=== PATIENT | male | born 1950 | race Caucasian/White ===

== ENCOUNTER → 2017-07-28 | Outpatient (CLI) | payer OTHER ==
[2017-07-28 12:18] LABS: HEMATOCRIT 37.2 % (42-52); HEMOGLOBIN 12.6 g/dL (14.0-18.0); MEAN CELL VOLUME 94.4 fL (80-100); MEAN CORPUSCULAR HGB CONC 33.9 g/dl (32-36); MEAN PLATELET VOLUME 10.1 fL (7.4-10.4); PLATELET COUNT 130 K/uL (130-400); RED CELL DISTRIBUTION WIDTH CV 12.1 % (11.5-14.5); RED CELL DISTRIBUTION WIDTH SD 41.2 fL (36.4-46.3); WHITE BLOOD COUNT 4.34 K/uL (4.8-10.8)
[2017-07-28 12:59] LABS: HEMOGLOBIN A1C 5.1 % (4.5-5.6)
[2017-07-28 13:55] LABS: ALBUMIN 3.7 gm/dl (3.4-5.0); ALKALINE PHOSPHATASE 92 U/L (45-117); ALT/SGPT 21 U/L (12-78); AST/SGOT 21 U/L (15-37); BLOOD UREA NITROGEN 22 mg/dl (7-18); CALCIUM 9.2 mg/dl (8.5-10.1); CARBON DIOXIDE 30 mmol/L (21-32); CREATININE 1.58 mg/dl (0.60-1.40); GLUCOSE 84 mg/dl (70-99); POTASSIUM 4.3 mmol/L (3.5-5.1); SODIUM 140 mmol/L (136-145); TOTAL PROTEIN 7.4 gm/dl (6.4-8.2)
== END | disposition home or self-care (01) ==
LOC: C.LABPVFM 09:45
PROVIDERS: ATTEND Family Medicine
DX: Z00.00 Encounter for general adult medical examination without abnormal findings (principal)

== ENCOUNTER → 2017-08-24 | Outpatient (CLI) | payer OTHER ==
--- NOTE | 2017-08-24 09:57 | DIAGNOSTIC IMAGING REPORT ---
TWO VIEW CHEST CLINICAL HISTORY: Pneumonia. FINDINGS: PA and lateral chest radiographs are obtained. No prior studies are available for comparison at the time of dictation. The heart is enlarged and there is atherosclerotic calcification of the thoracic aorta. The pulmonary vasculature is noncongested. Emphysematous change is suspected and there is nonspecific interstitial thickening. No airspace consolidation or pleural effusion is identified. Atelectasis versus scarring is seen at the left lung base. There is no pneumothorax. The skeletal structures are osteopenic. Degenerative change and mild hyperkyphosis are noted in the thoracic spine. IMPRESSION: 1. Cardiomegaly and suspect emphysema. 2. No airspace consolidation or pleural effusion is identified. Electronically signed by: Rey Cancino M.D. 08/24/2017 9:56 AM Dictated Date/Time: 08/24/2017 9:54 AM
== END | disposition home or self-care (01) ==
LOC: C.RAD1850 09:38
PROVIDERS: ATTEND Physician Assistant
DX: J18.9 Pneumonia, unspecified organism (principal)

== ENCOUNTER → 2017-09-29 | Outpatient (CLI) | payer OTHER ==
--- NOTE | 2017-09-29 12:54 | DIAGNOSTIC IMAGING REPORT ---
ADDENDUM CAD FINDINGS: Overall Lung RADS Category: 1 Lung RADS Management Recommendation: Continue annual lung cancer screening. Lung RADS Follow Up Date: September, Electronically signed by: Ted eLnz M.D. 10/01/2017 9:08 AM Dictated Date/Time: 10/01/2017 9:03 AM ORIGINAL REPORT LUNG SCREENING, LOW DOSE CLINICAL HISTORY: AGRESSIVE FORMER SMOKER COMPARISON STUDY: No previous studies for comparison. CT DOSE: 97.72 mGy.cm TECHNIQUE: Low-dose helical CT was acquired without intravenous contrast from lung apices to bases and reconstructed at 2.5 mm every 2 mm. CAD was utilized for this study. A dose lowering technique was utilized adhering to the principles of ALARA. FINDINGS: Lungs are considered clear. Mild emphysematous change. No focal nodular pathology. Minimal dependent basilar atelectasis. No significant mediastinal or hilar adenopathy. IMPRESSION: 1. The lungs are clear with no significant nodular pathology. 2. Mild emphysematous change. 3. Minimal scattered bibasilar atelectasis. CAD FINDINGS: Overall Lung RADS Category: Lung RADS Management Recommendation: Continue annual lung cancer screening. Lung RADS Follow Up Date: Lung RADS Nodule ID: The above report was generated using voice recognition software. It may contain grammatical, syntax or spelling errors. Electronically signed by: Ted Lenz M.D. 09/29/2017 12:53 PM Dictated Date/Time: 09/29/2017 12:50 PM
== END | disposition home or self-care (01) ==
LOC: C.CTS 12:16
PROVIDERS: ATTEND Physician Assistant
DX: Z87.891 Personal history of nicotine dependence (principal)

== ENCOUNTER 2018-01-12 12:15 | Emergency (ER) | payer OTHER ==
[~2018-01-12] VITALS: Ht 177.8 cm; Wt 114.0 kg
[2018-01-12 12:16] VITALS: TEMP 36.3; Ht 177.8 cm; Wt 114.0 kg
[2018-01-12] MEDS ORDERED: ALBINS/ INH (12:58)
[2018-01-12] MEDS ORDERED: TYLOTC500 PO (12:58)
[2018-01-12] MEDS ORDERED: CLR10 PO (12:58)
[2018-01-12] MEDS ORDERED: SPRIN/30 INH (12:58)
[2018-01-12] MEDS ORDERED: B-COTAB18 PO (12:58)
[2018-01-12] MEDS ORDERED: PRED-301 PO (12:58)
[2018-01-12] MEDS ORDERED: ASCO250T5 PO (12:58)
[2018-01-12] MEDS ORDERED: SYMIN160 INH (12:58)
[2018-01-12] MEDS ORDERED: ATRINS NEB (12:58)
[2018-01-12] MEDS ORDERED: TERA5CAP PO (12:58)
[2018-01-12] MEDS ORDERED: AZIT250T PO (12:58)
[2018-01-12] MEDS ORDERED: VNTHFA/IN INH (12:58)
[2018-01-12 13:12] LABS: BASO % 0.5 %; BASO ABS # 0.02 K/uL (0-0.2); EOS % 1.7 %; EOS ABS # 0.07 K/uL (0-0.5); HEMOGLOBIN 13.2 g/dL (14.0-18.0); IG# 0.01 K/uL (0.00-0.02); LYMPH % 20.9 %; LYMPH ABS # 0.88 K/uL (1.2-3.4); MEAN CORPUSCULAR HGB CONC 34.7 g/dl (32-36); MEAN PLATELET VOLUME 9.6 fL (7.4-10.4); MONO % 3.3 %; MONO ABS # 0.14 K/uL (0.11-0.59); NEUT % 73.4 %; PLATELET COUNT 120 K/uL (130-400); RED CELL DISTRIBUTION WIDTH CV 12.6 % (11.5-14.5); RED CELL DISTRIBUTION WIDTH SD 43.4 fL (36.4-46.3); WHITE BLOOD COUNT 4.22 K/uL (4.8-10.8)
[2018-01-12] MEDS ORDERED: OPTIRAY 320 IV PRN (13:30)
[2018-01-12 13:31] LABS: ALBUMIN 3.9 gm/dl (3.4-5.0); CALCIUM 8.9 mg/dl (8.5-10.1); CREATININE 1.51 mg/dl (0.60-1.40); POTASSIUM 4.5 mmol/L (3.5-5.1); TOTAL PROTEIN 7.5 gm/dl (6.4-8.2)
[2018-01-12 14:35] VITALS: BP 160/86; PULSE 68; O2SAT 99
--- NOTE | 2018-01-12 14:49 | DIAGNOSTIC IMAGING REPORT ---
ABDOMEN AND PELVIS CT WITH IV CONTRAST CT DOSE: 995.18 mGycm HISTORY: Lower abdominal pain. TECHNIQUE: Multiaxial CT images of the abdomen and pelvis were performed following the use of intravenous contrast. A dose lowering technique was utilized adhering to the principles of ALARA. COMPARISON STUDY: None. FINDINGS: Emphysema and a few linear scarlike densities within the lung bases. No pneumoperitoneum. No pneumatosis. No suspicious lytic or blastic osseous lesions. Small fat-containing umbilical hernia. The liver, gallbladder, spleen, pancreas, and adrenal glands are unremarkable. Bilateral cortical renal lobulation/scarring. No hydronephrosis. The kidneys enhance normally. No retroperitoneal lymphadenopathy. Mild bladder wall thickening. Extensive colonic diverticulosis. No evidence for diverticulitis. No bowel wall thickening or obstruction. Normal appendix. IMPRESSION: 1. No bowel wall thickening or obstruction. 2. Colonic diverticulosis. 3. Normal appendix. 4. Mild bladder wall thickening. This could be chronic or due to a cystitis. Recommend correlation with urinalysis. 5. Small fat-containing umbilical hernia. Electronically signed by: Jesse Collins M.D. 01/12/2018 2:47 PM Dictated Date/Time: 01/12/2018 2:35 PM
--- NOTE | 2018-01-12 17:09 | EMERGENCY ROOM VISIT NOTE ---
History Report prepared by Bhavesh: Sharmin Waterman Under the Supervision of: Dr. Dallas Flaherty D.O. 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 He describes his pain as "just pain" and notes that movement worsens his pain. Pain is located in his lower abdomen throughout both sides. No other exacerbating or remitting factors. He has never had anything like this before. Pain does not radiate anywhere. Pt denies headache, fevers, chest pain, shortness of breath, nausea, vomiting, diarrhea, pain with urination, and melena. He does note that he has an enlarged prostate and believes this may be the cause of his pain. 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 A total of 10 systems reviewed and were otherwise negative. Past Medical & Surgical Medical Problems: (1) Enlarged prostate Family History Omitted secondary to age Social History Smoking Status: Never Smoker Marital Status: Housing Status: lives with significant other Occupation Status: retired Current/Historical Medications Scheduled Ascorbic Acid (Ascorbic Acid), 1 DOSE PO DAILY Azithromycin (Zithromax), 250 MG PO DAILY B-Complex Vitamins (Vitamin B Complex), 1 TAB PO DAILY Budesonide/Formoterol Fumarate (Symbicort 160/4.5 Inhaler ), 2 PUFFS INH BID Ipratropium [place] (Ipratropium [place]), 1 VIAL NEB Q4H Prednisone (Prednisone), 5 MG PO UD Terazosin (Hytrin), 5 MG PO HS Tiotropium [place] (Spiriva Handihaler), 1 CAP INH DAILY Scheduled PRN Acetaminophen (Tylenol), 1,000 MG PO BID PRN for Pain Albuterol Hfa (Ventolin Hfa), 2 PUFFS INH Q4H PRN for SOB/Wheezing Albuterol Sulf (Proventil 0.083% 2.5MG/3ML), 2.5 MG INH BID PRN for SOB/Wheezing Azithromycin (Zithromax), 500 MG PO DAILY PRN for COPD EMERGENCIES Loratadine (Claritin), 10 MG PO DAILY PRN for Seasonal Allergies Allergies Coded Allergies: No Known Allergies (Unverified , 01/12/18) Physical Exam Vital Signs Date Time Temp Pulse Resp B/P (MAP) Pulse Ox O2 Delivery O2 Flow Rate FiO2 01/12/18 14:35 68 18 160/86 99 Room Air 01/12/18 12:16 36.3 82 20 126/68 97 Room Air Physical Exam GENERAL: Sitting up in bed, alert, well appearing, well nourished, no distress, non-toxic EYE EXAM: normal conjunctiva. PERRL and EOM's grossly intact. OROPHARYNX: no exudate, no erythema, lips, buccal mucosa, and tongue normal and mucous membranes are moist NECK: supple, no nuchal rigidity, no adenopathy, non-tender LUNGS: Clear to auscultation. Normal chest wall mechanics HEART: no murmurs, S1 normal and S2 normal ABDOMEN: abdomen soft, minimal tenderness throughout the lower abdomen, normo- active bowel sounds, no masses, no rebound or guarding. BACK: Back is symmetrical on inspection and there is no deformity, no midline tenderness, no CVA tenderness. SKIN: no rashes and no bruising UPPER EXTREMITIES: upper extremities are grossly normal. LOWER EXTREMITIES: No pitting edema. NEURO EXAM: Normal sensorium, cranial nerves II-XII intact, normal speech, no gross weakness of arms, no gross weakness of legs. Medical Decision & Procedures ER Provider Diagnostic Interpretation: Radiology results as stated below per my review and the radiologist's interpretation: ABDOMEN AND PELVIS CT WITH IV CONTRAST CT DOSE: 995.18 mGycm HISTORY: Lower abdominal pain. TECHNIQUE: Multiaxial CT images of the abdomen and pelvis were performed following the use of intravenous contrast. A dose lowering technique was utilized adhering to the principles of ALARA. COMPARISON STUDY: None. FINDINGS: Emphysema and a few linear scarlike densities within the lung bases. No pneumoperitoneum. No pneumatosis. No suspicious lytic or blastic osseous lesions. Small fat-containing umbilical hernia. The liver, gallbladder, spleen, pancreas, and adrenal glands are unremarkable. Bilateral cortical renal lobulation/scarring. No hydronephrosis. The kidneys enhance normally. No retroperitoneal lymphadenopathy. Mild bladder wall thickening. Extensive colonic diverticulosis. No evidence for diverticulitis. No bowel wall thickening or obstruction. Normal appendix. IMPRESSION: 1. No bowel wall thickening or obstruction. 2. Colonic diverticulosis. 3. Normal appendix. 4. Mild bladder wall thickening. This could be chronic or due to a cystitis. Recommend correlation with urinalysis. 5. Small fat-containing umbilical hernia. Electronically signed by: Jesse Collins M.D. 01/12/2018 2:47 PM Laboratory Results 01/12/18 12:52 Red Blood Count 4.00, Mean Corpuscular Volume 95.0, Mean Corpuscular Hemoglobin 33.0, Mean Corpuscular Hemoglobin Concent 34.7, Mean Platelet Volume 9.6, Neutrophils (%) (Auto) 73.4, Lymphocytes (%) (Auto) 20.9, Monocytes (%) (Auto) 3.3, Eosinophils (%) (Auto) 1.7, Basophils (%) (Auto) 0.5, Neutrophils # (Auto) 3.10, Lymphocytes # (Auto) 0.88, Monocytes # (Auto) 0.14, Eosinophils # (Auto) 0.07, Basophils # (Auto) 0.02 01/12/18 12:52 Test 01/12/18 12:41 01/12/18 12:52 Urine Color DK YELLOW Urine Appearance CLEAR (CLEAR) Urine pH 5.0 (4.5-7.5) Urine Specific [place] 1.013 (1.000-1.030) Urine Protein NEG (NEG) Urine Glucose (UA) NEG (NEG) Urine Ketones NEG (NEG) Urine Occult Blood 1+ (NEG) Urine Nitrite NEG (NEG) Urine Bilirubin NEG (NEG) Urine Urobilinogen NEG (NEG) Urine Leukocyte Esterase NEG (NEG) Urine WBC (Auto) 1-5 /hpf (0-5) Urine RBC (Auto) 5-10 /hpf (0-4) Urine Hyaline Casts (Auto) 1-5 /lpf (0-5) Urine Epithelial Cells (Auto) 5-10 /lpf (0-5) Urine Bacteria (Auto) NEG (NEG) White Blood Count 4.22 K/uL (4.8-10.8) Red Blood Count 4.00 M/uL (4.7-6.1) Hemoglobin 13.2 g/dL (14.0-18.0) Hematocrit 38.0 % (42-52) Mean Corpuscular Volume 95.0 fL (80-100) Mean Corpuscular Hemoglobin 33.0 pg (25-34) Mean Corpuscular Hemoglobin Concent 34.7 g/dl (32-36) Platelet Count 120 K/uL (130-400) Mean Platelet Volume 9.6 fL (7.4-10.4) Neutrophils (%) (Auto) 73.4 % Lymphocytes (%) (Auto) 20.9 % Monocytes (%) (Auto) 3.3 % Eosinophils (%) (Auto) 1.7 % Basophils (%) (Auto) 0.5 % Neutrophils # (Auto) 3.10 K/uL (1.4-6.5) Lymphocytes # (Auto) 0.88 K/uL (1.2-3.4) Monocytes # (Auto) 0.14 K/uL (0.11-0.59) Eosinophils # (Auto) 0.07 K/uL (0-0.5) Basophils # (Auto) 0.02 K/uL (0-0.2) RDW Standard Deviation 43.4 fL (36.4-46.3) RDW Coefficient of Variation 12.6 % (11.5-14.5) Immature Granulocyte % (Auto) 0.2 % Immature Granulocyte # (Auto) 0.01 K/uL (0.00-0.02) Anion Gap 8.0 mmol/L (3-11) Est Creatinine Clear Calc Drug Dose 60.0 ml/min Estimated GFR () 54.6 Estimated GFR (Non- 47.1 BUN/Creatinine Ratio 14.9 (10-20) Calcium Level 8.9 mg/dl (8.5-10.1) Total Bilirubin 0.5 mg/dl (0.2-1) Direct Bilirubin 0.2 mg/dl (0-0.2) Aspartate Amino Transf (AST/SGOT) 18 U/L (15-37) Alanine Aminotransferase (ALT/SGPT) 20 U/L (12-78) Alkaline Phosphatase 91 U/L (45-117) Total Protein 7.5 gm/dl (6.4-8.2) Albumin 3.9 gm/dl (3.4-5.0) Lipase 123 U/L (73-393) Laboratory results per my review. ED Course ED COURSE: Vital signs were reviewed and showed normotensive The patients medical record was reviewed The above diagnostic studies were performed and reviewed. ED treatments and interventions as stated above. 1230: The patient was evaluated in room B3. A complete history and physical examination was performed. 1510: Upon reevaluation, the patient is feeling better. I discussed my findings with the patient and he understands and agrees with the treatment plan. Based on the patients age, coexisting illnesses, exam and lab findings the decision to treat as an outpatient was made. The patient remained stable while under my care. The patient appeared well at the time of discharge. Medical Decision Differential diagnoses includes but is not limited to gastritis, peptic ulcer disease, GERD, gallbladder disease, pancreatitis, small bowel obstruction, acute coronary syndrome, pericarditis, ischemic bowel, irritable bowel disease, irritable bowel syndrome, appendicitis, diverticulitis, malignancy, hernia, urinary tract infection, torsion, [/ectopic (if female)], perforation, trauma, infectious. Patient is a [age]-year-old male who presents the ER for abdominal pain which is been present for the past 4-5 days and has not really changed. It is located in his lower abdomen. He does have a history of urinary retention but notes he has not had any issues since his prostate resection. On exam no signs of peritonitis. Vitals are stable. CBC along with BMP, LFTs, and UA are unremarkable. Bladder scan postvoid was negative. CT abdomen pelvis was unremarkable. Patient was updated at bedside. Vitals are stable. No signs of peritonitis. Discharge follow-up PCP as an outpatient. Discussed with Pt concerning signs and symptoms to watch out for. Pt was instructed to follow up with their PCP and discussed with the patient their option to return to the ED at anytime for persistent or worsening symptoms. The appropriate anticipatory guidance and out-patient management, including indications for return to the emergency department, were explained at length to the patient and understood. Medication Reconcilliation Current Medication List: was personally reviewed by me Blood Pressure Screening Patient's blood pressure: Normal blood pressure Blood pressure disposition: Did not require urgent referral Impression Primary Impression: Abdominal pain Scribe Attestation The scribe's documentation has been prepared under my direction and personally reviewed by me in its entirety. I confirm that the note above accurately reflects all work, treatment, procedures, and medical decision making performed by me. Departure Information Dispostion Home / Self-Care Referrals Tracy Gomez M.D. (PCP) Forms Call Back Authorization, HOME CARE DOCUMENTATION FORM, IMPORTANT VISIT INFORMATION Patient Instructions [facility] Additional Instructions Please follow up with your primary care doctor with in the next 24 hours. Any worsening of your symptoms, please return to the ED immediately. This includes any fevers greater than 100.4, worsening pain, chest pain, shortness breath, persistent nausea, vomiting, unable to eat or drink, or any other concerning signs or symptoms from your standpoint. Please take Tylenol or Motrin as needed for pain. Problem Qualifiers Primary Impression: Abdominal pain Abdominal location: unspecified location Qualified Codes: R10.9 - Unspecified abdominal pain
== END 2018-01-12 15:15 | disposition home or self-care (01) ==
LOC: C.EDB 12:16
DX: R10.30 Lower abdominal pain, unspecified (principal); N40.0 Benign prostatic hyperplasia without lower urinary tract symptoms; Z87.448 Personal history of other diseases of urinary system; Z98.890 Other specified postprocedural states

== ENCOUNTER 2021-03-28 04:23 | Observation (INO) ==
[2021-03-28] MEDS ORDERED: ALBUT/IPRATROP 3MG/0.5MG NEB 3 ML VIAL NEB STA (04:31)
--- NOTE | 2021-03-28 04:34 | Emergency Department Note ---
Impression & Plan COPD (chronic obstructive pulmonary disease), Pulmonary embolism ADMIT ED Provider Note HPI: The patient is a 70-year-old gentleman with history of COPD, on 2 L nasal can nula oxygen at night only, presents the emergency department with a chief complaint of increased work of breathing/shortness of breath that has been worsening over the past 24 to 36 hours. Patient states he is also had some mild chest discomfort that radiates to his back. States that it seems to worsen with deep breathing. Patient states that he wears 2 L of nasal cannula oxygen at night, states that he has been wearing it during the day since yesterday as well because of shortness of breath. On arrival to the ED the patient has borderline oxygen saturations at 91% on 2 L nasal cannula oxygen with some tachypnea and increased work of breathing. ROS: -Pulmonary: Shortness of breath -Cardio: Chest discomfort *10 point review systems was conducted and is otherwise negative unless stated above *Outpatient medications and allergy history reviewed PE: General: Alert HEENT: Normocephalic, atraumatic, trachea midline Eyes: Extraocular eye movement is intact, no scleral erythema Pulmonary: Diminished bilateral breath sounds with mild expiratory wheezing Cardio: Regular rate and rhythm GI: Abdomen is soft, nontender : No suprapubic tenderness MSK: No evidence of trauma or malformation of the extremities, no edema Skin: No evidence of rash Neuro: Alert, no focal deficits 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 On arrival here to the ED he is displaying some mild increased work of breathing, his oxygen saturations are borderline on 2 L nasal cannula, he is tachypneic. States he has mild chest discomfort. Troponin is negative x1, EKG does not show any evidence of ST elevation, given the patient's work of breathing I did obtain CT angiography of the chest that does not show any evidence of aortic dissection or pulmonary embolism per initial STAT RAD read. I was however informed later during the patient stay that on reevaluation by our in-house radiologist there is evidence of subsegmental pulmonary embolism with possible groundglass opacity versus infarct. In addition, CT scan of the abdomen pelvis was performed that shows no evidence of any acute surgical pathology. Patient's lab work shows baseline renal function, no leukocytosis. Venous blood gas shows no evidence of hypercarbia. Patient was given IV Solu-Medrol prior to arrival via EMS, he was given a DuoNeb breathing treatment as well, he was given an additional breathing treatment after my assessment and on my reassessment his work of breathing is greatly improved. He is stable on 2 L nasal cannula. He was given IV morphine for his chest pain and states he still does have some mild discomfort. Given this in addition to his comorbidities I did discuss with the patient that admission would be the best course of action to trend his enzymes and make sure that his work of breathing remains improved. In addition, given that he does have a finding of pulmonary embolism on CT angiography, will require anticoagulation. Patient expressed agreement understanding. He was admitted in stable condition to the hospitalist service following my discussion with Dr. August. We will hold off on anticoagulation at this time and defer to the hospitalist per their request. Critical care time: 46 minutes: -Management of acute pulmonary embolism with increased oxygen requirement and associated pulmonary infarct, interpretation of diagnostic studies, time spent at the bedside, discussion with other physicians * Diagnosis: Acute pulmonary embolism with possible associated infarct, COPD exacerbation with increased oxygen requirement * Disposition: Admission Ted Johnson DO Emergency Medicine Past Med/Surg History Medical History Benign prostatic hyperplasia with urinary obstruction and other lower urinary tract symptoms Chronic obstructive pulmonary disease Colon polyp COPD (chronic obstructive pulmonary disease) Diastolic dysfunction History of colon polyps History of elevated glucose History of smoking at least 1 pack per day for at least 30 years Obesity (BMI 30-39.9) Osteoarthritis Polymyalgia rheumatica Renal disease Severe aortic valve stenosis Surgical History H/O rectal polypectomy History of bilateral cataract extraction History of colonoscopy History of cystoscopy History of elbow surgery History of hernia repair History of surgical removal of terminal ileum History of wisdom tooth extraction Family History Brother Family history of diabetes mellitus Family hx colonic polyps Prostate cancer Myocardial infarction H/O heart bypass surgery Mother Colorectal cancer Other No family history of adverse response to anesthesia Denies family history of Ovarian cancer Breast cancer Lung cancer Social History (Updated 03/19/21 @ 14:32 by Armida Bales LPN) Smoking Status: Unknown if ever smoked Tobacco Type: Cigarettes Second Hand Exposure: No (CHILDHOOD); Hx Alcohol Use: Yes Alcohol Intake Frequency: Monthly or Less Hx Substance Use: No Preferred Language: Arabic Communication Ability: Effective Visual Impairment: Limited Triple Valve Mechanic Required: No Beliefs That Will Affect Care: None marital status: Current Living Situation: Spouse current occupational status: retired How many Children do You have: 1 Feels Safe at Home: Yes Childhood Exposure to Second-Hand Smoke: Yes caffeine: Yes (coffee, soda) Dental Care, Regularly: Yes Physical Activity Frequency: Does not Exercise Seatbelt Use: never Sunscreen Use: No Assistive Devices: Glasses, Oxygen - Continuous and Walker Allergies Allergies Allergy/AdvReac Type Severity Reaction Status Date / Time grass pollen Allergy Mild Verified 03/28/21 07:46 Sulfa (Sulfonamide AdvReac Unknown Unknown Unverified 03/28/21 07:46 Antibiotics) Home Meds Home Medications Medication Instructions Recorded Confirmed budesonide-formoterol HFA 160 2 puff INHALATION BID 06/24/18 03/28/21 mcg-4.5 mcg/actuation aerosol inhaler (Symbicort) loratadine 10 mg tablet (Claritin) 10 mg PO QAM 06/24/18 03/28/21 tiotropium bromide 18 mcg capsule 1 cap INHALATION HS 06/24/18 03/28/21 with inhalation device (Spiriva with HandiHaler) acetaminophen 500 mg tablet 1,000 mg PO Q6H PRN 12/21/19 03/28/21 (Tylenol Extra Strength) sennosides 8.6 mg tablet (Senokot) 8.6 mg PO HS 12/21/19 03/28/21 allopurinol 300 mg tablet 300 mg PO DAILY 03/19/21 03/28/21 famotidine 20 mg tablet 20 mg PO QDD 03/28/21 03/28/21 furosemide 20 mg tablet 40 mg PO QAM 03/28/21 03/28/21 omeprazole 40 mg capsule,delayed 40 mg PO QAM 03/28/21 03/28/21 release Previous Rx's Medication Instructions Recorded albuterol sulfate 90 mcg/actuation 2 puffs INH Q6H PRN #1 ea 05/12/19 breath activated powder inhaler,sensor finasteride 5 mg tablet 5 mg PO QAM #30 tab 07/25/20 ipratropium 0.5 mg-albuterol 3 mg 3 ml INHALATION TID #270 vial 08/15/20 (2.5 mg base)/3 mL nebulization soln terazosin 5 mg capsule 5 mg PO QPM #90 cap 12/06/20 Results & Data (ED) Vital Signs Vital Signs - 24 hr 03/28/21 04:33 03/28/21 04:36 03/28/21 04:37 Temperature 36.9 C Temperature Source Oral Pulse Rate 97 H Pulse Rate [Finger] 95 H Respiratory Effort / Characteristics Respiratory Depth Blood Pressure Blood Pressure [Left Arm] 116/60 Blood Pressure Mean Blood Pressure Mean [Left Arm] 78 Pulse Oximetry 98 95 96 Oxygen Delivery Method Nasal Cannula Nasal Cannula Room Air Oxygen Flow Rate 2 2 Sepsis Recent Fever Within 48 Hours Sepsis New/Unexplained Change in Mental Status Sepsis Action Taken by Nursing 03/28/21 04:39 03/28/21 06:37 Temperature 36.9 C Temperature Source Oral Pulse Rate 93 H Pulse Rate [Finger] 81 Respiratory Effort / Characteristics Labored Respiratory Depth Deep Blood Pressure 116/60 Blood Pressure [Left Arm] 96/56 L Blood Pressure Mean 78 Blood Pressure Mean [Left Arm] 69 Pulse Oximetry 97 91 Oxygen Delivery Method Nasal Cannula Nasal Cannula Oxygen Flow Rate 2 2 Sepsis Recent Fever Within 48 Hours No Sepsis New/Unexplained Change in Mental Status N/A Sepsis Action Taken by Nursing No Action Required Laboratory Data Result diagrams: 03/28/21 03:48 03/28/21 03:48 Lab Results 03/28/21 03/28/21 03/28/21 Range/Units 03:48 03:48 03:48 WBC 6.53 (4.8-10.8) K/uL RBC 3.89 L (4.7-6.1) M/uL Hgb 12.4 L (14.0-18.0) g/dL Hct 36.5 L (42-52) % MCV 93.8 (80-100) fL MCH 31.9 (25-34) pg MCHC 34.0 (32-36) g/dL RDW Std Deviation 46.9 H (36.4-46.3) fL RDW Coeff of Nimesh 13.9 (11.5-14.5) % Plt Count 127 L (130-400) K/uL MPV 10.1 (7.4-10.4) fL Immature Gran % (Auto) 0.2 % Neut % (Auto) 83.3 % Lymph % (Auto) 8.7 % [place] % (Auto) 6.4 % Eos % (Auto) 1.2 % Baso % (Auto) 0.2 % Neut # (Auto) 5.44 (1.4-6.5) K/uL Lymph # (Auto) 0.57 L (1.2-3.4) K/uL [place] # (Auto) 0.42 (0.11-0.59) K/uL Eos # (Auto) 0.08 (0-0.5) K/uL Baso # (Auto) 0.01 (0-0.2) K/uL Immature Gran # (Auto) 0.01 (0.00-0.02) K/uL PT 10.9 (9.0-12.0) Seconds INR 1.1 (0.9-1.1) APTT 31.7 H (21.0-31.0) Seconds PTT Ratio 1.2 VBG pH (7.36-7.41) VBG pCO2 (38-50) mmHg VBG pO2 mmHg VBG HCO3 mmol/L VBG O2 Saturation % VBG Base Excess mEq/L Barometric Pressure mm/Hg Sodium 136 (136-145) mmol/L Potassium 4.2 (3.5-5.1) mmol/L Chloride 100 (98-107) mmol/L Carbon Dioxide 31 (21-32) mmol/L Anion Gap 5.0 (3-11) BUN 23 H (7-18) mg/dl Creatinine 1.54 H (0.6-1.4) mg/dl Est Cr Clr Drug Dosing 56.8 ml/min Est GFR ( Amer) 52.2 ml/min Est GFR (Non-Af Amer) 45.0 ml/min BUN/Creatinine Ratio 15.2 (10-20) Glucose 107 H (70-99) mg/dl Calcium 9.3 (8.5-10.1) mg/dl Total Bilirubin 1.7 H (0.2-1) mg/dl AST 17 (15-37) U/L ALT 29 (12-78) U/L Alkaline Phosphatase 86 (45-117) U/L Troponin I < 0.015 (0-0.045) ng/ml Total Protein 7.1 (6.4-8.2) gm/dl Albumin 3.4 (3.4-5.0) gm/dl Globulin 3.7 (2.5-4.0) gm/dl Albumin/Globulin Ratio 0.9 (0.9-2) Lipase 89 (73-393) U/L COVID-19 Eval Order SARS-CoV-2 (PCR) (Negative) 03/28/21 03/28/21 03/28/21 Range/Units 05:07 05:07 05:18 WBC (4.8-10.8) K/uL RBC (4.7-6.1) M/uL Hgb (14.0-18.0) g/dL Hct (42-52) % MCV (80-100) fL MCH (25-34) pg MCHC (32-36) g/dL RDW Std Deviation (36.4-46.3) fL RDW Coeff of Nimesh (11.5-14.5) % Plt Count (130-400) K/uL MPV (7.4-10.4) fL Immature Gran % (Auto) % Neut % (Auto) % Lymph % (Auto) % [place] % (Auto) % Eos % (Auto) % Baso % (Auto) % Neut # (Auto) (1.4-6.5) K/uL Lymph # (Auto) (1.2-3.4) K/uL [place] # (Auto) (0.11-0.59) K/uL Eos # (Auto) (0-0.5) K/uL Baso # (Auto) (0-0.2) K/uL Immature Gran # (Auto) (0.00-0.02) K/uL PT (9.0-12.0) Seconds INR (0.9-1.1) APTT (21.0-31.0) Seconds PTT Ratio VBG pH 7.40 (7.36-7.41) VBG pCO2 48 (38-50) mmHg VBG pO2 26 mmHg VBG HCO3 29 mmol/L VBG O2 Saturation < 60.0 % VBG Base Excess 3.4 mEq/L Barometric Pressure 726.0 mm/Hg Sodium (136-145) mmol/L Potassium (3.5-5.1) mmol/L Chloride (98-107) mmol/L Carbon Dioxide (21-32) mmol/L Anion Gap (3-11) BUN (7-18) mg/dl Creatinine (0.6-1.4) mg/dl Est Cr Clr Drug Dosing ml/min Est GFR ( Amer) ml/min Est GFR (Non-Af Amer) ml/min BUN/Creatinine Ratio (10-20) Glucose (70-99) mg/dl Calcium (8.5-10.1) mg/dl Total Bilirubin (0.2-1) mg/dl AST (15-37) U/L ALT (12-78) U/L Alkaline Phosphatase (45-117) U/L Troponin I (0-0.045) ng/ml Total Protein (6.4-8.2) gm/dl Albumin (3.4-5.0) gm/dl Globulin (2.5-4.0) gm/dl Albumin/Globulin Ratio (0.9-2) Lipase (73-393) U/L COVID-19 Eval Order Covid19 at [facility] SARS-CoV-2 (PCR) NEGATIVE (Negative) Administered Medications Discontinued Medications Albuterol (Albut/Ipratrop 3mg/0.5mg Neb 3 Ml Vial) 3 ml NEB NOW STA Stop: 03/28/21 04:32 Last Admin: 03/28/21 06:20 Dose: 3 ml Documented by: [id number] Aspirin (Aspirin Chew 324 Mg) 324 mg PO NOW STA Stop: 03/28/21 07:49 Last Admin: 03/28/21 08:00 Dose: 324 mg Documented by: [id number] Ioversol (Optiray 320 125ml) 125 ml IV ONCE ONE Stop: 03/28/21 05:42 Last Admin: 03/28/21 05:42 Dose: 119 ml Documented by: [id number] Morphine Sulfate (Morphine Sulfate 4 Mg/Ml 1 Ml Carp\Vial) 4 mg IV NOW STA Stop: 03/28/21 05:54 Last Admin: 03/28/21 06:21 Dose: 4 mg Documented by: [id number] Imaging Data Radiologist's Impression: Chest CTA 03/28/21 04:31 CHEST CTA for PULMONARY ARTERIES CT DOSE: HISTORY: Atypical chest pain. Shortness of breath. TECHNIQUE: Multiaxial CT images of the chest were performed following the intravenous administration of contrast to evaluate the pulmonary arteries. Maximal intensity projection images were also obtained. A dose lowering technique was utilized adhering to the principles of ALARA. COMPARISON STUDY: CT lung screening 07/30/2020. FINDINGS: The visualized liver and spleen are unremarkable. The ascending tho racic aorta measures up to 4.5 cm in diameter at the level the main pulmonary artery. This is similar to the prior study. Nondiagnostic evaluation of the right lower lobe segmental and bilateral lower lobe subsegmental and right middle lobe subsegmental pulmonary arteries due to the motion artifact. Small filling defect seen within the subsegmental branches of the right upper lobe on image 239 and subsegmental branch of the right middle lobe on 160 consistent with pulmonary emboli. The left pulmonary arteries appear patent. No evidence for right-sided heart strain. The heart is top normal in size. Trace pericardial fluid/thickening remains unchanged. There is a trace right pleural effusion. No mediastinal or hilar lymphadenopathy. Normal caliber esophagus. No suspicious lytic or blastic osseous lesions. No pneumothorax. The central airways are patent. Bibasilar linear densities favor subsegmental atelectasis. Small focal peripheral groundglass density within the right middle lobe laterally is noted. Moderate emphysema. A 3 mm nodule within the lingula on image 143. IMPRESSION: 1. There are 2 subsegmental pulmonary emboli within the right lung as described above. No central pulmonary emboli identified. 2. Small focal groundglass airspace opacity within the periphery the right middle lobe. This could represent mild inflammatory/infectious change or a developing pulmonary infarct. 3. Moderate emphysema. 4. Trace right pleural effusion. 5. Stable mild aneurysmal dilatation of the ascending thoracic aorta measuring up to 4.5 cm in diameter. 6. These findings were called/faxed to the emergency department following dictation. ACT 112: Negative or not required by law. Electronically signed by: Jesse Collins M.D. 03/28/2021 8:21 AM Discharge Plan Visit Data Chief Complaint: Shortness of Breath/Dyspnea Stated Complaint: SOB ED Provider: Ted Johnson Discharge Problem: COPD (chronic obstructive pulmonary disease), Pulmonary embolism Forms Stand Alone Forms: [facility] Prescriptions Prescriptions: No Action albuterol sulfate 90 mcg/actuation aero powdr breath act w/sensor 2 puffs INH Q6H PRN (Reason: shortness of breath or wheezing) Qty: 1 RF: 3 finasteride 5 mg tablet 5 mg PO QAM Qty: 30 RF: 11 terazosin 5 mg capsule 5 mg PO QPM Qty: 90 RF: 1 allopurinol 300 mg tablet 300 mg PO DAILY RF: 0 ipratropium-albuterol 0.5 mg-3 mg(2.5 mg base)/3 mL solution for nebulization 3 ml INHALATION TID Qty: 270 RF: 3 sennosides [Senokot] 8.6 mg Tablet 8.6 mg PO HS RF: 0 acetaminophen [Tylenol Extra Strength] 500 mg Tablet 1,000 mg PO Q6H PRN (Reason: Pain) RF: 0 loratadine [Claritin] 10 mg Tablet 10 mg PO QAM RF: 0 Spiriva with HandiHaler 18 mcg Capsule, W/Inhalation Device 1 cap INHALATION HS RF: 0 budesonide-formoterol [Symbicort] 160-4.5 mcg/actuation Hfa Aerosol Inhaler 2 puff INHALATION BID RF: 0 omeprazole 40 mg capsule,delayed release(DR/EC) 40 mg PO QAM RF: 0 furosemide 20 mg tablet 40 mg PO QAM RF: 0 famotidine 20 mg Tablet 20 mg PO QDD RF: 0 Referrals Referrals: Tracy Gomez MD [Primary Care Provider] - Discharge Problem: COPD (chronic obstructive pulmonary disease) Qualifiers: COPD type: COPD with acute exacerbation Qualified Code(s): J44.1 - Chronic obst ructive pulmonary disease with (acute) exacerbation Pulmonary embolism Qualifiers: Pulmonary embolism type: unspecified Chronicity: unspecified Acute cor pulmonale presence: unspecified Qualified Code(s): I26.99 - Other pulmonary embolism without acute cor pulmonale
[2021-03-28 04:41] LABS: Basophils # (auto) 0.01 K/uL (0-0.2); Basophils % (auto) 0.2 %; Eosinophils # (auto) 0.08 K/uL (0-0.5); Eosinophils % (auto) 1.2 %; Hematocrit (blood only) 36.5 % (42-52); Hemoglobin 12.4 g/dL (14.0-18.0); Immature Granulocytes # (auto) 0.01 K/uL (0.00-0.02); Immature Granulocytes % (auto) 0.2 %; Lymphocytes # (auto) 0.57 K/uL (1.2-3.4); Lymphocytes % (auto) 8.7 %; Mean Corpuscular Hemoglobin 31.9 pg (25-34); Mean Corpuscular Volume 93.8 fL (80-100); Mean Platelet Volume 10.1 fL (7.4-10.4); Monocytes # (auto) 0.42 K/uL (0.11-0.59); Monocytes % (auto) 6.4 %; Neutrophils # (auto) 5.44 K/uL (1.4-6.5); Neutrophils % (auto) 83.3 %; Platelet Count 127 K/uL (130-400); RDW Coefficient of Variation 13.9 % (11.5-14.5); RDW Standard Deviation 46.9 fL (36.4-46.3); Red Blood Count 3.89 M/uL (4.7-6.1); White Blood Count 6.53 K/uL (4.8-10.8)
[2021-03-28 04:52] LABS: INR 1.1 (0.9-1.1); Partial Thromboplastin Ratio 1.2; Partial Thromboplastin Time 31.7 Seconds (21.0-31.0); Prothrombin Time 10.9 Seconds (9.0-12.0)
[2021-03-28 05:05] LABS: Alanine Aminotransferase 29 U/L (12-78); Albumin Level 3.4 gm/dl (3.4-5.0); Aspartate Aminotransferase 17 U/L (15-37); BUN Creatinine Ratio 15.2 (10-20); Blood Urea Nitrogen 23 mg/dl (7-18); Calcium 9.3 mg/dl (8.5-10.1); Carbon Dioxide 31 mmol/L (21-32); Chloride 100 mmol/L (98-107); Creatinine Clr Calc Pharmacy 56.8 ml/min; Est GFR (African American) 52.2 ml/min; Glucose 107 mg/dl (70-99); Lipase 89 U/L (73-393); Potassium 4.2 mmol/L (3.5-5.1); Sodium 136 mmol/L (136-145)
[2021-03-28 05:10] LABS: Albumin Globulin Ratio 0.9 (0.9-2); Alkaline Phosphatase 86 U/L (45-117); Bilirubin,Total 1.7 mg/dl (0.2-1); Globulin 3.7 gm/dl (2.5-4.0); Total Protein 7.1 gm/dl (6.4-8.2); Troponin I < 0.015 ng/ml (0-0.045)
[2021-03-28 05:37] LABS: Base Excess VBG 3.4 mEq/L; HCO3 VBG 29 mmol/L; PCO2 VBG 48 mmHg (38-50); PO2 VBG 26 mmHg
[2021-03-28] MEDS ORDERED: OPTIRAY 320 125ml IV ONE (05:41)
[2021-03-28 05:47] LABS: Oxygen Saturation VBG < 60.0 %
[2021-03-28] MEDS ORDERED: MoRPHine SULFATE 4 MG/ML 1 ML CARP\\VIAL IV STA (05:53)
[2021-03-28] MEDS ORDERED: ASPIRIN CHEW 324 MG PO STA (07:48)
--- NOTE | 2021-03-28 08:22 | CT Scan Report ---
CHEST CTA for PULMONARY ARTERIES CT DOSE: HISTORY: Atypical chest pain. Shortness of breath. TECHNIQUE: Multiaxial CT images of the chest were performed following the intravenous administration of contrast to evaluate the pulmonary arteries. Maximal intensity projection images were also obtaine d. A dose lowering technique was utilized adhering to the principles of ALARA. COMPARISON STUDY: CT lung screening 07/30/2020. FINDINGS: The visualized liver and spleen are unremarkable. The ascending thoracic aorta measures up to 4.5 cm in diameter at the level the main pulmonary artery. This is similar to the prior study. Non diagnostic evaluation of the right lower lobe segmental and bilateral lower lobe subsegmental and rig ht middle lobe subsegmental pulmonary arteries due to the motion artifact. Small filling defect seen within the subsegmental branches of the right upper lobe on image 239 and subsegmental branch of the right middle lobe on 160 consistent with pulmonary emboli. The left pulmonary arteries appear patent. No evidence for right-sided heart strain. The heart is top normal in size. Trace pericardial fluid/t hickening remains unchanged. There is a trace right pleural effusion. No mediastinal or hilar lymphad enopathy. Normal caliber esophagus. No suspicious lytic or blastic osseous lesions. No pneumothorax. The central airways are patent. Bibasilar linear densities favor subsegmental atelectasis. Small foca l peripheral groundglass density within the right middle lobe laterally is noted. Moderate emphysema. A 3 mm nodule within the lingula on image 143. IMPRESSION: 1. There are 2 subsegmental pulmonary emboli within the right lung as described above. No central pul monary emboli identified. 2. Small focal groundglass airspace opacity within the periphery the right middle lobe. This could re present mild inflammatory/infectious change or a developing pulmonary infarct. 3. Moderate emphysema. 4. Trace right pleural effusion. 5. Stable mild aneurysmal dilatation of the ascending thoracic aorta measuring up to 4.5 cm in diamet er. 6. These findings were called/faxed to the emergency department following dictation. ACT 112: Negative or not required by law. Electronically signed by: Jesse Collins M.D. 03/28/2021 8:21 AM
--- NOTE | 2021-03-28 09:06 | CT Scan Report ---
ABDOMEN AND PELVIS CT WITH IV CONTRAST CT DOSE: 2308.79 mGy.cm HISTORY: Nausea, shortness of breath., epigastric discomfort TECHNIQUE: Multiaxial CT images of the abdomen and pelvis were performed following the use of intrave nous contrast. A dose lowering technique was utilized adhering to the principles of ALARA. COMPARISON STUDY: Abdomen and pelvis CT 02/12/2020. FINDINGS: Please refer to same day chest CTA for further evaluation of the lung bases. No pneumoperit oneum. No pneumatosis. No suspicious lytic or blastic osseous lesions. Cholelithiasis. No gallbladder wall thickening. There is motion artifact resulting in suboptimal evaluation of the abdomen or pelvi s. The liver, adrenal glands, pancreas, and kidneys are within normal limits. No hydronephrosis. No r etroperitoneal lymphadenopathy. The appendix is surgically absent. Small fat-containing umbilical and ventral hernias are again noted. Normal bladder. Colonic diverticulosis. No evidence for acute diver ticulitis. The spleen remains mildly enlarged. IMPRESSION: 1. No bowel wall thickening or obstruction. 2. Cholelithiasis. No gallbladder wall thickening. 3. Colonic diverticulosis. No evidence for acute diverticulitis. 4. Stable mild splenomegaly. ACT 112: Negative or not required by law. Electronically signed by: Jesse Collins M.D. 03/28/2021 9:04 AM
--- NOTE | 2021-03-28 09:43 | Electrocardiogram Report ---
Test Reason : Blood Pressure : / mmHG Vent. Rate : 093 BPM Atrial Rate : 093 BPM P-R Int : 150 ms QRS Dur : 092 ms QT Int : 338 ms P-R-T Axes : 047 034 041 degrees QTc Int : 420 ms Sinus rhythm with Premature atrial complexes Nonspecific ST abnormality Abnormal ECG When compared with ECG of 23-FEB-1998 13:54, Premature atrial complexes are now Present Incomplete right bundle branch block is no longer Present Confirmed by Shankar Baez ([id number]) on 03/28/2021 9:43:11 AM Referred By: REFERRED SELF Confirmed By:Armando Baez
[2021-03-28] MEDS: PANTOprazole 40 MG TAB PO SCH (09:55)
[2021-03-28] MEDS ORDERED: SIMETHICONE 80 MG CHEW PO PRN (11:13)
[2021-03-28] MEDS ORDERED: ONDANSETRON INJ 2 MG/ML 2 ML VIAL IV PRN (11:13)
[2021-03-28] MEDS ORDERED: ALUMINUM/MAGNESIUM SUSP 30 ML UDC PO PRN (11:13)
[2021-03-28] MEDS ORDERED: FUROSEMIDE 40 MG TAB PO SCH (11:13)
[2021-03-28] MEDS ORDERED: ACETAMINOPHEN 500 MG TAB PO PRN (11:22)
[2021-03-28] MEDS ORDERED: ALBUTEROL HFA 8 GM INHALER INH PRN (11:24)
[2021-03-28] MEDS ORDERED: APIXABAN 5 MG TABLET PO ONE (11:30)
[2021-03-28] MEDS: ALBUT/IPRATROP 3MG/0.5MG NEB 3 ML VIAL INH SCH ×2 (11:35→19:16)
--- NOTE | 2021-03-28 12:30 | Ultrasound Report ---
BILATERAL LOWER EXTREMITY VENOUS DOPPLER HISTORY: Screening study for DVT patient with pulmonary emboli PE; look for source COMPARISON STUDY: Doppler study 11/05/2020 FINDINGS: There is normal compressibility, flow, and augmentation within the bilateral lower extremit y deep venous systems. IMPRESSION: No DVT within the right or left lower extremity. ACT 112: Negative or not required by law. Electronically signed by: Silas Velez M.D. 03/28/2021 12:28 PM
[2021-03-28] MEDS: allopurinoL 300 MG TAB PO SCH (12:55)
[2021-03-28] MEDS: FINASTERIDE 5 MG TAB PO SCH (12:55)
[2021-03-28] MEDS: LORATADINE 10 MG TAB PO SCH (12:55)
[2021-03-28] MEDS: FLUTICASONE/VILANTEROL 100/25MCG 14 PUFFS/INHALER INH SCH (12:57)
--- NOTE | 2021-03-28 14:37 | History & Physical Report ---
Date of Service March 28, 2021 Assessment & Plan (1) Pulmonary embolism: Plan: CTA chest on 03/28 showed "2 subsegmental pulmonary emboli within the right lung" with possible pulmonary infarct in the RML. - New guidelines would indicate that treatment is not clear-cut with subsegmental PEs; however, given his pleuritic chest pain and possible pulmonary infarct on CT chest, I am electing to treat. Risks:benefits of anticoagulation were discussed with patient and his . - B/l Dopplers on 03/28 were negative for DVT. - Begin apixaban with VTE dosing (2) Burping: Plan: Per patient on my interview, this was the main reason for presentation. - Continue home PPI & H2 mikael - Added simethicone PRN (3) COPD (chronic obstructive pulmonary disease): Plan: Admitted by ER provider as COPD exacerbation; however, for me, he denies all GOLD criteria symptoms of exacerbation. - Continue home maintenance inhaler, DuoNebs, and rescue inhalers - Monitor respiratory status (4) CHF (congestive heart failure): Plan: Chronic diastolic heart failure. Per patient, presently has no swelling. - Appears euvolemic on exam. - Continue home furosemide. (5) CKD (chronic kidney disease) stage 2, GFR 60-89 ml/min: Plan: Baseline Cr ~1.5. Presently at baseline. - Monitor Cr (6) Polymyalgia rheumatica: Plan: Reports some continued neck pain. - Symptomatic treatment (7) Severe aortic valve stenosis: Plan: Follows with Dr. Centeno. Last seen on 01/20/2021. felt to be asympomatic. - O/p follow-up (8) GERD with esophagitis: Plan: As above for "burping" (9) Gout: Plan: No acute flare. - Continue home allopurinol Admission and Anticipated Discharge Date Admission Date: March 28, 2021 History of Present Illness Primary Care Provider: Tracy Gomez MD 70 yo M w/ hx of COPD, CHF who presents with small segmental PE. The patient reports that since yesterday at 4:30am, he has been burping/belching, and this is what brought him into the ER. This is in estrada contrast to the report given to me by the ER physician and per report what EMS was told. For those providers, I was told he reported that he was short of breath and was having trouble breathing. He was given DuoNebs and steroids in the ambulance and again in the ER. He also reported chest pain to them which to me he reports only when he is taking deep breaths. For me, he denies any worsening shortness of breath. He has known COPD and sees a [facility] field organizer and has been attending pulmonary rehab. He reports his shortness of breath is stable at baseline. He reports occasional sputum production (especially after a DuoNeb treatment or inhaler), but unequivocally denies increased sputum production or change in sputum purulence compared to his baseline. He denies fevers or chills. Re: his burping, he reports that this happened in the summer as well and it was related to dietary intake. He reports that his PCP put him on a PPI which improved it. This time, he relates that he ate a few different chocolate food items, and he feels this might have worsened it. He denies any nausea or vomiting with the burping. Allergies Allergy/AdvReac Type Severity Reaction Status Date / Time grass pollen Allergy Mild Verified 03/28/21 07:46 Sulfa (Sulfonamide AdvReac Unknown Unknown Unverified 03/28/21 07:46 Antibiotics) Home Medications Medication Instructions Recorded Confirmed Type budesonide-formoterol HFA 160 2 puff INHALATION BID 06/24/18 03/28/21 History mcg-4.5 mcg/actuation aerosol inhaler (Symbicort) loratadine 10 mg tablet (Claritin) 10 mg PO QAM 06/24/18 03/28/21 History tiotropium bromide 18 mcg capsule 1 cap INHALATION HS 06/24/18 03/28/21 History with inhalation device (Spiriva with HandiHaler) albuterol sulfate 90 mcg/actuation 2 puffs INH Q6H PRN #1 ea 05/12/19 03/28/21 Rx breath activated powder inhaler,sensor acetaminophen 500 mg tablet 1,000 mg PO Q6H PRN 12/21/19 03/28/21 History (Tylenol Extra Strength) sennosides 8.6 mg tablet (Senokot) 8.6 mg PO HS 12/21/19 03/28/21 History finasteride 5 mg tablet 5 mg PO QAM #30 tab 07/25/20 03/28/21 Rx ipratropium 0.5 mg-albuterol 3 mg 3 ml INHALATION TID #270 vial 08/15/20 03/28/21 Rx (2.5 mg base)/3 mL nebulization soln terazosin 5 mg capsule 5 mg PO QPM #90 cap 12/06/20 03/28/21 Rx allopurinol 300 mg tablet 300 mg PO DAILY 03/19/21 03/28/21 History famotidine 20 mg tablet 20 mg PO QDD 03/28/21 03/28/21 History furosemide 20 mg tablet 40 mg PO QAM 03/28/21 03/28/21 History omeprazole 40 mg capsule,delayed 40 mg PO QAM 03/28/21 03/28/21 History release Past Med/Surg History Medical History (Updated 03/28/21 @ 14:36 by Manan August MD) Benign prostatic hyperplasia with urinary obstruction and other lower urinary tract symptoms Chronic obstructive pulmonary disease SEVERE per pulm 08/09. Uses inhalers daily and prn CKD (chronic kidney disease) stage 2, GFR 60-89 ml/min Colon polyp COPD (chronic obstructive pulmonary disease) Diastolic dysfunction History of colon polyps History of elevated glucose History of smoking at least 1 pack per day for at least 30 years Obesity (BMI 30-39.9) Osteoarthritis Polymyalgia rheumatica Renal disease Severe aortic valve stenosis Per Dr. Centeno 07/15, "do not feel that he has demonstrated surgical symptoms. Feel that his exertional dyspnea is likely related to his severe COPD. No indication for aortic valve replacement surgery at this time." Surgical History H/O rectal polypectomy History of bilateral cataract extraction History of colonoscopy History of cystoscopy History of elbow surgery left ulnar nerve History of hernia repair Laparoscopic History of surgical removal of terminal ileum History of wisdom tooth extraction Family History Brother Family history of diabetes mellitus Family hx colonic polyps Prostate cancer Myocardial infarction H/O heart bypass surgery Mother Colorectal cancer Other No family history of adverse response to anesthesia Denies family history of Ovarian cancer Breast cancer Lung cancer Social History Smoking Status: Unknown if ever smoked Tobacco Type: Cigarettes Second Hand Exposure: No (CHILDHOOD); Hx Alcohol Use: Yes Alcohol Intake Frequency: Monthly or Less Hx Substance Use: No Preferred Language: Djib[place]ian Communication Ability: Effective Visual Impairment: Limited Glue Jointer Operator Required: No Beliefs That Will Affect Care: None marital status: Current Living Situation: Spouse current occupational status: retired How many Children do You have: 1 Feels Safe at Home: Yes Childhood Exposure to Second-Hand Smoke: Yes caffeine: Yes (coffee, soda) Dental Care, Regularly: Yes Physical Activity Frequency: Does not Exercise Seatbelt Use: never Sunscreen Use: No Assistive Devices: Glasses, Oxygen - Continuous and Walker Review of Systems Review of Systems: All systems reviewed & are unremarkable except as noted in HPI & below Physical Exam Constitutional: WD/WN, vitals as above Eyes: EOM intact bilaterally; no conjunctival abnormality ENMT: external ear and nose normal, oropharynx normal Neck: trachea midline, no thyromegaly normal visual inspection Respiratory: able to speak in complete sentences and + prolonged expiratory phase; no respiratory distress and no audible wheezes Auscultation: lungs clear to auscultation bilaterally; no crackles and no wheezes Cardiovascular: RRR, no murmur, no edema Gastrointestinal (Abdomen): Inspection/Auscultation: abdomen normal to inspection; abdomen not distended Musculoskeletal: no cyanosis or clubbing, extremities motor strength 5/5 Skin: no rashes, warm and dry Neurologic: moves all extremities and awake Psychiatric: Orientation: alert, oriented to person and cooperative Results & Data Results & Data ([facility]) Vital Signs (Past 12 Hours) Vital Signs Temp Pulse Pulse Resp BP BP Pulse Ox 03/28/21 11:35 81 16 98 03/28/21 10:57 73 19 102/60 96 03/28/21 10:55 36.8 C 90 18 135/71 98 03/28/21 09:00 83 16 109/60 96 03/28/21 06:37 81 96/56 L 91 03/28/21 04:39 36.9 C 93 H 116/60 97 03/28/21 04:37 36.9 C 95 H 116/60 96 03/28/21 04:36 95 03/28/21 04:33 97 H 98 Code Status & VTE Plan VTE Prophylaxis Plan VTE Prophylaxis will be ordered: Yes PG Care Time/CCT Total # of Minutes Spent Total Time Spent with Patient: Total time spent is greater than 50% in coordination of care (as documented) at patient's floor/unit and/or counseling patient: Coding Level of Care Code INT OBSERVATION CARE 70M LVL 3 Diagnoses Pulmonary embolism I26.99 Acute cor pulmonale presence: unspecified Chronicity: unspecified Pulmonary embolism type: unspecified Burping R14.2 Polymyalgia rheumatica M35.3 Severe aortic valve stenosis I35.0 GERD with esophagitis K21.00 Gout M10.9 COPD (chronic obstructive pulmonary disease) J44.1 COPD type: COPD with acute exacerbation CHF (congestive heart failure) I50.9 CKD (chronic kidney disease) stage 2, GFR 60-89 ml/min N18.2 (1) Pulmonary embolism Acute cor pulmonale presence: unspecified Chronicity: unspecified Pulmonary embolism type: unspecified Qualified Code(s): I26.99 - Other pulmonary embolism without acute cor pulmonale (2) COPD (chronic obstructive pulmonary disease) COPD type: COPD with acute exacerbation Qualified Code(s): J44.1 - Chronic obstructive pulmonary disease with (acute) exacerbation
[2021-03-28] MEDS ORDERED: FAMOTIDINE 20 MG TAB PO SCH (16:30)
[2021-03-28] MEDS: predniSONE 2.5 MG TAB PO SCH (16:54)
[2021-03-28] MEDS: APIXABAN 5 MG TABLET PO SCH (20:11)
[2021-03-28] MEDS ORDERED: UMECLIDINIUM BROMIDE 62.5MCG/BLISTER 7 PUFFS/INHALER INH SCH (21:00)
[2021-03-28] MEDS ORDERED: SENNA 8.6 MG TAB PO SCH (21:00)
[2021-03-28] MEDS ORDERED: TERAZOSIN HCL 5 MG CAP PO SCH (21:00)
[2021-03-29] MEDS: ALBUT/IPRATROP 3MG/0.5MG NEB 3 ML VIAL INH SCH ×2 (06:02→13:50)
[2021-03-29 06:45] LABS: Hematocrit (blood only) 35.3 % (42-52); Hemoglobin 11.7 g/dL (14.0-18.0); Mean Corpuscular Hemoglobin 30.8 pg (25-34); Mean Corpuscular Hgb Conc 33.1 g/dL (32-36); Mean Corpuscular Volume 92.9 fL (80-100); Mean Platelet Volume 9.6 fL (7.4-10.4); Platelet Count 123 K/uL (130-400); RDW Coefficient of Variation 13.8 % (11.5-14.5); RDW Standard Deviation 46.3 fL (36.4-46.3); White Blood Count 6.81 K/uL (4.8-10.8)
[2021-03-29 07:12] LABS: BUN Creatinine Ratio 19.8 (10-20); Calcium 9.2 mg/dl (8.5-10.1); Creatinine Clr Calc Pharmacy 48.6 ml/min; Est GFR (African American) 43.2 ml/min; Est GFR (Non-African American) 37.3 ml/min; Magnesium 2.2 mg/dl (1.8-2.4); Potassium 4.3 mmol/L (3.5-5.1)
[2021-03-29] MEDS ORDERED: NORMOSOL-R 250 ML IV ONE (07:24)
[2021-03-29] MEDS: predniSONE 2.5 MG TAB PO SCH (08:18)
[2021-03-29] MEDS: FINASTERIDE 5 MG TAB PO SCH (08:18)
[2021-03-29] MEDS: APIXABAN 5 MG TABLET PO SCH (08:18)
[2021-03-29] MEDS: PANTOprazole 40 MG TAB PO SCH (08:18)
[2021-03-29] MEDS: allopurinoL 300 MG TAB PO SCH (08:18)
[2021-03-29] MEDS: LORATADINE 10 MG TAB PO SCH (08:18)
[2021-03-29] MEDS: FLUTICASONE/VILANTEROL 100/25MCG 14 PUFFS/INHALER INH SCH (08:19)
[2021-03-29 13:28] LABS: Calcium 9.5 mg/dl (8.5-10.1); Creatinine Clr Calc Pharmacy 41.1 ml/min; Est GFR (African American) 35.3 ml/min; Est GFR (Non-African American) 30.4 ml/min; Potassium 3.8 mmol/L (3.5-5.1)
--- NOTE | 2021-03-29 18:10 | Discharge Summary ---
Date of Service March 29, 2021 Admission HPI Per Admitting Provider 70 yo M w/ hx of COPD, CHF who presents with small segmental PE. The patient reports that since yesterday at 4:30am, he has been burping/belching, and this is what brought him into the ER. This is in estrada contrast to the report given to me by the ER physician and per report what EMS was told. For those providers, I was told he reported that he was short of breath and was having trouble breathing. He was given DuoNebs and steroids in the ambulance and again in the ER. He also reported chest pain to them which to me he reports only when he is taking deep breaths. For me, he denies any worsening shortness of breath. 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 He reports his shortness of breath is stable at baseline. He reports occasional sputum production (especially after a DuoNeb treatment or inhaler), but unequivocally denies increased sputum production or change in sputum purulence compared to his baseline. He denies fevers or chills. Re: his burping, he reports that this happened in the summer as well and it was related to dietary intake. He reports that his PCP put him on a PPI which improved it. This time, he relates that he ate a few different chocolate food items, and he feels this might have worsened it. He denies any nausea or vomiting with the burping. Principal Diagnosis Pulmonary embolism with small pulmonary infarct Acute kidney injury Discharge Exam Constitutional WD/WN, vitals as above Eyes EOM intact bilaterally; no conjunctival abnormality ENMT external ear and nose normal, oropharynx normal Neck trachea midline, no thyromegaly normal visual inspection Respiratory able to speak in complete sentences and + prolonged expiratory phase; no respiratory distress and no audible wheezes Auscultation: lungs clear to auscultation bilaterally; no crackles and no wheezes Cardiovascular RRR, no murmur, no edema Gastrointestinal (Abdomen) Inspection/Auscultation: abdomen normal to inspection; abdomen not distended Musculoskeletal no cyanosis or clubbing, extremities motor strength 5/5 Skin no rashes, warm and dry Neurologic moves all extremities and awake Psychiatric Orientation: alert, oriented to person and cooperative Discharge Data Allergies Allergy/AdvReac Type Severity Reaction Status Date / Time grass pollen Allergy Mild Verified 03/28/21 07:46 Sulfa (Sulfonamide AdvReac Unknown Unknown Unverified 03/28/21 07:46 Antibiotics) Consultations 03/28/21 08:31 ED Decision to Admit Stat Ordered Studies 03/28/21 04:31 CT angio chest PE protocol Urgent 03/28/21 04:32 CT abd pelvis IV con only Urgent 03/28/21 11:13 US venous doppler LE BI Routine Hospital Course (1) Pulmonary embolism: CTA chest on 03/28 showed "2 subsegmental pulmonary emboli within the right lung" with possible pulmonary infarct in the RML. - New guidelines would indicate that treatment is not clear-cut with subsegmental PEs; however, given his pleuritic chest pain and possible pulmonary infarct on CT chest, I elected to treat. Risks:benefits of anticoagulation were discussed with patient and his and they agreed. - B/l Dopplers on 03/28 were negative for DVT. - Began apixaban with VTE dosing -> No complications while inpatient. Pleuritic pain improved. Discharged with apixaban coupon and script for 1 month. Will follow up with PCP. Given small nature of PE and limited ongoing risk factors, likely a shorter course of anticoagulation could suffice, but defer to PCP. (2) CKD (chronic kidney disease) stage 2, GFR 60-89 ml/min: Baseline Cr ~1.5. On 03/29, developed acute kidney injury. Cr up to 2.1. I think this was because he takes his Lasix as 20 mg PO BID; NOT 40 mg daily. I believe his MAT is pre-renal from us giving him his Lasix at a higher dose. I advised him to stay in the hospital one more night to ensure his Cr was downtrending, but he declined. I did go over the risks of this, but he elected to go home. He is fully oriented and is capable of making his own medical decisions. His was present for our discussion. I asked him to hold his Lasix tomorrow and Wednesday and get a BMP which was ordered for him. - Follow up with PCP next week. (3) Burping: Per patient on my interview, this was the main reason for presentation. Due to chocolate indulgence. - Continue home PPI & H2 mikael - Added simethicone PRN (4) COPD (chronic obstructive pulmonary disease): Admitted by ER provider as COPD exacerbation; however, for me, he denies all GOLD criteria symptoms of exacerbation. - Continue home maintenance inhaler, DuoNebs, and rescue inhalers - Monitor respiratory status -> Stable and at baseline the entire admission. (5) CHF (congestive heart failure): Chronic diastolic heart failure. Per patient, presently has no swelling. - Appears euvolemic on exam. - Continued home furosemide on 03/28; held on 03/29 for MAT. (6) Polymyalgia rheumatica: Reports some continued neck pain. - Continue home prednisone 2.5 mg PO daily - Symptomatic treatment (7) Severe aortic valve stenosis: Follows with Dr. Centeno. Last seen on 01/20/2021. felt to be asympomatic. - O/p follow-up (8) GERD with esophagitis: As above for "burping" (9) Gout: No acute flare. - Continue home allopurinol Total Time Total Time Spent Total Time Spent (In Minutes): 35 Discharge Plan Discharge Items Patient Disposition: Home - Self-Care Reason For Visit: SMALL PE Discharge Diagnosis: Small blood clot in the lungs Activity: Resume your previous activity Non-emergency contact: Primary Care Provider Call non-emergency contact if: your symptoms worsen Follow-up/Referrals: Tracy Gomez MD [Primary Care Provider] - Diet: Heart Healthy Ambulatory Orders: Basic Metabolic Panel (Routine) Timeframe: 2 Days Location: Determined by Patient Ordered By: Manan Garcia Attending Provider Instructions: Mr. Robert, You were admitted to the hospital with some shortness of breath, burping, and chest pain. We found a small blood clot in your lungs that was likely causing the chest pain. With blood thinners, this improved while you were here. You will need to take the Eliquis twice a day for about 3 months. Take 2 tablets twice a day for 1 week, then reduce to 1 tablet twice per day from then on. Dr. Gomez will work with you regarding when you can stop. You also had some mild kidney upset while you were here. You take your Lasix as one tablet twice a day. Our records had you taking both at the same time, and I think this caused my dehydration for you. While we had hoped you would stay in the hospital another night to make sure it was going back to normal, you felt you needed to go home. I do respect this, but would really like to keep a close eye on your kidneys. Please get your blood drawn on Wednesday to check and make sure it is going back to normal. Do not take your Lasix on Wednesday or Wednesday until your blood is drawn and you are sure the kidney function is returning to normal. Pending Studies at Discharge: No Stand-Alone Forms: My [facility], Smoking Cessation Medications and DC Order Prescriptions: New Eliquis 5 mg Tablet See Rx Instructions .ROUTE .COMPLEX Qty: 70 RF: 0 Continued albuterol sulfate 90 mcg/actuation aero powdr breath act w/sensor 2 puffs INH Q6H PRN (Reason: shortness of breath or wheezing) Qty: 1 RF: 3 finasteride 5 mg tablet 5 mg PO QAM Qty: 30 RF: 11 terazosin 5 mg capsule 5 mg PO QPM Qty: 90 RF: 1 allopurinol 300 mg tablet 300 mg PO DAILY RF: 0 ipratropium-albuterol 0.5 mg-3 mg(2.5 mg base)/3 mL solution for nebulization 3 ml INHALATION TID Qty: 270 RF: 3 sennosides [Senokot] 8.6 mg Tablet 8.6 mg PO HS RF: 0 acetaminophen [Tylenol Extra Strength] 500 mg Tablet 1,000 mg PO Q6H PRN (Reason: Pain) RF: 0 loratadine [Claritin] 10 mg Tablet 10 mg PO QAM RF: 0 Spiriva with HandiHaler 18 mcg Capsule, W/Inhalation Device 1 cap INHALATION HS RF: 0 budesonide-formoterol [Symbicort] 160-4.5 mcg/actuation Hfa Aerosol Inhaler 2 puff INHALATION BID RF: 0 omeprazole 40 mg capsule,delayed release(DR/EC) 40 mg PO QAM RF: 0 famotidine 20 mg Tablet 20 mg PO QDD RF: 0 prednisone 5 mg tablet 2.5 mg PO DAILY RF: 0 Discontinued furosemide 20 mg tablet 40 mg PO QAM RF: 0 Discharge Orders: Discharge Order (Routine); Ordered 03/29/21 Ordered By: Manan Reece/Other Patient Handouts: Embolism Pulmonary Dc Admission Data Admit Date/Time: 03/28/21 09:04 Attending Provider: Manan August Admit Provider: Manan August Primary Care Provider: Tracy Gomez Other Providers: Manan August Other Interventions: Discharge Summary Assessment (RN) Last Done: 03/29/21 14:43 Coding Level of Care Code D/C DAY MANAGEMENT >30 MINS Diagnoses Pulmonary embolism I26.99 Acute cor pulmonale presence: unspecified Chronicity: unspecified Pulmonary embolism type: unspecified Burping R14.2 COPD (chronic obstructive pulmonary disease) J44.1 COPD type: COPD with acute exacerbation CHF (congestive heart failure) I50.9 CKD (chronic kidney disease) stage 2, GFR 60-89 ml/min N18.2 Polymyalgia rheumatica M35.3 Severe aortic valve stenosis I35.0 GERD with esophagitis K21.00 Gout M10.9
== END 2021-03-29 16:11 | disposition home or self-care (01) ==
LOC: 3E 04:23 → ED 04:23 → 3E 10:57

== ENCOUNTER 2021-04-21 10:55 | Inpatient (IN) ==
[2021-04-21] MEDS ORDERED: SODIUM CHLORIDE 0.9% 500 ML IV ONE (11:27)
[2021-04-21 11:34] LABS: Hematocrit (blood only) 34.9 % (42-52); Hemoglobin 11.2 g/dL (14.0-18.0); Immature Granulocytes # (auto) 0.02 K/uL (0.00-0.02); Immature Granulocytes % (auto) 0.3 %; Lymphocytes # (auto) 0.32 K/uL (1.2-3.4); Lymphocytes % (auto) 5.3 %; Mean Corpuscular Hemoglobin 30.8 pg (25-34); Mean Corpuscular Hgb Conc 32.1 g/dL (32-36); Mean Corpuscular Volume 95.9 fL (80-100); Monocytes # (auto) 0.19 K/uL (0.11-0.59); Monocytes % (auto) 3.2 %; Neutrophils # (auto) 5.46 K/uL (1.4-6.5); Neutrophils % (auto) 91.2 %; Platelet Count 118 K/uL (130-400); RDW Coefficient of Variation 14.3 % (11.5-14.5); RDW Standard Deviation 49.9 fL (36.4-46.3); Red Blood Count 3.64 M/uL (4.7-6.1); White Blood Count 5.99 K/uL (4.8-10.8)
--- NOTE | 2021-04-21 11:42 | Emergency Department Note ---
Impression & Plan Atrial flutter with rapid ventricular response, Pulmonary edema, Acute respiratory distress ED Provider Note NAME: ANDRES PETERSON AGE: 70 SEX: M : 1950 ARRIVES VIA: Ambulance INFORMANT: Patient, EMS ED PROVIDER(S): Israel Santo DO CHIEF COMPLAINT: Shortness of breath HPI: The patient is a 70-year-old male who is a history of recent diagnosis of pulmonary embolism who presented to the emergency department for an evaluation of difficulty breathing. The patient states he was discharged to home on blood thinners. He is been compliant with all of his outpatient medications. He is not been seen by his primary care physician yet. The patient states he felt almost back to normal for a few days but then over the course the last few days recently he started having shortness of breath with exertion. He notices a co ugh which is not productive. He denies having any fever or hemoptysis. The patient denies having any recent trauma. He called 911 today because his breathing became significantly worse. I did receive a phone call from the prehospital personnel. The patient was found to be in atrial fibrillation with RVR. The patient was very anxious. He was placed on nonrebreather mask and was given Ativan and was able to be transported. The patient self denies having any recent GI bleeding. He denies having any black or bloody bowel movements. He states his symptoms are mildly improved at this time. ROS: See above HPI for pertinent positives & negatives. A total of 10 systems reviewed and were otherwise negative. PAST MEDICAL HISTORY: See Below PAST SURGICAL HISTORY: See Below FAMILY HISTORY: See Below SOCIAL HISTORY: See Below HOME MEDICATIONS: See Below ALLERGIES: See Below VITALS: See Below PHYSICAL EXAMINATION: GENERAL: The patient is awake and alert. The patient is very anxious appearing and appears to be having significant difficulty breathing. EYES: The conjunctivae are clear. The pupils are round and reactive. EARS, NOSE, MOUTH AND THROAT: The nose is without any evidence of any deformity. NECK: The neck is nontender and supple. RESPIRATORY: Diminished breath sounds are noted throughout. There is expiratory wheezing in both upper lung ansari. Significant conversational dyspnea was appreciated. CARDIOVASCULAR: Tachycardic rate with regular rhythm was noted. There is no definite murmur. GASTROINTESTINAL: The abdomen is soft. Abdomen is nontender. No failure MUSCULOSKELETAL/EXTREMITIES: There is no evidence of gross deformity full range of motion is noted in the hips and shoulders. SKIN: Skin was warm and dry. Pedal edema was noted bilaterally. NEUROLOGIC: Patient is awake alert and oriented x3. MEDICAL DECISION MAKING: The patient is a 70-year-old male who presented to the emergency department for an evaluation of difficulty breathing. The patient was having significant anxiety as well as difficulty breathing prior to arrival. The patient was treated with Ativan and supplemental oxygen prior to arrival. The patient was not hypoxic but was placed on nonrebreather mask prior to arrival. He does have a history of COPD and had diminished breath sounds with some wheezing. Chest x- ray reveals signs of pulmonary edema. I would wonder if the patient's cause for his pulmonary edema could be his underlying dysrhythmia. He appears to be in rapid atrial flutter with diffuse ST segment abnormalities. I discussed the patient's condition with the on-call [facility] hospitalist. His blood pressure was low at times. He has a history of a recent diagnosis of pulmonary embolism. He has been consistently taking his outpatient medications as well. The patient may require further medications to slow the heart rate but I will defer this decision to the admitting team. The patient was reevaluated multiple times. I discussed the patient's laboratory and radiographic studies with him. Triage Nursing notes reviewed. Prior medical records reviewed Vital Signs: reviewed and remarkable for hypotension and tachycardia. Differential diagnosis: Reactive airway disease, pneumonia, pneumothorax, COPD, CHF, infections, cardiac ischemia, pulmonary embolism, musculoskeletal, gastrointestinal, as well as other pathologies. ER treatment provided: See below Diagnostics interpreted by me: ECG: EKG was obtained in the emergency department. My interpretation is atrial fibrillation at [address] segment depressions were noted. There were no PVCs. This was compared to a tracing from March 282020. The rhythm changes are new compared to the earlier tracing. Cardiac Monitoring: An order was placed for continuous cardiac monitoring. The monitor shows a rate of 151 bpm with atrial flutter. Laboratory studies: As stated above and show below. Imaging studies: See below Consultation(s): I discussed this case with Dr. Guerra who is on-call for the [facility]ist group. They will evaluate the patient in the emergency department. Past Med/Surg History Medical History Benign prostatic hyperplasia with urinary obstruction and other lower urinary tract symptoms Chronic obstructive pulmonary disease SEVERE per pulm 08/09. Uses inhalers daily and prn CKD (chronic kidney disease) stage 2, GFR 60-89 ml/min Colon polyp COPD (chronic obstructive pulmonary disease) Diastolic dysfunction History of colon polyps History of elevated glucose History of smoking at least 1 pack per day for at least 30 years Obesity (BMI 30-39.9) Osteoarthritis Polymyalgia rheumatica Renal disease Severe aortic valve stenosis Per Dr. Centeno 07/15, "do not feel that he has demonstrated surgical symptoms. Feel that his exertional dyspnea is likely related to his severe COPD. No indication for aortic valve replacement surgery at this time." Surgical History H/O rectal polypectomy History of bilateral cataract extraction History of colonoscopy History of cystoscopy History of elbow surgery left ulnar nerve History of hernia repair Laparoscopic History of surgical removal of terminal ileum History of wisdom tooth extraction Family History Brother Family history of diabetes mellitus Family hx colonic polyps Prostate cancer Myocardial infarction H/O heart bypass surgery Mother Colorectal cancer Other No family history of adverse response to anesthesia Denies family history of Ovarian cancer Breast cancer Lung cancer Social History Smoking Status: Former smoker Tobacco Type: Cigarettes Second Hand Exposure: No; Hx Alcohol Use: No Hx Substance Use: No Preferred Language: Albanian Communication Ability: Effective Visual Impairment: Limited 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 Beliefs That Will Affect Care: None marital status: Current Living Situation: Spouse current occupational status: retired How many Children do You have: 1 Feels Safe at Home: Yes Childhood Exposure to Second-Hand Smoke: Yes caffeine: Yes (coffee, soda) Dental Care, Regularly: Yes Physical Activity Frequency: Does not Exercise Seatbelt Use: never Sunscreen Use: No Assistive Devices: Glasses Allergies Allergies Allergy/AdvReac Type Severity Reaction Status Date / Time grass pollen Allergy Mild Verified 04/21/21 14:17 Sulfa (Sulfonamide AdvReac Unknown Unknown Unverified 04/21/21 14:17 Antibiotics) Home Meds Home Medications Medication Instructions Recorded Confirmed budesonide-formoterol HFA 160 2 puff INHALATION BID 06/24/18 04/21/21 mcg-4.5 mcg/actuation aerosol inhaler (Symbicort) loratadine 10 mg tablet (Claritin) 10 mg PO QAM 06/24/18 04/21/21 tiotropium bromide 18 mcg capsule 1 cap INHALATION HS 06/24/18 04/21/21 with inhalation device (Spiriva with HandiHaler) acetaminophen 500 mg tablet 1,000 mg PO Q6H PRN 12/21/19 04/21/21 (Tylenol Extra Strength) sennosides 8.6 mg tablet (Senokot) 8.6 mg PO BID 12/21/19 04/21/21 allopurinol 300 mg tablet 300 mg PO DAILY 03/19/21 04/21/21 famotidine 20 mg tablet 20 mg PO QDD 03/28/21 04/21/21 omeprazole 40 mg capsule,delayed 40 mg PO QAM 03/28/21 04/21/21 release prednisone 5 mg tablet 5 mg PO DAILY 03/28/21 04/21/21 apixaban 5 mg tablet (Eliquis) 5 mg PO BID 04/21/21 04/21/21 food supplemt, lactose-reduced 1 ea PO DAILY 04/21/21 04/21/21 0.04 gram-1 kcal/mL oral liquid (Boost) lactobacillus combination no.4 3 3,000 mmu cells PO DAILY 04/21/21 04/21/21 billion cell capsule (Probiotic) Previous Rx's Medication Instructions Recorded albuterol sulfate 90 mcg/actuation 2 puffs INH Q6H PRN #1 ea 05/12/19 breath activated powder inhaler,sensor finasteride 5 mg tablet 5 mg PO QAM #30 tab 07/25/20 ipratropium 0.5 mg-albuterol 3 mg 3 ml INHALATION TID #270 vial 08/15/20 (2.5 mg base)/3 mL nebulization soln terazosin 5 mg capsule 5 mg PO QPM #90 cap 12/06/20 cyclobenzaprine 10 mg tablet 10 mg PO TID PRN #30 tab 04/15/21 Results & Data (ED) Vital Signs Vital Signs - 24 hr 04/21/21 11:16 04/21/21 11:30 04/21/21 12:00 Temperature 36.7 C Temperature Source Oral Pulse Rate 152 H 150 H 150 H Pulse Rate from SpO2 Sensor 150 H 150 H Respiratory Rate 20 20 20 Respiratory Effort / Characteristics Spontaneous Labored Blood Pressure 120/87 100/82 108/82 Blood Pressure Mean 98 88 90 Pulse Oximetry 100 100 100 Oxygen Delivery Method Non-rebreather Non-rebreather Non-rebreather Oxygen Flow Rate 10 Fraction of Inspired Oxygen Sepsis Recent Fever Within 48 Hours No Sepsis New/Unexplained Change in Mental Status No Sepsis Action Taken by Nursing No Action Required 04/21/21 12:30 04/21/21 13:00 04/21/21 13:30 Temperature Temperature Source Pulse Rate 149 H Pulse Rate from SpO2 Sensor 149 H 150 H 147 H Respiratory Rate 21 21 22 Respiratory Effort / Characteristics Blood Pressure 95/75 L 105/81 116/82 Blood Pressure Mean 81 89 93 Pulse Oximetry 100 100 100 Oxygen Delivery Method Non-rebreather Oxygen Flow Rate Fraction of Inspired Oxygen Sepsis Recent Fever Within 48 Hours Sepsis New/Unexplained Change in Mental Status Sepsis Action Taken by Nursing 04/21/21 14:00 Temperature Temperature Source Pulse Rate 151 H Pulse Rate from SpO2 Sensor Respiratory Rate 20 Respiratory Effort / Characteristics Spontaneous Blood Pressure Blood Pressure Mean Pulse Oximetry 100 Oxygen Delivery Method Oxygen Flow Rate Fraction of Inspired Oxygen 50 Sepsis Recent Fever Within 48 Hours Sepsis New/Unexplained Change in Mental Status Sepsis Action Taken by Detention Medications Current Medication List: was personally reviewed by me Laboratory Data Attestation: I reviewed the patient's lab results. Result diagrams: 04/21/21 11:08 04/21/21 11:08 Lab Results 04/21/21 04/21/21 04/21/21 Range/Units 11:08 11:08 11:08 WBC 5.99 (4.8-10.8) K/uL RBC 3.64 L (4.7-6.1) M/uL Hgb 11.2 L (14.0-18.0) g/dL Hct 34.9 L (42-52) % MCV 95.9 (80-100) fL MCH 30.8 (25-34) pg MCHC 32.1 (32-36) g/dL RDW Std Deviation 49.9 H (36.4-46.3) fL RDW Coeff of Nimesh 14.3 (11.5-14.5) % Plt Count 118 L (130-400) K/uL MPV 10.0 (7.4-10.4) fL Immature Gran % (Auto) 0.3 % Neut % (Auto) 91.2 % Lymph % (Auto) 5.3 % [place] % (Auto) 3.2 % Eos % (Auto) 0.0 % Baso % (Auto) 0.0 % Neut # (Auto) 5.46 (1.4-6.5) K/uL Lymph # (Auto) 0.32 L (1.2-3.4) K/uL [place] # (Auto) 0.19 (0.11-0.59) K/uL Eos # (Auto) 0.00 (0-0.5) K/uL Baso # (Auto) 0.00 (0-0.2) K/uL Immature Gran # (Auto) 0.02 (0.00-0.02) K/uL PT 12.5 H (9.0-12.0) Seconds INR 1.3 H (0.9-1.1) APTT 35.3 H (21.0-31.0) Seconds PTT Ratio 1.3 D-Dimer Cancelled 450 ABG pH (7.35-7.45) ABG pCO2 (35-46) mmHg ABG pO2 (80-95) mmHg ABG HCO3 (19-24) mmol/L ABG O2 Saturation (90-95) % ABG Base Excess (-9-1.8) mEq/L Jacques Test (Pos) VBG pH (7.36-7.41) VBG pCO2 (38-50) mmHg VBG pO2 mmHg VBG HCO3 mmol/L VBG O2 Saturation % VBG Base Excess mEq/L Barometric Pressure mm/Hg Oxygen Given Sodium (136-145) mmol/L Potassium (3.5-5.1) mmol/L Chloride (98-107) mmol/L Carbon Dioxide (21-32) mmol/L Anion Gap (3-11) BUN (7-18) mg/dl Creatinine (0.6-1.4) mg/dl Est Cr Clr Drug Dosing Est GFR ( Amer) ml/min Est GFR (Non-Af Amer) ml/min BUN/Creatinine Ratio (10-20) Glucose (70-99) mg/dl Calcium (8.5-10.1) mg/dl Total Bilirubin (0.2-1) mg/dl AST (15-37) U/L ALT (12-78) U/L Alkaline Phosphatase (45-117) U/L Troponin I (0-0.045) ng/ml NT-Pro-B Natriuret Pep (0-900) pg/ml Total Protein (6.4-8.2) gm/dl Albumin (3.4-5.0) gm/dl Globulin (2.5-4.0) gm/dl Albumin/Globulin Ratio (0.9-2) Lipase (73-393) U/L SARS-CoV-2, RNA, NAAT (NEGATIVE) 04/21/21 04/21/21 04/21/21 Range/Units 11:08 12: 12:25 WBC (4.8-10.8) K/uL RBC (4.7-6.1) M/uL Hgb (14.0-18.0) g/dL Hct (42-52) % MCV (80-100) fL MCH (25-34) pg MCHC (32-36) g/dL RDW Std Deviation (36.4-46.3) fL RDW Coeff of Nimesh (11.5-14.5) % Plt Count (130-400) K/uL MPV (7.4-10.4) fL Immature Gran % (Auto) % Neut % (Auto) % Lymph % (Auto) % [place] % (Auto) % Eos % (Auto) % Baso % (Auto) % Neut # (Auto) (1.4-6.5) K/uL Lymph # (Auto) (1.2-3.4) K/uL [place] # (Auto) (0.11-0.59) K/uL Eos # (Auto) (0-0.5) K/uL Baso # (Auto) (0-0.2) K/uL Immature Gran # (Auto) (0.00-0.02) K/uL PT (9.0-12.0) Seconds INR (0.9-1.1) APTT (21.0-31.0) Seconds PTT Ratio D-Dimer ABG pH (7.35-7.45) ABG pCO2 (35-46) mmHg ABG pO2 (80-95) mmHg ABG HCO3 (19-24) mmol/L ABG O2 Saturation (90-95) % ABG Base Excess (-9-1.8) mEq/L Jacques Test (Pos) VBG pH 7.33 L (7.36-7.41) VBG pCO2 61 H (38-50) mmHg VBG pO2 32 mmHg VBG HCO3 32 mmol/L VBG O2 Saturation < 60.0 % VBG Base Excess 4.6 mEq/L Barometric Pressure 729.2 mm/Hg Oxygen Given Sodium 134 L (136-145) mmol/L Potassium 4.2 (3.5-5.1) mmol/L Chloride 98 (98-107) mmol/L Carbon Dioxide 27 (21-32) mmol/L Anion Gap 9.0 (3-11) BUN 25 H (7-18) mg/dl Creatinine 1.53 H (0.6-1.4) mg/dl Est Cr Clr Drug Dosing Not Reportable Est GFR ( Amer) 52.6 ml/min Est GFR (Non-Af Amer) 45.4 ml/min BUN/Creatinine Ratio 16.3 (10-20) Glucose 119 H (70-99) mg/dl Calcium 8.9 (8.5-10.1) mg/dl Total Bilirubin 0.9 (0.2-1) mg/dl AST 17 (15-37) U/L ALT 53 (12-78) U/L Alkaline Phosphatase 123 H (45-117) U/L Troponin I 0.069 H* (0-0.045) ng/ml NT-Pro-B Natriuret Pep 36836 H (0-900) pg/ml Total Protein 6.6 (6.4-8.2) gm/dl Albumin 2.9 L (3.4-5.0) gm/dl Globulin 3.7 (2.5-4.0) gm/dl Albumin/Globulin Ratio 0.8 L (0.9-2) Lipase 84 (73-393) U/L SARS-CoV-2, RNA, NAAT NEGATIVE (NEGATIVE) 04/21/21 Range/Units 14:13 WBC (4.8-10.8) K/uL RBC (4.7-6.1) M/uL Hgb (14.0-18.0) g/dL Hct (42-52) % MCV (80-100) fL MCH (25-34) pg MCHC (32-36) g/dL RDW Std Deviation (36.4-46.3) fL RDW Coeff of Nimesh (11.5-14.5) % Plt Count (130-400) K/uL MPV (7.4-10.4) fL Immature Gran % (Auto) % Neut % (Auto) % Lymph % (Auto) % [place] % (Auto) % Eos % (Auto) % Baso % (Auto) % Neut # (Auto) (1.4-6.5) K/uL Lymph # (Auto) (1.2-3.4) K/uL [place] # (Auto) (0.11-0.59) K/uL Eos # (Auto) (0-0.5) K/uL Baso # (Auto) (0-0.2) K/uL Immature Gran # (Auto) (0.00-0.02) K/uL PT (9.0-12.0) Seconds INR (0.9-1.1) APTT (21.0-31.0) Seconds PTT Ratio D-Dimer ABG pH 7.38 (7.35-7.45) ABG pCO2 47 H (35-46) mmHg ABG pO2 145 H (80-95) mmHg ABG HCO3 27 H (19-24) mmol/L ABG O2 Saturation 99.0 H (90-95) % ABG Base Excess 1.6 (-9-1.8) mEq/L Jacques Test Pos (Pos) VBG pH (7.36-7.41) VBG pCO2 (38-50) mmHg VBG pO2 mmHg VBG HCO3 mmol/L VBG O2 Saturation % VBG Base Excess mEq/L Barometric Pressure 729.5 mm/Hg Oxygen Given 40% Sodium (136-145) mmol/L Potassium (3.5-5.1) mmol/L Chloride (98-107) mmol/L Carbon Dioxide (21-32) mmol/L Anion Gap (3-11) BUN (7-18) mg/dl Creatinine (0.6-1.4) mg/dl Est Cr Clr Drug Dosing Est GFR ( Amer) ml/min Est GFR (Non-Af Amer) ml/min BUN/Creatinine Ratio (10-20) Glucose (70-99) mg/dl Calcium (8.5-10.1) mg/dl Total Bilirubin (0.2-1) mg/dl AST (15-37) U/L ALT (12-78) U/L Alkaline Phosphatase (45-117) U/L Troponin I (0-0.045) ng/ml NT-Pro-B Natriuret Pep (0-900) pg/ml Total Protein (6.4-8.2) gm/dl Albumin (3.4-5.0) gm/dl Globulin (2.5-4.0) gm/dl Albumin/Globulin Ratio (0.9-2) Lipase (73-393) U/L SARS-CoV-2, RNA, NAAT (NEGATIVE) Administered Medications Discontinued Medications Sodium Chloride (Nss) 500 mls @ 999 mls/hr IV .Q31M ONE Stop: 04/21/21 11:57 Last Infusion: 04/21/21 12:53 Dose: 0 mls/hr Documented by: [id number] Admin: 04/21/21 12:22 Dose: 999 mls/hr Documented by: [id number] Imaging Data Radiologist's Impression: Chest X-Ray 04/21/21 11:25 XR chest 1V portable CLINICAL HISTORY: Shortness of breath. Chest pain. COMPARISON STUDY: Chest CT March 28, 2021. FINDINGS: There is no pneumothorax. Small right pleural effusion is noted. Interstitial thickening reflect pulmonary edema. There are bibasilar opacities. Cardiomegaly is unchanged. IMPRESSION: 1. Interstitial thickening consistent with pulmonary edema. 2. Small right pleural effusion. Bibasilar opacities which may assessed on follow-up chest radiograph to ensure resolution. ACT 112: Negative or not required by law. Electronically signed by: Curtis Reynolds M.D. 04/21/2021 11:50 AM Discharge Plan Visit Data Chief Complaint: Shortness of Breath/Dyspnea Stated Complaint: SOB ED Provider: Israel Santo ED Midlevel Provider: Austin Jamison Discharge Problem: Atrial flutter with rapid ventricular response, Pulmonary edema, Acute respiratory distress Patient Disposition: Being Evaluated by Hospitalist Forms Stand Alone Forms: My Moya Okruga Prescriptions Prescriptions: No Action albuterol sulfate 90 mcg/actuation aero powdr breath act w/sensor 2 puffs INH Q6H PRN (Reason: shortness of breath or wheezing) Qty: 1 RF: 3 finasteride 5 mg tablet 5 mg PO QAM Qty: 30 RF: 11 terazosin 5 mg capsule 5 mg PO QPM Qty: 90 RF: 1 cyclobenzaprine 10 mg tablet 10 mg PO TID PRN (Reason: muscle spasm) Qty: 30 RF: 0 allopurinol 300 mg tablet 300 mg PO DAILY RF: 0 ipratropium-albuterol 0.5 mg-3 mg(2.5 mg base)/3 mL solution for nebulization 3 ml INHALATION TID Qty: 270 RF: 3 sennosides [Senokot] 8.6 mg Tablet 8.6 mg PO BID RF: 0 acetaminophen [Tylenol Extra Strength] 500 mg Tablet 1,000 mg PO Q6H PRN (Reason: Pain) RF: 0 loratadine [Claritin] 10 mg Tablet 10 mg PO QAM RF: 0 Spiriva with HandiHaler 18 mcg Capsule, W/Inhalation Device 1 cap INHALATION HS RF: 0 budesonide-formoterol [Symbicort] 160-4.5 mcg/actuation Hfa Aerosol Inhaler 2 puff INHALATION BID RF: 0 omeprazole 40 mg capsule,delayed release(DR/EC) 40 mg PO QAM RF: 0 famotidine 20 mg Tablet 20 mg PO QDD RF: 0 prednisone 5 mg tablet 5 mg PO DAILY RF: 0 Eliquis 5 mg tablet 5 mg PO BID RF: 0 Boost 0.04 gram- 1 kcal/mL Liquid 1 ea PO DAILY RF: 0 Probiotic 3 billion cell Capsule 3,000 mmu cells PO DAILY RF: 0 Referrals Referrals: Tracy Gomez MD [Primary Care Provider] -
[2021-04-21 11:46] LABS: Alanine Aminotransferase 53 U/L (12-78); Albumin Level 2.9 gm/dl (3.4-5.0); Aspartate Aminotransferase 17 U/L (15-37); BUN Creatinine Ratio 16.3 (10-20); Blood Urea Nitrogen 25 mg/dl (7-18); Calcium 8.9 mg/dl (8.5-10.1); Carbon Dioxide 27 mmol/L (21-32); Chloride 98 mmol/L (98-107); Est GFR (African American) 52.6 ml/min; Est GFR (Non-African American) 45.4 ml/min; Glucose 119 mg/dl (70-99); Lipase 84 U/L (73-393); Potassium 4.2 mmol/L (3.5-5.1); Sodium 134 mmol/L (136-145)
[2021-04-21 11:47] LABS: INR 1.3 (0.9-1.1); Partial Thromboplastin Ratio 1.3; Partial Thromboplastin Time 35.3 Seconds (21.0-31.0); Prothrombin Time 12.5 Seconds (9.0-12.0)
--- NOTE | 2021-04-21 11:52 | XRay Report ---
XR chest 1V portable CLINICAL HISTORY: Shortness of breath. Chest pain. COMPARISON STUDY: Chest CT March 28, 2021. FINDINGS: There is no pneumothorax. Small right pleural effusion is noted. Interstitial thickening re flect pulmonary edema. There are bibasilar opacities. Cardiomegaly is unchanged. IMPRESSION: 1. Interstitial thickening consistent with pulmonary edema. 2. Small right pleural effusion. Bibasilar opacities which may assessed on follow-up chest radiograph to ensure resolution. ACT 112: Negative or not required by law. Electronically signed by: Curtis Reynolds M.D. 04/21/2021 11:50 AM
[2021-04-21 11:58] LABS: Albumin Globulin Ratio 0.8 (0.9-2); Alkaline Phosphatase 123 U/L (45-117); Bilirubin,Total 0.9 mg/dl (0.2-1); Globulin 3.7 gm/dl (2.5-4.0); NT Pro B Type Natriuretic Pept 20253 pg/ml (0-900); Total Protein 6.6 gm/dl (6.4-8.2); Troponin I 0.069 ng/ml (0-0.045)
[2021-04-21 12:29] LABS: Base Excess VBG 4.6 mEq/L; HCO3 VBG 32 mmol/L; PCO2 VBG 61 mmHg (38-50); PO2 VBG 32 mmHg; pH VBG 7.33 (7.36-7.41)
[2021-04-21 12:30] LABS: Oxygen Saturation VBG < 60.0 %
[2021-04-21 12:31] LABS: D Dimer 450 ug/L FEU (0-500)
--- NOTE | 2021-04-21 14:16 | History & Physical Report ---
Date of Service April 21, 2021 Assessment & Plan (1) Respiratory failure: Plan: 70-year-old white male presented with mixed respiratory failure (hypoxemia and hypercapnia) Started on supplemental oxygen in route. Currently on 13 L nonrebreather VB.33/61 Clearly with acute on compensated CHF (CXR showing pulmonary edema and BNP 20,253) Initiate BiPAP therapy for hypoxemia in the setting of CHF and acute on chronic hypercapnia (14/6, 12, 40%to titrate to maintain pulse ox between 90-92%) Initiate diuresis (Lasix 40 mg IV every 12 hours) Will benefit from beta-blockade but will hold off for now in the setting of acute on compensated CHF to risk further decompensation Avoid nitrates given severe aortic stenosis Monitor daily weights and I's and O's closely Echocardiogram just done November 2020 showing EF of 50% with severe aortic stenosis and diastolic dysfunction. Will update Echo (Given A.Flutter and + troponin) Consult cardiologyappreciate recommendations Covid is negative (2) Atrial flutter with rapid ventricular response: Plan: Beta-blockade avoided upfront given acute on, CHF and risk for further decompensation Given amiodarone bolus and subsequently started on a drip Plan for likely conversion to oral beta-blockade once CHF compensated Leery on pharmacological cardioversion as patient has been on Eliquis only since the end of February. Echo ordered to update. Uncontrolled heart further contributing to his CHF Consult cardiologyappreciate recommendations (3) Elevated troponin: Plan: Trop 0.069 Patient without chest pain. Suspect troponin elevated from supply/demand ischemia from tachycardia and uncompensated CHF We will trend and cycle until it peaks Trend EKG Consult cardiologyappreciate recommendations Patient on chronic Eliquis. We will continue this Oral meds on hold for now due to BiPAP therapy Would likely benefit from addition of aspirin (4) COPD (chronic obstructive pulmonary disease): Plan: Patient with acute hypercapnia Hold off on IV steroids for now as patient with good air exchange and not bronchospastic Treating with BiPAP as outlined above (be careful not to over oxygenate given his chronic hypercapnia) Transition inhalers to Pulmicort/Perforomist every 12H with Xopenex/Atrovent 3 times daily (avoiding albuterol due to tachyarrhythmia) (5) Polymyalgia rheumatica: Plan: Continue prednisone as prior to hospitalization No need for steroid challenge at this time (6) Severe aortic valve stenosis: Plan: Chronic and poor surgical candidate per documentation Cardiology consultedappreciate recommendations Avoid preload reduction other than diuretic therapy for now (7) Pulmonary embolism: Plan: Remote history (diagnosed 02/2021) Continue Eliquis Plan: D/W Dr. Guerra. Further orders as warranted History of Present Illness Chief Complaint: progressive SOB x weeks Primary Care Provider: Tracy Gomez MD Mr. Robert is a 70 y/o WM with a PMHx of CHF- Diastolic dysfunction, Severe , CKD, COPD (uses nocturnal O2), CKD, remote h/o PE (03/20-- on Eliquis), PMR- on chronic prednisone therapy, and RA. He presented to the ED with progressive SOB ongoing x weeks. Recently hospitalized to our facility 03/28 - 03/29 with PE (2 small subsegmental within the right lung). He was started on Eliquis and discharged to home. Was feeling well for ~2 days but his SOB returned and has been ongoing since. Now with associated edema of the lower extremities, orthopnea (has been sleeping in the recliner) and PND. Using his nebulizer more often without improvement in symptoms. Denies CP/palpitations or hemoptysis/cough. Takes lasix 20mg daily and has been taking this as prescribed. Brought to the ED by EMS services. found to be tachycardic (149- sinus) and marginal hypotensive (95/75) and on 13L NRB to maintain a pulse ox of 100%. labs show Creatinine of 1.53 (baseline 1.3-1.5), BNP elevated at 20,253, troponin mildly elevated at 0.069. The rest of his labs data is unremarkable. CXR shows PVC EKG showed tachyarrhythmia (?a.flutter) He received 500cc ml in the ED Allergies Allergy/AdvReac Type Severity Reaction Status Date / Time grass pollen Allergy Mild Verified 04/21/21 14:17 Sulfa (Sulfonamide AdvReac Unknown Unknown Unverified 04/21/21 14:17 Antibiotics) Home Medications Medication Instructions Recorded Confirmed Type budesonide-formoterol HFA 160 2 puff INHALATION BID 06/24/18 04/21/21 History mcg-4.5 mcg/actuation aerosol inhaler (Symbicort) loratadine 10 mg tablet (Claritin) 10 mg PO QAM 06/24/18 04/21/21 History tiotropium bromide 18 mcg capsule 1 cap INHALATION HS 06/24/18 04/21/21 History with inhalation device (Spiriva with HandiHaler) albuterol sulfate 90 mcg/actuation 2 puffs INH Q6H PRN #1 ea 05/12/19 04/21/21 Rx breath activated powder inhaler,sensor acetaminophen 500 mg tablet 1,000 mg PO Q6H PRN 12/21/19 04/21/21 History (Tylenol Extra Strength) sennosides 8.6 mg tablet (Senokot) 8.6 mg PO BID 12/21/19 04/21/21 History finasteride 5 mg tablet 5 mg PO QAM #30 tab 07/25/20 04/21/21 Rx ipratropium 0.5 mg-albuterol 3 mg 3 ml INHALATION TID #270 vial 08/15/20 04/21/21 Rx (2.5 mg base)/3 mL nebulization soln terazosin 5 mg capsule 5 mg PO QPM #90 cap 12/06/20 04/21/21 Rx allopurinol 300 mg tablet 300 mg PO DAILY 03/19/21 04/21/21 History famotidine 20 mg tablet 20 mg PO QDD 03/28/21 04/21/21 History omeprazole 40 mg capsule,delayed 40 mg PO QAM 03/28/21 04/21/21 History release prednisone 5 mg tablet 5 mg PO DAILY 03/28/21 04/21/21 History cyclobenzaprine 10 mg tablet 10 mg PO TID PRN #30 tab 04/15/21 04/21/21 Rx apixaban 5 mg tablet (Eliquis) 5 mg PO BID 04/21/21 04/21/21 History food supplemt, lactose-reduced 1 ea PO DAILY 04/21/21 04/21/21 History 0.04 gram-1 kcal/mL oral liquid (Boost) lactobacillus combination no.4 3 3,000 mmu cells PO DAILY 04/21/21 04/21/21 History billion cell capsule (Probiotic) Past Med/Surg History Medical History Benign prostatic hyperplasia with urinary obstruction and other lower urinary tract symptoms Chronic obstructive pulmonary disease SEVERE per pulm 08/09. Uses inhalers daily and prn CKD (chronic kidney disease) stage 2, GFR 60-89 ml/min Colon polyp COPD (chronic obstructive pulmonary disease) Diastolic dysfunction History of colon polyps History of elevated glucose History of smoking at least 1 pack per day for at least 30 years Obesity (BMI 30-39.9) Osteoarthritis Polymyalgia rheumatica Renal disease Severe aortic valve stenosis Per Dr. Centeno 07/15, "do not feel that he has demonstrated surgical symptoms. Feel that his exertional dyspnea is likely related to his severe COPD. No indication for aortic valve replacement surgery at this time." Surgical History H/O rectal polypectomy History of bilateral cataract extraction History of colonoscopy History of cystoscopy History of elbow surgery left ulnar nerve History of hernia repair Laparoscopic History of surgical removal of terminal ileum History of wisdom tooth extraction Family History Brother Family history of diabetes mellitus Family hx colonic polyps Prostate cancer Myocardial infarction H/O heart bypass surgery Mother Colorectal cancer Other No family history of adverse response to anesthesia Denies family history of Ovarian cancer Breast cancer Lung cancer Social History Smoking Status: Former smoker Tobacco Type: Cigarettes Second Hand Exposure: No; Hx Alcohol Use: Yes (quit many years ago) Alcohol Intake Frequency: Monthly or Less Hx Substance Use: No Preferred Language: Persian Communication Ability: Effective Visual Impairment: Limited 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 Required: No Beliefs That Will Affect Care: None marital status: Current Living Situation: Spouse current occupational status: retired How many Children do You have: 1 Feels Safe at Home: Yes Safety Concerns: Feels Safe At This Time Childhood Exposure to Second-Hand Smoke: Yes caffeine: Yes (coffee, soda) Dental Care, Regularly: Yes Physical Activity Frequency: Does not Exercise Seatbelt Use: never Sunscreen Use: No Assistive Devices: Oxygen - Continuous Assistive Devices Comment: only wears 2L at night but has been wearing it continuously since February Review of Systems Review of Systems: All systems reviewed and are unremarkable except as noted in HPI and below Denies fevers, chills, headache, nasal congestion, sore throat, cough, chest pain, palpitations, abdominal pain, nausea, vomiting, diarrhea, constipation, dysuria, hematuria, frequency, back pain, joint pain , easy bruising or bleeding, skin lesions or rashes. Physical Exam Physical Exam: General: sitting at the bedside. Mild tachypnea noted with conversational dyspnea. Breathing mildly labored. HEENT: Head is AT/NC buccal mucosa is moist and pink Neck: Mild JVD with positive hepatojugular reflex Cardiac: Irregular rate but regular rhythm. Tachycardic with 3/6 holosystolic murmur Lungs: Conversational dyspnea mild labored breathing as outlined above with bibasilar crackles Abdomen: Mildly distended soft and nontender in all quadrants. Extremities: 3+ pitting edema tracking proximally involving the lower legs and thighs. Sacrum seems to be spared. Neuro: A&O X4 cranial nerves II through XII are grossly intact no focal neuro deficits Skin: No obvious skin lesions or rashes Psych: Appropriate affect pleasant and cooperative Results & Data Results & Data ([facility]) Vital Signs (Past 12 Hours) Vital Signs Temp Pulse Resp BP Pulse Ox 04/21/21 14:00 151 H 20 100 04/21/21 13:30 22 116/82 100 04/21/21 13:00 21 105/81 100 04/21/21 12:30 149 H 21 95/75 L 100 04/21/21 12:00 150 H 20 108/82 100 04/21/21 11:30 150 H 20 100/82 100 04/21/21 11:16 36.7 C 152 H 20 120/87 100 Laboratory Results 04/21/21 11:08 04/21/21 11:08 BNP: 20,253 troponin: 0.069 VB.33/61 TB/AST/ALT: 0.9/17/53 Diagnostic Findings CXR: PVC noted with small pleural effusions ECG Additional Comments: atrial flutter with a rate in the 150's Code Status & VTE Plan VTE Prophylaxis Plan VTE Prophylaxis will be ordered: Yes Supervising Physician Co-Signing Physician Notes I personally saw and examined the patient. I verified all chandler points and agree with Chariyt Joshua PA-C with the following exceptions and/or additions: 70 yo male with known severe aortic stenosis, recent PE and chronic diastolic valvular HF presents to the ER with progressive shortness of breath since his discharge on March 29. During that admission his Lasix was held and restarted at a lower dose due to MAT which subsequently normalized. In the ER he was noted to be in a. flutter with 2:1 blockat 150 bpm in significant respiratory distress. O/E Chest - reduced breath sounds throughout, in respiratory distress, using accessory muscles, unable to complete full sentences, HS tachycardia, regular rhythm, systolic murmur 4/6 throughout, 2+ pitting edema up to knees b/l, elevated JVD. Abdo SNT. A/P Acute hypoxic hypercapnic respiratory failure - initially requiring BiPAP but after better rate control and Lasix given in the ER. Ok to now transition to NC. A. flutter with RVR - given 3 weeks of anticoagulation risk of stroke is low from cardioversion and since severe decompensation in this rhythm elevated to start amiodarone. CCB contraindicated in current HF and given low/normal BP with COPD BB also avoided at this time. Given slow/progressive onset of symptoms I do not feel synchronized cardioversion is required at time of admission.. Continue anticoagulation with Eliquis. Consult cardiology for further management. Discussed with Dr Irwin after acute interventions given. Acute diastolic valvular CHF - Strict I&Os, daily weight, flores catheter inserted. Last 40mg IV now then BID. Noted recent history of MAT with Lasix use but clearly hypervolemic at the current time. PG Care Time/CCT Total # of Minutes Spent Total Time Spent with Patient: Total time spent is greater than 50% in coordination of care (as documented) at patient's floor/unit and/or counseling patient: Coding Level of Care Code 53199 Initial Inpt Care Lvl 3 Diagnoses Respiratory failure J96.90 Atrial flutter with rapid ventricular response I48.92 Polymyalgia rheumatica M35.3 Severe aortic valve stenosis I35.0 Pulmonary embolism I26.99 Acute cor pulmonale presence: unspecified Chronicity: unspecified Pulmonary embolism type: unspecified COPD (chronic obstructive pulmonary disease) J44.1 COPD type: COPD with acute exacerbation Elevated troponin R77.8 (1) COPD (chronic obstructive pulmonary disease) COPD type: COPD with acute exacerbation Qualified Code(s): J44.1 - Chronic obstructive pulmonary disease with (acute) exacerbation (2) Pulmonary embolism Acute cor pulmonale presence: unspecified Chronicity: unspecified Pulmonary embolism type: unspecified Qualified Code(s): I26.99 - Other pulmonary embolism without acute cor pulmonale
[2021-04-21 14:23] LABS: Base Excess ABG 1.6 mEq/L (-9-1.8); HCO3 ABG 27 mmol/L (19-24); PCO2 ABG 47 mmHg (35-46); PO2 ABG 145 mmHg (80-95); pH ABG 7.38 (7.35-7.45)
[2021-04-21 14:25] LABS: Allen Test Pos (Pos)
[2021-04-21] MEDS ORDERED: FUROSEMIDE 40 MG/4 ML VIAL IV STA (14:27)
[2021-04-21] MEDS ORDERED: AMIODARONE IV BOLUS & DRIP IV STA ×2 (14:47→15:19)
[2021-04-21] MEDS ORDERED: 0.2 MICRON FILTER SET 1 EA IV ONE ×2 (14:47→15:19)
[2021-04-21] MEDS ORDERED: STAT IV Infusion **Titration per Protocol STA ×2 (14:47→15:19)
[2021-04-21] MEDS ORDERED: AMIODARONE / D5W 150 MG/100 ML BAG IV STA ×2 (14:51→15:19)
[2021-04-21] MEDS ORDERED: AMIODARONE / D5W 360 MG/200 ML BAG IV ONE ×2 (15:00→15:45)
--- NOTE | 2021-04-21 18:20 | Cardiology Consultation ---
Date of Consultation April 21, 2021 Assessment & Plan (1) Acute heart failure with preserved ejection fraction: (2) Atrial flutter with rapid ventricular response: (3) Elevated troponin: (4) Severe aortic valve stenosis: ASSESSMENT/PLAN: 1. Acute heart failure with preserved EF: He appears hypervolemic. Appears to be diuresing well with diuretic as ordered. No changes made at this time. Discussed the importance of a low-sodium diet. Strict I&Os. Daily weights. Likely occurred due to severe aortic stenosis with atrial flutter with rapid ventricular response. 2. Atrial flutter with rapid ventricular response: He was intermittently mildly hypotensive. Amiodarone was chosen by primary hospitalist service. This seems reasonable given his severe aortic stenosis and likely intolerance to future episodes. Consider cardioversion if he does not convert on amiodarone. He has been receiving therapeutic anticoagulation therapy since last hospitalization when he was in sinus rhythm but being treated for PE. Amiodarone has helped improve the ventricular rate. 3. Elevated troponin: Likely due to demand ischemia in the setting of atrial flutter with rapid ventricular response with underlying severe aortic stenosis. He did not present with acute coronary syndrome. 4. Severe aortic stenosis: Given presentation, could consider aortic valve replacement. He can discuss this further with his primary reacher, Dr. Centeno, tomorrow 5. Disposition: Cardiology will continue to follow. Dr. Centeno, his primary reacher, will likely resume his cardiology care tomorrow. Highly complex medical issues. Thank you for allowing me to participate in the care of your patient. Please call for any other questions or concerns. History of Present Illness Reason for Consultation: Atrial flutter, CHF, elevated troponin Requesting Physician: Jacquelyn Joshua PA-C Attending Physician: Garett Guerra MD History of Present Illness Mr. Robert is a very pleasant 70-year-old gentleman with a history significant for severe aortic stenosis, hypertension, dyslipidemia, severe COPD, sleep apnea on O2 HS, and pulmonary embolism diagnosed in February of 2021. His primary reacher is Dr. Centeno. He was recently hospitalized on 03/28/2021 with pulmonary emboli described as 2 small subsegmental emboli within the right lung. Eliquis was initiated and he was discharged home. He states that since his last admission, he has been short of breath but symptoms worsened today. he was short of breath at rest, admits to orthopnea, and significant dyspnea with exertion, even walking short distances. He states that he has chronic lower extremity swelling which he believes is stable. He has been sleeping in a recliner for 3 years. Since diagnosis of pulmonary embolism, he has been using supplemental oxygen via nasal cannula at 2 l iters/minute. He denies chest pain, syncope, near-syncope, palpitations, or bleeding such as melena, hematochezia, or hematuria. He has not missed any doses of Eliquis that he can recall. In the emergency department, he was found to be in atrial flutter with rapid ventricular response, with acute respiratory failure per admitting note. He was on a non-rebreather and plan was to initiate BiPAP. Admitting hospitalist initiated amiodarone drip and gave intravenous Lasix 40 mg. He has received 2 doses at the time of this note. He was seen earlier today at approximately 5:00 p.m.. He was already feeling better but not back to baseline in regards to breathing. Review of systems: As above. Review of systems otherwise negative/unremarkable. Family history: Brother had CABG at the age of 79. Social history: He quit smoking in approximately 2010 after 1.5 packs per day for approximately 50 years. He denies alcohol or drug abuse. He is and lives at home with his . He has 1 son. No grandchildren. He was unaccompanied in the emergency department during our visit. Allergies Allergy/AdvReac Type Severity Reaction Status Date / Time grass pollen Allergy Mild Verified 04/21/21 14:17 Sulfa (Sulfonamide AdvReac Unknown Unknown Unverified 04/21/21 14:17 Antibiotics) Home Medications Medication Instructions Recorded Confirmed Type budesonide-formoterol HFA 160 2 puff INHALATION BID 06/24/18 04/21/21 History mcg-4.5 mcg/actuation aerosol inhaler (Symbicort) loratadine 10 mg tablet (Claritin) 10 mg PO QAM 06/24/18 04/21/21 History tiotropium bromide 18 mcg capsule 1 cap INHALATION HS 06/24/18 04/21/21 History with inhalation device (Spiriva with HandiHaler) albuterol sulfate 90 mcg/actuation 2 puffs INH Q6H PRN #1 ea 12/13/19 11/22/21 Rx breath activated powder inhaler,sensor acetaminophen 500 mg tablet 1,000 mg PO Q6H PRN 12/21/19 04/21/21 History (Tylenol Extra Strength) sennosides 8.6 mg tablet (Senokot) 8.6 mg PO BID 12/21/19 04/21/21 History finasteride 5 mg tablet 5 mg PO QAM #30 tab 07/25/20 04/21/21 Rx ipratropium 0.5 mg-albuterol 3 mg 3 ml INHALATION TID #270 vial 08/15/2004/01 Rx (2.5 mg base)/3 mL nebulization soln terazosin 5 mg capsule 5 mg PO QPM #90 cap 12/06/20 04/21/21 Rx allopurinol 300 mg tablet 300 mg PO DAILY 03/19/21 04/21/21 History famotidine 20 mg tablet 20 mg PO QDD 03/28/21 04/21/21 History omeprazole 40 mg capsule,delayed 40 mg PO QAM 03/28/21 04/21/21 History release prednisone 5 mg tablet 5 mg PO DAILY 03/28/21 04/21/21 History cyclobenzaprine 10 mg tablet 10 mg PO TID PRN #30 tab 04/15/21 04/21/21 Rx apixaban 5 mg tablet (Eliquis) 5 mg PO BID 04/21/21 04/21/21 History food supplemt, lactose-reduced 1 ea PO DAILY 04/21/21 04/21/21 History 0.04 gram-1 kcal/mL oral liquid (Boost) lactobacillus combination no.4 3 3,000 mmu cells PO DAILY 04/21/21 04/21/21 History billion cell capsule (Probiotic) Patient History Medical History Benign prostatic hyperplasia with urinary obstruction and other lower urinary tract symptoms Chronic obstructive pulmonary disease SEVERE per pulm 08/09. Uses inhalers daily and prn CKD (chronic kidney disease) stage 2, GFR 60-89 ml/min Colon polyp COPD (chronic obstructive pulmonary disease) Diastolic dysfunction History of colon polyps History of elevated glucose History of smoking at least 1 pack per day for at least 30 years Obesity (BMI 30-39.9) Osteoarthritis Polymyalgia rheumatica Renal disease Severe aortic valve stenosis Per Dr. Centeno 07/15, "do not feel that he has demonstrated surgical symptoms. Feel that his exertional dyspnea is likely related to his severe COPD. No indication for aortic valve replacement surgery at this time." Surgical History H/O rectal polypectomy History of bilateral cataract extraction History of colonoscopy History of cystoscopy History of elbow surgery left ulnar nerve History of hernia repair Laparoscopic History of surgical removal of terminal ileum History of wisdom tooth extraction Family History Brother Family history of diabetes mellitus Family hx colonic polyps Prostate cancer Myocardial infarction H/O heart bypass surgery Mother Colorectal cancer Other No family history of adverse response to anesthesia Denies family history of Ovarian cancer Breast cancer Lung cancer Social History Smoking Status: Former smoker Tobacco Type: Cigarettes Second Hand Exposure: No; Hx Alcohol Use: No Hx Substance Use: No Preferred Language: German Communication Ability: Effective Visual Impairment: Limited 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 Alert and oriented. HEENT: Anicteric sclera. Neck: Mildly elevated JVD. Bilateral bruits vs radiation of cardiac murmur. Normal carotid upstrokes bilaterally. Cardiac: PMI was nonpalpable. No ventricular heave. Regular and tachycardic. Normal S1-S2. 2/6 systolic ejection murmur heard best at right upper sternal border. No rubs or gallops. Pulmonary: Decreased breath sounds bilaterally with bibasilar rales. Abdomen: Soft, nontender, nondistended, with normoactive bowel sounds. No bruits noted. Extremities: 2+ radial pulses bilaterally. 2+ posterior tibialis pulses bilaterally. 2+ bilateral lower extremity edema. No cyanosis. Psychiatric: Affect appears appropriate. Results & Data ([facility]) Vital Signs (Past 12 Hours) Vital Signs Temp Pulse Pulse Resp BP BP Pulse Ox 04/21/21 18:00 109 H 16 116/94 04/21/21 17:45 121 H 17 99 04/21/21 17:30 113 H 16 129/88 99 04/21/21 17:15 110 H 18 99 04/21/21 17:00 113 H 21 121/97 100 04/21/21 16:45 109 H 16 100 04/21/21 16:30 120 H 20 104/87 99 04/21/21 16:15 113 H 16 100 04/21/21 16:00 108 H 18 110/71 100 04/21/21 15:30 149 H 16 118/95 100 04/21/21 15:00 148 H 19 100 04/21/21 14:30 19 95/72 L 100 04/21/21 14:00 150 H 17 124/106 H 100 04/21/21 13:30 22 116/82 100 04/21/21 13:00 21 105/81 100 04/21/21 12:30 149 H 21 95/75 L 100 04/21/21 12:00 150 H 20 108/82 100 04/21/21 11:30 150 H 20 100/82 100 04/21/21 11:16 36.7 C 152 H 20 120/87 100 Intake & Output 04/19/21 04/20/21 04/21/21 04/22/21 06:59 06:59 06:59 06:59 Intake Total 800 / 800 Output Total 800 / 800 Balance 0 / 0 Weight 257 lb 4.471 oz Laboratory Results Laboratory Results - last 24 hr 04/21/21 04/21/21 04/21/21 11:08 11:08 11:08 WBC 5.99 RBC 3.64 L Hgb 11.2 L Hct 34.9 L MCV 95.9 MCH 30.8 MCHC 32.1 RDW Std Deviation 49.9 H RDW Coeff of Nimesh 14.3 Plt Count 118 L MPV 10.0 Immature Gran % (Auto) 0.3 Neut % (Auto) 91.2 Lymph % (Auto) 5.3 [place] % (Auto) 3.2 Eos % (Auto) 0.0 Baso % (Auto) 0.0 Neut # (Auto) 5.46 Lymph # (Auto) 0.32 L [place] # (Auto) 0.19 Eos # (Auto) 0.00 Baso # (Auto) 0.00 Immature Gran # (Auto) 0.02 PT 12.5 H INR 1.3 H APTT 35.3 H PTT Ratio 1.3 D-Dimer Cancelled 450 ABG pH ABG pCO2 ABG pO2 ABG HCO3 ABG O2 Saturation ABG Base Excess Jacques Test VBG pH VBG pCO2 VBG pO2 VBG HCO3 VBG O2 Saturation VBG Base Excess Barometric Pressure Oxygen Given Sodium Potassium Chloride Carbon Dioxide Anion Gap BUN Creatinine Est Cr Clr Drug Dosing Est GFR ( Amer) Est GFR (Non-Af Amer) BUN/Creatinine Ratio Glucose Calcium Total Bilirubin AST ALT Alkaline Phosphatase Troponin I NT-Pro-B Natriuret Pep Total Protein Albumin Globulin Albumin/Globulin Ratio Lipase SARS-CoV-2, RNA, NAAT 04/21/21 04/21/21 04/21/21 11:08 12:21 12:25 WBC RBC Hgb Hct MCV MCH MCHC RDW Std Deviation RDW Coeff of Nimesh Plt Count MPV Immature Gran % (Auto) Neut % (Auto) Lymph % (Auto) [place] % (Auto) Eos % (Auto) Baso % (Auto) Neut # (Auto) Lymph # (Auto) [place] # (Auto) Eos # (Auto) Baso # (Auto) Immature Gran # (Auto) PT INR APTT PTT Ratio D-Dimer ABG pH ABG pCO2 ABG pO2 ABG HCO3 ABG O2 Saturation ABG Base Excess Jacques Test VBG pH 7.33 L VBG pCO2 61 H VBG pO2 32 VBG HCO3 32 VBG O2 Saturation < 60.0 VBG Base Excess 4.6 Barometric Pressure 729.2 Oxygen Given Sodium 134 L Potassium 4.2 Chloride 98 Carbon Dioxide 27 Anion Gap 9.0 BUN 25 H Creatinine 1.53 H Est Cr Clr Drug Dosing Not Reportable Est GFR ( Amer) 52.6 Est GFR (Non-Af Amer) 45.4 BUN/Creatinine Ratio 16.3 Glucose 119 H Calcium 8.9 Total Bilirubin 0.9 AST 17 ALT 53 Alkaline Phosphatase 123 H Troponin I 0.069 H* NT-Pro-B Natriuret Pep 83990 H Total Protein 6.6 Albumin 2.9 L Globulin 3.7 Albumin/Globulin Ratio 0.8 L Lipase 84 SARS-CoV-2, RNA, NAAT NEGATIVE 04/21/21 04/21/21 04/21/21 14:13 19:36 19:36 WBC RBC Hgb Hct MCV MCH MCHC RDW Std Deviation RDW Coeff of Nimesh Plt Count MPV Immature Gran % (Auto) Neut % (Auto) Lymph % (Auto) [place] % (Auto) Eos % (Auto) Baso % (Auto) Neut # (Auto) Lymph # (Auto) [place] # (Auto) Eos # (Auto) Baso # (Auto) Immature Gran # (Auto) PT INR APTT PTT Ratio D-Dimer ABG pH 7.38 7.36 ABG pCO2 47 H 50 H ABG pO2 145 H 99 H ABG HCO3 27 H 28 H ABG O2 Saturation 99.0 H 97.2 H ABG Base Excess 1.6 1.5 Jacques Test Pos Pos VBG pH VBG pCO2 VBG pO2 VBG HCO3 VBG O2 Saturation VBG Base Excess Barometric Pressure 729.5 732.3 Oxygen Given 40% 2 Sodium Potassium Chloride Carbon Dioxide Anion Gap BUN Creatinine Est Cr Clr Drug Dosing Est GFR ( Amer) Est GFR (Non-Af Amer) BUN/Creatinine Ratio Glucose Calcium Total Bilirubin AST ALT Alkaline Phosphatase Troponin I 0.205 H* NT-Pro-B Natriuret Pep Total Protein Albumin Globulin Albumin/Globulin Ratio Lipase SARS-CoV-2, RNA, NAAT Diagnostic Findings ECG personally reviewed 04/21/2021 at 11:02 a.m.: Atrial flutter [address] depression. ECG 03/28/2021 at 4:37 a.m.: Sinus rhythm with PACs [address] abnormality. Echo 12/18/2020: Normal LV size. EF 50%. No regional wall motion abnormalities. Severe (PV 5.2; MG 70; BHUMI 0.63 cm2). Chest x-ray 04/21/2021: Interstitial thickening. Small right pleural effusion. Bibasilar opacities. Medications Administered Current Inpatient Medications Apixaban (Apixaban 5 Mg Tablet) 5 mg PO BID [facility] Stop: 05/21/21 20:59 Last Admin: 04/21/21 22:02 Dose: 5 mg Documented by: Budesonide (Budesonide 0.5 Mg/2 Ml Vial (Pulmicort)) 0.5 mg NEB BIDR [facility] Stop: 05/21/21 19:07 Last Admin: 04/21/21 19:18 Dose: 0.5 mg Documented by: Formoterol Fumarate (Formoterol 20 Mcg/2 Ml Vial) 20 mcg NEB BIDR [facility] Stop: 05/21/21 19:59 Last Admin: 04/21/21 19:22 Dose: Not Given Documented by: Furosemide (Furosemide 40 Mg/4 Ml Vial) 40 mg IV Q12H [facility] Stop: 05/21/21 19:59 Last Admin: 04/21/21 22:02 Dose: 40 mg Documented by: Amiodarone HCl/Dextrose (Nexterone / D5w) 360 mg in 200 mls @ 16.667 mls/hr IV .Q12H [facility] Stop: 05/21/21 21:44 Last Admin: 04/21/21 21:48 Dose: 0.5 mg/min, 16.7 mls/hr Documented by: Famotidine 20 mg/ Syringe 5 mls @ 2.5 mls/min IV BID [facility] Stop: 05/21/21 20:59 Last Admin: 04/21/21 22:24 Dose: 2.5 mls/min Documented by: Ipratropium Rico (Ipratropium Rico Neb Soln 0.02% 2.5 Ml Vial) 0.5 mg NEB Q8R [facility] Stop: 05/21/21 19:07 Last Admin: 04/21/21 19:18 Dose: 0.5 mg Documented by: Levalbuterol HCl (Levalbuterol Hcl 0.63 Mg/3 Ml Neb) 0.63 mg NEB Q8R [facility] Stop: 05/21/21 22:59 Prednisone (Prednisone 2.5 Mg Tab) 2.5 mg PO DAILY [facility] Stop: 05/22/21 08:59 PG Care Time/CCT Total # of Minutes Spent Total Time Spent with Patient: Total time spent is greater than 50% in coordination of care (as documented) at patient's floor/unit and/or counseling patient: Coding Level of Care Code 46614 Initial Inpt Care Lvl 3 Diagnoses Atrial flutter with rapid ventricular response I48.92 Elevated troponin R77.8 Severe aortic valve stenosis I35.0 Acute heart failure with preserved ejection fraction I50.31
[2021-04-21] MEDS ORDERED: FAMOTIDINE 20 MG TAB PO SCH (19:08)
[2021-04-21] MEDS: BUDESONIDE 0.5 MG/2 ML VIAL (PULMICORT) NEB SCH (19:18)
[2021-04-21] MEDS: IPRATROPIUM BROMIDE NEB SOLN 0.02% 2.5 ML VIAL NEB SCH ×2 (19:18→23:36)
[2021-04-21] MEDS: FORMOTEROL 20 MCG/2 ML VIAL NEB SCH (19:22)
[2021-04-21 19:54] LABS: Base Excess ABG 1.5 mEq/L (-9-1.8); HCO3 ABG 28 mmol/L (19-24); Oxygen Saturation ABG 97.2 % (90-95); PCO2 ABG 50 mmHg (35-46); PO2 ABG 99 mmHg (80-95); pH ABG 7.36 (7.35-7.45)
[2021-04-21 19:55] LABS: Allen Test Pos (Pos)
[2021-04-21] MEDS ORDERED: AMIODARONE / D5W 360 MG/200 ML BAG IV SCH (21:00)
[2021-04-21] MEDS: AMIODARONE / D5W 360 MG/200 ML BAG IV SCH (21:48)
[2021-04-21] MEDS: FUROSEMIDE 40 MG/4 ML VIAL IV SCH (22:02)
[2021-04-21] MEDS: APIXABAN 5 MG TABLET PO SCH (22:02)
[2021-04-21] MEDS: FAMOTIDINE 20 MG in SYRINGE 3 ML IV SCH (22:24)
[2021-04-21] MEDS: LEVALBUTEROL HCL 0.63 MG/3 ML NEB NEB SCH (23:36)
[2021-04-22 01:46] LABS: Hematocrit (blood only) 35.7 % (42-52); Hemoglobin 11.2 g/dL (14.0-18.0); Immature Granulocytes # (auto) 0.03 K/uL (0.00-0.02); Immature Granulocytes % (auto) 0.5 %; Lymphocytes # (auto) 0.53 K/uL (1.2-3.4); Lymphocytes % (auto) 8.8 %; Mean Corpuscular Hemoglobin 30.4 pg (25-34); Mean Corpuscular Hgb Conc 31.4 g/dL (32-36); Mean Corpuscular Volume 96.7 fL (80-100); Mean Platelet Volume 10.4 fL (7.4-10.4); Monocytes # (auto) 0.28 K/uL (0.11-0.59); Monocytes % (auto) 4.7 %; Neutrophils # (auto) 5.15 K/uL (1.4-6.5); Platelet Count 131 K/uL (130-400); RDW Coefficient of Variation 14.3 % (11.5-14.5); RDW Standard Deviation 50.2 fL (36.4-46.3); Red Blood Count 3.69 M/uL (4.7-6.1); White Blood Count 5.99 K/uL (4.8-10.8)
[2021-04-22 02:04] LABS: BUN Creatinine Ratio 15.5 (10-20); Calcium 8.8 mg/dl (8.5-10.1); Creatinine Clr Calc Pharmacy 51.7 ml/min; Est GFR (African American) 46.3 ml/min; Magnesium 1.9 mg/dl (1.8-2.4); Potassium 4.6 mmol/L (3.5-5.1)
[2021-04-22 02:07] LABS: Albumin Globulin Ratio 0.8 (0.9-2); Bilirubin,Total 0.8 mg/dl (0.2-1); Globulin 3.6 gm/dl (2.5-4.0); Total Protein 6.6 gm/dl (6.4-8.2)
[2021-04-22 02:26] LABS: Troponin I 0.271 ng/ml (0-0.045)
[2021-04-22] MEDS: BUDESONIDE 0.5 MG/2 ML VIAL (PULMICORT) NEB SCH ×2 (06:27→19:17)
[2021-04-22] MEDS: IPRATROPIUM BROMIDE NEB SOLN 0.02% 2.5 ML VIAL NEB SCH ×3 (06:28→19:17)
[2021-04-22] MEDS: FORMOTEROL 20 MCG/2 ML VIAL NEB SCH ×2 (06:28→19:17)
[2021-04-22] MEDS: LEVALBUTEROL HCL 0.63 MG/3 ML NEB NEB SCH ×3 (06:28→19:17)
[2021-04-22] MEDS: FUROSEMIDE 40 MG/4 ML VIAL IV SCH ×2 (07:21→20:13)
[2021-04-22] MEDS: APIXABAN 5 MG TABLET PO SCH ×2 (08:49→20:13)
[2021-04-22] MEDS: predniSONE 2.5 MG TAB PO SCH (08:49)
[2021-04-22] MEDS: AMIODARONE / D5W 360 MG/200 ML BAG IV SCH ×2 (09:27→20:14)
[2021-04-22] MEDS: FAMOTIDINE 20 MG in SYRINGE 3 ML IV SCH (09:28)
--- NOTE | 2021-04-22 12:28 | Hospitalist Progress Note ---
Date of Service April 22, 2021 Assessment & Plan (1) Respiratory failure: Plan: 70-year-old white male presented with mixed respiratory failure (hypoxemia and hypercapnia) Started on supplemental oxygen in route. Required 13 L nonrebreather in the ED VB.33/61 upfront. converted to Bipap and acute hypercapnia resolved (7.36/50/99) Clearly with acute uncompensated CHF (CXR showing pulmonary edema and BNP 20,253) again, bipap used upfront (not only for acute hypercapnia but also hypoxemia related to decompensated CHF). Has since been transitioned to supplemental O2 (is 98% on 2L) continue IV diuresis with goal fluid balance of -1L (watching BP closely as marginally hypotensive) would benefit from beta-blockade for afterload reduction/HR control--but BP will not tolerate that now Avoid nitrates given severe aortic stenosis Monitor daily weights and I's and O's closely Echocardiogram just done November 2020 showing EF of 50% with severe aortic st enosis and diastolic dysfunction. update echo ordered-- pending (Given A.Flutter and + troponin) seen by cardiology. Appreciate recommendations. (Covid is negative) (2) Atrial flutter with rapid ventricular response: Plan: Beta-blockade avoided upfront given acute on, CHF and risk for further decompensation Given amiodarone bolus and subsequently started on a drip despite this, HR variable (107-123) which is only adding to risk of decreased cardiac output ideally would add BB for HR control for added afterload reduction but BP will not tolerate (at least at this point with IV diuresis) Case discussed with cardiology and plan is to digitalize. Will monitor dig level closely and initiate low-dose given CKD and risk for dig toxicity Leery to pharmacologically cardiovert as he has been on anticoagulation therapy for less than 6 weeks at this point; however, need to gain rate control at this time Continue Eliquis as prior to hospitalization Echocardiogram ordered and pending (3) Elevated troponin: Plan: Trop 0.069--> 0.069 --> 0.205 --> 0.271 --> 0.324 Patient without chest pain. Suspect troponin elevated from supply/demand ischemia from tachycardia and uncompensated CHF rather than from unstable plaque continue to cycle for now but if it doesn't peak, would be inclined to stop (but ideally would cycle to peak in the event that he develops CP with warrants repeat labs-- would want to know where he is in the cycle) Trend EKG cardiology consulted. Appreciate recommendations Patient on chronic Eliquis. We will continue this patient has not records of stress testing/cardiac cath. ? if would benefit from addition of ASA as well (4) MAT (acute kidney injury): Plan: Creatinine 1.53 upon admission. Baseline seems to be 1.3-1.5. Currently 1.7 with diuresis Unfortunately, a degree of renal impairment is likely necessary to get him/keep him out of CHF given his severe aortic stenosis We will watch closely and avoid other nephrotoxic agents May have a degree of renal impairment from cardiorenal syndrome just secondary to his aortic stenosis (although EF was preserved at 50% as of ). Repeat echo has been ordered but is pending (5) COPD (chronic obstructive pulmonary disease): Plan: Patient presented with acute on chronic hypercapnia as outlined above Responded well to temporary BiPAP therapy and has since been transitioned to supplemental oxygen Hold off on IV steroids for now as patient with good air exchange and not bronchospastic Utilizing Pulmicort/Perforomist every 12H with Xopenex/Atrovent QID (avoiding albuterol due to tachyarrhythmia) in place of his Spiriva, albuterol and Symbicort inhalers (6) Severe aortic valve stenosis: Plan: Chronic and poor surgical candidate per documentation Cardiology consultedappreciate recommendations Avoid preload reduction other than diuretic therapy for now Uncertain if patient would be a candidate for aortic valve replacement. Appreciate recommendations per cardiology but other pressing matters at hand (remote history of PE, acute uncompensated CHF) but ultimately the severe aortic stenosis is likely contributing greatly to his acute issues (7) Polymyalgia rheumatica: Plan: Continue prednisone as prior to hospitalization No need for steroid challenge at this time (8) Pulmonary embolism: Plan: Remote history (diagnosed 02/2021) Continue Eliquis Plan: plan of care to be D/W Dr. August Plan of care has been D/W (cardiology)-- appreciate recommendations Admission and Anticipated Discharge Date Admission Date: April 21, 2021 Subjective Patient seen on daily rounds today. Remained on Bipap for ~2 hours lastnight. His FU ABG showed normal pH and resolution of the Acute hypercanpnia. Seen early this morning as he was having increased SOB. His HR was 117 (on amiodarone gtt) and his BP was stable (107/70). Pulse ox was 98% on 2L. He had good air exchange but crackles noted bilaterally. His lasix was administered early and he had his neb treatments (which alleviated his SOB). troponin has yet to peak (but only slow rise). No chest pain. his creatinine is uptrending slightlly his fluid balance hasn't yet hit the target of -1L/24 hours. Review of Systems Review of Systems: All systems reviewed and are unremarkable except as noted in HPI and below Denies fevers, chills, headache, nasal congestion, sore throat, cough, chest pain, shortness of breath, palpitations, orthopnea, PND, abdominal pain, nausea, vomiting, diarrhea, constipation, dysuria, hematuria, frequency, back pain, joint pain or swelling, easy bruising or bleeding, skin lesions or rashes. Physical Exam Physical Exam: General: Initially was leaning forward in the tripod position but his breathing was nonlabored without accessory muscle use. Following dose of Lasix and nebulized treatment, was sitting back comfortably in the chair. HEENT: Head is AT/NC buccal mucosa is moist and pink Neck: No JVD. But still with hepatojugular reflex Cardiac: Regular rhythm but irregular rate ([id number]) with 3/6 holosystolic murmur Lungs: Breathing nonlabored with good air exchange throughout. Bibasilar crackles persistent. No wheezes or rails Abdomen: Normoactive X4. Soft and nontender in all quadrants. Extremities: 2+ pitting edema remains of the bilateral lower extremities but is not tracking above the knee Neuro: A&O X4 cranial nerves II through XII are grossly intact no focal neuro deficits Skin: No obvious skin lesions or rashes Psych: Appropriate affect pleasant and cooperative Results & Data Results & Data ([facility]) Vital Signs (Past 12 Hours) Vital Signs Temp Pulse Pulse Resp BP BP Pulse Ox 04/22/21 12:00 104 H 22 98 04/22/21 11:48 36.7 C 107 H 19 94/55 L 100 04/22/21 09:49 102 H 04/22/21 07:19 120 H 24 104/70 98 04/22/21 06:28 100 H 18 99 04/22/21 04:51 103/70 04/22/21 03:53 36.5 C 107 H 19 93/61 L 99 Laboratory Results 04/22/21 01:20 04/22/21 01:20 PG Care Time/CCT Total # of Minutes Spent Total Time Spent with Patient: Total time spent is greater than 50% in coordination of care (as documented) at patient's floor/unit and/or counseling patient: Coding Level of Care Code 71019 Subseq Hosp Care Lvl 3 Diagnoses Respiratory failure J96.90 Atrial flutter with rapid ventricular response I48.92 Elevated troponin R77.8 COPD (chronic obstructive pulmonary disease) J44.1 COPD type: COPD with acute exacerbation Polymyalgia rheumatica M35.3 Severe aortic valve stenosis I35.0 Pulmonary embolism I26.99 Acute cor pulmonale presence: unspecified Chronicity: unspecified Pulmonary embolism type: unspecified MAT (acute kidney injury) N17.9 (1) COPD (chronic obstructive pulmonary disease) COPD type: COPD with acute exacerbation Qualified Code(s): J44.1 - Chronic obstructive pulmonary disease with (acute) exacerbation (2) Pulmonary embolism Acute cor pulmonale presence: unspecified Chronicity: unspecified Pulmonary embolism type: unspecified Qualified Code(s): I26.99 - Other pulmonary embolism without acute cor pulmonale
--- NOTE | 2021-04-22 13:08 | Cardiology Progress Note ---
Date of Service April 22, 2021 Assessment & Plan (1) Acute heart failure with preserved ejection fraction: Plan: -improving on intravenous diuretics. -decompensation likely related to atrial dysrhythmia with a rapid ventricular response. (2) Atrial flutter with rapid ventricular response: Plan: -continues on intravenous amiodarone. -could add low-dose beta blockade if blood pressure allows. -could consider digoxin if blood pressure limiting. -hopefully he will convert within the next 24 hours. (3) Elevated troponin: Plan: -likely a supply/demand mismatch realizing his rapid atrial dysrhythmia, aortic stenosis, and LVH. -no evidence of an acute coronary syndrome. (4) Severe aortic valve stenosis: Plan: -BHUMI calculated at 0.9 cm2 in November 2020. Admission and Anticipated Discharge Date Admission Date: April 21, 2021 Subjective The patient is resting comfortably in bedside chair without complaints of chest pain, dyspnea, or palpitations. Physical Exam Physical Exam: In general this is a well-developed well-nourished white male seated in a chair without complaints. HEENT exam is negative. Neck is supple with delayed and prolonged carotid upstrokes. Transmitted murmurs noted bilaterally. No JVD. There is no thyromegaly. Cardiovascular exam reveals an irregular rhythm with a 3/6 crescendo decrescendo systolic murmur heard loudest at the base. Heart tones are distant. Difficult to auscultate S2 at the apex. Lungs are clear without rales, rhonchi or wheezes. Abdomen is obese without bruits. Extremities reveal intact radial pulses bilaterally. Trace to 1+ pretibial edema is noted. Results & Data ([facility]) Vital Signs (Past 12 Hours) Vital Signs Temp Pulse Pulse Resp BP BP Pulse Ox 04/22/21 12:00 104 H 22 98 04/22/21 11:48 36.7 C 107 H 19 94/55 L 100 04/22/21 09:49 102 H 04/22/21 07:19 120 H 24 104/70 98 04/22/21 06:28 100 H 18 99 04/22/21 04:51 103/70 04/22/21 03:53 36.5 C 107 H 19 93/61 L 99 Diagnostic Findings threat monitoring analyst notes atrial flutter with a ventricular response of approximately 101 100 beats per minute. PG Care Time/CCT Total # of Minutes Spent Total Time Spent with Patient: Total time spent is greater than 50% in coordination of care (as documented) at patient's floor/unit and/or counseling patient: Coding Level of Care Code 96039 Subseq Hosp Care Lvl 3 Diagnoses Acute heart failure with preserved ejection fraction I50.31 Atrial flutter with rapid ventricular response I48.92 Elevated troponin R77.8 Severe aortic valve stenosis I35.0
[2021-04-22] MEDS: DIGOXIN 125 MCG in SYRINGE 9.5 ML IV SCH ×2 (13:55→20:10)
--- NOTE | 2021-04-22 18:31 | XCELERA ---
[id number]
[2021-04-22] MEDS ORDERED: METOPROLOL TARTRATE 25 MG TAB PO SCH (21:00)
[2021-04-22] MEDS: FAMOTIDINE 20 MG TAB PO SCH (21:04)
[2021-04-23] MEDS: IPRATROPIUM BROMIDE NEB SOLN 0.02% 2.5 ML VIAL NEB SCH ×4 (00:27→19:33)
[2021-04-23] MEDS: LEVALBUTEROL HCL 0.63 MG/3 ML NEB NEB SCH ×4 (00:27→19:33)
--- NOTE | 2021-04-23 06:26 | Electrocardiogram Report ---
Test Reason : Blood Pressure : / mmHG Vent. Rate : 151 BPM Atrial Rate : 302 BPM P-R Int : 000 ms QRS Dur : 082 ms QT Int : 230 ms P-R-T Axes : -83 029 260 degrees QTc Int : 364 ms Poor data quality, interpretation may be adversely affected Atrial flutter with 2:1 A-V conduction Marked ST abnormality, possible inferolateral subendocardial injury Abnormal ECG When compared with ECG of 28-Mar-2021 04:37, Atrial flutter has replaced Sinus rhythm HR has increased by 58 bpm Confirmed by Rodolfo Irwin ([id number]) on 04/23/2021 6:25:53 AM Referred By: Tracy Gomez Confirmed By:Rodolfo Irwin
--- NOTE | 2021-04-23 07:03 | Electrocardiogram Report ---
Test Reason : Blood Pressure : / mmHG Vent. Rate : 111 BPM Atrial Rate : 286 BPM P-R Int : 000 ms QRS Dur : 112 ms QT Int : 370 ms P-R-T Axes : 000 025 -72 degrees QTc Int : 503 ms Atrial flutter with variable A-V block Nonspecific ST and T wave abnormality Abnormal ECG When compared with ECG of 21-APR-2021 11:02, ST less depressed in Anterolateral leads Confirmed by Rodolfo Irwin ([id number]) on 04/23/2021 7:03:30 AM Referred By: Tracy Gomez Confirmed By:Rodolfo Irwin
[2021-04-23 07:46] LABS: Hematocrit (blood only) 34.5 % (42-52); Hemoglobin 11.1 g/dL (14.0-18.0); Mean Corpuscular Hemoglobin 30.4 pg (25-34); Mean Corpuscular Hgb Conc 32.2 g/dL (32-36); Mean Corpuscular Volume 94.5 fL (80-100); Mean Platelet Volume 9.8 fL (7.4-10.4); Platelet Count 134 K/uL (130-400); RDW Coefficient of Variation 14.3 % (11.5-14.5); Red Blood Count 3.65 M/uL (4.7-6.1)
[2021-04-23] MEDS: BUDESONIDE 0.5 MG/2 ML VIAL (PULMICORT) NEB SCH ×2 (07:49→19:33)
[2021-04-23 08:19] LABS: Calcium 8.8 mg/dl (8.5-10.1); Creatinine Clr Calc Pharmacy 49.4 ml/min; Est GFR (African American) 44.4 ml/min; Est GFR (Non-African American) 38.3 ml/min; Magnesium 1.9 mg/dl (1.8-2.4); Potassium 3.9 mmol/L (3.5-5.1)
[2021-04-23] MEDS ORDERED: DIGOXIN 0.125 MG/2.5 ML UDP PO SCH (09:00)
[2021-04-23] MEDS: FUROSEMIDE 40 MG/4 ML VIAL IV SCH (09:10)
--- NOTE | 2021-04-23 09:54 | XRay Report ---
XR chest 1V portable CLINICAL HISTORY: post diuresis. Shortness of breath COMPARISON STUDY: No previous studies for comparison. TECHNIQUE: 1 view of the chest FINDINGS: Single frontal view of the chest demonstrates the cardiomediastinal silhouette to be within normal li mits. There has been interval resolution of mild central vascular congestion. However, persistent hilton eolar opacity is present at the right lung base characteristic of atelectasis versus infiltrate. Ther e is again evidence for small right pleural effusion. Minimal left basilar atelectasis also present. There is no evidence for vascular congestion. There is no acute osseous pathology. IMPRESSION: Interval resolution of central vascular congestion with persistent alveolar opacity right lung base characteristic of atelectasis versus early infiltrate. Small right pleural effusion is als o seen. There is also minimal left basilar atelectasis. ACT 112: Negative or not required by law. Electronically signed by: Franklin Garcia M.D. 04/23/2021 9:53 AM
[2021-04-23] MEDS ORDERED: 0.2 MICRON FILTER SET 1 EA IV ONE (09:57)
[2021-04-23] MEDS: predniSONE 2.5 MG TAB PO SCH (09:59)
[2021-04-23] MEDS: FAMOTIDINE 20 MG TAB PO SCH ×2 (09:59→20:59)
[2021-04-23] MEDS: APIXABAN 5 MG TABLET PO SCH ×2 (09:59→20:59)
[2021-04-23] MEDS ORDERED: AMIODARONE / D5W 360 MG/200 ML BAG IV ONE (10:00)
[2021-04-23] MEDS ORDERED: DIGOXIN 250 MCG in SYRINGE 9 ML IV STA (10:05)
--- NOTE | 2021-04-23 10:10 | Cardiology Progress Note ---
Date of Service April 23, 2021 Assessment & Plan (1) Acute heart failure with preserved ejection fraction: Plan: -resolved on intravenous diuretics. -decompensation likely related to atrial dysrhythmia with a rapid ventricular response. (2) Atrial flutter with rapid ventricular response: Plan: -would restart intravenous amiodarone. -patient is concerned that he will not be able to lie supine for an electrical cardioversion. -hopefully, he will convert on intravenous amiodarone. -digoxin appears to be helping with heart rate response. (3) Left ventricular dysfunction: Plan: -LVEF now reduced at 35-40%. -suspect this is secondary to the rapid ventricular response to his atrial flutter. (4) Elevated troponin: Plan: -likely a supply/demand mismatch realizing his rapid atrial flutter, aortic stenosis, and LVH. -no evidence of an acute coronary syndrome. (5) Severe aortic valve stenosis: Plan: -severe stenosis noted on current echocardiogram. Admission and Anticipated Discharge Date Admission Date: April 21, 2021 Subjective Patient is resting comfortably in bedside chair without complaints of chest pain, dyspnea, or palpitations. We have discussed a possible cardioversion, however, patient is quite hesitant as he is unable to lie flat due to his COPD. This has been the case for over 3 years. Physical Exam Physical Exam: In general this is a well-developed well-nourished white male seated in a chair without complaints. HEENT exam is negative. Neck is supple with delayed and prolonged carotid upstrokes. Transmitted murmurs noted bilaterally. No JVD. There is no thyromegaly. Cardiovascular exam reveals an irregular rhythm with a 3/6 crescendo decrescendo systolic murmur heard loudest at the base. Heart tones are distant. Difficult to auscultate S2 at the apex. Lungs are clear without rales, rhonchi or wheezes. Abdomen is obese without bruits. Extremities reveal intact radial pulses bilaterally. Trace to 1+ pretibial edema is noted. Results & Data ([facility]) Vital Signs (Past 12 Hours) Vital Signs Temp Pulse Pulse Resp BP BP Pulse Ox 04/23/21 08:00 36.6 C 104 H 20 96/65 L 99 04/23/21 07:52 77 19 99 04/23/21 04:07 36.6 C 107 H 18 90/59 L 100 04/23/21 01:07 96/61 L 04/23/21 00:27 108 H 20 99 04/22/21 22:34 37.0 C 105 H 19 93/61 L 99 04/22/21 22:19 102 H Diagnostic Findings quality assurance monitor body notes atrial fibrillation with a variable ventricular response. Heart rate approximately 90-100 bpm. PG Care Time/CCT Total # of Minutes Spent Total Time Spent with Patient: Total time spent is greater than 50% in coordination of care (as documented) at patient's floor/unit and/or counseling patient: Coding Level of Care Code 63438 Subseq Hosp Care Lvl 3 Diagnoses Acute heart failure with preserved ejection fraction I50.31 Atrial flutter with rapid ventricular response I48.92 Elevated troponin R77.8 Severe aortic valve stenosis I35.0 Left ventricular dysfunction I51.9
--- NOTE | 2021-04-23 12:46 | Hospitalist Progress Note ---
Date of Service April 23, 2021 Assessment & Plan (1) Respiratory failure: Plan: 70-year-old white male presented with mixed respiratory failure (hypoxemia and hypercapnia) Started on supplemental oxygen in route. Required 13 L nonrebreather in the ED VB.33/61 upfront. converted to Bipap and acute hypercapnia resolved (7.36/50/99) Clearly with acute uncompensated CHF (CXR showing pulmonary edema and BNP 20,253) again, bipap utilized upfront (not only for acute hypercapnia but also hypoxemia related to decompensated CHF). Has since been transitioned to supplemental O2 (is 98% on 2L) Encourage staff to down titrate supplemental oxygen to keep his pulse ox between 90-92% given his underlying history of COPD and chronic hypercapnia. Lengthy discussion with patient that too much oxygen can actually be toxic for him. Responding favorably. Fluid balance over the past 24 hours is -1.2 L and he is down 5.3 pounds continue IV diuresis with goal fluid balance of -1L (watching BP closely as marginally hypotensive). Slowly approaching euvolemic state. Want to avoid too rapid diuresis and significant preload reduction given his severe (need volum e behind the valve so need to avoid OVERdiuresis) would benefit from beta-blockade for afterload reduction/HR control--but BP will not tolerate that Avoid nitrates given severe aortic stenosis Monitor daily weights and I's and O's closely Echocardiogram just done November 2020 showing EF of 50% with severe aortic stenosis and diastolic dysfunction. Repeat echo done: (Given A.Flutter and + troponin) EF 35-45% with Severe seen by cardiology. Appreciate recommendations. (Covid is negative) (2) Atrial flutter with rapid ventricular response: Plan: Beta-blockade avoided upfront given acute on Chronic CHF and risk for further decompensation (unable to use at this point given marginal hypotension) Given amiodarone bolus and subsequently started on a drip (remained in A.Flutter with variable response in the 120's) uncontrolled rate in the setting of Severe likely contributing to his CHF digitalized with IV dig (50% reduced dose given CKD) on 04/22 and started on oral. Later that night, 24 hours of amiodarone gtt completed Case discussed with cardiology and plan is to digitalize. Will monitor dig level closely and initiate low-dose given CKD and risk for dig toxicity remains in a.flutter with variable response (90-107 at rest. Up to 117 with ambulation) Patient has been on anticoagulation therapy at this point X25 days Case discussed with cardiology who felt that cardioversion would be beneficial; however, patient very reluctant due to his inability to lay flat Will increase dose of digoxin and reinstitute amiodarone drip for an additional 24 hours Patient to be seen by EP tomorrow (appreciate recommendations) (3) Elevated troponin: Plan: Trop 0.069--> 0.069 --> 0.205 --> 0.271 --> 0.324 --> 0.227 Patient without chest pain. Suspect troponin elevated from supply/demand ischemia from tachycardia and uncompensated CHF rather than from unstable plaque cardiology consulted. Appreciate recommendations Patient on chronic Eliquis. Will continue this patient has no records of stress testing/cardiac cath. ? if would benefit from addition of ASA as well--> would recommend cardiology recommendations regarding this but would be including to institute this (4) MAT (acute kidney injury): Plan: Creatinine 1.53 upon admission. Baseline seems to be 1.3-1.5. Currently 1.7 with diuresis Unfortunately, a degree of renal impairment is likely necessary to get him/keep him out of CHF but again, need to avoid too much pre-load reduction with diuresis as this can worsen his renal function Will watch closely and avoid other nephrotoxic agents Despite abnormal creatinine, his creatinine clearance is not far from normal (at 49) (5) COPD (chronic obstructive pulmonary disease): Plan: Patient presented with acute on chronic hypercapnia as outlined above Responded well to temporary BiPAP therapy and has since been transitioned to supplemental oxygen Hold off on IV steroids for now as patient with good air exchange and not bronchospastic Utilizing Pulmicort/Perforomist every 12H with Xopenex/Atrovent QID (avoiding albuterol due to tachyarrhythmia) in place of his Spiriva, albuterol and Symbicort inhalers Lengthy discussion/education with patient regarding over utilizing supplemental oxygen. Pulse ox should be kept at 90 to 92% and not much higher given his COPD and risk for CO2 retention. Patient voices understanding (6) Severe aortic valve stenosis: Plan: Chronic and poor surgical candidate per documentation Cardiology consultedappreciate recommendations Avoid preload reduction other than diuretic therapy for now (and avoid OVER diuresis!) Uncertain if patient would be a candidate for aortic valve replacement. Appreciate recommendations per cardiology but other pressing matters at hand (remote history of PE, acute uncompensated CHF) but ultimately the severe aortic stenosis is likely contributing greatly to his acute issues (the a.flutter and CHF) (7) Polymyalgia rheumatica: Plan: Continue prednisone as prior to hospitalization No need for steroid challenge at this time (8) Pulmonary embolism: Plan: Remote history (diagnosed 02/2021) Continue Eliquis Plan: plan of care to be D/W Dr. August Plan of care has been D/W (cardiology)-- appreciate recommendations Admission and Anticipated Discharge Date Admission Date: April 21, 2021 Subjective Patient seen on daily rounds today. Vocalizes no significant complaints or concerns. Although his pulse ox is 100% on 2 L of supplemental oxygen, he is convinced that he needs to remain on oxygen to "help with his breathing". He is not feeling significantly short of breath and overall feels much better compared to initial presentation but is worried about not having the oxygen. He denies chest pain. Was given IV digoxin X2 doses yesterday (given reduced loading dose given his underlying renal impairment). Heart rate has remained variable (90s to 117). Remains in atrial flutter. Amiodarone drip completed (24 hours) last evening. Still sleeping in the recliner although not due to breathing. Reports he has been sleeping upright/in a reclincer for approximately 3 years. Denies PND. Review of Systems Review of Systems: All systems reviewed and are unremarkable except as noted in HPI and below Denies fevers, chills, headache, nasal congestion, sore throat, cough, chest pain, shortness of breath, palpitations, orthopnea, PND, abdominal pain, nausea, vomiting, diarrhea, constipation, dysuria, hematuria, frequency, back pain, joint pain or swelling, easy bruising or bleeding, skin lesions or rashes. Physical Exam Physical Exam: General: Resting comfortably in his bedside chair. NAD. HEENT: Head is AT/NC buccal mucosa is moist and pink Neck: No significant JVD but still with + hepatojugular reflex Cardiac: Regular rhythm. Currently at 107 bpm with 3/6 LUZ MARINA (holosystolic) Lungs: Breathing comfortably on supplemental oxygen. No accessory muscle use or labored breathing. Improved air exchange throughout without wheezes, rales or rhonchi today Abdomen: Normoactive X4. Soft and nontender in all quadrants. Extremities: Still with pitting edema but overall improved. Plus one of the lower extremities but does not track proximally above the mid tibial region (was tracking into the thigh upon presentation). Neuro: A&O X4 cranial nerves II through XII are grossly intact no focal neuro deficits Skin: Vascular changes noted to the bilateral lower extremities Psych: Appropriate affect pleasant and cooperative Results & Data Results & Data ([place]) Vital Signs (Past 12 Hours) Vital Signs Temp Pulse Pulse Resp BP BP Pulse Ox 04/23/21 11:52 36.8 C 108 H 18 96/60 L 97 04/23/21 11:11 103 H 04/23/21 08:00 36.6 C 104 H 20 96/65 L 99 04/23/21 07:52 77 19 99 04/23/21 04:07 36.6 C 107 H 18 90/59 L 100 04/23/21 01:07 96/61 L Laboratory Results 04/23/21 07:03 04/23/21 07:03 04/22/21 04/22/21 04/22/21 06:47 13:47 19:00 Troponin I 0.324 H* 0.264 H* 0.305 H* 04/23/21 01:15 Troponin I 0.227 H* Diagnostic Findings patient monitor: Atrial flutter with variable rate (90-117) PG Care Time/CCT Total # of Minutes Spent Total Time Spent with Patient: Total time spent is greater than 50% in coordination of care (as documented) at patient's floor/unit and/or counseling patient: Coding Level of Care Code 98383 Subseq Hosp Care Lvl 3 Diagnoses Respiratory failure J96.90 Atrial flutter with rapid ventricular response I48.92 Elevated troponin R77.8 MAT (acute kidney injury) N17.9 COPD (chronic obstructive pulmonary disease) J44.1 COPD type: COPD with acute exacerbation Severe aortic valve stenosis I35.0 Polymyalgia rheumatica M35.3 Pulmonary embolism I26.99 Acute cor pulmonale presence: unspecified Chronicity: unspecified Pulmonary embolism type: unspecified (1) COPD (chronic obstructive pulmonary disease) COPD type: COPD with acute exacerbation Qualified Code(s): J44.1 - Chronic obstructive pulmonary disease with (acute) exacerbation (2) Pulmonary embolism Acute cor pulmonale presence: unspecified Chronicity: unspecified Pulmonary embolism type: unspecified Qualified Code(s): I26.99 - Other pulmonary embolism without acute cor pulmonale
[2021-04-23] MEDS: FORMOTEROL 20 MCG/2 ML VIAL NEB SCH ×2 (14:37→19:33)
[2021-04-23] MEDS ORDERED: MICONAZOLE NITRATE POWDER 43 GM EXT PRN (18:08)
[2021-04-23] MEDS: AMIODARONE / D5W 360 MG/200 ML BAG IV SCH (18:16)
[2021-04-23] MEDS: MICONAZOLE NITRATE POWDER 43 GM EXT SCH (20:59)
[2021-04-24] MEDS: LEVALBUTEROL HCL 0.63 MG/3 ML NEB NEB SCH ×4 (00:57→19:25)
[2021-04-24] MEDS: IPRATROPIUM BROMIDE NEB SOLN 0.02% 2.5 ML VIAL NEB SCH ×4 (00:57→19:25)
[2021-04-24] MEDS: AMIODARONE / D5W 360 MG/200 ML BAG IV SCH (06:25)
--- NOTE | 2021-04-24 06:34 | Electrocardiogram Report ---
Test Reason : Blood Pressure : / mmHG Vent. Rate : 107 BPM Atrial Rate : 293 BPM P-R Int : 000 ms QRS Dur : 116 ms QT Int : 370 ms P-R-T Axes : -67 009 -86 degrees QTc Int : 493 ms Atrial flutter with variable A-V block Nonspecific ST and T wave abnormality Abnormal ECG When compared with ECG of 22-APR-2021 04:47, No significant change was found Confirmed by Rodolfo Irwin ([id number]) on 04/24/2021 6:33:42 AM Referred By: Tracy Gomez Confirmed By:Rodolfo Irwin
[2021-04-24 07:22] LABS: Hematocrit (blood only) 36.1 % (42-52); Hemoglobin 11.8 g/dL (14.0-18.0); Mean Corpuscular Hemoglobin 30.6 pg (25-34); Mean Corpuscular Hgb Conc 32.7 g/dL (32-36); Mean Corpuscular Volume 93.5 fL (80-100); Mean Platelet Volume 10.3 fL (7.4-10.4); Platelet Count 145 K/uL (130-400); RDW Coefficient of Variation 14.3 % (11.5-14.5); RDW Standard Deviation 48.8 fL (36.4-46.3); Red Blood Count 3.86 M/uL (4.7-6.1); White Blood Count 5.24 K/uL (4.8-10.8)
[2021-04-24] MEDS: BUDESONIDE 0.5 MG/2 ML VIAL (PULMICORT) NEB SCH ×2 (07:27→19:26)
[2021-04-24] MEDS: FORMOTEROL 20 MCG/2 ML VIAL NEB SCH ×2 (07:27→19:25)
[2021-04-24] MEDS: APIXABAN 5 MG TABLET PO SCH ×2 (07:42→20:37)
[2021-04-24 07:43] LABS: BUN Creatinine Ratio 16.5 (10-20); Calcium 8.9 mg/dl (8.5-10.1); Creatinine Clr Calc Pharmacy 47.2 ml/min; Est GFR (African American) 42.1 ml/min; Est GFR (Non-African American) 36.3 ml/min; Potassium 4.1 mmol/L (3.5-5.1)
[2021-04-24] MEDS: FAMOTIDINE 20 MG TAB PO SCH ×2 (07:43→20:37)
[2021-04-24] MEDS: MICONAZOLE NITRATE POWDER 43 GM EXT SCH ×2 (07:43→20:37)
[2021-04-24] MEDS: predniSONE 2.5 MG TAB PO SCH (07:43)
[2021-04-24] MEDS: DIGOXIN 0.25 MG TAB PO SCH (07:43)
[2021-04-24 07:46] LABS: Albumin Globulin Ratio 0.8 (0.9-2); Bilirubin,Total 1.1 mg/dl (0.2-1); Globulin 3.6 gm/dl (2.5-4.0); Total Protein 6.6 gm/dl (6.4-8.2)
[2021-04-24] MEDS ORDERED: FUROSEMIDE 40 MG TAB PO SCH (09:00)
--- NOTE | 2021-04-24 11:58 | Cardiology Progress Note ---
Date of Service April 24, 2021 Assessment & Plan (1) Acute heart failure with preserved ejection fraction: Plan: He appears to have hypovolemia. However, lower extremity edema has been described throughout his record and may represent more venous insufficiency and right heart failure rather than left ventricular decompensation. He appears to have a reasonable net fluid loss daily on his current regimen of oral diuretic. I will continue Lasix daily and monitor his renal function and output. I think we need to maintain a negative fluid balance. (2) Atrial flutter with rapid ventricular response: Plan: Restarted on intravenous amiodarone. He is not likely to convert to sinus at this point. However, I think we can change him to oral therapy with amiodarone and digoxin. Hopefully we can provide an element of rate control which would allow him to be followed on an outpatient basis. I would suggest he ambulate around the [place] some today so that we can get some understanding of his rate control. I think he is high risk for complication from cardioversion given his severe aortic stenosis with transaortic velocities greater than 5 m/sec and reduced LV systolic function. His lung disease would also make his procedure more concerning. I think we will reserve electrical cardioversion for any severe decompensation. (3) Left ventricular dysfunction: Plan: Unclear etiology. Not currently on medical therapy due to relative hypotension. Continue diuresis as noted above. (4) Elevated troponin: Plan: Trending downward (5) Severe aortic valve stenosis: Plan: -severe stenosis noted on current echocardiogram. Transvalvular velocity greater than 5 m/sec. He was not felt to be a surgical candidate based on his degree of COPD, but may be a candidate for percutaneous intervention. Admission and Anticipated Discharge Date Admission Date: April 21, 2021 Subjective This morning patient states that his breathing is about normal. He has done little ambulation other than around his room. He is not reporting chest pain or symptoms of palpitations. He did not report dizziness or lightheadedness. He states that his lower extremity edema has worsened over the past 24 hours. Review of Systems Review of Systems: Per HPI Physical Exam Physical Exam: The patient is alert and oriented. Mood and affect appeared normal. He answered all questions appropriately. Using supplemental oxygen HEENT: Pupils are equal and reactive to light and accommodation. Extraocular movements are intact. The sclerae are anicteric. Neuro: Cranial nerves intact Lungs: Distant breath sounds bilaterally. Crackles to the mid lung bilaterally. No expiratory wheezing. Normal respiratory effort. Cardiac: Heart demonstrates an irregular rate and rhythm. Normal S1 and S2. High-pitched crescendo systolic murmur. Pulses: The patient has palpable radial pulses bilaterally that are equal in intensity Extremities: There was no evidence of hypoperfusion. There is no cyanosis or clubbing. Moderate bilateral lower extremity edema Skin: I did not appreciate any rashes on examination today. Results & Data ([facility]) Vital Signs (Past 12 Hours) Vital Signs Temp Pulse Resp BP Pulse Ox 04/24/21 07:29 93 H 18 97 04/24/21 07:10 36.3 C L 95 H 19 107/72 95 04/24/21 03:34 36.8 C 93 H 18 103/70 99 04/24/21 00:57 101 H 22 95 Laboratory Results Abnormal Lab Results 04/24/21 04/24/21 06:46 06:46 WBC 5.24 RBC 3.86 L Hgb 11.8 L Hct 36.1 L MCV 93.5 MCH 30.6 MCHC 32.7 RDW Std Deviation 48.8 H RDW Coeff of Nimesh 14.3 Plt Count 145 MPV 10.3 Sodium 134 L Potassium 4.1 Chloride 96 L Carbon Dioxide 26 Anion Gap 12.0 H BUN 30 H Creatinine 1.84 H Est Cr Clr Drug Dosing 47.2 Est GFR ( Amer) 42.1 Est GFR (Non-Af Amer) 36.3 BUN/Creatinine Ratio 16.5 Glucose 102 H Calcium 8.9 Magnesium 2.0 Total Bilirubin 1.1 H AST 21 ALT 54 Alkaline Phosphatase 113 Total Protein 6.6 Albumin 3.0 L Globulin 3.6 Albumin/Globulin Ratio 0.8 L Diagnostic Findings Performed 04/22/2021: Ejection fraction 35-40%. Mild left atrial dilation. Severe aortic stenosis. Moderate aortic regurgitation. Mild mitral regurgitation. PG Care Time/CCT Total # of Minutes Spent Total Time Spent with Patient: Total time spent is greater than 50% in coordination of care (as documented) at patient's floor/unit and/or counseling patient: Coding Level of Care Code 73470 Subseq Hosp Care Lvl 3 Diagnoses Acute heart failure with preserved ejection fraction I50.31 Atrial flutter with rapid ventricular response I48.92 Left ventricular dysfunction I51.9 Elevated troponin R77.8 Severe aortic valve stenosis I35.0
--- NOTE | 2021-04-24 13:13 | Hospitalist Progress Note ---
Date of Service April 24, 2021 Assessment & Plan (1) Respiratory failure: Plan: 70-year-old white male presented with mixed respiratory failure (hypoxemia and hypercapnia) Started on supplemental oxygen in route. Required 13 L nonrebreather in the ED VB.33/61 upfront. converted to Bipap and acute hypercapnia resolved (7.36/50/99) Clearly main presenting issues was acute uncompensated CHF (CXR showing pulmonary edema and BNP 20,253) again, bipap utilized upfront (not only for acute hypercapnia but also hypoxemia related to decompensated CHF). Has since been transitioned to supplemental O2 (is 98% on 2L) Encourage staff to down titrate supplemental oxygen to keep his pulse ox between 90-92% given his underlying history of COPD and chronic hypercapnia. Lengthy discussion with patient that too much oxygen can actually be toxic for him. Responding favorably. Fluid balance over the past 24 hours is -2.1 L and he is down 5.3 pounds (seems to be at dry weight with review of old weights) at this point, clinical compensated-- NEED TO AVOID overdiuresis and significant preload reduction given his severe (need volume behind the valve) would benefit from beta-blockade for afterload reduction/HR control--but BP will not tolerate that Avoid nitrates given severe aortic stenosis Monitor daily weights and I's and O's closely Echocardiogram just done November 2020 showing EF of 50% with severe aortic stenosis and diastolic dysfunction. Repeat echo done: (Given A.Flutter and + troponin) EF 35-45% with Severe Cardiology is following (Covid is negative) (2) Atrial flutter with rapid ventricular response: Plan: Beta-blockade avoided upfront given acute on Chronic CHF and risk for further decompensation (unable to use at this point given marginal hypotension) Given amiodarone bolus and subsequently started on a drip (remained in A.Flutter with variable response in the 120's) uncontrolled rate in the setting of Severe likely contributing to his CHF digitalized with IV dig (50% reduced dose given CKD) and started on oral dig (which has since been uptitrated) on 04/22 and amiodarone continued remains in a.flutter with variable response (90-107 at rest. Up to 117 with ambulation) Patient has been on anticoagulation therapy at this point X25 days Case discussed with cardiology who felt that cardioversion would be beneficial; however, patient very reluctant due to his inability to lay flat seen by EP today who reports patient HIGH risk for procedure (even cardioversion) and recommendations transition IV to oral amiodarone Continue Eliquis (3) Elevated troponin: Plan: Trop 0.069--> 0.069 --> 0.205 --> 0.271 --> 0.324 --> 0.227 Patient without chest pain. Suspect troponin elevated from supply/demand ischemia from tachycardia and uncompensated CHF rather than from unstable plaque cardiology consulted. Appreciate recommendations Patient on chronic Eliquis. Will continue this patient has no records of stress testing/cardiac cath. ? if would benefit from addition of ASA as well--> would recommend cardiology recommendations regarding this but would be including to institute this (4) MAT (acute kidney injury): Plan: Creatinine 1.53 upon admission. Baseline seems to be 1.3-1.5. Currently 1.7 with diuresis Unfortunately, a degree of renal impairment is likely necessary to get him/keep him out of CHF but again, need to avoid too much pre-load reduction with diuresis as this can worsen his renal function Will watch closely and avoid other nephrotoxic agents Despite abnormal creatinine, his creatinine clearance is not far from normal (at 49) (5) COPD (chronic obstructive pulmonary disease): Plan: Patient presented with acute on chronic hypercapnia as outlined above Responded well to temporary BiPAP therapy and has since been transitioned to supplemental oxygen Hold off on IV steroids for now as patient with good air exchange and not bronchospastic Utilizing Pulmicort/Perforomist every 12H with Xopenex/Atrovent QID (avoiding albuterol due to tachyarrhythmia) in place of his Spiriva, albuterol and Symbicort inhalers Lengthy discussion/education with patient regarding over utilizing supplemental oxygen. Pulse ox should be kept at 90 to 92% and not much higher given his COPD and risk for CO2 retention. Patient voices understanding (6) Severe aortic valve stenosis: Plan: Chronic and poor surgical candidate per documentation. ? if patient candidate for TAVR Cardiology consultedappreciate recommendations Avoid preload reduction other than diuretic therapy for now (and avoid OVER diuresis!) Uncertain if patient would be a candidate for aortic valve replacement. Appreciate recommendations per cardiology but other pressing matters at hand (remote history of PE, acute uncompensated CHF) but ultimately the severe aortic stenosis is likely contributing greatly to his acute issues (the a.flutter and CHF) (7) Polymyalgia rheumatica: Plan: Continue prednisone as prior to hospitalization No need for steroid challenge at this time (8) Pulmonary embolism: Plan: Remote history (diagnosed 02/2021) Continue Eliquis Plan: plan of care to be D/W Dr. August Plan of care has been D/W (cardiology)-- appreciate recommendations called and updated Todays changes: D/C Douglas Catheter today increase activity to see what HR does DOWNTITRATE supplemental O2 Admission and Anticipated Discharge Date Admission Date: April 21, 2021 Subjective Patient seen on daily rounds today. Overall feeling better compared to initial presentation but "not great". Remains in atrial flutter with variable response. Heart rate 90-117 despite being on digoxin and an amiodarone drip Cardiology following and there was thought for possible cardioversion today but did speak directly to EP who reports patient high risk even for cardioversion given his COPD, heart disease/LV dysfunction/aortic stenosis and CKD. Review of Systems Review of Systems: All systems reviewed and are unremarkable except as noted in HPI and below Denies fevers, chills, headache, nasal congestion, sore throat, cough, chest pain, shortness of breath, palpitations, orthopnea, PND, abdominal pain, nausea, vomiting, diarrhea, constipation, dysuria, hematuria, frequency, back pain, joint pain or swelling, easy bruising or bleeding, skin lesions or rashes. Physical Exam Physical Exam: General: Resting comfortably in his bedside chair. NAD. HEENT: Head is AT/NC buccal mucosa is moist and pink Neck: No significant JVD but still with + hepatojugular reflex Cardiac: Regular rhythm. Currently at 107 bpm with 3/6 LUZ MARINA (holosystolic) Lungs: Breathing comfortably on supplemental oxygen. No accessory muscle use or labored breathing. Improved air exchange throughout without wheezes, rales or rhonchi today Abdomen: Normoactive X4. Soft and nontender in all quadrants. Extremities: Still with pitting edema but overall improved. Plus one of the lower extremities but does not track proximally above the mid tibial region (was tracking into the thigh upon presentation). Neuro: A&O X4 cranial nerves II through XII are grossly intact no focal neuro deficits Skin: Vascular changes noted to the bilateral lower extremities Psych: Appropriate affect pleasant and cooperative Results & Data Results & Data ([facility]) Vital Signs (Past 12 Hours) Vital Signs Temp Pulse Resp BP Pulse Ox 04/24/21 12:03 96 H 18 98 04/24/21 07:29 93 H 18 97 04/24/21 07:10 36.3 C L 95 H 19 107/72 95 04/24/21 03:34 36.8 C 93 H 18 103/70 99 Laboratory Results 04/24/21 06:46 04/24/21 06:46 PG Care Time/CCT Total # of Minutes Spent Total Time Spent with Patient: Total time spent is greater than 50% in coordination of care (as documented) at patient's floor/unit and/or counseling patient: Coding Level of Care Code 23706 Subseq Hosp Care Lvl 2 Diagnoses Respiratory failure J96.90 Atrial flutter with rapid ventricular response I48.92 Elevated troponin R77.8 MAT (acute kidney injury) N17.9 COPD (chronic obstructive pulmonary disease) J44.1 COPD type: COPD with acute exacerbation Severe aortic valve stenosis I35.0 Polymyalgia rheumatica M35.3 Pulmonary embolism I26.99 Acute cor pulmonale presence: unspecified Chronicity: unspecified Pulmonary embolism type: unspecified (1) COPD (chronic obstructive pulmonary disease) COPD type: COPD with acute exacerbation Qualified Code(s): J44.1 - Chronic obstructive pulmonary disease with (acute) exacerbation (2) Pulmonary embolism Acute cor pulmonale presence: unspecified Chronicity: unspecified Pulmonary embolism type: unspecified Qualified Code(s): I26.99 - Other pulmonary embolism without acute cor pulmonale
[2021-04-24] MEDS: AMIODARONE 200 MG TAB PO SCH (16:40)
[2021-04-24] MEDS ORDERED: ALBUT/IPRATROP 3MG/0.5MG NEB 3 ML VIAL NEB STA (23:29)
[2021-04-25] MEDS: LEVALBUTEROL HCL 0.63 MG/3 ML NEB NEB SCH ×4 (00:24→19:54)
[2021-04-25] MEDS: IPRATROPIUM BROMIDE NEB SOLN 0.02% 2.5 ML VIAL NEB SCH ×4 (00:24→19:54)
[2021-04-25 06:06] LABS: Hematocrit (blood only) 33.2 % (42-52); Hemoglobin 10.9 g/dL (14.0-18.0); Mean Corpuscular Hemoglobin 30.7 pg (25-34); Mean Corpuscular Hgb Conc 32.8 g/dL (32-36); Mean Corpuscular Volume 93.5 fL (80-100); Mean Platelet Volume 10.2 fL (7.4-10.4); Platelet Count 117 K/uL (130-400); RDW Coefficient of Variation 14.2 % (11.5-14.5); RDW Standard Deviation 48.8 fL (36.4-46.3); Red Blood Count 3.55 M/uL (4.7-6.1); White Blood Count 4.96 K/uL (4.8-10.8)
[2021-04-25 06:46] LABS: Calcium 8.7 mg/dl (8.5-10.1); Creatinine Clr Calc Pharmacy 45.3 ml/min; Est GFR (Non-African American) 34.5 ml/min; Potassium 3.7 mmol/L (3.5-5.1)
[2021-04-25] MEDS: FAMOTIDINE 20 MG TAB PO SCH ×2 (07:58→20:51)
[2021-04-25] MEDS: predniSONE 2.5 MG TAB PO SCH (07:59)
[2021-04-25] MEDS: DIGOXIN 0.25 MG TAB PO SCH (07:59)
[2021-04-25] MEDS: FUROSEMIDE 40 MG TAB PO SCH ×2 (07:59→10:02)
[2021-04-25] MEDS: AMIODARONE 200 MG TAB PO SCH ×2 (07:59→17:12)
[2021-04-25] MEDS: APIXABAN 5 MG TABLET PO SCH ×2 (07:59→20:51)
[2021-04-25] MEDS: BUDESONIDE 0.5 MG/2 ML VIAL (PULMICORT) NEB SCH ×2 (08:04→19:12)
[2021-04-25] MEDS: FORMOTEROL 20 MCG/2 ML VIAL NEB SCH ×2 (08:05→19:12)
[2021-04-25] MEDS ORDERED: SODIUM CHLORIDE 0.9% 1000ML 250 ML IV ONE (10:03)
[2021-04-25] MEDS: MICONAZOLE NITRATE POWDER 43 GM EXT SCH ×2 (10:50→20:52)
[2021-04-25 15:01] LABS: BUN Creatinine Ratio 14.7 (10-20); Calcium 8.7 mg/dl (8.5-10.1); Creatinine Clr Calc Pharmacy 45.3 ml/min; Est GFR (Non-African American) 34.5 ml/min; Potassium 3.9 mmol/L (3.5-5.1)
[2021-04-25] MEDS ORDERED: SODIUM CHLORIDE 0.9% 500 ML IV SCH (15:45)
--- NOTE | 2021-04-25 16:14 | Hospitalist Progress Note ---
Date of Service April 25, 2021 Assessment & Plan (1) Respiratory failure: Plan: 70-year-old white male presented with mixed respiratory failure (hypoxemia and hypercapnia) Started on supplemental oxygen in route. Required 13 L nonrebreather in the ED VB.33/61 upfront. converted to Bipap and acute hypercapnia resolved (7.50/99) Clearly main presenting issues was acute uncompensated CHF (CXR showing pulmonary edema and BNP 20,253) again, bipap utilized upfront (not only for acute hypercapnia but also hypoxemia related to decompensated CHF). Has since been transitioned to supplemental O2 (is 98% on 2L) Encouraged staff to down titrate supplemental oxygen to keep his pulse ox between 90-92% given his underlying history of COPD and chronic hypercapnia. Lengthy discussion with patient that too much oxygen can actually be toxic for him. DOES REQUIRE NOCTURNAL O2 CHRONICALLY Responding favorably. Fluid balance over the past 24 hours is -2.1 L and he is down 5.3 pounds (seems to be at dry weight with review of old weights) at this point, clinical compensated-- NEED TO AVOID overdiuresis and significant preload reduction given his severe (need volume behind the valve)-- which today (04/25) seems slightly overdiuresed (BP 90/60 and his Na++ 129) would benefit from beta-blockade for afterload reduction/HR control--but BP will not tolerate that Avoid nitrates given severe aortic stenosis Monitor daily weights and I's and O's closely Echocardiogram just done November 2020 showing EF of 50% with severe aortic stenosis and diastolic dysfunction. Repeat echo done: (Given A.Flutter and + troponin) EF 35-45% with Severe Cardiology is following-- appreciate recommendations (Covid is negative) (2) CHF (congestive heart failure): Plan: Both systolic and diastolic in nature Patient with severe A flutter with RVR likely contributing See above as outlined Patient was getting Lasix 20 mg daily prior to this hospitalization. Diuresed with IV Lasix and subsequently transitioned back to p.o. on 04/24 but transitioned to 40 mg daily as opposed to his prior 20 mg. When seen on 04/25, seems to be slightly over diuresed (marginal hypotension and hyponatremia) Lasix held today Small fluid bolus given When Lasix resumed (likely tomorrow or the following day), will place back on 20 mg. Initially was going to increase to 40 mg but now that his heart rate is controlled, I believe 40 mg may be too much. (3) Atrial flutter with rapid ventricular response: Plan: Beta-blockade avoided upfront given acute on Chronic CHF and risk for further decompensation (unable to use at this point given marginal hypotension) Given amiodarone bolus and subsequently started on a drip and subsequently transitioned to oral amiodarone remained in A.Flutter with uncontrolled rate: digitalized with IV dig (50% r educed dose given CKD) and started on oral dig (which has since been uptitrated) on 04/22 uncontrolled rate in the setting of Severe likely contributing to his CHF remains in a.flutter with variable response (90's at rest). NEED TO SEE WHAT PATIENT DOES WITH AMBULATION Patient has been on anticoagulation therapy at this point X26 days Case discussed with cardiology who has been reluctant to proceed with cardioversion as they did not feel that he was a good candidate even for conscious sedation given his COPD seen by EP today who recommends continue amiodarone/digoxin and see what his heart rate does with ambulation. If controlled, proceed with discharge to home Continue Eliquis (4) Elevated troponin: Plan: Trop 0.069--> 0.069 --> 0.205 --> 0.271 --> 0.324 --> 0.227 Patient without chest pain. Suspect troponin elevated from supply/demand ischemia from tachycardia and uncompensated CHF rather than from unstable plaque cardiology consulted. Appreciate recommendations Patient on chronic Eliquis patient has no records of stress testing/cardiac cath. ? if would benefit from addition of ASA as well--> would recommend cardiology recommendations regarding this but would be including to institute this (hold off for now as plan is for referral for potential TAVR as OP) (5) MAT (acute kidney injury): Plan: Creatinine 1.53 upon admission. Baseline seems to be 1.3-1.5. Currently 1.9 with diuresis (seems slightly over-diuresed today) Unfortunately, a degree of renal impairment is likely necessary to get him/keep him out of CHF but also, need to avoid too much pre-load reduction with diuresis as this can worsen his renal function Small Fluid bolus today and monitor closlely Will watch closely and avoid other nephrotoxic agents Despite abnormal creatinine, his creatinine clearance is not far from normal (at 49) (6) COPD (chronic obstructive pulmonary disease): Plan: Patient presented with acute on chronic hypercapnia as outlined above Responded well to temporary BiPAP therapy and has since been transitioned to supplemental oxygen Hold off on IV steroids for now as patient with good air exchange and not bronchospastic Utilizing Pulmicort/Perforomist every 12H with Xopenex/Atrovent QID (avoiding albuterol due to tachyarrhythmia) in place of his Spiriva, albuterol and Symbicort inhalers Lengthy discussion/education with patient regarding over utilizing supplemental oxygen. Pulse ox should be kept at 90 to 92% and not much higher given his COPD and risk for CO2 retention. Patient voices understanding (7) Severe aortic valve stenosis: Plan: Chronic and poor surgical candidate per documentation. ? if patient candidate for TAVR (spoke with cardiology and plan is for referral as an outpatient to discuss potential for TAVR) Cardiology consultedappreciate recommendations Avoid preload reduction other than diuretic therapy for now (and avoid OVER diuresis!) (8) Hyponatremia: Plan: 04/25 patient's sodium 129. Has been in the 130s up until this point Again I believe he is slightly over diuresed Give small fluid bolus and trend labs (9) Polymyalgia rheumatica: Plan: Continue prednisone as prior to hospitalization No need for steroid challenge at this time (10) Pulmonary embolism: Plan: Remote history (diagnosed 02/2021) Continue Eliquis Plan: plan of care to be D/W Dr. August Plan of care has been D/W (cardiology)-- appreciate recommendations Admission and Anticipated Discharge Date Admission Date: April 21, 2021 Subjective Patient seen on daily rounds today. No significant change in symptomatology. Denies palpitations/cardiac awareness or chest pain. Breathing seems to be overall improved compared to initial presentation but "not great". Does have COPD. Remains in atrial flutter with variable response. At rest heart rate mostly in the 90s. Has not been up and ambulatory much to know what his heart rate does with any exertion. Denies fevers, chills, chest pain, shortness of breath, abdominal pain, nausea or vomiting. Nursing voices no significant complaints or concerns. Review of Systems Review of Systems: All systems reviewed and are unremarkable except as noted in HPI and below Denies fevers, chills, headache, nasal congestion, sore throat, cough, chest pain, shortness of breath, palpitations, orthopnea, PND, abdominal pain, nausea, vomiting, diarrhea, constipation, dysuria, hematuria, frequency, back pain, joint pain or swelling, easy bruising or bleeding, skin lesions or rashes. Physical Exam Physical Exam: General: Resting comfortably in his bedside chair. NAD. HEENT: Head is AT/NC buccal mucosa is moist and pink Neck: No JVD. Negative hepatojugular reflex Cardiac: Regular with 3/6 LUZ MARINA Lungs: Speaking full sentences on supplemental oxygen. No accessory muscle use or labored breathing. Good air exchange throughout W/R/R] Abdomen: Normoactive X4. Soft and nontender in all quadrants. Extremities: Trace pitting edema of the bilateral lower extremities (which may b e more related to vascular insufficiency) Neuro: A&O X4 cranial nerves II through XII are grossly intact no focal neuro deficits Skin: No obvious skin lesions or rashes Psych: Appropriate affect pleasant and cooperative Results & Data Results & Data ([facility]) Vital Signs (Past 12 Hours) Vital Signs Temp Pulse Pulse Resp BP Pulse Ox 04/25/21 13:31 94 H 18 98 04/25/21 12:12 36.5 C 92 H 18 95/61 L 92 04/25/21 08:06 36.7 C 96 H 19 107/68 99 04/25/21 08:05 96 H 18 98 04/25/21 08:00 95 H 04/25/21 07:59 95 H 04/25/21 04:16 36.4 C L 95 H 20 98/60 L 96 Laboratory Results 04/25/21 05:44 04/25/21 14:09 PG Care Time/CCT Total # of Minutes Spent Total Time Spent with Patient: Total time spent is greater than 50% in coordination of care (as documented) at patient's floor/unit and/or counseling patient: Coding Level of Care Code 82851 Subseq Hosp Care Lvl 2 Diagnoses Respiratory failure J96.90 Atrial flutter with rapid ventricular response I48.92 Elevated troponin R77.8 MAT (acute kidney injury) N17.9 COPD (chronic obstructive pulmonary disease) J44.1 COPD type: COPD with acute exacerbation Severe aortic valve stenosis I35.0 Polymyalgia rheumatica M35.3 Pulmonary embolism I26.99 Acute cor pulmonale presence: unspecified Chronicity: unspecified Pulmonary embolism type: unspecified Hyponatremia E87.1 CHF (congestive heart failure) I50.9 (1) COPD (chronic obstructive pulmonary disease) COPD type: COPD with acute exacerbation Qualified Code(s): J44.1 - Chronic obstructive pulmonary disease with (acute) exacerbation (2) Pulmonary embolism Acute cor pulmonale presence: unspecified Chronicity: unspecified Pulmonary embolism type: unspecified Qualified Code(s): I26.99 - Other pulmonary embolism without acute cor pulmonale
--- NOTE | 2021-04-25 17:12 | Cardiology Progress Note ---
Date of Service April 25, 2021 Assessment & Plan (1) Acute heart failure with preserved ejection fraction: Plan: He has had aggressive diuresis. Switch to oral diuretics. Oral diuretics reduced again in order to prevent hypovolemia. Persistent lower extremity edema likely related to venous insufficiency. (2) Atrial flutter with rapid ventricular response: Plan: Restarted on intravenous amiodarone. Hopefully with extended administration of amiodarone we could see resolution of his atrial flutter. In any event, rate control is adequate at rest. We do not have a good understand ing what his rate control be light with activity. Hopefully we can liberalize his activity today and get a better understanding of whether more aggressive treatment is warranted. On apixaban 5 mg twice daily. (3) Left ventricular dysfunction: Plan: Unclear etiology. As his condition stabilizes we can consider addition of beta-blockade. (4) Elevated troponin: Plan: Trending downward (5) Severe aortic valve stenosis: Plan: -severe stenosis noted on current echocardiogram. Transvalvular velocity greater than 5 m/sec. He was not felt to be a surgical candidate based on his degree of COPD, but may be a candidate for percutaneous intervention. Admission and Anticipated Discharge Date Admission Date: April 21, 2021 Subjective This afternoon the patient claimed he feeling well. He has been up in a chair for some time. He has not done much in the way of ambulation. He denied any significant breathing trouble while at rest. No sense of palpitation. Review of Systems Review of Systems: Per HPI Physical Exam Physical Exam: The patient is alert and oriented. Mood and affect appeared normal. He answered all questions appropriately. Using supplemental oxygen HEENT: Pupils are equal and reactive to light and accommodation. Extraocular movements are intact. The sclerae are anicteric. Neuro: Cranial nerves intact Lungs: Distant breath sounds bilaterally. Crackles to the mid lung bilaterally. No expiratory wheezing. Normal respiratory effort. Cardiac: Heart demonstrates an irregular rate and rhythm. Normal S1 and S2. High-pitched crescendo systolic murmur. Pulses: The patient has palpable radial pulses bilaterally that are equal in intensity Extremities: There was no evidence of hypoperfusion. There is no cyanosis or clubbing. Moderate bilateral lower extremity edema Skin: I did not appreciate any rashes on examination today. Results & Data ([facility]) Vital Signs (Past 12 Hours) Vital Signs Temp Pulse Pulse Resp BP Pulse Ox 04/25/21 16:00 93 H 04/25/21 15:58 36.5 C 93 H 22 108/70 91 04/25/21 13:31 94 H 18 98 04/25/21 12:12 36.5 C 92 H 18 95/61 L 92 04/25/21 08:06 36.7 C 96 H 19 107/68 99 04/25/21 08:05 96 H 18 98 04/25/21 08:00 95 H 04/25/21 07:59 95 H Laboratory Results Abnormal Lab Results 04/25/21 04/25/21 04/25/21 05:44 05:44 14:09 WBC 4.96 RBC 3.55 L Hgb 10.9 L Hct 33.2 L MCV 93.5 MCH 30.7 MCHC 32.8 RDW Std Deviation 48.8 H RDW Coeff of Nimesh 14.2 Plt Count 117 L MPV 10.2 Sodium 129 L 130 L Potassium 3.7 3.9 Chloride 94 L 94 L Carbon Dioxide 29 31 Anion Gap 6.0 5.0 BUN 29 H 28 H Creatinine 1.92 H 1.92 H Est Cr Clr Drug Dosing 45.3 45.3 Est GFR ( Amer) 40.0 40.0 Est GFR (Non-Af Amer) 34.5 34.5 BUN/Creatinine Ratio 15.0 14.7 Glucose 96 94 Calcium 8.7 8.7 Magnesium 2.0 Specimen Hemolysis PG Care Time/CCT Total # of Minutes Spent Total Time Spent with Patient: Total time spent is greater than 50% in coordination of care (as documented) at patient's floor/unit and/or counseling patient: Coding Level of Care Code 34336 Subseq Hosp Care Lvl 2 Diagnoses Acute heart failure with preserved ejection fraction I50.31 Atrial flutter with rapid ventricular response I48.92 Left ventricular dysfunction I51.9 Elevated troponin R77.8 Severe aortic valve stenosis I35.0
[2021-04-25] MEDS ORDERED: TERAZOSIN HCL 5 MG CAP PO SCH (21:00)
[2021-04-25] MEDS ORDERED: TERAZOSIN HCL 5 MG CAP PO STA (21:12)
[2021-04-26] MEDS: LEVALBUTEROL HCL 0.63 MG/3 ML NEB NEB SCH ×3 (00:39→12:58)
[2021-04-26] MEDS: IPRATROPIUM BROMIDE NEB SOLN 0.02% 2.5 ML VIAL NEB SCH ×3 (00:39→12:58)
[2021-04-26 06:15] LABS: Eosinophils # (auto) 0.01 K/uL (0-0.5); Eosinophils % (auto) 0.2 %; Hematocrit (blood only) 34.2 % (42-52); Hemoglobin 11.1 g/dL (14.0-18.0); Immature Granulocytes # (auto) 0.02 K/uL (0.00-0.02); Immature Granulocytes % (auto) 0.5 %; Lymphocytes # (auto) 0.51 K/uL (1.2-3.4); Mean Corpuscular Hemoglobin 30.4 pg (25-34); Mean Corpuscular Hgb Conc 32.5 g/dL (32-36); Mean Corpuscular Volume 93.7 fL (80-100); Monocytes # (auto) 0.22 K/uL (0.11-0.59); Monocytes % (auto) 5.2 %; Neutrophils % (auto) 82.1 %; Platelet Count 109 K/uL (130-400); RDW Coefficient of Variation 14.3 % (11.5-14.5); RDW Standard Deviation 48.6 fL (36.4-46.3); Red Blood Count 3.65 M/uL (4.7-6.1); White Blood Count 4.26 K/uL (4.8-10.8)
[2021-04-26 06:52] LABS: BUN Creatinine Ratio 13.6 (10-20); Calcium 8.6 mg/dl (8.5-10.1); Creatinine Clr Calc Pharmacy 45.3 ml/min; Est GFR (Non-African American) 34.5 ml/min; Potassium 3.6 mmol/L (3.5-5.1)
[2021-04-26] MEDS: FORMOTEROL 20 MCG/2 ML VIAL NEB SCH (07:39)
[2021-04-26] MEDS: BUDESONIDE 0.5 MG/2 ML VIAL (PULMICORT) NEB SCH (07:40)
[2021-04-26 08:11] VITALS: TEMP 98.2
[2021-04-26] MEDS: predniSONE 2.5 MG TAB PO SCH (08:40)
[2021-04-26] MEDS: DIGOXIN 0.25 MG TAB PO SCH (08:40)
[2021-04-26] MEDS: AMIODARONE 200 MG TAB PO SCH (08:40)
[2021-04-26] MEDS: FAMOTIDINE 20 MG TAB PO SCH (08:40)
[2021-04-26] MEDS: APIXABAN 5 MG TABLET PO SCH (08:40)
[2021-04-26] MEDS: MICONAZOLE NITRATE POWDER 43 GM EXT SCH (08:42)
[2021-04-26] MEDS ORDERED: FINASTERIDE 5 MG TAB PO SCH (09:00)
[2021-04-26 13:02] VITALS: PULSE 80; O2SAT 98
[2021-04-26 14:15] VITALS: BP 89/70
--- NOTE | 2021-04-26 14:48 | Discharge Summary ---
Date of Service April 26, 2021 Admission HPI Per Admitting Provider Mr. Robert is a 70 y/o WM with a PMHx of CHF- Diastolic dysfunction, Severe , CKD, COPD (uses nocturnal O2), CKD, remote h/o PE (03/20-- on Eliquis), PMR- on chronic prednisone therapy, and RA. He presented to the ED with progressive SOB ongoing x weeks. Recently hospitalized to our facility 03/28 - 03/29 with PE (2 small subsegmental within the right lung). He was started on Eliquis and discharged to home. Was feeling well for ~2 days but his SOB returned and has been ongoing since. Now with associated edema of the lower extremities, orthopnea (has been sleeping in the recliner) and PND. Using his nebulizer more often without improvement in symptoms. Denies CP/palpitations or hemoptysis/cough. Takes lasix 20mg daily and has been taking this as prescribed. Brought to the ED by EMS services. found to be tachycardic (149- sinus) and marginal hypotensive (95/75) and on 13L NRB to maintain a pulse ox of 100%. labs show Creatinine of 1.53 (baseline 1.3-1.5), BNP elevated at 20,253, troponin mildly elevated at 0.069. The rest of his labs data is unremarkable. CXR shows PVC EKG showed tachyarrhythmia (?a.flutter) He received 500cc ml in the ED Principal Diagnosis 1. Mixed respiratory failure (hypoxemia and hypercapnia) 2. Uncompensated CHF 3. A.Flutter with RVR 4. A/CKD- needed to keep CHF compensated 5. Severe Aortic Stenosis 6. Hyponatremia- resolved (seems hypovolemic in nature-- from overdiuresis) Discharge Exam General: Resting comfortably in his bedside chair. NAD. HEENT: Head is AT/NC buccal mucosa is moist and pink Neck: No JVD. Negative hepatojugular reflex Cardiac: Regular with 3/6 LUZ MARINA Lungs: Speaking full sentences on supplemental oxygen. No accessory muscle use or labored breathing. Good air exchange throughout W/R/R] Abdomen: Normoactive X4. Soft and nontender in all quadrants. Extremities: Trace pitting edema of the bilateral lower extremities (which may be more related to vascular insufficiency) Neuro: A&O X4 cranial nerves II through XII are grossly intact no focal neuro deficits Skin: No obvious skin lesions or rashes Psych: Appropriate affect pleasant and cooperative Discharge Data Allergies Allergy/AdvReac Type Severity Reaction Status Date / Time grass pollen Allergy Mild Verified 04/21/21 14:17 Sulfa (Sulfonamide AdvReac Unknown Unknown Unverified 04/21/21 14:17 Antibiotics) Consultations 04/21/21 13:17 ED Decision to Admit Stat 04/21/21 14:55 Consult Cardiology cardiology followed while in house Hospital Course (1) Respiratory failure: 70-year-old white male presented with mixed respiratory failure (hypoxemia and hypercapnia) Started on supplemental oxygen in route. Required 13 L nonrebreather in the ED VB. upfront. converted to Bipap and acute hypercapnia resolved (./) Clearly main presenting issues was acute uncompensated CHF (CXR showing pulmonary edema and BNP 20,253) again, bipap utilized upfront (not only for acute hypercapnia but also hypoxemia related to decompensated CHF). Has since been transitioned to supplemental O2 (is 98% on 2L) Encouraged staff to down titrate supplemental oxygen to keep his pulse ox between 90-92% given his underlying history of COPD and chronic hypercapnia. Lengthy discussion with patient that too much oxygen can actually be toxic for him. DOES REQUIRE NOCTURNAL O2 CHRONICALLY Responding favorably. Fluid balance over the past 24 hours is -2.1 L and he is down 5.3 pounds (seems to be at dry weight with review of old weights) at this point, clinical compensated-- NEED TO AVOID overdiuresis and significant preload reduction given his severe (need volume behind the valve)-- which (on 04/25) seemsed slightly overdiuresed (BP 90/60 and his Na++ 129). Given 500cc NSS total and BP improved/Na++ normalized would benefit from beta-blockade for afterload reduction/HR control--but BP intolerant up until this point. May consider trial of this as an OP Avoid nitrates given severe aortic stenosis Echocardiogram just done November 2020 showing EF of 50% with severe aortic stenosis and diastolic dysfunction. Repeat echo done: (Given A.Flutter and + troponin) EF 35-45% with Severe Cardiology followed while in house-- appreciate recommendations (Covid is negative) (2) CHF (congestive heart failure): Both systolic and diastolic in nature Patient with severe A flutter with RVR likely contributing See above as outlined Patient was getting Lasix 20 mg daily prior to this hospitalization. Diuresed with IV Lasix and subsequently transitioned back to p.o. on 04/24 but transitioned to 40 mg daily as opposed to his prior 20 mg. When seen on 04/25, seemed to be slightly over diuresed (marginal hypotension and hyponatremia) Lasix held and Small fluid bolus given Follow-up BP improved greatly and sodium level resolved (now 134) would resume lasix but back to 20mg daily (as was over diuresed with 40mg) I suspect that the reason the 20 mg of Lasix prior to this hospitalization was not adequate is likely in part from his uncontrolled heart rate. If added diaphoresis needed, could consider alternating 20 with 40 mg (3) Atrial flutter with rapid ventricular response: Beta-blockade avoided upfront given acute on Chronic CHF and risk for further decompensation (unable to use at this point given marginal hypotension) Given amiodarone bolus and subsequently started on a drip and subsequently transitioned to oral amiodarone remained in A.Flutter with uncontrolled rate: digitalized with IV dig (50% reduced dose given CKD) and started on oral dig (which has since been uptitrated) on 04/22 uncontrolled rate in the setting of Severe likely contributing to his CHF remains in a.flutter with a rate at 80-90 at rest. up to 107 with ambulation Case discussed with cardiology who has been reluctant to proceed with cardioversion as they did not feel that he was a good candidate even for cons cious sedation given his COPD seen by EP today who recommends continue amiodarone/digoxin (amiodarone 400mg daily for 1 week then 200mg daily-- this can be further titrated as an OP) If necessary and BP improved, may consider addition of beta-blockade Continue Eliquis (4) Elevated troponin: Trop 0.069--> 0.069 --> 0.205 --> 0.271 --> 0.324 --> 0.227 Patient without chest pain. Suspect troponin elevated from supply/demand ischemia from tachycardia and uncompensated CHF rather than from unstable plaque cardiology consulted. Appreciate recommendations Patient on chronic Eliquis patient has no records of stress testing/cardiac cath. ? if would benefit from addition of ASA as well--> would recommend cardiology recommendations regarding this but would be including to institute this (hold off for now as plan is for referral for potential TAVR as OP) (5) MAT (acute kidney injury): Creatinine 1.53 upon admission. Baseline seems to be 1.3-1.5. Currently 1.9 with diuresis Unfortunately, a degree of renal impairment is likely necessary to get him/keep him out of CHF but also, need to avoid too much pre-load reduction with diuresis as this can worsen his renal function May also be in part from overdiuresis Would advise follow-up metabolic panel in 1 week to trend (6) COPD (chronic obstructive pulmonary disease): Patient presented with acute on chronic hypercapnia as outlined above Responded well to temporary BiPAP therapy and has since been transitioned to supplemental oxygen Held off on IV steroids for now as patient with good air exchange and not bronchospastic Utilized Pulmicort/Perforomist every 12H with Xopenex/Atrovent QID (avoiding albuterol due to tachyarrhythmia) in place of his Spiriva, albuterol and Symbicort inhalers Lengthy discussion/education with patient regarding over utilizing supplemental oxygen. Pulse ox should be kept at 90 to 92% and not much higher given his COPD and risk for CO2 retention. Patient voices understanding (7) Severe aortic valve stenosis: Chronic and poor surgical candidate per documentation. ? if patient candidate for TAVR (spoke with cardiology and plan is for referral as an outpatient to discuss potential for TAVR) Cardiology consultedappreciate recommendations Avoid significant preload reduction (is on lasix but not on nitrates or ACEI) (8) Hyponatremia: 04/25 patient's sodium 129. Has been in the 130s up until this point Again I believe was secondary to slight over diuresed Give small fluid bolus and FU Na++ 134 (9) Polymyalgia rheumatica: Continue prednisone as prior to hospitalization No need for steroid challenge at this time (10) Pulmonary embolism: Remote history (diagnosed 02/2021) Continue Demarco plan of care to be D/W Dr. August Plan of care has been D/W (cardiology)-- appreciate recommendations (Polly) also updated Home Health Attestation I certify that this patient is under my care and that I, or a physicians press assistant working with me, had a face to-face encounter that meets the home health [id number] encounter requirements with this patient. The encounter with the patient was in whole, or in part, for the following medical condition, which is the primary reason for home health care (list medical condition): Respiratory Failure I certify that, based on my findings, the following services are medically necessary home health services: My clinical findings support the need for the above services because: PT Assessment for Endurance / Balance / Strength PT Eval for Safety and Mobility PT Eval for Safety, Gait Training, Assistive Devices PT Gait and Balance Training, Strengthening and Safety Skilled Nsg Assessment S/S to Report to Provider Further, I certify that my clinical findings support that this patient is homebound (i.e. absences from home require considerable and taxing effort and are for medical reasons or latter-day services or infrequently or of short duration when for other reasons) because: Poor Endurance; SOB Minimal Exertion Certification for Home Health Services: Based on the above findings, I certify that this patient is confined to the home and needs intermittent chcf care, physical therapy and/or speech therapy or continues to need occupational therapy. The patient is under my care, and I have initiated the establishment of the plan of care. This patient will be followed by a physician who will periodically review the plan of care. Total Time Total Time Spent Total Time Spent (In Minutes): 60 Discharge Plan Discharge Items Patient Disposition: Home - Home Health Services Reason For Visit: MIXED RESPIRATORY FAILURE Discharge Diagnosis: 1. Acute Respiratory failure (mixed-- hypoxemia "low oxygen" and hypercapnia "high carbon dioxide) 2. Congestive Heart Failure 3. Atrial Flutter with Rapid Response (the heart rate issue) 4. Severe Aortic Stenosis (bad heart valve) 5. Acute on chronic Renal insufficiency (needed to keep you out of heart failure) 6. Hyponatremia (low sodium) - resolved Activity: Resume your previous activity Non-emergency contact: Primary Care Provider and Motor Assembler Call non-emergency contact if: you have any medication questions and your symptoms worsen Follow-up/Referrals: Tracy Gomez MD [Primary Care Provider] - Diet: Low Sodium (2gm) Addtl Attending Provider Instructions: - you were hospitalized with mixed respiratory failure (your oxygen levels were low and your carbon dioxide levels were high) - This was because of heart failure (the low oxygen level) but also because of your COPD (which is why your CO2 level was high) - you were treated with that Bipap machine and IV lasix (diuretics) - I suspect that the heart failure was not only because of the bad aortic valve and your history of heart failure, but because your were in atrial flutter with a rapid response (the heart was racing too face and not apply to pump the blood OUT of the heart as discussed) - We had difficulty getting your heart rate under control (which again, I think the bad heart valve is contributing along your underlying hypertension) - you have been started on Digoxin and amiodarone to help with your heart rate (amiodarone-- take 200mg twice a day x1 week then change to once a day) - follow up with Cardiology to discuss referral for potential aortic valve replacement - continue taking your lasix as prior to hospitalization - would recommend follow up labs in 1 week (at discretion of PCP/cardiology) --please note that I did change your albuterol to xopenex (your COPD medication (as albuterol can potentially increase your heart rate and xopenex is less likely to do so) Pending Studies at Discharge: No Stand-Alone Forms: My [facility] Medications and DC Order Prescriptions: New amiodarone 200 mg tablet 200 mg PO DIRECTED Qty: 40 RF: 0 levalbuterol HCl 0.63 mg/3 mL Solution For Nebulization 0.63 mg NEB Q6R PRN (Reason: shortness of breath or wheezing) Qty: 90 RF: 0 digoxin 250 mcg (0.25 mg) Tablet 250 mcg PO DAILY Qty: 30 RF: 0 Continued finasteride 5 mg tablet 5 mg PO QAM Qty: 30 RF: 11 terazosin 5 mg capsule 5 mg PO QPM Qty: 90 RF: 1 cyclobenzaprine 10 mg tablet 10 mg PO TID PRN (Reason: muscle spasm) Qty: 30 RF: 0 allopurinol 300 mg tablet 300 mg PO DAILY RF: 0 sennosides [Senokot] 8.6 mg Tablet 8.6 mg PO BID RF: 0 acetaminophen [Tylenol Extra Strength] 500 mg Tablet 1,000 mg PO Q6H PRN (Reason: Pain) RF: 0 loratadine [Claritin] 10 mg Tablet 10 mg PO QAM RF: 0 Spiriva with HandiHaler 18 mcg Capsule, W/Inhalation Device 1 cap INHALATION HS RF: 0 budesonide-formoterol [Symbicort] 160-4.5 mcg/actuation Hfa Aerosol Inhaler 2 puff INHALATION BID RF: 0 omeprazole 40 mg capsule,delayed release(DR/EC) 40 mg PO QAM RF: 0 famotidine 20 mg Tablet 20 mg PO QDD RF: 0 prednisone 5 mg tablet 5 mg PO DAILY RF: 0 Eliquis 5 mg tablet 5 mg PO BID RF: 0 Boost 0.04 gram- 1 kcal/mL Liquid 1 ea PO DAILY RF: 0 Probiotic 3 billion cell Capsule 3,000 mmu cells PO DAILY RF: 0 Discontinued albuterol sulfate 90 mcg/actuation aero powdr breath act w/sensor 2 puffs INH Q6H PRN (Reason: shortness of breath or wheezing) Qty: 1 RF: 3 ipratropium-albuterol 0.5 mg-3 mg(2.5 mg base)/3 mL solution for nebulization 3 ml INHALATION TID Qty: 270 RF: 3 Discharge Orders: Discharge Order (Routine); Ordered 04/26/21 Ordered By: Jacquelyn Joshua Admission Data Admit Date/Time: 04/21/21 14:05 Attending Provider: Manan August Admit Provider: Garett Guerra Primary Care Provider: Tracy Gomez Other Providers: Rodolfo Irwin ; Manan August ; [facility] Other Interventions: Discharge Summary Assessment (RN) Last Done: 04/26/21 13:30 Supervising Physician Co-Signing Physician Notes I supervised Jacquelyn Joshua PA-C on the care of this patient. I interviewed and examined the patient independently of her. The plan is as written in her note except for any following changes/exceptions: None Doing well today. Looks mildly hypervolemic, but comfortable. Plan to leave him slightly that way until aortic valve issues are sorted out. HR under control with digoxin and amiodarone. Ready for discharge with close cardiology followup. Coding Level of Care Code D/C DAY MANAGEMENT >30 MINS Diagnoses Respiratory failure J96.90 CHF (congestive heart failure) I50.9 Atrial flutter with rapid ventricular response I48.92 Elevated troponin R77.8 MAT (acute kidney injury) N17.9 COPD (chronic obstructive pulmonary disease) J44.1 COPD type: COPD with acute exacerbation Severe aortic valve stenosis I35.0 Hyponatremia E87.1 Polymyalgia rheumatica M35.3 Pulmonary embolism I26.99 Acute cor pulmonale presence: unspecified Chronicity: unspecified Pulmonary embolism type: unspecified
[2021-04-26] MEDS ORDERED: TERAZOSIN HCL 5 MG CAP PO SCH (21:00)
== END 2021-04-26 14:05 | disposition home health service (06) | DRG 291 ==
LOC: ED 10:55 → SUATTDRO 14:05 → EDINP 14:05 → 2S 20:17

== ENCOUNTER 2021-05-10 15:39 | Inpatient (IN) ==
[2021-05-10] MEDS ORDERED: ALBUT/IPRATROP 3MG/0.5MG NEB 3 ML VIAL INH STA (15:53)
--- NOTE | 2021-05-10 16:00 | Emergency Department Note ---
History of Present Illness General Chief complaint: Shortness of Breath/Dyspnea Stated complaint: SOB Time Seen by Provider: 05/10/21 15:46 Source: patient History of Present Illness Provider complaint: Short of breath Onset (ago): month(s) Location: chest Pain Consistency: + intermittent Quality: + other (Short of breath) Relieved By: + other (Oxygen) Associated symptoms: + shortness of breath; no chest pain, no cough, no fever/ chills, no headaches, no nausea/vomiting or no syncope This is a 70-year-old male with a history of COPD on chronic oxygen as well as CHF presenting with shortness of breath for a month. He states that shortness of breath got worse today. He denies any associated chest pain. He is on 1-1/2 L of oxygen and feels better on more oxygen. He has had no fever or cough or Covid- like symptoms. He denies any abdominal pain, vomiting, diarrhea, urinary symptoms or black or bloody stools. He states he has not been gaining weight and does not notice more swelling to his legs. He does state that he has not been eating very much recently. He did have a nosebleed today from the right nostril which was stopped with putting a tissue in it. He denies feeling in the back of his throat. He states he gets occasional nosebleeds due to being on Eliquis. He did take his Eliquis this morning. Home Medications Medication Instructions Recorded Confirmed Type budesonide-formoterol HFA 160 2 puff INHALATION BID 06/24/18 05/10/21 History mcg-4.5 mcg/actuation aerosol inhaler (Symbicort) loratadine 10 mg tablet (Claritin) 10 mg PO QAM 06/24/18 05/10/21 History tiotropium bromide 18 mcg capsule 1 cap INHALATION HS 06/24/18 05/10/21 History with inhalation device (Spiriva with HandiHaler) acetaminophen 500 mg tablet 1,000 mg PO Q6H PRN 12/21/19 05/10/21 History (Tylenol Extra Strength) sennosides 8.6 mg tablet (Senokot) 8.6 mg PO BID 12/21/19 05/10/21 History finasteride 5 mg tablet 5 mg PO QAM #30 tab 07/25/20 05/10/21 Rx terazosin 5 mg capsule 5 mg PO QPM #90 cap 12/06/20 05/10/21 Rx allopurinol 300 mg tablet 300 mg PO DAILY 03/19/21 05/10/21 History famotidine 20 mg tablet 20 mg PO QDD 03/28/21 05/10/21 History omeprazole 40 mg capsule,delayed 40 mg PO QAM 03/28/21 05/10/21 History release prednisone 5 mg tablet 5 mg PO DAILY 03/28/21 05/10/21 History cyclobenzaprine 10 mg tablet 10 mg PO TID PRN #30 tab 04/15/21 05/10/21 Rx food supplemt, lactose-reduced 1 ea PO DAILY 04/21/21 05/10/21 History 0.04 gram-1 kcal/mL oral liquid (Boost) lactobacillus combination no.4 3 3,000 mmu cells PO DAILY 04/21/21 05/10/21 History billion cell capsule (Probiotic) amiodarone 200 mg tablet 200 mg PO DAILY #90 tab 04/30/21 05/10/21 Rx apixaban 5 mg tablet (Eliquis) 5 mg PO BID #90 tab 04/30/21 05/10/21 Rx digoxin 250 mcg (0.25 mg) tablet 250 mcg PO DAILY #90 tab 04/30/21 05/10/21 Rx levalbuterol HCl 0.63 mg/3 mL 0.63 mg NEB Q6R PRN #90 ml 05/06/21 05/10/21 Rx solution for nebulization tramadol 50 mg tablet 50 - 100 mg PO Q6H PRN 05/10/21 05/10/21 History Allergies Allergy/AdvReac Type Severity Reaction Status Date / Time grass pollen Allergy Mild Verified 05/10/21 17:24 Sulfa (Sulfonamide AdvReac Unknown Unknown Unverified 05/10/21 17:24 Antibiotics) Past Med/Surg History Medical History Benign prostatic hyperplasia with urinary obstruction and other lower urinary tract symptoms Chronic obstructive pulmonary disease SEVERE per pulm 08/09. Uses inhalers daily and prn CKD (chronic kidney disease) stage 2, GFR 60-89 ml/min Colon polyp COPD (chronic obstructive pulmonary disease) Diastolic dysfunction History of colon polyps History of elevated glucose History of smoking at least 1 pack per day for at least 30 years Obesity (BMI 30-39.9) Osteoarthritis Polymyalgia rheumatica Renal disease Severe aortic valve stenosis Per Dr. Centeno 07/15, "do not feel that he has demonstrated surgical symptoms. Feel that his exertional dyspnea is likely related to his severe COPD. No indication for aortic valve replacement surgery at this time." Surgical History H/O rectal polypectomy History of bilateral cataract extraction History of colonoscopy History of cystoscopy History of elbow surgery left ulnar nerve History of hernia repair Laparoscopic History of surgical removal of terminal ileum History of wisdom tooth extraction Family History Brother Family history of diabetes mellitus Family hx colonic polyps Prostate cancer Myocardial infarction H/O heart bypass surgery Mother Colorectal cancer Other No family history of adverse response to anesthesia Denies family history of Ovarian cancer Breast cancer Lung cancer Social History Smoking Status: Former smoker Tobacco Type: Cigarettes Second Hand Exposure: No; Hx Alcohol Use: Yes (quit many years ago) Alcohol Intake Frequency: Monthly or Less Hx Substance Use: No Preferred Language: Mohawk Communication Ability: Effective Visual Impairment: Limited Executive Sales Manager Required: No Beliefs That Will Affect Care: None marital status: Current Living Situation: Spouse current occupational status: retired How many Children do You have: 1 Feels Safe at Home: Yes Childhood Exposure to Second-Hand Smoke: Yes caffeine: Yes (coffee, soda) Dental Care, Regularly: Yes Physical Activity Frequency: Does not Exercise Seatbelt Use: never Sunscreen Use: No Assistive Devices: Oxygen - Continuous Review of Systems See HPI for pertinent positives & negatives. and A total of 10 systems reviewed and were otherwise negative Physical Exam Vital Signs Vital Signs - 24 hr 05/10/21 16:21 05/10/21 16:30 05/10/21 18:30 Temperature 36.4 C L Temperature Source Oral Pulse Rate 86 63 Pulse Rhythm Irregular Pulse Strength Normal Respiratory Rate 22 18 Respiratory Effort / Characteristics Non-Labored Spontaneous Respiratory Depth Normal Normal Respiratory Pattern Regular Tachypnea Blood Pressure 100/63 Blood Pressure Mean 75 Blood Pressure Position Sitting Pulse Oximetry 96 99 Oxygen Delivery Method Nasal Cannula Nasal Cannula Nasal Cannula Oxygen Flow Rate 3 3 3 Sepsis Recent Fever Within 48 Hours No Sepsis New/Unexplained Change in Mental Status No Sepsis Action Taken by Nursing No Action Required Constitutional: Vital signs reviewed. Blood on the right side of his T-shirt. Eyes: Pupils are equal round reactive to light. Conjunctiva are noninjected. ENT: Pharynx is clear without erythema or exudate. Mucous membranes are moist. No active bleeding noted to the posterior oropharynx. He has a tissue jammed into his right nostril under his oxygen mask. Neck supple without meningeal signs. Respiratory: Bibasilar rales and scattered wheezing.. Breath sounds are equal bilaterally. Cardiovascular: Regular rate and rhythm. No rubs or gallops. GI: Soft, nondistended and nontender. Bowel sounds are present. Musculoskeletal: Significant pitting edema to the lower extremities. No lower extremity tenderness. Integumentary: No cyanosis. or jaundice. Neurological: The patient is awake and alert. No focal deficits. Psychiatric: Normal affect. Not anxious appearing. Procedures Epistaxis Control Time Out Performed: No Nostril: right Clots Removed by: blowing nose Cautery Used: none Device Inserted: hemostatic balloon Device Size: 45 Patient Tolerated Procedure: well and no complications Course Administered Medications Discontinued Medications Albuterol (Albut/Ipratrop 3mg/0.5mg Neb 3 Ml Vial) 3 ml INH NOW STA Stop: 05/10/21 15:54 Last Admin: 05/10/21 18:18 Dose: 3 ml Documented by: [id number] Albuterol (Albut/Ipratrop 3mg/0.5mg Neb 3 Ml Vial) Confirm Administered Dose 3 m l .ROUTE .STK-MED ONE Stop: 05/10/21 18:19 Last Admin: 05/10/21 18:25 Dose: Not Given Documented by: [id number] Furosemide (Furosemide Inj 20 Mg/2 Ml Vial) 20 mg IV ONE ONE Stop: 05/10/21 19:49 Last Admin: 05/10/21 20:21 Dose: 20 mg Documented by: [id number] Piperacillin Sod/Tazobactam Sod (Zosyn) 4.5 gm in 120 mls @ 240 mls/hr IV NOW ONE Stop: 05/10/21 16:46 Last Infusion: 05/10/21 17:21 Dose: 0 mls/hr Documented by: [id number] Admin: 05/10/21 16:51 Dose: 240 mls/hr Documented by: [id number] Medical Decision Making Differential Diagnosis COPD exacerbation, pulmonary edema, CHF exacerbation, pneumonia, anemia, GI bleed Medical Records Attestation: I reviewed the patient's medical records. I did perform a limited focused review of portions of the patient's old chart on the electronic medical record. The patient was discharged 2 weeks ago from the hospital for CHF exacerbation, COPD, elevated troponin and hypercapnic and hypoxic acute on chronic respiratory failure. Home Medications Current Medication List: was personally reviewed by me Laboratory Data Attestation: I reviewed the patient's lab results. Result diagrams: 05/10/21 15:52 05/10/21 15:52 Lab Results 05/10/21 05/10/21 05/10/21 Range/Units 15:52 15:52 15:52 WBC 5.66 (4.8-10.8) K/uL RBC 3.34 L (4.7-6.1) M/uL Hgb 10.4 L (14.0-18.0) g/dL POC Hgb (14.0-18.0) g/dl Hct 31.5 L (42-52) % POC Hct (42-52) % MCV 94.3 (80-100) fL MCH 31.1 (25-34) pg MCHC 33.0 (32-36) g/dL RDW Std Deviation 49.7 H (36.4-46.3) fL RDW Coeff of Nimesh 14.7 H (11.5-14.5) % Plt Count 136 (130-400) K/uL MPV 10.4 (7.4-10.4) fL Immature Gran % (Auto) 0.5 % Neut % (Auto) 91.0 % Lymph % (Auto) 2.8 % [place] % (Auto) 5.5 % Eos % (Auto) 0.0 % Baso % (Auto) 0.2 % Neut # (Auto) 5.15 (1.4-6.5) K/uL Lymph # (Auto) 0.16 L (1.2-3.4) K/uL [place] # (Auto) 0.31 (0.11-0.59) K/uL Eos # (Auto) 0.00 (0-0.5) K/uL Baso # (Auto) 0.01 (0-0.2) K/uL Immature Gran # (Auto) 0.03 H (0.00-0.02) K/uL PT 13.0 H (9.0-12.0) Seconds INR 1.3 H (0.9-1.1) APTT 41.8 H (21.0-31.0) Seconds PTT Ratio 1.6 VBG pH (7.36-7.41) VBG pCO2 (38-50) mmHg VBG pO2 mmHg VBG HCO3 mmol/L VBG O2 Saturation % VBG Base Excess mEq/L Barometric Pressure mm/Hg POC Sodium (135-144) mmol/L Sodium 127 L (136-145) mmol/L POC Potassium (3.3-5.0) mmol/L Potassium 4.7 (3.5-5.1) mmol/L POC Chloride (101-112) mmol/L Chloride 88 L (98-107) mmol/L Carbon Dioxide 31 (21-32) mmol/L POC Total CO2 (24-31) mmol/L Anion Gap 8.0 (3-11) POC Anion Gap (16-25) mmol/L POC BUN (7-18) mg/dl BUN 45 H (7-18) mg/dl Creatinine 2.33 H (0.6-1.4) mg/dl POC Creatinine (0.6-1.3) mg/dl Est Cr Clr Drug Dosing 37.2 ml/min Est GFR ( Amer) 31.6 ml/min Est GFR (Non-Af Amer) 27.3 ml/min BUN/Creatinine Ratio 19.2 (10-20) Glucose 120 H (70-99) mg/dl POC Glucose (other) (70-99) mg/dl Calcium 9.3 (8.5-10.1) mg/dl POC Ioniz Calcium Sara (1.12-1.32) mmol/l Total Bilirubin 1.7 H (0.2-1) mg/dl AST 22 (15-37) U/L ALT 43 (12-78) Alkaline Phosphatase 89 (45-117) U/L Troponin I 0.058 H* (0-0.045) ng/ml NT-Pro-B Natriuret Pep 66862 H (0-900) pg/ml Total Protein 6.7 (6.4-8.2) gm/dl Albumin 3.3 L (3.4-5.0) gm/dl Globulin 3.4 (2.5-4.0) gm/dl Albumin/Globulin Ratio 1.0 (0.9-2) Procalcitonin (0-0.5) ng/ml SARS-CoV-2 (PCR) (Negative) Influenza Type A (PCR) (Neg) Influenza Type B (PCR) (Neg) RSV (RT-PCR) (Neg) Blood Type Antibody Screen 05/10/21 05/10/21 05/10/21 Range/Units 15:52 15:59 16:01 WBC (4.8-10.8) K/uL RBC (4.7-6.1) M/uL Hgb (14.0-18.0) g/dL POC Hgb (14.0-18.0) g/dl Hct (42-52) % POC Hct (42-52) % MCV (80-100) fL MCH (25-34) pg MCHC (32-36) g/dL RDW Std Deviation (36.4-46.3) fL RDW Coeff of Nimesh (11.5-14.5) % Plt Count (130-400) K/uL MPV (7.4-10.4) fL Immature Gran % (Auto) % Neut % (Auto) % Lymph % (Auto) % [place] % (Auto) % Eos % (Auto) % Baso % (Auto) % Neut # (Auto) (1.4-6.5) K/uL Lymph # (Auto) (1.2-3.4) K/uL [place] # (Auto) (0.11-0.59) K/uL Eos # (Auto) (0-0.5) K/uL Baso # (Auto) (0-0.2) K/uL Immature Gran # (Auto) (0.00-0.02) K/uL PT (9.0-12.0) Seconds INR (0.9-1.1) APTT (21.0-31.0) Seconds PTT Ratio VBG pH 7.41 (7.36-7.41) VBG pCO2 53 H (38-50) mmHg VBG pO2 32 mmHg VBG HCO3 33 mmol/L VBG O2 Saturation < 60.0 % VBG Base Excess 6.9 mEq/L Barometric Pressure 719.0 mm/Hg POC Sodium (135-144) mmol/L Sodium (136-145) mmol/L POC Potassium (3.3-5.0) mmol/L Potassium (3.5-5.1) mmol/L POC Chloride (101-112) mmol/L Chloride (98-107) mmol/L Carbon Dioxide (21-32) mmol/L POC Total CO2 (24-31) mmol/L Anion Gap (3-11) POC Anion Gap (16-25) mmol/L POC BUN (7-18) mg/dl BUN (7-18) mg/dl Creatinine (0.6-1.4) mg/dl POC Creatinine (0.6-1.3) mg/dl Est Cr Clr Drug Dosing ml/min Est GFR ( Amer) ml/min Est GFR (Non-Af Amer) ml/min BUN/Creatinine Ratio (10-20) Glucose (70-99) mg/dl POC Glucose (other) (70-99) mg/dl Calcium (8.5-10.1) mg/dl POC Ioniz Calcium Sara (1.12-1.32) mmol/l Total Bilirubin (0.2-1) mg/dl AST (15-37) U/L ALT (12-78) Alkaline Phosphatase (45-117) U/L Troponin I (0-0.045) ng/ml NT-Pro-B Natriuret Pep (0-900) pg/ml Total Protein (6.4-8.2) gm/dl Albumin (3.4-5.0) gm/dl Globulin (2.5-4.0) gm/dl Albumin/Globulin Ratio (0.9-2) Procalcitonin 0.32 (0-0.5) ng/ml SARS-CoV-2 (PCR) (Negative) Influenza Type A (PCR) (Neg) Influenza Type B (PCR) (Neg) RSV (RT-PCR) (Neg) Blood Type O Positive Antibody Screen NEGATIVE 05/10/21 05/10/21 Range/Units 16:10 18:02 WBC (4.8-10.8) K/uL RBC (4.7-6.1) M/uL Hgb (14.0-18.0) g/dL POC Hgb 10.5 L (14.0-18.0) g/dl Hct (42-52) % POC Hct 31 L (42-52) % MCV (80-100) fL MCH (25-34) pg MCHC (32-36) g/dL RDW Std Deviation (36.4-46.3) fL RDW Coeff of Nimesh (11.5-14.5) % Plt Count (130-400) K/uL MPV (7.4-10.4) fL Immature Gran % (Auto) % Neut % (Auto) % Lymph % (Auto) % [place] % (Auto) % Eos % (Auto) % Baso % (Auto) % Neut # (Auto) (1.4-6.5) K/uL Lymph # (Auto) (1.2-3.4) K/uL [place] # (Auto) (0.11-0.59) K/uL Eos # (Auto) (0-0.5) K/uL Baso # (Auto) (0-0.2) K/uL Immature Gran # (Auto) (0.00-0.02) K/uL PT (9.0-12.0) Seconds INR (0.9-1.1) APTT (21.0-31.0) Seconds PTT Ratio VBG pH (7.36-7.41) VBG pCO2 (38-50) mmHg VBG pO2 mmHg VBG HCO3 mmol/L VBG O2 Saturation % VBG Base Excess mEq/L Barometric Pressure mm/Hg POC Sodium 124 L (135-144) mmol/L Sodium (136-145) mmol/L POC Potassium 4.8 (3.3-5.0) mmol/L Potassium (3.5-5.1) mmol/L POC Chloride 85 L (101-112) mmol/L Chloride (98-107) mmol/L Carbon Dioxide (21-32) mmol/L POC Total CO2 31 (24-31) mmol/L Anion Gap (3-11) POC Anion Gap 15.0 L (16-25) mmol/L POC BUN 43 H (7-18) mg/dl BUN (7-18) mg/dl Creatinine (0.6-1.4) mg/dl POC Creatinine 2.3 H (0.6-1.3) mg/dl Est Cr Clr Drug Dosing ml/min Est GFR ( Amer) ml/min Est GFR (Non-Af Amer) ml/min BUN/Creatinine Ratio (10-20) Glucose (70-99) mg/dl POC Glucose (other) 121 H (70-99) mg/dl Calcium (8.5-10.1) mg/dl POC Ioniz Calcium Sara 1.16 (1.12-1.32) mmol/l Total Bilirubin (0.2-1) mg/dl AST (15-37) U/L ALT (12-78) Alkaline Phosphatase (45-117) U/L Troponin I (0-0.045) ng/ml NT-Pro-B Natriuret Pep (0-900) pg/ml Total Protein (6.4-8.2) gm/dl Albumin (3.4-5.0) gm/dl Globulin (2.5-4.0) gm/dl Albumin/Globulin Ratio (0.9-2) Procalcitonin (0-0.5) ng/ml SARS-CoV-2 (PCR) NEGATIVE (Negative) Influenza Type A (PCR) Negative (Neg) Influenza Type B (PCR) Negative (Neg) RSV (RT-PCR) Negative (Neg) Blood Type Antibody Screen Imaging Data Radiologist's Impression: Chest X-Ray 05/10/21 15:53 XR chest 1V portable CLINICAL HISTORY: Dyspnea. Follow-up right basilar atelectasis versus infiltrate COMPARISON STUDY: 04/23/2021 TECHNIQUE: 1 view of the chest FINDINGS: Single frontal view of the chest demonstrates the cardiomediastinal silhouette to be within normal limits. Compared to previous examination, there is increased opacity seen at the right lung base most characteristic of pneumonia. There is also a small right pleural effusion. Left hemithorax is clear. There is no evidence for left pleural effusion. There is no evidence for vascular congestion. There is no acute osseous pathology. IMPRESSION: Interval increased right lower lobe alveolar opacity characteristic of pneumonia. There is also small right pleural effusion. ACT 112: Negative or not required by law. Electronically signed by: Franklin Garcia M.D. 05/10/2021 4:12 PM ECG Data Attestation: I personally reviewed and interpreted this ECG as follows: Indication: + SOB/dyspnea Rate (beats per minute): 79 Rhythm: + atrial fibrillation ECG [place]: + Normal ECG ST segments: + ST depression ECG Findings: no PVCs Comparison ECG Date: from (April 23, 2021) Change: the following changes noted (ST depressions in leads V5 and V6 seem more prominent today.) Additional Comments: Repeat twelve-lead EKG performed at 1703 per my interpretation shows atrial fibrillation with a rate of 76 bpm. Normal axis. Persistent ST depressions in V5 and V6 which do not appear significantly changed from prior. MDM Narrative I did evaluate the patient as noted above. The patient has a history of COPD and CHF. He is oxygen dependent. He has been short of breath for over a month but got worse today. He denies any cough or cold symptoms. I did treat him wi karri elsi AlejandroSusanne. He is slightly hypertensive here but I did not give him a bolus of fluids due to his history of CHF. His blood pressure did spontaneously rise to 100/63. I did order a type and screen as he states that he has been having nosebleeds and is hypotensive and nasal clamp was placed on his nose. He was given oxygen via nasal cannula in his mouth. I did wish to maintain his O2 saturations at 90-92 as he has a prior history of hypercapnia. IV access was established. I did place an order for continuous cardiac monitoring. The monitor showed atrial fibrillation at a rate of 78 bpm. I did order and personally review the patient's 12-lead EKG as described above. He has atrial fibrillation and ST depressions in the precordial leads but they seem more pronounced today in V5 and V6 than on his previous EKG from April 23. did order and personally reviewed the images of the patient's chest x-ray as described above. He does have a right lower lobe infiltrate. I did treat him with Zosyn IV after obtaining blood cultures. I did order a urine analysis. I did order and review the patient's blood work as noted in the electronic medical record. CBC demonstrates a white count of 5.6. Hemoglobin is 10.4. Platelet count is 136. VBG shows a pH of 7.4 with a PCO2 of 53 and a PO2 of 32. Electrolytes demonstrate a sodium of 127, chloride of 88 with a normal potassium. Creatinine is elevated above baseline at 2.33 with a BUN of 45. BNP is elevated over 34,000. I did not wish to give him Lasix at this time as he is slightly hypotensive. Troponin is 0.058. This is down from 0.2 on April 23. Given his abnormal EKG from earlier I did repeat a twelve-lead EKG. per my in terpretation there does not appear to be any significant change in his ST depressions from his previous EKG. He denies having any chest discomfort. He will require repeat cardiac biomarkers during his hospitalization. I did discuss case with the hospitalist and case investigator. On reassessment he is still short of breath but his wheezing is decreased. The patient's nasal clamp was removed but he still had bleeding from the right nostril. He did consent to insertion of a rapid Rhino. I did perform the procedure as noted above. He tolerated it well. Hemostasis was achieved. I did reassess him later. He had some slight oozing from the naris on the right side but no blood dripping backwards into his throat. I did inflate the balloon with half a cc of air and this resolve the issue. Impression & Plan Right lower lobe pneumonia, Acute hyponatremia, Acute kidney injury superimposed on chronic kidney disease, Hypercapnia, COPD exacerbation, CHF exacerbation, Epistaxis, Anticoagulated Discharge Plan Visit Data Chief Complaint: Shortness of Breath/Dyspnea Stated Complaint: SOB ED Provider: Jj Tipton Discharge Problem: Right lower lobe pneumonia, Acute hyponatremia, Acute kidney injury superimposed on chronic kidney disease, Hypercapnia, COPD exacerbation, CHF exacerbation, Epistaxis, Anticoagulated Patient Disposition: Being Evaluated by Hospitalist Discharge Instructions Interventions: ED Discharge Assessment Last Done: 05/10/21 20:23 Discharge Problem: Right lower lobe pneumonia Qualifiers: Pneumonia type: due to unspecified organism Qualified Code(s): J18.9 - Pneumonia, unspecified organism CHF exacerbation Qualifiers: Heart failure type: unspecified Qualified Code(s): I50.9 - Heart failure, unspecified
[2021-05-10 16:13] LABS: Basophils # (auto) 0.01 K/uL (0-0.2); Basophils % (auto) 0.2 %; Hematocrit (blood only) 31.5 % (42-52); Hemoglobin 10.4 g/dL (14.0-18.0); Immature Granulocytes # (auto) 0.03 K/uL (0.00-0.02); Immature Granulocytes % (auto) 0.5 %; Lymphocytes # (auto) 0.16 K/uL (1.2-3.4); Lymphocytes % (auto) 2.8 %; Mean Corpuscular Hemoglobin 31.1 pg (25-34); Mean Corpuscular Volume 94.3 fL (80-100); Mean Platelet Volume 10.4 fL (7.4-10.4); Monocytes # (auto) 0.31 K/uL (0.11-0.59); Monocytes % (auto) 5.5 %; Neutrophils # (auto) 5.15 K/uL (1.4-6.5); Platelet Count 136 K/uL (130-400); RDW Coefficient of Variation 14.7 % (11.5-14.5); RDW Standard Deviation 49.7 fL (36.4-46.3); Red Blood Count 3.34 M/uL (4.7-6.1); White Blood Count 5.66 K/uL (4.8-10.8)
--- NOTE | 2021-05-10 16:13 | XRay Report ---
XR chest 1V portable CLINICAL HISTORY: Dyspnea. Follow-up right basilar atelectasis versus infiltrate COMPARISON STUDY: 04/23/2021 TECHNIQUE: 1 view of the chest FINDINGS: Single frontal view of the chest demonstrates the cardiomediastinal silhouette to be within normal li mits. Compared to previous examination, there is increased opacity seen at the right lung base most c haracteristic of pneumonia. There is also a small right pleural effusion. Left hemithorax is clear. T here is no evidence for left pleural effusion. There is no evidence for vascular congestion. There is no acute osseous pathology. IMPRESSION: Interval increased right lower lobe alveolar opacity characteristic of pneumonia. There i s also small right pleural effusion. ACT 112: Negative or not required by law. Electronically signed by: Franklin Garcia M.D. 05/10/2021 4:12 PM
[2021-05-10] MEDS ORDERED: PIPERACILL/TAZOBAC CONSULT ACTIVE PRN (16:17)
[2021-05-10] MEDS ORDERED: PIPERACILLIN/TAZOBACTAM 4.5 GM/120 ML BAG IV ONE (16:17)
[2021-05-10 16:19] LABS: Base Excess VBG 6.9 mEq/L; HCO3 VBG 33 mmol/L; PCO2 VBG 53 mmHg (38-50); PO2 VBG 32 mmHg; pH VBG 7.41 (7.36-7.41)
[2021-05-10 16:20] LABS: Oxygen Saturation VBG < 60.0 %
[2021-05-10 16:22] LABS: iSTAT Creatinine 2.3 mg/dl (0.6-1.3); iSTAT Hemoglobin 10.5 g/dl (14.0-18.0); iSTAT Ionized Calcium 1.16 mmol/l (1.12-1.32); iSTAT Potassium 4.8 mmol/L (3.3-5.0)
[2021-05-10 16:27] LABS: INR 1.3 (0.9-1.1); Partial Thromboplastin Ratio 1.6; Partial Thromboplastin Time 41.8 Seconds (21.0-31.0)
[2021-05-10 16:32] LABS: Albumin Level 3.3 gm/dl (3.4-5.0); BUN Creatinine Ratio 19.2 (10-20); Calcium 9.3 mg/dl (8.5-10.1); Creatinine Clr Calc Pharmacy 37.2 ml/min; Est GFR (African American) 31.6 ml/min; Est GFR (Non-African American) 27.3 ml/min; Potassium 4.7 mmol/L (3.5-5.1)
[2021-05-10 16:40] LABS: Bilirubin,Total 1.7 mg/dl (0.2-1); Globulin 3.4 gm/dl (2.5-4.0); Total Protein 6.7 gm/dl (6.4-8.2); Troponin I 0.058 ng/ml (0-0.045)
--- NOTE | 2021-05-10 18:15 | History & Physical Report ---
Date of Service May 10, 2021 Assessment & Plan (1) Right lower lobe pneumonia: Plan: 70-year-old white male presented with worsening SOB. -Likely multifactorial. Patient on 3L NC. Patient has history of recent acute CHF and severe aortic stenosis. XCurrently has possible Right lower lobe pneumonia. Will continue zosyn which was started in ED. Will consider restarting diuretics in AM, will hold as BP is soft and do not want patient to decompensate overnight due to less staffing overnight and patient currently is stable. will consult cardio (2) Acute heart failure with preserved ejection fraction: Plan: Concerned that this may be contributing to his problem. Will likely benefit from diuretics. However, patient also has severe aortic stenosis, which will need close monitoring. Due to low BP will hold diuretics for now. will consult cardio (3) Epistaxis: Plan: appears to have resolved in ED. Will continue anticoagulation. (4) Acute hyponatremia: Plan: Likely from fluid overload. will recheck in AM. (5) Acute kidney injury superimposed on chronic kidney disease: Plan: From problem 2 will recheck levels in AM. (6) Severe aortic valve stenosis: Plan: may benefit from replacement. will defer to Cardio (7) Essential hypertension: Plan: resume home meds. will closely monitor. (8) Atrial flutter with rapid ventricular response: Plan: hisotry from previous hospital stay (9) Pulmonary embolism: Plan: remote history (diagnosed 02/2021) Continue Eliquis History of Present Illness Chief Complaint: SOB Primary Care Provider: Tracy Gomez MD 70 yo maleMrWhit Robert is a 70 y/o WM with a PMHx of CHF- Diastolic dysfunction, Severe , CKD, COPD (uses nocturnal O2), CKD, remote h/o PE (03/20-- on Eliquis), PMR- on chronic prednisone therapy, and RA. He presented to the ED with progressive SOB ongoing. even before his most recent admission in March. Family at bedside report that he has not improved since discharge and has not truly returned to baseline. Patient as remained SOB. Patient has orthopnea and requires to sleep upright in a recliner. Patient also has noticed worseneing of his lower extremity edema. Using his nebulizer more often without improvement in symptoms. Denies CP/palpitations or hemoptysis/cough. During time in the ER, patient had a brief episode of epistaxis which improved with pressure. Allergies Allergy/AdvReac Type Severity Reaction Status Date / Time grass pollen Allergy Mild Verified 05/10/21 17:24 Sulfa (Sulfonamide AdvReac Unknown Unknown Unverified 05/10/21 17:24 Antibiotics) Home Medications Medication Instructions Recorded Confirmed Type budesonide-formoterol HFA 160 2 puff INHALATION BID 06/24/18 05/10/21 History mcg-4.5 mcg/actuation aerosol inhaler (Symbicort) loratadine 10 mg tablet (Claritin) 10 mg PO QAM 06/24/18 05/10/21 History tiotropium bromide 18 mcg capsule 1 cap INHALATION HS 06/24/18 05/10/21 History with inhalation device (Spiriva with HandiHaler) acetaminophen 500 mg tablet 1,000 mg PO Q6H PRN 12/21/19 05/10/21 History (Tylenol Extra Strength) sennosides 8.6 mg tablet (Senokot) 8.6 mg PO BID 12/21/19 05/10/21 History finasteride 5 mg tablet 5 mg PO QAM #30 tab 07/25/20 05/10/21 Rx terazosin 5 mg capsule 5 mg PO QPM #90 cap 12/06/20 05/10/21 Rx allopurinol 300 mg tablet 300 mg PO DAILY 03/19/21 05/10/21 History famotidine 20 mg tablet 20 mg PO QDD 03/28/21 05/10/21 History omeprazole 40 mg capsule,delayed 40 mg PO QAM 03/28/21 05/10/21 History release prednisone 5 mg tablet 5 mg PO DAILY 03/28/21 05/10/21 History cyclobenzaprine 10 mg tablet 10 mg PO TID PRN #30 tab 04/15/21 05/10/21 Rx food supplemt, lactose-reduced 1 ea PO DAILY 04/21/21 05/10/21 History 0.04 gram-1 kcal/mL oral liquid (Boost) lactobacillus combination no.4 3 3,000 mmu cells PO DAILY 04/21/21 05/10/21 History billion cell capsule (Probiotic) amiodarone 200 mg tablet 200 mg PO DAILY #90 tab 04/30/21 05/10/21 Rx apixaban 5 mg tablet (Eliquis) 5 mg PO BID #90 tab 04/30/21 05/10/21 Rx digoxin 250 mcg (0.25 mg) tablet 250 mcg PO DAILY #90 tab 04/30/21 05/10/21 Rx levalbuterol HCl 0.63 mg/3 mL 0.63 mg NEB Q6R PRN #90 ml 05/06/21 05/10/21 Rx solution for nebulization tramadol 50 mg tablet 50 - 100 mg PO Q6H PRN 05/10/21 05/10/21 History Past Med/Surg History Medical History Benign prostatic hyperplasia with urinary obstruction and other lower urinary tract symptoms Chronic obstructive pulmonary disease SEVERE per pulm 08/09. Uses inhalers daily and prn CKD (chronic kidney disease) stage 2, GFR 60-89 ml/min Colon polyp COPD (chronic obstructive pulmonary disease) Diastolic dysfunction History of colon polyps History of elevated glucose History of smoking at least 1 pack per day for at least 30 years Obesity (BMI 30-39.9) Osteoarthritis Polymyalgia rheumatica Renal disease Severe aortic valve stenosis Per Dr. Centeno 07/15, "do not feel that he has demonstrated surgical symptoms. Feel that his exertional dyspnea is likely related to his severe COPD. No indication for aortic valve replacement surgery at this time." Surgical History H/O rectal polypectomy History of bilateral cataract extraction History of colonoscopy History of cystoscopy History of elbow surgery left ulnar nerve History of hernia repair Laparoscopic History of surgical removal of terminal ileum History of wisdom tooth extraction Family History Brother Family history of diabetes mellitus Family hx colonic polyps Prostate cancer Myocardial infarction H/O heart bypass surgery Mother Colorectal cancer Other No family history of adverse response to anesthesia Denies family history of Ovarian cancer Breast cancer Lung cancer Social History Smoking Status: Former smoker Tobacco Type: Cigarettes Smoking End Date: 5 years or more; Second Hand Exposure: No; Hx Alcohol Use: No Hx Substance Use: No Preferred Language: Swiss Communication Ability: Effective Visual Impairment: Limited 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 Required: No Beliefs That Will Affect Care: None marital status: Current Living Situation: Spouse current occupational status: retired How many Children do You have: 1 Feels Safe at Home: Yes Safety Concerns: Feels Safe At This Time Childhood Exposure to Second-Hand Smoke: Yes caffeine: Yes (coffee, soda) Dental Care, Regularly: Yes Physical Activity Frequency: Does not Exercise Seatbelt Use: never Sunscreen Use: No Assistive Devices: Cane, Oxygen - Continuous and Walker Review of Systems Constitutional: no fever and no sweats Eyes: no blind spots and no diplopia Ear, Nose, Mouth, Throat: no ear pain and no tinnitus Respiratory: + cough and + dyspnea Cardiovascular: no chest pain Gastrointestinal: no abdominal pain, no early satiety and no vomiting Genitourinary: no dysuria or no urinary frequency Musculoskeletal: no back pain and no radicular pain Integumentary: no acne and no rash Neurologic: no gait abnormality and no falls Psychiatric: no behavioral changes and no hopelessness Endocrine: + fatigue Hematologic / Lymphatic: no easy bleeding and no coagulopathy Allergy / Immunological: no GI upset with certain foods and no lip swelling Physical Exam Physical Exam: General: sitting at the bedside. Breathing appears to be labored. HEENT: Head is AT/NC Neck: unable to appreciate JVD. Cardiac: Irregular rate but regular rate and rhythm with 3/6 holosystolic murmur Lungs: bibasilar crackles Abdomen: Mildly distended soft and nontender in all quadrants. Extremities: 3+ pitting edema tracking proximally involving the lower legs and thighs. Neuro: A&O X4 cranial nerves II through XII are grossly intact no focal neuro deficits Skin: No obvious skin lesions or rashes Psych: Appropriate affect pleasant and cooperative Results & Data Results & Data ([facility]) Vital Signs (Past 12 Hours) Vital Signs Temp Pulse Resp BP Pulse Ox 05/10/21 16:21 36.4 C L 86 22 100/63 96 PG Care Time/CCT Total # of Minutes Spent Total Time Spent with Patient: Total time spent is greater than 50% in coordination of care (as documented) at patient's floor/unit and/or counseling patient: Coding Level of Care Code 03098 Initial Inpt Care Lvl 3 Diagnoses Right lower lobe pneumonia J18.9 Pneumonia type: due to unspecified organism Epistaxis R04.0 Acute heart failure with preserved ejection fraction I50.31 Acute hyponatremia E87.1 Acute kidney injury superimposed on chronic kidney disease N17.9; N18.9 Severe aortic valve stenosis I35.0 Essential hypertension I10 Atrial flutter with rapid ventricular response I48.92 Pulmonary embolism I26.99 Acute cor pulmonale presence: unspecified Chronicity: unspecified Pulmonary embolism type: unspecified (1) Pulmonary embolism Acute cor pulmonale presence: unspecified Chronicity: unspecified Pulmonary embolism type: unspecified Qualified Code(s): I26.99 - Other pulmonary embolism without acute cor pulmonale (2) Right lower lobe pneumonia Pneumonia type: due to unspecified organism Qualified Code(s): J18.9 - Pneumonia, unspecified organism
[2021-05-10] MEDS ORDERED: ALBUT/IPRATROP 3MG/0.5MG NEB 3 ML VIAL ONE (18:18)
[2021-05-10] MEDS ORDERED: ACETAMINOPHEN 325 MG TAB PO PRN (18:38)
[2021-05-10] MEDS ORDERED: LEVALBUTEROL HCL 0.63 MG/3 ML NEB NEB PRN (18:46)
[2021-05-10] MEDS ORDERED: CYCLOBENZAPRINE HCL 10 MG TAB PO PRN (18:46)
[2021-05-10] MEDS ORDERED: ACETAMINOPHEN HOME PACK 500 MG TABLET PO PRN (18:46)
[2021-05-10] MEDS ORDERED: traMADol HCL 50 MG TABLET PO PRN (18:46)
[2021-05-10 18:47] LABS: Influenza A virus by PCR Negative (Neg); Influenza B virus by PCR Negative (Neg); RSV by PCR Negative (Neg); SARS CoV2 RNA(COVID-19) InHosp NEGATIVE (Negative)
[2021-05-10] MEDS ORDERED: FUROSEMIDE INJ 20 MG/2 ML VIAL IV ONE (19:48)
[2021-05-10] MEDS ORDERED: FUROSEMIDE 40 MG/4 ML VIAL IV ONE (20:19)
[2021-05-10] MEDS: SENNA 8.6 MG TAB PO SCH (21:47)
[2021-05-10] MEDS: APIXABAN 5 MG TABLET PO SCH (21:47)
[2021-05-10] MEDS: TERAZOSIN HCL 5 MG CAP PO SCH (21:47)
[2021-05-10] MEDS: UMECLIDINIUM BROMIDE 62.5MCG/BLISTER 7 PUFFS/INHALER INH SCH (22:45)
[2021-05-11] MEDS: PIPERACILLIN/TAZOBACTAM 4.5 GM in DEXTROSE 5% 100 ML IV SCH ×3 (02:36→17:49)
[2021-05-11 07:42] LABS: Hematocrit (blood only) 29.6 % (42-52); Hemoglobin 9.8 g/dL (14.0-18.0); Mean Corpuscular Hemoglobin 30.7 pg (25-34); Mean Corpuscular Hgb Conc 33.1 g/dL (32-36); Mean Corpuscular Volume 92.8 fL (80-100); Mean Platelet Volume 9.6 fL (7.4-10.4); Platelet Count 131 K/uL (130-400); RDW Coefficient of Variation 14.8 % (11.5-14.5); RDW Standard Deviation 49.2 fL (36.4-46.3); Red Blood Count 3.19 M/uL (4.7-6.1); White Blood Count 5.68 K/uL (4.8-10.8)
[2021-05-11 08:49] LABS: BUN Creatinine Ratio 19.1 (10-20); Blood Urea Nitrogen 43 mg/dl (7-18); Calcium 9.2 mg/dl (8.5-10.1); Carbon Dioxide 31 mmol/L (21-32); Chloride 89 mmol/L (98-107); Creatinine Clr Calc Pharmacy 38.9 ml/min; Est GFR (African American) 33.6 ml/min; Est GFR (Non-African American) 28.9 ml/min; Glucose 104 mg/dl (70-99); Potassium 4.3 mmol/L (3.5-5.1); Sodium 128 mmol/L (136-145)
[2021-05-11 08:53] LABS: NT Pro B Type Natriuretic Pept > 35000 pg/ml (0-900)
[2021-05-11] MEDS ORDERED: NON-FORMULARY MEDICATION (Food Supplemt, Lactose-Reduced [Boost] 0.04 gram- 1 kcal/mL Liqu PO SCH (09:00)
[2021-05-11] MEDS: PANTOprazole 40 MG TAB PO SCH (09:43)
[2021-05-11] MEDS: ADVANCED PROBIOTIC 1250 MG CAPSULE PO SCH (09:43)
[2021-05-11] MEDS: APIXABAN 5 MG TABLET PO SCH ×2 (09:43→21:15)
[2021-05-11] MEDS: LORATADINE 10 MG TAB PO SCH (09:44)
[2021-05-11] MEDS: SENNA 8.6 MG TAB PO SCH ×2 (09:44→21:15)
[2021-05-11] MEDS: allopurinoL 300 MG TAB PO SCH (09:44)
[2021-05-11] MEDS: FINASTERIDE 5 MG TAB PO SCH (09:44)
[2021-05-11] MEDS: AMIODARONE 200 MG TAB PO SCH (09:45)
[2021-05-11] MEDS: FLUTICASONE/VILANTEROL 100/25MCG 14 PUFFS/INHALER INH SCH (09:45)
--- NOTE | 2021-05-11 10:48 | Cardiology Consultation ---
Date of Consultation May 11, 2021 Assessment & Plan (1) Chronic systolic heart failure: (2) Atrial flutter: (3) Severe aortic valve stenosis: (4) Right lower lobe pneumonia: (5) Acute kidney injury superimposed on chronic kidney disease: (6) Acute hyponatremia: ASSESSMENT/PLAN: 1. Chronic systolic CHF (HFrEF): He presented with shortness of breath but also has significant COPD and right lower lobe pneumonia. Intravascularly, he does not appear to be hypervolemic and chest x-ray is more concerning for pneumonia. He has been losing weight at home and is on a higher dose of Lasix than he had previously, and now presented with mild hypotension and hyponatremia. Hospital weight is also lower than last hospital presentation by 9 lb. Would hold off on diuretic therapy today. Monitor renal function closely. Low-sodium diet. Strict I&Os. Daily weights. 2. Severe aortic stenosis: When recovered from this acute presentation, would consider evaluation for TAVR. He brought this up and states that he is under the understanding that he is being referred to [facility]. 3. Atrial flutter: Heart rate well controlled. Digoxin was started last hospitalization and with worsening renal function, would hold digoxin for now and check digoxin level. On anticoagulation therapy for stroke risk reduction. Continue amiodarone for now. 4. Right lower lobe pneumonia: As per primary service. 5. Acute on chronic renal insufficiency: BUN and creatinine suggest azotemia. This was reportedly noted during last hospitalization as well after intravenous diuretics and improved with rehydration. Although he does have significant lower extremity edema (in the setting of keeping his legs down throughout the day while sitting in a chair 24 hours a day), concerned that intravascularly, he may be hypovolemic. Would hold off on aggressive diuresis at this time and re- evaluate tomorrow. 6. Hyponatremia: Could be due to volume status but also perhaps SIADH from pneumonia. Defer to hospitalist service. 7. Disposition: Dr. Centeno, his primary heel padder, will resume his care tomorrow. Please call with any other questions or concerns. Thank you for allowing me to participate in the care of your patient. Please call for any other questions or concerns. Sincerely, Kris Irwin M.D. History of Present Illness Reason for Consultation: CHF Requesting Physician: Dr. Wetzel Attending Physician: Eliu Yang MD History of Present Illness Mr. Robert is a very pleasant 70-year-old gentleman with a history significant for severe aortic stenosis, hypertension, dyslipidemia, severe COPD, sleep apnea on O2 HS, and pulmonary embolism diagnosed in February of 2021. His primary heel padder is Dr. Centeno. He was hospitalized on 03/28/2021 with pulmonary emboli described as 2 small subsegmental emboli within the right lung. Eliquis was initiated and he was discharged home. He was later hospitalized on 04/21/21 with atrial flutter with RVR, mixed respiratory failure and CHF. He was discharged on 04/26/2021. During that hospitalization, he was felt to have been a bit over diuresed, becoming hypotensive and hyponatremic, which reportedly improved with some degree of rehydration. Since being home, he reports taking Lasix 20 mg twice daily. He has not been eating or drinking much due to poor appetite. He continues to have edema however sits with his feet down all day. He does not sleep in the bed, which is a chronic habit. He weighs himself daily and reports that he has lost weight since his discharge. Despite that, his breathing has progressively worsened. He maintains a low-sodium diet, especially with recent poor appetite and overall reduced oral intake. He coughs occasionally but denies fevers. He has been having issues with intermittent epistaxis and had such occurrence in the emergency department. He denies syncope, near-syncope, chest discomfort, melena, hematochezia, or hematuria. He has occasional palpitations when he becomes more short of breath. He has been using supplemental oxygen at home, 2 L via nasal cannula but has been receiving 6 L here. While here, he has been mildly hypotensive and was noted to be more hyponatremic while BUN and creatinine are elevated compared to his baseline. In the emergency department, he received Lasix 20 mg IV x1. He was admitted on 05/10/2021 for concern of pneumonia based on chest x-ray imaging. Review of systems: As above. Review of systems otherwise negative/unremarkable. Family history: Brother had CABG at the age of 79. Social history:He quit smoking in approximately 2010 after 1.5 packs per day for approximately 50 years. He denies alcohol or drug abuse. He is and lives at home with his . He has 1 son. No grandchildren. He was unaccompanied in his hospital room. Allergies Allergy/AdvReac Type Severity Reaction Status Date / Time grass pollen Allergy Mild Verified 05/10/21 17:24 Sulfa (Sulfonamide AdvReac Unknown Unknown Unverified 05/10/21 17:24 Antibiotics) Home Medications Medication Instructions Recorded Confirmed Type budesonide-formoterol HFA 160 2 puff INHALATION BID 06/24/18 05/10/21 History mcg-4.5 mcg/actuation aerosol inhaler (Symbicort) loratadine 10 mg tablet (Claritin) 10 mg PO QAM 06/24/18 05/10/21 History tiotropium bromide 18 mcg capsule 1 cap INHALATION HS 06/24/18 05/10/21 History with inhalation device (Spiriva with HandiHaler) acetaminophen 500 mg tablet 1,000 mg PO Q6H PRN 12/21/19 05/10/21 History (Tylenol Extra Strength) sennosides 8.6 mg tablet (Senokot) 8.6 mg PO BID 12/21/19 05/10/21 History finasteride 5 mg tablet 5 mg PO QAM #30 tab 07/25/20 05/10/21 Rx terazosin 5 mg capsule 5 mg PO QPM #90 cap 12/06/20 05/10/21 Rx allopurinol 300 mg tablet 300 mg PO DAILY 03/19/21 05/10/21 History famotidine 20 mg tablet 20 mg PO QDD 03/28/21 05/10/21 History omeprazole 40 mg capsule,delayed 40 mg PO QAM 03/28/21 05/10/21 History release prednisone 5 mg tablet 5 mg PO DAILY 03/28/21 05/10/21 History cyclobenzaprine 10 mg tablet 10 mg PO TID PRN #30 tab 04/15/21 05/10/21 Rx food supplemt, lactose-reduced 1 ea PO DAILY 04/21/21 05/10/21 History 0.04 gram-1 kcal/mL oral liquid (Boost) lactobacillus combination no.4 3 3,000 mmu cells PO DAILY 04/21/21 05/10/21 History billion cell capsule (Probiotic) amiodarone 200 mg tablet 200 mg PO DAILY #90 tab 04/30/21 05/10/21 Rx apixaban 5 mg tablet (Eliquis) 5 mg PO BID #90 tab 04/30/21 05/10/21 Rx digoxin 250 mcg (0.25 mg) tablet 250 mcg PO DAILY #90 tab 04/30/21 05/10/21 Rx levalbuterol HCl 0.63 mg/3 mL 0.63 mg NEB Q6R PRN #90 ml 05/06/21 05/10/21 Rx solution for nebulization tramadol 50 mg tablet 50 - 100 mg PO Q6H PRN 05/10/21 05/10/21 History Patient History Medical History (Updated 05/11/21 @ 11:17 by Rodolfo Irwin MD) Atrial flutter Benign prostatic hyperplasia with urinary obstruction and other lower urinary tract symptoms Chronic heart failure with preserved ejection fraction Chronic obstructive pulmonary disease SEVERE per pulm 08/09. Uses inhalers daily and prn Chronic systolic heart failure CKD (chronic kidney disease) stage 2, GFR 60-89 ml/min Colon polyp COPD (chronic obstructive pulmonary disease) Diastolic dysfunction History of colon polyps History of elevated glucose History of smoking at least 1 pack per day for at least 30 years Obesity (BMI 30-39.9) Osteoarthritis Polymyalgia rheumatica Renal disease Severe aortic valve stenosis Surgical History H/O rectal polypectomy History of bilateral cataract extraction History of colonoscopy History of cystoscopy History of elbow surgery left ulnar nerve History of hernia repair Laparoscopic History of surgical removal of terminal ileum History of wisdom tooth extraction Family History Brother Family history of diabetes mellitus Family hx colonic polyps Prostate cancer Myocardial infarction H/O heart bypass surgery Mother Colorectal cancer Other No family history of adverse response to anesthesia Denies family history of Ovarian cancer Breast cancer Lung cancer Social History Smoking Status: Former smoker Tobacco Type: Cigarettes Smoking End Date: 5 years or more; Second Hand Exposure: No; Hx Alcohol Use: No Hx Substance Use: No Preferred Language: Greenlandic Communication Ability: Effective Visual Impairment: Limited Relationship Mgr Required: No Beliefs That Will Affect Care: None marital status: Current Living Situation: Spouse current occupational status: retired How many Children do You have: 1 Feels Safe at Home: Yes Safety Concerns: Feels Safe At This Time Childhood Exposure to Second-Hand Smoke: Yes caffeine: Yes (coffee, soda) Dental Care, Regularly: Yes Physical Activity Frequency: Does not Exercise Seatbelt Use: never Sunscreen Use: No Assistive Devices: Cane, Oxygen - Continuous and Walker Physical Exam Physical Exam: Gen.: No acute distress. Alert and oriented. HEENT: Anicteric sclera. Neck: No JVD. No hepatic jugular reflux. Bilateral bruits vs radiation of cardiac murmur. Normal carotid upstrokes bilaterally. Cardiac: PMI was nonpalpable. No ventricular heave. Irregular. Normal S1. No audible S2. 2/6 late peaking systolic ejection murmur heard best at right upper sternal border. No rubs or gallops. Pulmonary: Decreased breath sounds throughout, with more significant reduced breath sounds in the right base. Abdomen: Soft, nontender, nondistended, with normoactive bowel sounds. No bruits noted. Extremities: 2+ radial pulses bilaterally. 1+ posterior tibialis pulses bilaterally. 3+ bilateral lower extremity edema to just below the knees. No cyanosis. Psychiatric: Affect appears appropriate. Results & Data ([facility]) Vital Signs (Past 12 Hours) Vital Signs Temp Pulse Pulse Resp BP Pulse Ox 05/11/21 08:33 82 05/11/21 07:42 36.4 C L 63 16 94/61 L 100 05/11/21 05:09 62 18 98 05/11/21 02:48 69 05/11/21 01:55 75 28 H 110/66 99 Intake & Output 05/09/21 05/10/21 05/11/21 05/12/21 06:59 06:59 06:59 06:59 Intake Total 240 / 240 Balance 240 / 240 Weight 248 lb 7.375 oz Laboratory Results Laboratory Results - last 24 hr 05/10/21 05/10/21 05/10/21 15:52 15:52 15:52 WBC 5.66 RBC 3.34 L Hgb 10.4 L POC Hgb Hct 31.5 L POC Hct MCV 94.3 MCH 31.1 MCHC 33.0 RDW Std Deviation 49.7 H RDW Coeff of Nimesh 14.7 H Plt Count 136 MPV 10.4 Immature Gran % (Auto) 0.5 Neut % (Auto) 91.0 Lymph % (Auto) 2.8 [place] % (Auto) 5.5 Eos % (Auto) 0.0 Baso % (Auto) 0.2 Neut # (Auto) 5.15 Lymph # (Auto) 0.16 L [place] # (Auto) 0.31 Eos # (Auto) 0.00 Baso # (Auto) 0.01 Immature Gran # (Auto) 0.03 H PT 13.0 H INR 1.3 H APTT 41.8 H PTT Ratio 1.6 VBG pH VBG pCO2 VBG pO2 VBG HCO3 VBG O2 Saturation VBG Base Excess Barometric Pressure POC Sodium Sodium 127 L POC Potassium Potassium 4.7 POC Chloride Chloride 88 L Carbon Dioxide 31 POC Total CO2 Anion Gap 8.0 POC Anion Gap POC BUN BUN 45 H Creatinine 2.33 H POC Creatinine Est Cr Clr Drug Dosing 37.2 Est GFR ( Amer) 31.6 Est GFR (Non-Af Amer) 27.3 BUN/Creatinine Ratio 19.2 Glucose 120 H POC Glucose (other) Calcium 9.3 POC Ioniz Calcium Sara Total Bilirubin 1.7 H AST 22 ALT 43 Alkaline Phosphatase 89 Troponin I 0.058 H* NT-Pro-B Natriuret Pep 45671 H Total Protein 6.7 Albumin 3.3 L Globulin 3.4 Albumin/Globulin Ratio 1.0 Procalcitonin Digoxin SARS-CoV-2 (PCR) Influenza Type A (PCR) Influenza Type B (PCR) RSV (RT-PCR) Blood Type Antibody Screen 05/10/21 05/10/21 05/10/21 15:52 15:59 16:01 WBC RBC Hgb POC Hgb Hct POC Hct MCV MCH MCHC RDW Std Deviation RDW Coeff of Nimesh Plt Count MPV Immature Gran % (Auto) Neut % (Auto) Lymph % (Auto) [place] % (Auto) Eos % (Auto) Baso % (Auto) Neut # (Auto) Lymph # (Auto) [place] # (Auto) Eos # (Auto) Baso # (Auto) Immature Gran # (Auto) PT INR APTT PTT Ratio VBG pH 7.41 VBG pCO2 53 H VBG pO2 32 VBG HCO3 33 VBG O2 Saturation < 60.0 VBG Base Excess 6.9 Barometric Pressure 719.0 POC Sodium Sodium POC Potassium Potassium POC Chloride Chloride Carbon Dioxide POC Total CO2 Anion Gap POC Anion Gap POC BUN BUN Creatinine POC Creatinine Est Cr Clr Drug Dosing Est GFR ( Amer) Est GFR (Non-Af Amer) BUN/Creatinine Ratio Glucose POC Glucose (other) Calcium POC Ioniz Calcium Sara Total Bilirubin AST ALT Alkaline Phosphatase Troponin I NT-Pro-B Natriuret Pep Total Protein Albumin Globulin Albumin/Globulin Ratio Procalcitonin 0.32 Digoxin SARS-CoV-2 (PCR) Influenza Type A (PCR) Influenza Type B (PCR) RSV (RT-PCR) Blood Type O Positive Antibody Screen NEGATIVE 05/10/21 05/10/21 05/11/21 16:10 18:02 07:31 WBC 5.68 RBC 3.19 L Hgb 9.8 L POC Hgb 10.5 L Hct 29.6 L POC Hct 31 L MCV 92.8 MCH 30.7 MCHC 33.1 RDW Std Deviation 49.2 H RDW Coeff of Nimesh 14.8 H Plt Count 131 MPV 9.6 Immature Gran % (Auto) Neut % (Auto) Lymph % (Auto) [place] % (Auto) Eos % (Auto) Baso % (Auto) Neut # (Auto) Lymph # (Auto) [place] # (Auto) Eos # (Auto) Baso # (Auto) Immature Gran # (Auto) PT INR APTT PTT Ratio VBG pH VBG pCO2 VBG pO2 VBG HCO3 VBG O2 Saturation VBG Base Excess Barometric Pressure POC Sodium 124 L Sodium POC Potassium 4.8 Potassium POC Chloride 85 L Chloride Carbon Dioxide POC Total CO2 31 Anion Gap POC Anion Gap 15.0 L POC BUN 43 H BUN Creatinine POC Creatinine 2.3 H Est Cr Clr Drug Dosing Est GFR ( Amer) Est GFR (Non-Af Amer) BUN/Creatinine Ratio Glucose POC Glucose (other) 121 H Calcium POC Ioniz Calcium Sara 1.16 Total Bilirubin AST ALT Alkaline Phosphatase Troponin I NT-Pro-B Natriuret Pep Total Protein Albumin Globulin Albumin/Globulin Ratio Procalcitonin Digoxin SARS-CoV-2 (PCR) NEGATIVE Influenza Type A (PCR) Negative Influenza Type B (PCR) Negative RSV (RT-PCR) Negative Blood Type Antibody Screen 05/11/21 05/11/21 07:31 10:53 WBC RBC Hgb POC Hgb Hct POC Hct MCV MCH MCHC RDW Std Deviation RDW Coeff of Nimesh Plt Count MPV Immature Gran % (Auto) Neut % (Auto) Lymph % (Auto) [place] % (Auto) Eos % (Auto) Baso % (Auto) Neut # (Auto) Lymph # (Auto) [place] # (Auto) Eos # (Auto) Baso # (Auto) Immature Gran # (Auto) PT INR APTT PTT Ratio VBG pH VBG pCO2 VBG pO2 VBG HCO3 VBG O2 Saturation VBG Base Excess Barometric Pressure POC Sodium Sodium 128 L POC Potassium Potassium 4.3 POC Chloride Chloride 89 L Carbon Dioxide 31 POC Total CO2 Anion Gap 8.0 POC Anion Gap POC BUN BUN 43 H Creatinine 2.22 H POC Creatinine Est Cr Clr Drug Dosing 38.9 Est GFR ( Amer) 33.6 Est GFR (Non-Af Amer) 28.9 BUN/Creatinine Ratio 19.1 Glucose 104 H POC Glucose (other) Calcium 9.2 POC Ioniz Calcium Sara Total Bilirubin AST ALT Alkaline Phosphatase Troponin I NT-Pro-B Natriuret Pep > 19467 H Total Protein Albumin Globulin Albumin/Globulin Ratio Procalcitonin Digoxin Pending SARS-CoV-2 (PCR) Influenza Type A (PCR) Influenza Type B (PCR) RSV (RT-PCR) Blood Type Antibody Screen Diagnostic Findings Chest x-ray 05/10/2021: Interval increased right lower lobe alveolar opacity characteristic of pneumonia per Radiology. Small right pleural effusion. No evidence for vascular congestion. Image personally reviewed and noted right lower lobe opacity. Telemetry personally reviewed: Rate controlled atrial flutter. ECGs personally reviewed: ECG 05/10/2021 at 5:03 p.m.: Atrial flutter 76 beats per minute. Inferolateral ST/T-wave abnormality. ECG 05/10/2021 at 4:12 p.m.: Atrial flutter 79 beats per minute. Inferolateral ST/T-wave abnormality. Echo 04/22/2021: Grossly normal LV size. EF 35-40%. Global hypokinesis. Severe aortic stenosis with probable moderate AI. Mild MR. Poor image quality. Chart reviewed. Medications Administered Current Inpatient Medications Acetaminophen (Acetaminophen 325 Mg Tab) 650 mg PO Q4H PRN PRN Reason: Pain or Fever Stop: 06/09/21 18:37 Allopurinol (Allopurinol 300 Mg Tab) 300 mg PO DAILY [facility] Stop: 06/10/21 08:59 Last Admin: 05/11/21 09:44 Dose: 300 mg Documented by: Amiodarone HCl (Amiodarone 200 Mg Tab) 200 mg PO DAILY [facility] Stop: 06/10/21 08:59 Last Admin: 05/11/21 09:45 Dose: 200 mg Documented by: Apixaban (Apixaban 5 Mg Tablet) 5 mg PO BID [facility] Stop: 06/09/21 20:59 Last Admin: 05/11/21 09:43 Dose: 5 mg Documented by: Cyclobenzaprine HCl (Cyclobenzaprine Hcl 10 Mg Tab) 10 mg PO TID PRN PRN Reason: muscle spasm Stop: 06/09/21 18:45 Digoxin (Digoxin 0.25 Mg Tab) 0.25 mg PO DAILY@1600 [facility] Stop: 06/10/21 15:59 Famotidine (Famotidine 20 Mg Tab) 20 mg PO QDD [facility] Stop: 06/10/21 16:29 Finasteride (Finasteride 5 Mg Tab) 5 mg PO QAM [facility] Stop: 06/10/21 08:59 Last Admin: 05/11/21 09:44 Dose: 5 mg Documented by: Fluticasone/Vilanterol (Fluticasone/Vilanterol 100/25mcg 14 Puffs/Inhaler) 1 puffs INH DAILY [facility] Stop: 06/10/21 08:59 Last Admin: 05/11/21 09:45 Dose: 1 puffs Documented by: Piperacillin Sod/Tazobactam (Sod 4.5 gm/ Dextrose) 120 mls @ 30 mls/hr IV Q8H [facility]; Protocol Stop: 05/12/21 21:59 Last Admin: 05/11/21 11:03 Dose: 30 mls/hr Documented by: Lactobacillus Acidoph/Casei/Rhamnos (Advanced Probiotic 1250 Mg Capsule) 2 cap PO DAILY [facility] Stop: 06/10/21 08:59 Last Admin: 05/11/21 09:43 Dose: 2 cap Documented by: Levalbuterol HCl (Levalbuterol Hcl 0.63 Mg/3 Ml Neb) 0.63 mg NEB Q6R PRN PRN Reason: shortness of breath or wheezin Stop: 06/09/21 18:45 Last Admin: 05/11/21 05:09 Dose: 0.63 mg Documented by: Loratadine (Loratadine 10 Mg Tab) 10 mg PO QAM [facility] Stop: 06/10/21 08:59 Last Admin: 05/11/21 09:44 Dose: 10 mg Documented by: Miscellaneous Information (Piperacill/Tazobac Consult Active) 1 ea N/A UD PRN PRN Reason: Consult Stop: 06/09/21 16:16 Pantoprazole Sodium (Pantoprazole 40 Mg Tab) 40 mg PO QAM [facility] Stop: 06/10/21 08:59 Last Admin: 05/11/21 09:43 Dose: 40 mg Documented by: Sennosides (Senna 8.6 Mg Tab) 8.6 mg PO BID [facility] Stop: 06/09/21 20:59 Last Admin: 05/11/21 09:44 Dose: 8.6 mg Documented by: Terazosin HCl (Terazosin Hcl 5 Mg Cap) 5 mg PO QPM [facility] Stop: 06/09/21 20:59 Last Admin: 05/10/21 21:47 Dose: 5 mg Documented by: Tramadol HCl (Tramadol Hcl 50 Mg Tablet) 50 mg PO Q6H PRN PRN Reason: pain Stop: 06/09/21 18:45 Last Admin: 05/11/21 04:55 Dose: 50 mg Documented by: Umeclidinium [place] (Umeclidinium [place] 62.5mcg/Blister 7 Puffs/Inhaler) 1 puffs INH HS [facility] Stop: 06/09/21 20:59 Last Admin: 05/10/21 22:45 Dose: 1 puffs Documented by: PG Care Time/CCT Total # of Minutes Spent Total Time Spent with Patient: Total time spent is greater than 50% in coordination of care (as documented) at patient's floor/unit and/or counseling patient: Coding Level of Care Code 59806 Initial Inpt Care Lvl 3 Diagnoses Atrial flutter I48.92 Severe aortic valve stenosis I35.0 Right lower lobe pneumonia J18.9 Pneumonia type: due to unspecified organism Acute kidney injury superimposed on chronic kidney disease N17.9; N18.9 Acute hyponatremia E87.1 Chronic systolic heart failure I50.22 (1) Right lower lobe pneumonia Pneumonia type: due to unspecified organism Qualified Code(s): J18.9 - Pneumonia, unspecified organism
--- NOTE | 2021-05-11 14:15 | Hospitalist Progress Note ---
Date of Service May 11, 2021 Assessment & Plan (1) Right lower lobe pneumonia: Plan: Patient presents to the hospital worsening shortness of breath. Found to have evidence of lobar pneumonia on x-ray. Blood cultures already obtained. Patient currently on empiric IV Zosyn, will continue. His shortness of breath is most likely combination of pneumonia, CHF exacerbation (2) Acute heart failure with preserved ejection fraction: Plan: Heart failure with preserved ejection fraction: Patient with significant leg edema on exam. Cardiology on consult, feels patient may be intravascularly hypovolemic We will continue to hold IV Lasix per cardiology Monitor input and output, daily weight (3) Elevated digoxin level: Plan: Digoxin level noted to be elevated, 4.6 We will hold digoxin level Order Digibind per cardiology (4) Epistaxis: Plan: Now resolved (5) Acute hyponatremia: Plan: serum 128 today Although patient appears fluid overloaded on account of bilateral leg edema, he may be intravascularly depleted will hold off on diuretics for now Recheck serum sodium tomorrow morning (6) Acute kidney injury superimposed on chronic kidney disease: Plan: will recheck levels in AM. avoid nephrotoxics (7) Severe aortic valve stenosis: Plan: Patient said he is open to being evaluated for possible TAVR We will defer to cardiology for further investigation and also cardiothoracic surgery (8) Essential hypertension: Plan: Blood pressure soft this morning, 88/46 Hold antihypertensives (9) Atrial flutter with rapid ventricular response: Plan: hisotry from previous hospital stay (10) Pulmonary embolism: Plan: remote history (diagnosed 02/2021) Continue [facility] Admission and Anticipated Discharge Date Admission Date: May 10, 2021 Subjective Patient seen and examined today, sitting up in the chair, still significantly short of breath Review of Systems Review of Systems: All systems reviewed are negative, apart from the ones contained in the history. Physical Exam Physical Exam: The patient is awake, alert and oriented 3, well developed and well nourished, normocephalic and atraumatic, lying in bed and in no acute distress. HEENT--PERRL, EOMI, mucous membranes and oropharynx mildly dry Neck--supple. No JVD. No bruits. Thyroid normal, trachea midline, no adenopathy. Heart--ejection systolic murmur Lungs--reduced air entry on auscultation Abdomen--normal bowel sounds and soft. Mild epigastric and left sided abdominal pain Extremities--bilateral pitting leg edema Dermatologic--normal skin turgor, normal color, no abnormal lymph nodes, no rash. Neurologic--cranial nerves II through XII grossly intact. Rheumatologic--normal range of motion. Psychiatric--normal affect. Results & Data Results & Data ([facility]) Vital Signs (Past 12 Hours) Vital Signs Temp Pulse Pulse Resp BP Pulse Ox 05/11/21 14:00 64 88/46 L 96 05/11/21 13:40 63 90/49 L 98 05/11/21 13:10 62 90/50 L 98 05/11/21 11:13 97.5 F L 62 18 93/55 L 100 05/11/21 08:33 82 05/11/21 07:42 97.5 F L 63 16 94/61 L 100 05/11/21 05:09 62 18 98 05/11/21 02:48 69 PG Care Time/CCT Total # of Minutes Spent Total Time Spent with Patient: Total time spent is greater than 50% in coordination of care (as documented) at patient's floor/unit and/or counseling patient: Coding Level of Care Code 95817 Subseq Hosp Care Lvl 2 Diagnoses Right lower lobe pneumonia J18.9 Pneumonia type: due to unspecified organism Acute heart failure with preserved ejection fraction I50.31 Epistaxis R04.0 Acute hyponatremia E87.1 Acute kidney injury superimposed on chronic kidney disease N17.9; N18.9 Severe aortic valve stenosis I35.0 Essential hypertension I10 Atrial flutter with rapid ventricular response I48.92 Pulmonary embolism I26.99 Acute cor pulmonale presence: unspecified Chronicity: unspecified Pulmonary embolism type: unspecified Elevated digoxin level R78.89 Time Spent (min) 35 (1) Right lower lobe pneumonia Pneumonia type: due to unspecified organism Qualified Code(s): J18.9 - Pneumonia, unspecified organism (2) Pulmonary embolism Acute cor pulmonale presence: unspecified Chronicity: unspecified Pulmonary embolism type: unspecified Qualified Code(s): I26.99 - Other pulmonary embolism without acute cor pulmonale
[2021-05-11] MEDS ORDERED: 0.2 MICRON FILTER SET 1 EA IV ONE (14:30)
[2021-05-11] MEDS ORDERED: DIGOXIN IMMUNE FAB IV ONE (14:30)
[2021-05-11] MEDS ORDERED: SODIUM CHLORIDE 0.9% IV ONE (14:30)
[2021-05-11] MEDS ORDERED: DIGOXIN 0.25 MG TAB PO SCH (16:00)
[2021-05-11 16:22] LABS: Appearance Urine Clear (Clear); Bacteria Urine Automated Negative (Negative); Bilirubin Urine Negative (Negative); Blood Urine 3+ (Negative); Cast Urine Automated 0 /lpf (0-5); Color Urine Yellow; Epithelial Cell Urine Auto 20-30 /lpf (0-5); Glucose Urine UA Negative (Negative); Ketones Urine Negative (Negative); Leukocyte Esterase Urine 2+ (Negative); Nitrite Urine Negative (Negative); Protein Urine Negative (Negative); RBC Urine Automated 0-4 /hpf (0-4); Urobilinogen Urine Negative (Negative); WBC Urine Automated >30 /hpf (0-5)
[2021-05-11] MEDS: FAMOTIDINE 20 MG TAB PO SCH (16:34)
[2021-05-11] MEDS: TERAZOSIN HCL 5 MG CAP PO SCH (21:11)
--- NOTE | 2021-05-11 21:33 | Electrocardiogram Report ---
Test Reason : Blood Pressure : / mmHG Vent. Rate : 079 BPM Atrial Rate : 079 BPM P-R Int : 000 ms QRS Dur : 092 ms QT Int : 352 ms P-R-T Axes : 000 031 230 degrees QTc Int : 403 ms Poor data quality, interpretation may be adversely affected Atrial flutter / Atrial fibrillation Marked ST abnormality, possible inferolateral subendocardial injury Abnormal ECG When compared with ECG of 23-APR-2021 06:11, No significant change Confirmed by Rodolfo Irwin ([id number]) on 05/11/2021 9:32:46 PM Referred By: REFERRED SELF Confirmed By:Rodolfo Irwin
--- NOTE | 2021-05-11 21:34 | Electrocardiogram Report ---
Test Reason : Blood Pressure : / mmHG Vent. Rate : 076 BPM Atrial Rate : 241 BPM P-R Int : 000 ms QRS Dur : 112 ms QT Int : 310 ms P-R-T Axes : 000 038 194 degrees QTc Int : 348 ms Poor data quality, interpretation may be adversely affected Atrial flutter Abnormal ECG When compared with ECG of 10-MAY-2021 16:12, No significant change Confirmed by Rodolfo Irwin ([id number]) on 05/11/2021 9:34:37 PM Referred By: REFERRED SELF Confirmed By:Rodolfo Irwin
[2021-05-11] MEDS: UMECLIDINIUM BROMIDE 62.5MCG/BLISTER 7 PUFFS/INHALER INH SCH (22:21)
[2021-05-12] MEDS: PIPERACILLIN/TAZOBACTAM 4.5 GM in DEXTROSE 5% 100 ML IV SCH ×3 (01:47→17:35)
[2021-05-12 06:48] LABS: BUN Creatinine Ratio 17.4 (10-20); Creatinine Clr Calc Pharmacy 40.3 ml/min; Est GFR (African American) 35.1 ml/min; Est GFR (Non-African American) 30.3 ml/min; Potassium 4.1 mmol/L (3.5-5.1)
--- NOTE | 2021-05-12 08:08 | Hospitalist Progress Note ---
Date of Service May 12, 2021 Assessment & Plan (1) Right lower lobe pneumonia: Plan: XRAY with RLL PNA on admission as well as suspected CHF exacerbation --> repeat w/ bilateral airspace opacities, most confluent in the right lung base. This could represent pulmonary edema and/or multifocal pneumonia. Clinical correlation will be required and radiographic follow-up to resolution is recommended. Blood cultures ngtd added sputum culture if able to produce Given recent hospitalization, need to cover for gram-negative pneumonia as well as atypicals Remains on Zosyn IV (day 2), added Azithromycin for atypical coverage Continue flutter valve. Asked RN to obtain incentive spirometer and encourage use Wean O2 as tolerated --> had been 90-93% on 1.5L, currently 97% on 2L NC Continue to monitor CHF -- see below (2) Acute heart failure with preserved ejection fraction: Plan: Heart failure with preserved ejection fraction on previous echo, however recent ECHO with decrease EF 35-45% from previous value 50% in November 2020 recent decrease in EF thought 2nd to afib with RVR/aflutter. BNP >02092 during admission Cardiology on consult We will continue to hold IV Lasix per cardiology Wt actually down from admission but still with significant LE edema -- asked to prop up on stool today as well Inaccurate I&Os, unmeasured voids Continue amiodarone, eliquis for his afib. Digoxin held and patient given dose of digibind for elevated dig level -- remains on hold Patient with significant leg edema on exam. --> Cardiology on consult, feels patient may be intravascularly hypovolemic in days past, currently euvolemic and with plans for resuming outpatient diuretics in next 24-48 hours. May need consider TAVR once clinically improved (3) Elevated digoxin level: Plan: Digoxin level noted to be elevated, 4.6 Likely exacerbated by giving 250 mcg dose in the setting of renal impairment We will hold digoxin, check a level in the morning Was given Digibind per cardiology on 05/11 (4) Epistaxis: Plan: Now resolved with rhino rocket Hold off on removal of nasal balloon until after consultation with ENT as this is in the setting of anticoagulation (5) Acute hyponatremia: Plan: serum 128 today -- prior hospitalization reported chronic in nature 2nd to overdiuresis and improved with NSS Although patient appears fluid overloaded on account of bilateral leg edema, he may be intravascularly depleted given such (although hgb also decreased suggesting hypervolemic state?) will hold off on diuretics for now as above per cardiology serum sodium again 128 -- of note, also on tramadol prn which could be contributing, but will also check TSH given afib/flutter as well Continue to monitor, consider obtaining urine studies if above not revealing/patient not improving once diuretics resumed (6) Acute kidney injury superimposed on chronic kidney disease: Plan: Cr 2.33 on admission Holding diuretics as above, avoiding nephrotoxic agents Cr improved to 2.14 today and will continue to monitor on AM labs (7) Severe aortic valve stenosis: Plan: Patient said he is open to being evaluated for possible TAVR We will defer to cardiology for further investigation and also cardiothoracic surgery as outpatient (8) Essential hypertension: Plan: Blood pressures soft, slightly improved and currently 109/63 Not on anti-hypertensive agents at this time, only diuretics which have been on hold continue to monitor (9) Atrial flutter with rapid ventricular response: Plan: history from previous hospital stay and remains in aflutter/rates in 80s, rate controlled dig on hold given elevated dig level, remains on hold continued monitoring on telemetry -Continue amiodarone Continue apixaban (10) Pulmonary embolism: Plan: Recent finding(diagnosed 02/2021) Continue Eliquis BID (11) COPD (chronic obstructive pulmonary disease): Plan: continued inpatient stay diuretics to resume in next 24-48 hours per cardiology will consult PT/OT as well Admission and Anticipated Discharge Date Admission Date: May 10, 2021 Supervising Physician Co-Signing Physician Notes KARLEE Supervision Note: I did not personally see or examine the patient today, but I verified all chandler points of KARLEE Ryan's assessment and plan with the following exceptions/additions: Changes made to A/P as noted above and as below: Add urine sodium and urine osmolality to further tease out the hyponatremia although may also be related to worsening renal function and hypovolemia secondary to hypoalbuminemia Also, he has not received his home prednisone since admission-restart prednisone 5 mg daily Subjective evaluated this morning states he feels about the same, not much change coughing up brown sputum states he was actually able to get up and use the restroom today, which is a change from yesterday. Had been 100% on 6L this morning and O2 removed and patient with sats 90-91% and placed back on 2L with O2sat 93%. Still stated shortness of breath. Legs edematous 3+ up to thighs. Had been holding off diuretics yesterday but need to consider today. He notes Dr Centeno was in to see him today -- will reach out for recs. He notes he was told "trying to get better so we can fix this valve, given significant murmur and need for aortic valve replacement. Notes that since taking the tramadol for shoulder pain he has issues with being able to move his bowels Not much of an appetite as he hadn't been feeling well. Passing gas but no BM since admission -- typically takes senna at home. Per cardiology, holding off on further diuretics until kidney function improves at this time. Review of Systems Review of Systems: All systems reviewed & are unremarkable except as noted in HPI & below Physical Exam Physical Exam: The patient is awake, alert and oriented 3, well developed and well nourished, sitting up in recliner chair, no acute distress HEENT--PERRL, EOMI, mucous membranes and oropharynx mildly dry, rhino rocket to R nares, dried blood present but no active bleeding Neck--supple. No JVD. No bruits. Thyroid normal, trachea midline, no adenopathy. Heart--irregularly irregular, +systolic ejection murmur, +b/l LE edema Lungs--reduced air entry on auscultation, RML/RLL crackles although with bib asilar crackles, diminished in the bases, no wheezing, 91-93% on 1.5-2L NC Abdomen--normal bowel sounds, +distended, non-tender to palpation Extremities--bilateral pitting leg edema 3-4+ to thighs bilaterally, calves non- tender non-erythematous Dermatologic--normal skin turgor, normal color, no abnormal lymph nodes, no rash. Neurologic--cranial nerves II through XII grossly intact. Rheumatologic--normal range of motion. Psychiatric--AOx3, frustrated with being in hospital Results & Data Results & Data ([facility]) Vital Signs (Past 12 Hours) Vital Signs Temp Pulse Pulse Resp BP Pulse Ox 05/12/21 07:54 84 05/12/21 07:21 36.5 C 84 20 109/65 100 05/12/21 03:00 36.5 C 82 18 108/61 100 05/12/21 00:00 36.3 C L 84 20 115/68 100 Laboratory Results 05/12/21 05/11/21 05/11/21 Range/Units 06:08 16:08 10:53 Sodium 128 L (136-145) mmol/L Potassium 4.1 (3.5-5.1) mmol/L Chloride 88 L (98-107) mmol/L Carbon Dioxide 33 H (21-32) mmol/L Anion Gap 7.0 (3-11) BUN 37 H (7-18) mg/dl Creatinine 2.14 H (0.6-1.4) mg/dl Est Cr Clr Drug Dosing 40.3 ml/min Est GFR ( Amer) 35.1 ml/min Est GFR (Non-Af Amer) 30.3 ml/min BUN/Creatinine Ratio 17.4 (10-20) Glucose 99 (70-99) mg/dl Calcium 9.0 (8.5-10.1) mg/dl NT-Pro-B Natriuret Pep (0-900) pg/ml Urine Color Yellow Urine Appearance Clear (Clear) Urine pH 5.0 (4.5-7.5) Ur Specific [place] 1.010 (1.000-1.030) Urine Protein Negative (Negative) Urine Glucose (UA) Negative (Negative) Urine Ketones Negative (Negative) Urine Blood 3+ H (Negative) Urine Nitrite Negative (Negative) Urine Bilirubin Negative (Negative) Urine Urobilinogen Negative (Negative) Ur Leukocyte Esterase 2+ H (Negative) Urine WBC (Auto) >30 H (0-5) /hpf Urine RBC (Auto) 0-4 (0-4) /hpf U Hyaline Cast (Auto) 0 (0-5) /lpf U Epithel Cells (Auto) 20-30 H (0-5) /lpf Urine Bacteria (Auto) Negative (Negative) Digoxin 4.6 H* (0.8-2.0) ng/ml 05/11/21 Range/Units 07:31 Sodium 128 L (136-145) mmol/L Potassium 4.3 (3.5-5.1) mmol/L Chloride 89 L (98-107) mmol/L Carbon Dioxide 31 (21-32) mmol/L Anion Gap 8.0 (3-11) BUN 43 H (7-18) mg/dl Creatinine 2.22 H (0.6-1.4) mg/dl Est Cr Clr Drug Dosing 38.9 ml/min Est GFR ( Amer) 33.6 ml/min Est GFR (Non-Af Amer) 28.9 ml/min BUN/Creatinine Ratio 19.1 (10-20) Glucose 104 H (70-99) mg/dl Calcium 9.2 (8.5-10.1) mg/dl NT-Pro-B Natriuret Pep > 80212 H (0-900) pg/ml Urine Color Urine Appearance (Clear) Urine pH (4.5-7.5) Ur Specific [place] (1.000-1.030) Urine Protein (Negative) Urine Glucose (UA) (Negative) Urine Ketones (Negative) Urine Blood (Negative) Urine Nitrite (Negative) Urine Bilirubin (Negative) Urine Urobilinogen (Negative) Ur Leukocyte Esterase (Negative) Urine WBC (Auto) (0-5) /hpf Urine RBC (Auto) (0-4) /hpf U Hyaline Cast (Auto) (0-5) /lpf U Epithel Cells (Auto) (0-5) /lpf Urine Bacteria (Auto) (Negative) Digoxin (0.8-2.0) ng/ml Diagnostic Findings Chest X-Ray 05/12/21 08:09 TWO VIEW CHEST CLINICAL HISTORY: Pneumonia. FINDINGS: AP and lateral chest radiographs are compared to study dated 05/10/2021. Correlation is made with chest CT dated 03/28/2021. The heart is enlarged noting atherosclerotic calcification of the thoracic aorta. Emphysema and chronic interstitial thickening is similar to previous. There are bilateral airspace opacities, most confluent at the right lung base There are small pleu ral effusions, right larger than left. No pneumothorax is seen. The skeletal structures are osteopenic. There are healed left-sided rib fractures. Degenerative change is noted in the thoracic spine. IMPRESSION: 1. Cardiomegaly and emphysema. 2. Bilateral airspace opacities, most confluent in the right lung base. This could represent pulmonary edema and/or multifocal pneumonia. Clinical corre lation will be required and radiographic follow-up to resolution is recommended. 3. Small pleural effusions. ACT 112: Negative or not required by law. Electronically signed by: Rey Cancino M.D. 05/12/2021 10:12 AM PG Care Time/CCT Total # of Minutes Spent Total Time Spent with Patient: Total time spent is greater than 50% in coordination of care (as documented) at patient's floor/unit and/or counseling patient: Coding Level of Care Code 06335 Subseq Hosp Care Lvl 3 Diagnoses Right lower lobe pneumonia J18.9 Pneumonia type: due to unspecified organism Acute heart failure with preserved ejection fraction I50.31 Elevated digoxin level R78.89 Epistaxis R04.0 Acute hyponatremia E87.1 Acute kidney injury superimposed on chronic kidney disease N17.9; N18.9 Severe aortic valve stenosis I35.0 Essential hypertension I10 Atrial flutter with rapid ventricular response I48.92 Pulmonary embolism I26.99 Acute cor pulmonale presence: unspecified Chronicity: unspecified Pulmonary embolism type: unspecified COPD (chronic obstructive pulmonary disease) J44.1 COPD type: COPD with acute exacerbation (1) COPD (chronic obstructive pulmonary disease) COPD type: COPD with acute exacerbation Qualified Code(s): J44.1 - Chronic obstructive pulmonary disease with (acute) exacerbation (2) Pulmonary embolism Acute cor pulmonale presence: unspecified Chronicity: unspecified Pulmonary embolism type: unspecified Qualified Code(s): I26.99 - Other pulmonary embolism without acute cor pulmonale (3) Right lower lobe pneumonia Pneumonia type: due to unspecified organism Qualified Code(s): J18.9 - Pneumonia, unspecified organism
[2021-05-12 08:35] LABS: Hematocrit (blood only) 30.7 % (42-52); Hemoglobin 9.8 g/dL (14.0-18.0); Mean Corpuscular Hemoglobin 30.2 pg (25-34); Mean Corpuscular Hgb Conc 31.9 g/dL (32-36); Mean Corpuscular Volume 94.8 fL (80-100); Mean Platelet Volume 10.5 fL (7.4-10.4); Platelet Count 148 K/uL (130-400); Red Blood Count 3.24 M/uL (4.7-6.1); White Blood Count 5.93 K/uL (4.8-10.8)
[2021-05-12] MEDS: AMIODARONE 200 MG TAB PO SCH (08:39)
[2021-05-12] MEDS: allopurinoL 300 MG TAB PO SCH (08:39)
[2021-05-12] MEDS: LORATADINE 10 MG TAB PO SCH (08:39)
[2021-05-12] MEDS: FINASTERIDE 5 MG TAB PO SCH (08:39)
[2021-05-12] MEDS: APIXABAN 5 MG TABLET PO SCH ×2 (08:39→19:44)
[2021-05-12] MEDS: ADVANCED PROBIOTIC 1250 MG CAPSULE PO SCH (08:39)
[2021-05-12] MEDS: FLUTICASONE/VILANTEROL 100/25MCG 14 PUFFS/INHALER INH SCH (08:39)
[2021-05-12] MEDS: PANTOprazole 40 MG TAB PO SCH (08:39)
[2021-05-12] MEDS: SENNA 8.6 MG TAB PO SCH ×2 (08:39→19:44)
[2021-05-12 09:13] LABS: Albumin Level 2.9 gm/dl (3.4-5.0); Bilirubin Direct 0.8 mg/dl (0-0.2); Bilirubin,Total 1.9 mg/dl (0.2-1); Total Protein 6.4 gm/dl (6.4-8.2)
--- NOTE | 2021-05-12 10:14 | XRay Report ---
TWO VIEW CHEST CLINICAL HISTORY: Pneumonia. FINDINGS: AP and lateral chest radiographs are compared to study dated 05/10/2021. Correlation is mad e with chest CT dated 03/28/2021. The heart is enlarged noting atherosclerotic calcification of the t horacic aorta. Emphysema and chronic interstitial thickening is similar to previous. There are bilate ral airspace opacities, most confluent at the right lung base There are small pleural effusions, righ t larger than left. No pneumothorax is seen. The skeletal structures are osteopenic. There are healed left-sided rib fractures. Degenerative change is noted in the thoracic spine. IMPRESSION: 1. Cardiomegaly and emphysema. 2. Bilateral airspace opacities, most confluent in the right lung base. This could represent pulmonar y edema and/or multifocal pneumonia. Clinical correlation will be required and radiographic follow-up to resolution is recommended. 3. Small pleural effusions. ACT 112: Negative or not required by law. Electronically signed by: Rey Cancino M.D. 05/12/2021 10:12 AM
--- NOTE | 2021-05-12 13:03 | Cardiology Progress Note ---
Date of Service May 12, 2021 Assessment & Plan (1) Chronic systolic heart failure: Plan: -appears euvolemic today. -recent decrease in ejection fraction may be secondary to rapid atrial fibrillation/flutter -resume outpatient diuretics in 24-48 hours. (2) Atrial flutter: Plan: -rate adequately controlled on amiodarone. -digoxin on hold following a dose of Digibind. -continues on Eliquis. (3) Severe aortic valve stenosis: Plan: -may need to consider TAVR once clinically improved. (4) Right lower lobe pneumonia: Plan: -antibiotic management per primary care team. Admission and Anticipated Discharge Date Admission Date: May 10, 2021 Subjective The patient is resting comfortably in bedside chair without complaints of chest pain or dyspnea. Also denies sustained palpitations. Physical Exam Physical Exam: In general this is a well-developed well-nourished white male seated in a chair without complaints. HEENT exam is negative. Neck is supple with delayed and prolonged carotid upstrokes. Transmitted murmurs noted bilaterally. No JVD. There is no thyromegaly. Cardiovascular exam reveals an irregular rhythm with a 3/6 crescendo decrescendo systolic murmur heard loudest at the base. Heart tones are distant. Difficult to auscultate S2 at the apex. Lungs are clear without rales, rhonchi or wheezes. Abdomen is obese without bruits. Extremities reveal intact radial pulses bilaterally. 1+ pretibial edema is noted. Results & Data ([facility]) Vital Signs (Past 12 Hours) Vital Signs Temp Pulse Pulse Resp BP Pulse Ox 05/12/21 11:19 36.4 C L 84 18 99/58 L 99 05/12/21 07:54 84 05/12/21 07:21 36.5 C 84 20 109/65 100 05/12/21 03:00 36.5 C 82 18 108/61 100 Diagnostic Findings pvc monitor notes rate controlled atrial fibrillation. PG Care Time/CCT Total # of Minutes Spent Total Time Spent with Patient: Total time spent is greater than 50% in coordination of care (as documented) at patient's floor/unit and/or counseling patient: Coding Level of Care Code 03021 Subseq Hosp Care Lvl 3 Diagnoses Chronic systolic heart failure I50.22 Atrial flutter I48.92 Severe aortic valve stenosis I35.0 Right lower lobe pneumonia J18.9 Pneumonia type: due to unspecified organism (1) Right lower lobe pneumonia Pneumonia type: due to unspecified organism Qualified Code(s): J18.9 - Pneumonia, unspecified organism
[2021-05-12] MEDS: FAMOTIDINE 20 MG TAB PO SCH (16:54)
[2021-05-12] MEDS ORDERED: AZITHROMYCIN 250 MG TAB PO ONE (18:12)
[2021-05-12] MEDS: TERAZOSIN HCL 5 MG CAP PO SCH (19:44)
[2021-05-12] MEDS: UMECLIDINIUM BROMIDE 62.5MCG/BLISTER 7 PUFFS/INHALER INH SCH (19:44)
[2021-05-12] MEDS ORDERED: predniSONE 5 MG TAB PO SCH (22:30)
[2021-05-13] MEDS: PIPERACILLIN/TAZOBACTAM 4.5 GM in DEXTROSE 5% 100 ML IV SCH ×3 (02:47→17:22)
[2021-05-13 06:00] LABS: Hemoglobin 9.6 g/dL (14.0-18.0); Mean Corpuscular Hemoglobin 30.6 pg (25-34); Mean Corpuscular Hgb Conc 33.1 g/dL (32-36); Mean Corpuscular Volume 92.4 fL (80-100); Mean Platelet Volume 10.3 fL (7.4-10.4); Platelet Count 136 K/uL (130-400); RDW Coefficient of Variation 15.3 % (11.5-14.5); RDW Standard Deviation 50.1 fL (36.4-46.3); Red Blood Count 3.14 M/uL (4.7-6.1); White Blood Count 6.27 K/uL (4.8-10.8)
[2021-05-13 06:31] LABS: Calcium 9.1 mg/dl (8.5-10.1); Est GFR (African American) 33.7 ml/min; Est GFR (Non-African American) 29.1 ml/min
[2021-05-13] MEDS ORDERED: DIGOXIN IMMUNE FAB IV ONE (07:51)
[2021-05-13] MEDS ORDERED: SODIUM CHLORIDE 0.9% IV ONE (07:51)
--- NOTE | 2021-05-13 07:59 | Hospitalist Progress Note ---
Date of Service May 13, 2021 Assessment & Plan (1) Right lower lobe pneumonia: Plan: IMPROVING XRAY with RLL PNA on admission as well as suspected CHF exacerbation --> repeat w/ bilateral airspace opacities, most confluent in the right lung base. This could represent pulmonary edema and/or multifocal pneumonia. Clinical correlation will be required and radiographic follow-up to resolution is recommended. Blood cultures ngtd added sputum culture if able to produce -- light normal titus Given recent hospitalization, need to cover for gram-negative pneumonia as well as atypicals Remains on Zosyn IV (day 3), added Azithromycin (day 2) for atypical coverage given recent hospitalization Continue flutter valve, incentive spirometer Wean O2 as tolerated --> had been 90-93% on 1.5L, currently 93% on 1L NC Continue to monitor CHF -- see below (2) Acute heart failure with preserved ejection fraction: Plan: Heart failure with preserved ejection fraction on previous echo, however recent ECHO with decrease EF 35-45% from previous value 50% in November 2020 recent decrease in EF thought 2nd to afib with RVR/aflutter. BNP >40834 during admission Cardiology on consult We will continue to hold IV Lasix per cardiology and nephrology Wt actually down from admission but still with significant LE edema -- asked to prop up on stool today as well and asked RN to wrap with DANE wraps Inaccurate I&Os, unmeasured voids Continue amiodarone, eliquis for his afib. Digoxin held and patient given dose of digibind for elevated dig level -- remains on hold and repeat dig 3.6 still elevated but per cards no need for repeat dose and continue to hold digoxin at this time. After Digibind is given, the lab assay test for digoxin levels becomes an accurate as it measures total digoxin even that bound to the Nestor Patient with significant leg edema on exam. --> Cardiology on consult, feels patient may be intravascularly hypovolemic in days past, currently hypovolemic still and with plans for resuming outpatient diuretics in next 24-48 hours. Need for TAVR once clinically improved (3) Elevated digoxin level: Plan: Digoxin level noted to be elevated, 4.6 Likely exacerbated by giving 250 mcg dose in the setting of renal impairment We will hold digoxin, check a level in the morning --> repeat 3.6 but per cards no need for further digibind (given per cardiology on 05/11) as noted above continued monitoring, continue to hold dig (4) Epistaxis: Plan: Now resolved with rhino rocket Hold off on removal of nasal balloon until after consultation with ENT as this is in the setting of anticoagulation --> discussed with patient and will continued to hold and arrange for outpt f/u ENT. Messaged ENT today but no response --> will call office tomorrow Hgb 9.8 -- normocytic. Iron studies with iron 35, low TIBC/transferrin given nutritional status, but trans % sat 16 --> will give dose of venofer today cbc in am (5) Acute hyponatremia: Plan: serum Na again 128 today -- prior hospitalization reported chronic in nature 2nd to overdiuresis and improved with NSS Although patient appears fluid overloaded on account of bilateral leg edema, he may be intravascularly depleted given such (although hgb also decreased suggesting hypervolemic state?) will hold off on diuretics for now as above per cardiology -- of note, also on tramadol prn (and steroids for PMR) which could be co ntributing also checked TSH given afib/flutter as well -- WNL Urine osm higher than expected per Nephro and points to ADH activity -- agrees patient clinically volume contracted and LE swelling likely related to elevated R pressure (as well as hypoalbuminemic state) review engineer consult for assessment/supplementation (6) Acute kidney injury superimposed on chronic kidney disease: Plan: Cr 2.33 on admission Holding diuretics as above, avoiding nephrotoxic agents Cr improved to 2.14 on 07/13 but 2.21 on repeat (BUN 33 from 37) Nephrology on consult as above -- appreciate recs will also repeat vit d (previously low Mar 2020), restart supplementation if low BMP in am (7) Severe aortic valve stenosis: Plan: Patient said he is open to being evaluated for possible TAVR We will defer to cardiology for further investigation and also cardiothoracic surgery as outpatient (8) Essential hypertension: Plan: Blood pressures soft, slightly improved and currently 112/65 Not on anti-hypertensive agents at this time, only diuretics which have been on hold continue to monitor (9) Atrial flutter with rapid ventricular response: Plan: history from previous hospital stay and remains in aflutter/rates in 80s, rate controlled dig on hold given elevated dig level, remains on hold continued monitoring on telemetry -Continue amiodarone Continue apixaban (10) Pulmonary embolism: Plan: Recent finding(diagnosed 02/2021) Continue Eliquis BID (11) Polymyalgia rheumatica: Plan: prednisone restarted 5mg daily, not ordered on admission -- given dose last night and changed to QAM ?stress dosing (12) COPD (chronic obstructive pulmonary disease): Plan: continue nebs, abx, tx as above Plan: continued inpatient stay possible resumption of diuretics in next 24-48 hours per cardiology will consult PT/OT as well -- at baseline when medically stable for d/c Admission and Anticipated Discharge Date Admission Date: May 10, 2021 Supervising Physician Co-Signing Physician Notes PA Supervision Note: I did not personally see or examine the patient today, but I verified all chandler points of KARLEE Ryan's assessment and plan with the following exceptions/additions: None Subjective patient evaluated this afternoon states breathing better walked to bathroom today, had a BM "thank god" discussed continuing to hold diuretics per cardiology but may be able to resume later today vs tomorrow. improvement in appetite. still continues to bring up sputum, brownish in color no fever, chills, chest pain, abdominal pain, nausea, vomiting or dysuria at this time. Review of Systems Review of Systems: All systems reviewed & are unremarkable except as noted in HPI & below Physical Exam Physical Exam: The patient is awake, alert and oriented 3, well developed and well nourished, sitting up in recliner chair, no acute distress HEENT--PERRL, EOMI, mucous membranes and oropharynx mildly dry, rhino rocket to R nares, dried blood present but no active bleeding Neck--supple. No JVD. No bruits. Thyroid normal, trachea midline, no adenopathy. Heart--irregularly irregular, +5/6 systolic ejection murmur, S1, loud S2., 3- 4+b/l LE edema Lungs--reduced air entry on auscultation, RML/RLL crackles although with bibasilar crackles, diminished in the bases, no wheezing, 91% on 1L NC Abdomen--normal bowel sounds, +distended, non-tender to palpation Extremities--bilateral pitting leg edema 3-4+ to thighs bilaterally, calves non- tender non-erythematous Dermatologic--normal skin turgor, normal color, no abnormal lymph nodes, no rash. Neurologic--cranial nerves II through XII grossly intact. Rheumatologic--normal range of motion. Psychiatric--AOx3, frustrated with being in hospital Results & Data Results & Data ([facility]) Vital Signs (Past 12 Hours) Vital Signs Temp Pulse Pulse Resp BP BP Pulse Ox 05/13/21 07:32 36.3 C L 83 16 104/63 94 05/13/21 04:32 36.7 C 81 20 105/57 L 94 05/13/21 01:39 93 H 05/12/21 23:54 36.2 C L 82 20 100/52 L 95 Laboratory Results 05/13/21 05/13/21 05/13/21 Range/Units 05:22 05:22 05:22 WBC 6.27 (4.8-10.8) K/uL RBC 3.14 L (4.7-6.1) M/uL Hgb 9.6 L (14.0-18.0) g/dL Hct 29.0 L (42-52) % MCV 92.4 (80-100) fL MCH 30.6 (25-34) pg MCHC 33.1 (32-36) g/dL RDW Std Deviation 50.1 H (36.4-46.3) fL RDW Coeff of Nimesh 15.3 H (11.5-14.5) % Plt Count 136 (130-400) K/uL MPV 10.3 (7.4-10.4) fL Sodium 128 L (136-145) mmol/L Potassium 4.0 (3.5-5.1) mmol/L Chloride 88 L (98-107) mmol/L Carbon Dioxide 33 H (21-32) mmol/L Anion Gap 7.0 (3-11) BUN 33 H (7-18) mg/dl Creatinine 2.21 H (0.6-1.4) mg/dl Est Cr Clr Drug Dosing 39.0 ml/min Est GFR ( Amer) 33.7 ml/min Est GFR (Non-Af Amer) 29.1 ml/min BUN/Creatinine Ratio 15.0 (10-20) Glucose 102 H (70-99) mg/dl Calcium 9.1 (8.5-10.1) mg/dl Total Bilirubin (0.2-1) mg/dl Direct Bilirubin (0-0.2) mg/dl AST (15-37) U/L ALT (12-78) Alkaline Phosphatase (45-117) U/L Total Protein (6.4-8.2) gm/dl Albumin (3.4-5.0) gm/dl TSH (0.300-4.500) uIu/ml Urine Osmolality (500-800) mOsm/kg Ur Random Sodium mmol/L Digoxin 3.6 H* (0.8-2.0) ng/ml 05/13/21 05/13/21 05/12/21 Range/Units 02:40 02:40 06:08 WBC (4.8-10.8) K/uL RBC (4.7-6.1) M/uL Hgb (14.0-18.0) g/dL Hct (42-52) % MCV (80-100) fL MCH (25-34) pg MCHC (32-36) g/dL RDW Std Deviation (36.4-46.3) fL RDW Coeff of Nimesh (11.5-14.5) % Plt Count (130-400) K/uL MPV (7.4-10.4) fL Sodium (136-145) mmol/L Potassium (3.5-5.1) mmol/L Chloride (98-107) mmol/L Carbon Dioxide (21-32) mmol/L Anion Gap (3-11) BUN (7-18) mg/dl Creatinine (0.6-1.4) mg/dl Est Cr Clr Drug Dosing ml/min Est GFR ( Amer) ml/min Est GFR (Non-Af Amer) ml/min BUN/Creatinine Ratio (10-20) Glucose (70-99) mg/dl Calcium (8.5-10.1) mg/dl Total Bilirubin (0.2-1) mg/dl Direct Bilirubin (0-0.2) mg/dl AST (15-37) U/L ALT (-78) Alkaline Phosphatase (45-117) U/L Total Protein (6.4-8.2) gm/dl Albumin (3.4-5.0) gm/dl TSH 3.140 (0.300-4.500) uIu/ml Urine Osmolality 248 L (500-800) mOsm/kg Ur Random Sodium 15 mmol/L Digoxin (0.8-2.0) ng/ml 05/12/21 05/12/21 Range/Units 06:08 06:08 WBC 5.93 (4.8-10.8) K/uL RBC 3.24 L (4.7-6.1) M/uL Hgb 9.8 L (14.0-18.0) g/dL Hct 30.7 L (42-52) % MCV 94.8 (80-100) fL MCH 30.2 (25-34) pg MCHC 31.9 L (32-36) g/dL RDW Std Deviation 51.0 H (36.4-46.3) fL RDW Coeff of Nimesh 15.0 H (11.5-14.5) % Plt Count 148 (130-400) K/uL MPV 10.5 H (7.4-10.4) fL Sodium (136-145) mmol/L Potassium (3.5-5.1) mmol/L Chloride (98-107) mmol/L Carbon Dioxide (21-32) mmol/L Anion Gap (3-11) BUN (7-18) mg/dl Creatinine (0.6-1.4) mg/dl Est Cr Clr Drug Dosing ml/min Est GFR ( Amer) ml/min Est GFR (Non-Af Amer) ml/min BUN/Creatinine Ratio (10-20) Glucose (70-99) mg/dl Calcium (8.5-10.1) mg/dl Total Bilirubin 1.9 H (0.2-1) mg/dl Direct Bilirubin 0.8 H (0-0.2) mg/dl AST 20 (15-37) U/L ALT 37 (12-78) Alkaline Phosphatase 75 (45-117) U/L Total Protein 6.4 (6.4-8.2) gm/dl Albumin 2.9 L (3.4-5.0) gm/dl TSH (0.300-4.500) uIu/ml Urine Osmolality (500-800) mOsm/kg Ur Random Sodium mmol/L Digoxin (0.8-2.0) ng/ml PG Care Time/CCT Total # of Minutes Spent Total Time Spent with Patient: Total time spent is greater than 50% in coordination of care (as documented) at patient's floor/unit and/or counseling patient: Coding Level of Care Code 38306 Subseq Hosp Care Lvl 3 Diagnoses Right lower lobe pneumonia J18.9 Pneumonia type: due to unspecified organism Acute heart failure with preserved ejection fraction I50.31 Elevated digoxin level R78.89 Epistaxis R04.0 Acute hyponatremia E87.1 Acute kidney injury superimposed on chronic kidney disease N17.9; N18.9 Severe aortic valve stenosis I35.0 Essential hypertension I10 Atrial flutter with rapid ventricular response I48.92 Pulmonary embolism I26.99 Acute cor pulmonale presence: unspecified Chronicity: unspecified Pulmonary embolism type: unspecified COPD (chronic obstructive pulmonary disease) J44.1 COPD type: COPD with acute exacerbation Polymyalgia rheumatica M35.3 (1) COPD (chronic obstructive pulmonary disease) COPD type: COPD with acute exacerbation Qualified Code(s): J44.1 - Chronic obstructive pulmonary disease with (acute) exacerbation (2) Pulmonary embolism Acute cor pulmonale presence: unspecified Chronicity: unspecified Pulmonary embolism type: unspecified Qualified Code(s): I26.99 - Other pulmonary embolism without acute cor pulmonale (3) Right lower lobe pneumonia Pneumonia type: due to unspecified organism Qualified Code(s): J18.9 - Pneumonia, unspecified organism
[2021-05-13] MEDS: FLUTICASONE/VILANTEROL 100/25MCG 14 PUFFS/INHALER INH SCH (08:36)
[2021-05-13] MEDS: predniSONE 5 MG TAB PO SCH (08:37)
[2021-05-13] MEDS: FINASTERIDE 5 MG TAB PO SCH (08:38)
[2021-05-13] MEDS: AMIODARONE 200 MG TAB PO SCH (08:38)
[2021-05-13] MEDS: SENNA 8.6 MG TAB PO SCH ×2 (08:38→20:19)
[2021-05-13] MEDS: LORATADINE 10 MG TAB PO SCH (08:38)
[2021-05-13] MEDS: APIXABAN 5 MG TABLET PO SCH ×2 (08:38→20:18)
[2021-05-13] MEDS: allopurinoL 300 MG TAB PO SCH (08:39)
[2021-05-13] MEDS: PANTOprazole 40 MG TAB PO SCH (08:39)
[2021-05-13] MEDS: ADVANCED PROBIOTIC 1250 MG CAPSULE PO SCH (08:39)
[2021-05-13 08:46] LABS: Ferritin 518.9 ng/ml (8-388)
--- NOTE | 2021-05-13 10:57 | Cardiology Progress Note ---
Date of Service May 13, 2021 Assessment & Plan (1) Chronic systolic heart failure: Plan: -appears euvolemic. -recent decrease in ejection fraction may have been secondary to rapid atrial fibrillation/flutter. -resume outpatient diuretics in 24 hours. (2) Atrial flutter: Plan: -rate adequately controlled on amiodarone. -digoxin level down to 3.6 following a dose of Digibind. -continue Eliquis. (3) Severe aortic valve stenosis: Plan: -consider TAVR once clinically improved. (4) Right lower lobe pneumonia: Plan: -antibiotic management per primary care team. Admission and Anticipated Discharge Date Admission Date: May 10, 2021 Subjective The patient is sitting comfortably in a reclining chair without complaints of chest pain. Dyspnea is improving. He denies palpitations. Physical Exam Physical Exam: In general this is a well-developed well-nourished white male seated in a chair without complaints. HEENT exam is negative. Neck is supple with delayed and prolonged carotid upstrokes. Transmitted murmurs noted bilaterally. No JVD. There is no thyromegaly. Cardiovascular exam reveals a regular rhythm with a 3/6 crescendo decrescendo systolic murmur heard loudest at the base. Heart tones are distant. Difficult to auscultate S2 at the apex. Lungs are clear without rales, rhonchi or wheezes. Abdomen is obese without bruits. Extremities reveal intact radial pulses bilaterally. 1+ pretibial edema is noted. Results & Data ([facility]) Vital Signs (Past 12 Hours) Vital Signs Temp Pulse Pulse Resp BP BP Pulse Ox 05/13/21 08:02 63 05/13/21 07:32 36.3 C L 83 16 104/63 94 05/13/21 04:32 36.7 C 81 20 105/57 L 94 05/13/21 01:39 93 H 05/12/21 23:54 36.2 C L 82 20 100/52 L 95 Diagnostic Findings library monitor notes rate controlled atrial fibrillation. PG Care Time/CCT Total # of Minutes Spent Total Time Spent with Patient: Total time spent is greater than 50% in coordination of care (as documented) at patient's floor/unit and/or counseling patient: Coding Level of Care Code 85753 Subseq Hosp Care Lvl 3 Diagnoses Chronic systolic heart failure I50.22 Atrial flutter I48.92 Severe aortic valve stenosis I35.0 Right lower lobe pneumonia J18.9 Pneumonia type: due to unspecified organism (1) Right lower lobe pneumonia Pneumonia type: due to unspecified organism Qualified Code(s): J18.9 - Pneumonia, unspecified organism
[2021-05-13] MEDS: AZITHROMYCIN 250 MG TAB PO SCH (11:07)
--- NOTE | 2021-05-13 15:19 | Nephrology Consultation ---
Date of Consultation May 13, 2021 Assessment & Plan (1) Hyponatremia: * Hyponatremia likely related to both reduced renal perfusion associated w/ valvular heart disease and RLL pneumonia. Uosm is higher than expected and points to ADH activity * Patient is clinically volume contracted. His LE swelling is likely a manifestation of elevated R heart pressure. Lungs were clear to my exam today * Recommend continuing to hold diuretic * Wrap legs daily when OOB * Monitor PRP (2) MAT (acute kidney injury): * MAT/CKD due to impaired renal perfusion and intravascular volume contraction (3) Right lower lobe pneumonia: * On Azithromycin therapy (4) Severe aortic valve stenosis: * May be candidate for TAVR History of Present Illness Reason for Consultation: MAT/CKD, hyponatremia Attending Physician: Linda Barnes MD History of Present Illness Mr. Robert is a 70 year old white male who is seen at the request of Jimena Ryan PA-c for evaluation of MAT/CKD, hyponatremia. Medical records in the EMR were reviewed today and are summarized as follows: Mr. Robert has CKD w/ baseline Cr ~ 1.5. He has not undergone nephrology evaluation in the past, however urinalysis this admission is negative for blood and 03/28/[address] revealed normal kidneys without hydronephrosis. His renal impairment is likely due to microvascular disease and poor renal perfusion associated w/ v alvular heart disease. Mr. Robert's medical history is also significant for atrial flutter, severe COPD, ELIOT and obesity. He was hospitalized 03/20 with two small subsegmental PE involving the R lung and is now on anticoagulation therapy. He was rehospitalized 04/20 with CHF and hyponatremia. Echocardiogram revealed severe aortic sclerosis w/ moderate insufficiency. R side of the heart was poorly visualized. He was discharged to home on Lasix 20 mg po daily. Mr. Robert returned to [facility] 05/10/21 with progressive dyspnea, MAT/CKD and hyponatremia. CXR reveals RLL infiltrate and small bilateral pleural effusions. Admission weight was ~ 5 lbs below his last discharge weight. Cr has risen to 2.2 and serum sodium has dropped to 128 mmol/L. Uosm 248. Furosemide is currently being held. Allergies Allergy/AdvReac Type Severity Reaction Status Date / Time grass pollen Allergy Mild Verified 05/10/21 17:24 Sulfa (Sulfonamide AdvReac Unknown Unknown Unverified 05/10/21 17:24 Antibiotics) Home Medications Medication Instructions Recorded Confirmed Type budesonide-formoterol HFA 160 2 puff INHALATION BID 06/24/18 05/10/21 History mcg-4.5 mcg/actuation aerosol inhaler (Symbicort) loratadine 10 mg tablet (Claritin) 10 mg PO QAM 06/24/18 05/10/21 History tiotropium bromide 18 mcg capsule 1 cap INHALATION HS 06/24/18 05/10/21 History with inhalation device (Spiriva with HandiHaler) acetaminophen 500 mg tablet 1,000 mg PO Q6H PRN 12/21/19 05/10/21 History (Tylenol Extra Strength) sennosides 8.6 mg tablet (Senokot) 8.6 mg PO BID 12/21/19 05/10/21 History finasteride 5 mg tablet 5 mg PO QAM #30 tab 07/25/20 05/10/21 Rx terazosin 5 mg capsule 5 mg PO QPM #90 cap 12/06/20 05/10/21 Rx allopurinol 300 mg tablet 300 mg PO DAILY 03/19/21 05/10/21 History famotidine 20 mg tablet 20 mg PO QDD 03/28/21 05/10/21 History omeprazole 40 mg capsule,delayed 40 mg PO QAM 03/28/21 05/10/21 History release prednisone 5 mg tablet 5 mg PO DAILY 03/28/21 05/10/21 History cyclobenzaprine 10 mg tablet 10 mg PO TID PRN #30 tab 04/15/21 05/10/21 Rx food supplemt, lactose-reduced 1 ea PO DAILY 04/21/21 05/10/21 History 0.04 gram-1 kcal/mL oral liquid (Boost) lactobacillus combination no.4 3 3,000 mmu cells PO DAILY 04/21/21 05/10/21 History billion cell capsule (Probiotic) amiodarone 200 mg tablet 200 mg PO DAILY #90 tab 04/30/21 05/10/21 Rx apixaban 5 mg tablet (Eliquis) 5 mg PO BID #90 tab 04/30/21 05/10/21 Rx digoxin 250 mcg (0.25 mg) tablet 250 mcg PO DAILY #90 tab 04/30/21 05/10/21 Rx levalbuterol HCl 0.63 mg/3 mL 0.63 mg NEB Q6R PRN #90 ml 05/06/21 05/10/21 Rx solution for nebulization tramadol 50 mg tablet 50 - 100 mg PO Q6H PRN 05/10/21 05/10/21 History Patient History Medical History (Updated 05/11/21 @ 14:14 by Eliu Yang MD) Atrial flutter Benign prostatic hyperplasia with urinary obstruction and other lower urinary tract symptoms Chronic heart failure with preserved ejection fraction Chronic obstructive pulmonary disease SEVERE per pulm 08/09. Uses inhalers daily and prn Chronic systolic heart failure CKD (chronic kidney disease) stage 2, GFR 60-89 ml/min Colon polyp COPD (chronic obstructive pulmonary disease) Diastolic dysfunction History of colon polyps History of elevated glucose History of smoking at least 1 pack per day for at least 30 years Obesity (BMI 30-39.9) Osteoarthritis Polymyalgia rheumatica Renal disease Severe aortic valve stenosis Surgical History H/O rectal polypectomy History of bilateral cataract extraction History of colonoscopy History of cystoscopy History of elbow surgery left ulnar nerve History of hernia repair Laparoscopic History of surgical removal of terminal ileum History of wisdom tooth extraction Family History Brother Family history of diabetes mellitus Family hx colonic polyps Prostate cancer Myocardial infarction H/O heart bypass surgery Mother Colorectal cancer Other No family history of adverse response to anesthesia Denies family history of Ovarian cancer Breast cancer Lung cancer Social History Smoking Status: Former smoker Tobacco Type: Cigarettes Second Hand Exposure: No; Hx Alcohol Use: No Hx Substance Use: No Preferred Language: Stateless Communication Ability: Effective Visual Impairment: Limited Universal Worker Assisted Living Required: No Beliefs That Will Affect Care: None marital status: Current Living Situation: Spouse current occupational status: retired How many Children do You have: 1 Feels Safe at Home: Yes Childhood Exposure to Second-Hand Smoke: Yes caffeine: Yes (coffee, soda) Dental Care, Regularly: Yes Physical Activity Frequency: Does not Exercise Seatbelt Use: never Sunscreen Use: No Assistive Devices: Walker Review of Systems Constitutional: no fever Eyes: no problem reported Ear, Nose, Mouth, Throat: no problem reported Respiratory: + dyspnea Cardiovascular: + edema; no chest pain Gastrointestinal: no abdominal pain, no nausea, no vomiting and no diarrhea/loose stools Genitourinary: no dysuria, no urinary hesitancy or no hematuria Musculoskeletal: no back pain Integumentary: no rash Neurologic: + confusion Physical Exam Constitutional: not in distress (breathing comfortably on O2 at 1L/min NC) Eyes: PERRL, conjunctivae normal, anicteric sclerae ENMT: external ear and nose normal, oropharynx normal Neck: trachea midline, no thyromegaly Respiratory: normal respiratory effort, lungs clear to auscultation Cardiovascular: Rate/Rhythm: regular rate Heart Sounds: + murmur Gastrointestinal (Abdomen): normal bowel sounds, soft, nontender, no hepatosplenomegaly Skin: no rashes, warm and dry Neurologic: awake; not confused Results & Data ([facility]) Vital Signs (Past 12 Hours) Vital Signs Temp Pulse Pulse Resp BP BP Pulse Ox 05/13/21 11:19 36.4 C L 94 H 18 124/66 94 05/13/21 08:02 63 05/13/21 07:32 36.3 C L 83 16 104/63 94 05/13/21 04:32 36.7 C 81 20 105/57 L 94 Laboratory Results Laboratory Tests 05/11/21 05/13/21 05/13/21 16:08 02:40 05:22 WBC 6.27 Hgb 9.6 L Hct 29.0 L Plt Count 136 Sodium Potassium Chloride Carbon Dioxide BUN Creatinine Glucose Osmolality Calcium Urine Color Yellow Urine Appearance Clear Urine pH 5.0 Urine Protein Negative Urine Glucose (UA) Negative Urine Nitrite Negative Urine RBC (Auto) 0-4 Urine Osmolality 248 L 05/13/21 05/13/21 05:22 09:12 WBC Hgb Hct Plt Count Sodium 128 L Potassium 4.0 Chloride 88 L Carbon Dioxide 33 H BUN 33 H Creatinine 2.21 H Glucose 102 H Osmolality 276 L Calcium 9.1 Urine Color Urine Appearance Urine pH Urine Protein Urine Glucose (UA) Urine Nitrite Urine RBC (Auto) Urine Osmolality PG Care Time/CCT Total # of Minutes Spent Total Time Spent with Patient: Total time spent is greater than 50% in coordination of care (as documented) at patient's floor/unit and/or counseling patient: Coding Level of Care Code 90934 Inpt Consult Level 5 Diagnoses Hyponatremia E87.1 MAT (acute kidney injury) N17.9 Severe aortic valve stenosis I35.0 Right lower lobe pneumonia J18.9 Pneumonia type: due to unspecified organism (1) Right lower lobe pneumonia Pneumonia type: due to unspecified organism Qualified Code(s): J18.9 - Pneumonia, unspecified organism
[2021-05-13] MEDS: FAMOTIDINE 20 MG TAB PO SCH (17:22)
[2021-05-13] MEDS: TERAZOSIN HCL 5 MG CAP PO SCH (20:19)
[2021-05-13] MEDS: UMECLIDINIUM BROMIDE 62.5MCG/BLISTER 7 PUFFS/INHALER INH SCH (20:20)
[2021-05-13] MEDS ORDERED: IRON SUCROSE 300 MG in SODIUM CHLORIDE 0.9% 250 ML IV ONE (21:00)
[2021-05-14] MEDS: PIPERACILLIN/TAZOBACTAM 4.5 GM in DEXTROSE 5% 100 ML IV SCH ×2 (02:42→09:29)
[2021-05-14 07:46] LABS: Hematocrit (blood only) 27.2 % (42-52); Mean Corpuscular Hemoglobin 30.7 pg (25-34); Mean Corpuscular Hgb Conc 33.1 g/dL (32-36); Mean Corpuscular Volume 92.8 fL (80-100); Mean Platelet Volume 9.5 fL (7.4-10.4); Platelet Count 117 K/uL (130-400); RDW Coefficient of Variation 15.4 % (11.5-14.5); RDW Standard Deviation 50.8 fL (36.4-46.3); Red Blood Count 2.93 M/uL (4.7-6.1)
--- NOTE | 2021-05-14 08:03 | Hospitalist Progress Note ---
Date of Service May 14, 2021 Assessment & Plan (1) Right lower lobe pneumonia: Plan: IMPROVING XRAY with RLL PNA on admission as well as suspected CHF exacerbation. Recent PE February 2021, on Eliquis --> repeat w/ bilateral airspace opacities, most confluent in the right lung base. This could represent pulmonary edema and/or multifocal pneumonia. Clinical correlation will be required and radiographic follow-up to resolution is recommended. Blood cultures ngtd sputum culture -- light normal titus Given recent hospitalization, need to cover for gram-negative pneumonia as well as atypicals Zosyn IV (day 4), added Azithromycin (day 3) for atypical coverage given recent hospitalization --> de-escalated to Augmentin + Azithromycin to cover for urine as well (enterococcus, pansensitive) Continue flutter valve, incentive spirometer Wean O2 as tolerated (does use 2L HS, follows with [facility] --> had been up to 6L this AM due to "difficulty breathing" and had been 96- 97%. Discussed given underlying lung disease should be closer to 88-90s to prevent respiratory depression. --> Weaned to 1L this afternoon and SpO2 currently 97%. Further wean as tolerated however patient with significant anxiety when it is not on --> would perform 2 step prior to d/c to see about continued needs while up/ambulating Continue to monitor CHF -- see below (2) Acute heart failure with preserved ejection fraction: Plan: Heart failure with preserved ejection fraction on previous echo, however recent ECHO with decrease EF 35-45% from previous value 50% in November 2020 recent decrease in EF thought 2nd to afib with RVR/aflutter (STILL IN FLUTTER, "RATE CONTROLLED" BNP >99686 during admission Acute on chronic combined systolic and diastolic heart failure Cardiology on consult We will continue to hold IV Lasix per cardiology and nephrology Wt actually down from admission but still with significant LE edema -- asked to prop up on stool today as well and asked RN to wrap with DANE wraps Inaccurate I&Os, unmeasured voids Continue amiodarone, eliquis for his afib. Digoxin held and patient given dose of digibind for elevated dig level -- > per cardiology, recs to discontinued this agent moving forward (After Digibind is given, the lab assay test for digoxin levels becomes an accurate as it measures total digoxin even that bound to the Nestor) Patient with significant leg edema on exam. --> Cardiology on consult, feels patient may be intravascularly hypovolemic in days past, currently hypovolemic still NSS for 250cc provided today --> continue to monitor Given continued decline of hgb despite being volume contracted, will check LDH/haptoglobin to see if hemolyzing /worsening (also limited ECHO to look at valve/EF to see if worsened from last month) Need for TAVR once clinically improved --> BP low and will give 1 bag IV albumin 25% to help with third spacing (3) Anemia: Plan: 2nd to anemia but possible occult losses while on eliquis since diagnosis of PE in Feb 2021, also possible valvular disease/hemolytic anemia. b12/folate without deficiency normocytic Also may have lost some blood from his epistaxis iron def with low iron sat, and was given dose of venofer on 05/13, repeat hgb today 9.0 Albumin provided, repeat ECHO, check LDH/haptoglobin. Of note, Tb elevated (hx gallstones, but most recent imaging without acute jessi prior admission and denies any abd pain on exam today but had in days past when not moving his bowels) --> Of note, patient stated he moved bowels and denied any franklin blood or black/tarry appearance, however will check for occult blood, consult w/ GI if +, place on PPI/etc (4) Epistaxis: Plan: Now resolved with rhino rocket Hold off on removal of nasal balloon until after consultation with ENT as this is in the setting of anticoagulation --> discussed with patient and will continued to hold and arrange for outpt f/u ENT. Messaged ENT today but no response --> will call office tomorrow (5) Elevated digoxin level: Plan: Digoxin level noted to be elevated, 4.6 Likely exacerbated by giving 250 mcg dose in the setting of renal impairment We will hold digoxin, check a level in the morning --> repeat 3.6 (given per cardiology on 05/11) as noted above --> dig discontinued (6) Acute hyponatremia: Plan: serum Na up to 130 today -- prior hospitalization reported chronic in nature 2nd to overdiuresis and improved with NSS Although patient appears fluid overloaded on account of bilateral leg edema, he may be intravascularly depleted given such (although hgb also decreased suggesting hypervolemic state?) will hold off on diuretics for now as above per cardiology -- of note, also on tramadol prn (and steroids for PMR) which could be contrib uting TSH normal Urine osm higher than expected per Nephro and points to ADH activity -- agrees patient clinically volume contracted and LE swelling likely related to elevated R pressure (as well as hypoalbuminemic state). --> Giving dose of albumin 05/14 mainspring torque tester consult for assessment/supplementation (7) Acute kidney injury superimposed on chronic kidney disease: Plan: Cr 2.33 on admission Holding diuretics as above, avoiding nephrotoxic agents Cr improved to 2.14 on 07/13 but 2.35 on repeat (BUN 32 from 33) Nephrology on consult as above -- appreciate recs NSS for 250cc provided for continued volume contracted state Will give dose of albumin as above, 12.5gm of 25% Vit D 13 from prior 16.7 in Mar 2020, restarted supplementation Also on allopurinol for hx gout/prevention but taking 300mg daily -- changed to 50mg QOD and would decrease dose at discharge to prevent worsening kidney function BMP in AM (8) Severe aortic valve stenosis: Plan: Patient said he is open to being evaluated for possible TAVR We will defer to cardiology for further investigation and also cardiothoracic surgery as outpatient -- per Dr Centeno, not urgent at this time, however I am concerned given continued hospitalization and almost absent S2 and need for more urgent eval. --> Will repeat ECHO to see if valve worsening compared to echo last month, just repeating limited ECHO/no contrast (9) Essential hypertension: Plan: Blood pressures soft, now 80s/40-50s this evening (reportedly asymptomatic) Given extra dose of prednisone given prior 5mg dose for PMR not continued on admission Diuretics on hold Not on any anti-hypertensive agents at home except Terazosin for his prostate Albumin as above, hold terazosin for tonight Monitor (10) Atrial flutter with rapid ventricular response: Plan: history from previous hospital stay and remains in aflutter/rates in 80s, rate controlled dig on hold given elevated dig level, remains on hold and to be discontinued per cardiology continued monitoring on telemetry -Continue amiodarone Continue apixaban (11) Pulmonary embolism: Plan: Recent finding(diagnosed 02/2021) Continue Eliquis BID (12) Polymyalgia rheumatica: Plan: prednisone restarted 5mg daily, not ordered on admission extra dose 05/14 for hypotension, ?need for stress dosing (13) COPD (chronic obstructive pulmonary disease): Plan: continue nebs, abx, tx as above (14) Vitamin D deficiency: Plan: in patient with CKD, previously on supplementation. Repeat level 13 -- ordered supplementation and would continue at discharge Plan: continued inpatient stay NSS, albumin as above Nephro, cards on consult repeat ECHO to further delineate worsening valvular heart disease and need for more emergent valvular repair -- patient would be HIGH RISK but he is open to TAVR PT/OT with recs to return home but do believe patient would benefit from some nursing home at discharge. Admission and Anticipated Discharge Date Admission Date: May 10, 2021 Supervising Physician Co-Signing Physician Notes PA Supervision Note: I did not personally see or examine the patient today, but I verified all chandler points of KARLEE Ryan's assessment and plan with the following exceptions/additions: None Subjective patient evaluated this afternoon had a rough morning with reported shortness of breath but states he realized his oxygen wasn't in his nose as he "couldn't feel anything blowing". O2 was increased to 6L but titrated back down this afternoon. patient states he is feeling better. moved his bowels, no abd pain today no chest pain, but shortness of breath with ambulation but has been getting up to bathroom by himself, although does take ~15minutes to recover. he is irritated with rhinorocket still in place. discussed ENT may not be able to do inpatient but will call provider to see about recs as did not get return message yesterday. no fever, chills. no lightheadedness/dizziness with standing. does continue with cough, productive of sputum and states the incentive spirometer has been helping him to cough that "junk up". Legs wrapped in DANE and instructed to continue and change daily. questions/concerns addressed at this time. Review of Systems Review of Systems: All systems reviewed & are unremarkable except as noted in HPI & below Physical Exam Physical Exam: The patient is awake, alert and oriented 3, well developed and well nourished, sitting up in recliner chair, no acute distress HEENT--PERRL, EOMI, mucous membranes and oropharynx mildly dry, rhino rocket to R nares, dried blood present but no active bleeding Neck--supple. No JVD. No bruits. Thyroid normal, trachea midline, no adenopathy. Heart--irregularly irregular, +5/6 systolic ejection murmur, S1, loud S2., 3- 4+b/l LE edema wrapped with DANE wraps Lungs--reduced air entry on auscultation, RML/RLL crackles although with bibasilar crackles, diminished in the bases, no wheezing, 96% on 1.5L NC Abdomen--normal bowel sounds, +distended, non-tender to palpation Extremities--bilateral pitting leg edema 3-4+ to thighs bilaterally, calves non- tender non-erythematous Neurologic--cranial nerves II through XII grossly intact. Rheumatologic--normal range of motion. Psychiatric--AOx3, frustrated with being in hospital Results & Data Results & Data ([facility] [place]) Vital Signs (Past 12 Hours) Vital Signs Temp Pulse Pulse Resp BP Pulse Ox 05/14/21 04:00 35.9 C L 82 19 110/59 L 93 05/14/21 02:08 81 05/13/21 23:00 36.3 C L 78 20 115/65 90 Laboratory Results 05/14/21 05/14/21 05/14/21 Range/Units 07:25 07:25 07:25 WBC (4.8-10.8) K/uL RBC (4.7-6.1) M/uL Hgb (14.0-18.0) g/dL Hct (42-52) % MCV (80-100) fL MCH (25-34) pg MCHC (32-36) g/dL RDW Std Deviation (36.4-46.3) fL RDW Coeff of Nimesh (11.5-14.5) % Plt Count (130-400) K/uL MPV (7.4-10.4) fL Platelet Estimate (Normal) Sodium 130 L (136-145) mmol/L Potassium 3.5 (3.5-5.1) mmol/L Chloride 89 L (98-107) mmol/L Carbon Dioxide 32 (21-32) mmol/L Anion Gap 9.0 (3-11) BUN 32 H (7-18) mg/dl Creatinine 2.35 H (0.6-1.4) mg/dl Est Cr Clr Drug Dosing 36.6 ml/min Est GFR ( Amer) 31.3 ml/min Est GFR (Non-Af Amer) 27.0 ml/min BUN/Creatinine Ratio 13.5 (10-20) Glucose 103 H (70-99) mg/dl Calcium 8.9 (8.5-10.1) mg/dl Total Bilirubin 1.6 H (0.2-1) mg/dl AST 21 (15-37) U/L ALT 32 (12-78) Alkaline Phosphatase 64 (45-117) U/L Total Protein 6.0 L (6.4-8.2) gm/dl Albumin 2.8 L (3.4-5.0) gm/dl Globulin 3.2 (2.5-4.0) gm/dl Albumin/Globulin Ratio 0.9 (0.9-2) Vitamin B12 695 (193-986) pg/ml 25-OH Vitamin D Total (30-100) ng/ml Folate 15.50 (>5.38) ng/ml Cortisol AM Sample 16.12 (4.3-22.4) mcg/dl Ur Random Creatinine mg/dl 05/14/21 05/13/21 05/13/21 Range/Units 07:25 20:35 18:16 WBC 4.70 L (4.8-10.8) K/uL RBC 2.93 L (4.7-6.1) M/uL Hgb 9.0 L (14.0-18.0) g/dL Hct 27.2 L (42-52) % MCV 92.8 (80-100) fL MCH 30.7 (25-34) pg MCHC 33.1 (32-36) g/dL RDW Std Deviation 50.8 H (36.4-46.3) fL RDW Coeff of Nimesh 15.4 H (11.5-14.5) % Plt Count 117 L (130-400) K/uL MPV 9.5 (7.4-10.4) fL Platelet Estimate Decreased L (Normal) Sodium (136-145) mmol/L Potassium (3.5-5.1) mmol/L Chloride (98-107) mmol/L Carbon Dioxide (21-32) mmol/L Anion Gap (3-11) BUN (7-18) mg/dl Creatinine (0.6-1.4) mg/dl Est Cr Clr Drug Dosing ml/min Est GFR ( Amer) ml/min Est GFR (Non-Af Amer) ml/min BUN/Creatinine Ratio (10-20) Glucose (70-99) mg/dl Calcium (8.5-10.1) mg/dl Total Bilirubin (0.2-1) mg/dl AST (15-37) U/L ALT (12-78) Alkaline Phosphatase (45-117) U/L Total Protein (6.4-8.2) gm/dl Albumin (3.4-5.0) gm/dl Globulin (2.5-4.0) gm/dl Albumin/Globulin Ratio (0.9-2) Vitamin B12 (193-986) pg/ml 25-OH Vitamin D Total 13.0 L (30-100) ng/ml Folate (>5.38) ng/ml Cortisol AM Sample (4.3-22.4) mcg/dl Ur Random Creatinine 82.5 mg/dl PG Care Time/CCT Total # of Minutes Spent Total Time Spent with Patient: Total time spent is greater than 50% in coordination of care (as documented) at patient's floor/unit and/or counseling patient: Coding Level of Care Code 94122 Subseq Hosp Care Lvl 3 Diagnoses Right lower lobe pneumonia J18.9 Pneumonia type: due to unspecified organism Acute heart failure with preserved ejection fraction I50.31 Elevated digoxin level R78.89 Epistaxis R04.0 Acute hyponatremia E87.1 Acute kidney injury superimposed on chronic kidney disease N17.9; N18.9 Severe aortic valve stenosis I35.0 Essential hypertension I10 Atrial flutter with rapid ventricular response I48.92 Pulmonary embolism I26.99 Acute cor pulmonale presence: unspecified Chronicity: unspecified Pulmonary embolism type: unspecified Polymyalgia rheumatica M35.3 COPD (chronic obstructive pulmonary disease) J44.1 COPD type: COPD with acute exacerbation Vitamin D deficiency E55.9 Anemia D64.9 (1) COPD (chronic obstructive pulmonary disease) COPD type: COPD with acute exacerbation Qualified Code(s): J44.1 - Chronic obstructive pulmonary disease with (acute) exacerbation (2) Pulmonary embolism Acute cor pulmonale presence: unspecified Chronicity: unspecified Pulmonary embolism type: unspecified Qualified Code(s): I26.99 - Other pulmonary embolism without acute cor pulmonale (3) Right lower lobe pneumonia Pneumonia type: due to unspecified organism Qualified Code(s): J18.9 - Pneumonia, unspecified organism
[2021-05-14 08:13] LABS: Platelet Estimate Decreased (Normal)
[2021-05-14 08:24] LABS: Albumin Level 2.8 gm/dl (3.4-5.0); BUN Creatinine Ratio 13.5 (10-20); Calcium 8.9 mg/dl (8.5-10.1); Creatinine Clr Calc Pharmacy 36.6 ml/min; Est GFR (African American) 31.3 ml/min; Potassium 3.5 mmol/L (3.5-5.1)
[2021-05-14 08:26] LABS: Albumin Globulin Ratio 0.9 (0.9-2); Bilirubin,Total 1.6 mg/dl (0.2-1); Globulin 3.2 gm/dl (2.5-4.0)
[2021-05-14] MEDS: predniSONE 5 MG TAB PO SCH (08:48)
[2021-05-14] MEDS: FINASTERIDE 5 MG TAB PO SCH (08:48)
[2021-05-14] MEDS: allopurinoL 300 MG TAB PO SCH (08:48)
[2021-05-14] MEDS: PANTOprazole 40 MG TAB PO SCH (08:48)
[2021-05-14] MEDS: SENNA 8.6 MG TAB PO SCH ×2 (08:48→21:25)
[2021-05-14] MEDS: LORATADINE 10 MG TAB PO SCH (08:48)
[2021-05-14] MEDS: AMIODARONE 200 MG TAB PO SCH (08:49)
[2021-05-14] MEDS: AZITHROMYCIN 250 MG TAB PO SCH (08:49)
[2021-05-14] MEDS: APIXABAN 5 MG TABLET PO SCH ×2 (08:49→21:24)
[2021-05-14] MEDS: FLUTICASONE/VILANTEROL 100/25MCG 14 PUFFS/INHALER INH SCH (08:50)
[2021-05-14] MEDS: ADVANCED PROBIOTIC 1250 MG CAPSULE PO SCH (08:50)
--- NOTE | 2021-05-14 09:36 | Nephrology Progress Note ---
Date of Service May 14, 2021 Assessment & Plan (1) Hyponatremia: Plan: * Hyponatremia likely related to both reduced renal perfusion associated w/ valvular heart disease and RLL pneumonia. Uosm is higher than expected and points to ADH activity * Patient is clinically volume contracted. His LE swelling is likely a manifestation of elevated R heart pressure. Lungs were clear to my exam today * Recommend continuing to hold diuretic. Monitor I&O's * Wrap legs daily when OOB * Monitor PRP (2) MAT (acute kidney injury): Plan: * MAT/CKD due to impaired renal perfusion and intravascular volume contraction (3) Anemia: Plan: * Iron sat < 16% w/ ferritin 519 * Will schedule IV Venofer x 5 days * Monitor H&H (4) Right lower lobe pneumonia: Plan: * On Azithromycin therapy (5) Severe aortic valve stenosis: Plan: * May be candidate for TAVR Admission and Anticipated Discharge Date Admission Date: May 10, 2021 Subjective Mr. Robert was evaluated in his hospital room this morning. He denied angina and reports that his dyspnea is better. He is now allowing staff engineer to wrap his legs. Review of Systems Constitutional: no fever Eyes: no problem reported Ear, Nose, Mouth, Throat: no problem reported Respiratory: + dyspnea Cardiovascular: + edema; no chest pain Gastrointestinal: no abdominal pain, no nausea, no vomiting and no diarrhea/loose stools Genitourinary: no dysuria, no urinary hesitancy or no hematuria Musculoskeletal: no back pain Integumentary: no rash Physical Exam Constitutional: not in distress (breathing comfortably on O2 at 1L/min NC) Eyes: PERRL, conjunctivae normal, anicteric sclerae ENMT: external ear and nose normal, oropharynx normal Neck: trachea midline, no thyromegaly Respiratory: normal respiratory effort, lungs clear to auscultation Cardiovascular: RRR, no murmur, no edema Rate/Rhythm: regular rate Heart Sounds: + murmur Gastrointestinal (Abdomen): normal bowel sounds, soft, nontender, no hepatosplenomegaly Musculoskeletal: no cyanosis or clubbing, extremities motor strength 5/5 Skin: no rashes, warm and dry Neurologic: awake; not confused Results & Data ([facility]) Vital Signs (Past 12 Hours) Vital Signs Temp Pulse Pulse Pulse Resp BP Pulse Ox 05/14/21 08:12 36.4 C L 69 16 114/67 96 12/15/21 04:00 35.9 C L 82 19 110/59 L 93 05/14/21 02:08 81 05/13/21 23:00 36.3 C L 78 20 115/65 90 Laboratory Results Laboratory Tests 05/13/21 05/14/21 05/14/21 08:03 07:25 07:25 WBC 4.70 L Hgb 9.0 L Hct 27.2 L Plt Count 117 L Sodium 130 L Potassium 3.5 Chloride 89 L Carbon Dioxide 32 BUN 32 H Creatinine 2.35 H Calcium 8.9 Transferrin % Sat 16 L Ferritin 518.9 H PG Care Time/CCT Total # of Minutes Spent Total Time Spent with Patient: Total time spent is greater than 50% in coordination of care (as documented) at patient's floor/unit and/or counseling patient: Coding Level of Care Code 55332 Subseq Hosp Care Lvl 3 Diagnoses Hyponatremia E87.1 MAT (acute kidney injury) N17.9 Right lower lobe pneumonia J18.9 Pneumonia type: due to unspecified organism Severe aortic valve stenosis I35.0 Anemia D64.9 (1) Right lower lobe pneumonia Pneumonia type: due to unspecified organism Qualified Code(s): J18.9 - Pneumonia, unspecified organism
[2021-05-14] MEDS: IRON SUCROSE 200 MG in 0.9 % SODIUM CHLORIDE 100 ML IV SCH (10:41)
--- NOTE | 2021-05-14 10:54 | Cardiology Progress Note ---
Date of Service May 14, 2021 Assessment & Plan (1) Chronic systolic heart failure: Plan: -not in decompensated CHF. -chronic lower extremity edema likely dependent as he is always in a reclining chair. -recent decrease in ejection fraction may have been secondary to rapid atrial fibrillation/flutter. -resume outpatient diuretics per Nephrology. (2) Atrial flutter: Plan: -rate adequately controlled on amiodarone. -digoxin level down to 3.6 following a dose of Digibind. -continue Eliquis. (3) Severe aortic valve stenosis: Plan: -consider TAVR once clinically improved. (4) Right lower lobe pneumonia: Plan: -antibiotic management per primary care team. Admission and Anticipated Discharge Date Admission Date: May 10, 2021 Subjective The patient is resting comfortably in a reclining chair without complaints of chest pain, dyspnea, or palpitations. He is anxious for hospital discharge. Physical Exam Physical Exam: In general this is a well-developed well-nourished white male seated in a chair without complaints. HEENT exam is negative. Neck is supple with delayed and prolonged carotid upstrokes. Transmitted murmurs noted bilaterally. No JVD. There is no thyromegaly. Cardiovascular exam reveals a regular rhythm with a 3/6 crescendo decrescendo systolic murmur heard loudest at the base. Heart tones are distant. Difficult to auscultate S2 at the apex. Lungs are clear without rales, rhonchi or wheezes. Abdomen is obese without bruits. Extremities reveal intact radial pulses bilaterally. 1+ pretibial edema is noted. Results & Data ([facility]) Vital Signs (Past 12 Hours) Vital Signs Temp Pulse Pulse Pulse Resp BP Pulse Ox 05/14/21 08:12 36.4 C L 69 16 114/67 96 05/14/21 04:00 35.9 C L 82 19 110/59 L 93 05/14/21 02:08 81 05/13/21 23:00 36.3 C L 78 20 115/65 90 Laboratory Results Creatinine is up to 2.35. Diagnostic Findings bus monitor notes atrial flutter with a controlled ventricular response ranging between 60 and 80 beats per minute. PG Care Time/CCT Total # of Minutes Spent Total Time Spent with Patient: Total time spent is greater than 50% in coordination of care (as documented) at patient's floor/unit and/or counseling patient: Coding Level of Care Code 12788 Subseq Hosp Care Lvl 3 Diagnoses Chronic systolic heart failure I50.22 Atrial flutter I48.92 Severe aortic valve stenosis I35.0 Right lower lobe pneumonia J18.9 Pneumonia type: due to unspecified organism (1) Right lower lobe pneumonia Pneumonia type: due to unspecified organism Qualified Code(s): J18.9 - Pneumonia, unspecified organism
[2021-05-14 10:58] LABS: Folate (Folic Acid) 15.5 ng/ml (>5.38)
[2021-05-14] MEDS ORDERED: SODIUM CHLORIDE 0.9% 250 ML IV SCH (12:30)
[2021-05-14] MEDS ORDERED: predniSONE 20 MG TAB PO STA (13:21)
[2021-05-14] MEDS ORDERED: ERGOCALCIFEROL 50,000 UNITS 1250 MCG CAP PO SCH (16:00)
--- NOTE | 2021-05-14 16:32 | Electrocardiogram Report ---
Test Reason : Blood Pressure : / mmHG Vent. Rate : 084 BPM Atrial Rate : 252 BPM P-R Int : 000 ms QRS Dur : 114 ms QT Int : 398 ms P-R-T Axes : -82 015 228 degrees QTc Int : 470 ms Atrial flutter with 3:1 A-V conduction Abnormal ECG When compared with ECG of 10-MAY-2021 17:03, No significant change Confirmed by Josemanuel Damon ([id number]) on 05/14/2021 4:32:15 PM Referred By: REFERRED SELF Confirmed By:Josemanuel Damon
[2021-05-14] MEDS: FAMOTIDINE 20 MG TAB PO SCH (16:35)
[2021-05-14] MEDS: AMOXICILLIN/CLAVULANATE 875 MG TAB PO SCH (16:35)
[2021-05-14] MEDS ORDERED: ALBUMIN 25% 100 mL 25 GM/100 ML VIAL IV ONE (16:40)
[2021-05-14] MEDS ORDERED: ALBUMIN 25% 12.5 GM/50 ML VIAL IV ONE (16:45)
[2021-05-14 17:15] LABS: Hematocrit (blood only) 28.3 % (42-52); Hemoglobin 9.6 g/dL (14.0-18.0); Mean Corpuscular Hemoglobin 31.5 pg (25-34); Mean Corpuscular Hgb Conc 33.9 g/dL (32-36); Mean Corpuscular Volume 92.8 fL (80-100); Mean Platelet Volume 9.4 fL (7.4-10.4); Platelet Count 120 K/uL (130-400); RDW Coefficient of Variation 15.4 % (11.5-14.5); RDW Standard Deviation 50.7 fL (36.4-46.3); Red Blood Count 3.05 M/uL (4.7-6.1); White Blood Count 5.26 K/uL (4.8-10.8)
[2021-05-14 17:40] LABS: BUN Creatinine Ratio 12.8 (10-20); Calcium 8.6 mg/dl (8.5-10.1); Creatinine Clr Calc Pharmacy 33.5 ml/min; Est GFR (African American) 28.1 ml/min; Est GFR (Non-African American) 24.3 ml/min; Potassium 3.8 mmol/L (3.5-5.1)
[2021-05-14 18:25] LABS: Lyme Ab IgG w/WB Rflx Negative (Negative); Lyme Ab IgM w/WB Rflx Negative (Negative)
[2021-05-14] MEDS: UMECLIDINIUM BROMIDE 62.5MCG/BLISTER 7 PUFFS/INHALER INH SCH (21:24)
--- NOTE | 2021-05-15 07:55 | Hospitalist Progress Note ---
Date of Service May 15, 2021 Assessment & Plan (1) Right lower lobe pneumonia: Plan: IMPROVING XRAY with RLL PNA on admission as well as suspected CHF exacerbation. Recent PE February 2021, on Eliquis --> repeat w/ bilateral airspace opacities, most confluent in the right lung base. This could represent pulmonary edema and/or multifocal pneumonia. Clinical correlation will be required and radiographic follow-up to resolution is recommended. Given recent hospitalization, need to cover for gram-negative pneumonia as well as atypical Zosyn IV/Azithromycin for atypical coverage given recent hospitalization --> de- escalated to Augmentin (day /-10) + Azithromycin (day 4/) to cover for urine as well (enterococcus, pansensitive) Continue flutter valve, incentive spirometer Blood cultures ngtd sputum culture -- light normal titus Wean O2 as tolerated (does use 2L HS, follows with [facility] --> 1.5L for O2 sat 96%--> INSTRUCTED TO PLEASE TAKE OFF/WEAN OFF PATIENT WITH SIGNIFICANT UNDERLYING LUNG DISEASE to maintain 88-90s to prevent resp depression continue 2L HS CHF -- see below (2) Positive fecal occult blood test: Plan: +fecal occult but no franklin bleeding prior abnormal cologuard and c-scope with Dr bryant in 2018, unable to biopsy one area and referral to surgery --> 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 Mother with hx colon ca Prior CTAP last admission without obvious mass noted Likely given recent eliquis initiation ocobter for his PE. No upper abd pain. GI consulted --> protonix 40mg BID. No plans for inpatient scope, high risk. rec for at tertiary care where he would also have consideration for his TAVR Venofer x 5 days per Nephrology (ok to give in addition to dose already given prior to them starting) Monitor CBC (3) Anemia: Plan: 2nd to anemia but possible occult losses while on eliquis since diagnosis of PE in Feb 2021, also possible valvular disease/hemolytic anemia. b12/folate without deficiency normocytic Also may have lost some blood from his epistaxis, but suspected not that much iron def with low iron sat, and was given dose of venofer on 05/13, then scheduled x 5 days Albumin provided, repeat ECHO (improvement in EF reported, mod MR) LDH wnl suggesting against hemolysis Haptoglobin pending + fecal occult as above --> GI consult --> PPI BID --> outpatient endoscopy at tertiary center --> repeat hgb today 9.3. monitor in AM (4) Acute kidney injury superimposed on chronic kidney disease: Plan: Cr 2.33 on admission Nephro on consult Holding diuretics as above, avoiding nephrotoxic agents --> per nephro would utilize weight based diuretics for wt >114kg Given albumin 05/14, NSS 250cc, Vit D replacement Venofer x 5 doses (in addition to 1 provided prior) Cr 2.52 -- could be also worsening from hypotension --> holding terazosin since 05/14 HS. 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) BMP in AM (5) Acute heart failure with preserved ejection fraction: Plan: Heart failure with preserved ejection fraction on previous echo, however recent ECHO with decrease EF 35-45% from previous value 50% in November 2020 recent decrease in EF thought 2nd to afib with RVR/aflutter (STILL IN FLUTTER, "RATE CONTROLLED" BNP >28299 during admission Acute on chronic combined systolic and diastolic heart failure Cardiology on consult -- hypovolemic intravascularly Continue to hold Lasix per cardiology and nephrology * Wt actually down from admission but still with significant LE edema --> improving some with DANE wraps --> continued, daily changes * Inaccurate I&Os, unmeasured voids * Wt 112kg (was 114kg at d/c 04/26) Given albumin for low BP Continue amiodarone, Eliquis for his afib Digoxin held and patient given dose of Digibind for elevated dig level -- > per cardiology, recs to discontinued this agent moving forward (After Digibind is given, the lab assay test for digoxin levels becomes an accurate as it measures total digoxin even that bound to the Nestor) LDH not elevated to suggest hemolysis -- see above regarding anemia Need for TAVR once clinically improved (6) Elevated digoxin level: Plan: Digoxin level noted to be elevated, 4.6 Likely exacerbated by giving 250 mcg dose in the setting of renal impairment We will hold digoxin, check a level in the morning --> repeat 3.6 (given per cardiology on 05/11) as noted above --> dig discontinued (7) Epistaxis: Plan: Now resolved with rhino rocket Hold off on removal of nasal balloon until after consultation with ENT as this is in the setting of anticoagulation --> discussed with patient and will continued to hold and arrange for outpt f/u ENT. Messaged ENT today but no response --> will call office tomorrow (8) Acute hyponatremia: Plan: serum Na up to 130 today -- prior hospitalization reported chronic in nature 2nd to overdiuresis and improved with NSS Although patient appears fluid overloaded on account of bilateral leg edema, he may be intravascularly depleted given such will hold off on diuretics for now as above per cardiology of note, also on tramadol prn (and steroids for PMR) which could be contributing TSH normal Urine osm higher than expected per Nephro and points to ADH activity -- agrees patient clinically volume contracted and LE swelling likely related to elevated R pressure (as well as hypoalbuminemic state). --> Giving dose of albumin 05/14 and again 05/15 food service counter clerk consult for assessment/supplementation -- boost with dinner. continues to follow/adjust (9) Severe aortic valve stenosis: Plan: Patient said he is open to being evaluated for possible TAVR We will defer to cardiology for further investigation and also cardiothoracic surgery as outpatient -- per Dr Centeno, not urgent at this time, however I am concerned given continued hospitalization and almost absent S2 and need for more urgent eval. echo with EF 40-45%, Lmild AR, MODERATE MITRAL REGURGITATION, IVC severely dilated -- compared to prior, overall LV systolic function appears slightly better (10) Essential hypertension: Plan: Blood pressures soft, 87/41 -- asymptomatic. Continue to hold terazosin (for prostate), no diuretics, albumin given on 05/14 Venofer as above ?another dose of albumin vs trial midodrine? --> WILL REPEAT ALBUMIN X 1 THIS AFTERNOON 05/15 CONTINUE TO MONITOR (11) Atrial flutter with rapid ventricular response: Plan: history from previous hospital stay and remains in aflutter/rates in 80s, rate controlled dig on hold given elevated dig level, given digibind as above --> digoxin discontinued Continue amiodarone Continue apixaban continued monitoring on telemetry (12) Pulmonary embolism: Plan: Recent finding(diagnosed 02/2021) Continue Eliquis BID (13) Polymyalgia rheumatica: Plan: prednisone restarted 5mg daily, not ordered on admission extra dose 05/14 for hypotension, ?need for stress dosing --> WOULD AVOID given + fecal occult as above (14) COPD (chronic obstructive pulmonary disease): Plan: continue nebs, abx, tx as above WEAN OXYGEN TO MAINTAIN SAT 88 OR GREATER! (15) Vitamin D deficiency: Plan: in patient with CKD, previously on supplementation. Repeat level 13 -- ordered supplementation and would continue at discharge Plan: continued inpatient stay + fecal occult blood, GI consulted --> no inpatient scope, placed on Protonix BID Monitor labs in AM Will need outpatient f/u for TAVR/repeat endoscopy as above PT/OT with recs for return home. [facility] to do home visit to do assessment. Admission and Anticipated Discharge Date Admission Date: May 10, 2021 Supervising Physician Co-Signing Physician Notes KARLEE Supervision Note: I did not personally see or examine the patient today, but I verified all chandler points of KARLEE Ryan's assessment and plan with the following exceptions/additions: None Subjective Patient evaluated this morning doing well breathing stable -- notes pulm stated he was not to be this high. discussed had been attempting to wea but reported increased sob but he would be better maintained closer to 88-90%. asked RN to wean O2 discussed + fecal occult. He states most recent c-scope 2-3 yrs ago and had part of colon removed. To have repeat c-scope this year but hadn't been able to get in. Mom hx colon ca age 83-84, surgery and did well. No abd pain or blood in stool reported with BM this morning. Discussed likely from his eliquis for recent PE. GI consulted and rec c-scope at tertiary facility, PPI BID, which has been ordered. Discussed continued inpatient stay/iron. Will have RN change out DANE wraps, monitor blood counts/kidney function. ENT to f/u outpatient and have rhino rocket remain in to prevent pulling out/disrupting scab and cause any further rebleeding. Review of Systems Review of Systems: All systems reviewed & are unremarkable except as noted in HPI & below Physical Exam Physical Exam: The patient is awake, alert and oriented 3, well developed and well nourished, sitting up in recliner chair, no acute distress HEENT--PERRL, EOMI, mucous membranes and oropharynx mildly dry, rhino rocket to R nares (balloon deflated), dried blood present but no active bleeding Neck--supple. No JVD. No bruits. Thyroid normal, trachea midline, no maria teresa opathy. Heart--irregularly irregular, +5/6 systolic murmur, S1, loud S2., 3-4+b/l LE edema wrapped with DANE wraps Lungs--reduced air entry on auscultation, RML/RLL crackles although with bibasilar crackles, diminished in the bases, no wheezing, 96% on 1.5L NC (asked RN to wean) Abdomen--normal bowel sounds, +distended, umbilical hernia, surgical scar anneliese- umbilical from prior ileocecectomy, non-tender to palpation Extremities--bilateral pitting leg edema 3+ to b/l LE, calves non-tender non- erythematous Neurologic--cranial nerves II through XII grossly intact. Rheumatologic--normal range of motion. Psychiatric--AOx3, euthymic, pleasant Results & Data Results & Data ([facility]) Vital Signs (Past 12 Hours) Vital Signs Temp Pulse Pulse Resp BP BP Pulse Ox 05/15/21 07:36 36.4 C L 63 16 84/46 L 99 05/15/21 04:00 36.4 C L 62 18 94/47 L 92/48 L 98 05/15/21 00:44 63 05/14/21 23:00 36.4 C L 62 18 106/53 L 98 Laboratory Results 05/15/21 05/15/21 05/15/21 Range/Units 08:30 07:21 07:21 WBC 5.11 (4.8-10.8) K/uL RBC 2.99 L (4.7-6.1) M/uL Hgb 9.3 L (14.0-18.0) g/dL Hct 28.0 L (42-52) % MCV 93.6 (80-100) fL MCH 31.1 (25-34) pg MCHC 33.2 (32-36) g/dL RDW Std Deviation 51.9 H (36.4-46.3) fL RDW Coeff of Nimesh 15.5 H (11.5-14.5) % Plt Count 124 L (130-400) K/uL MPV 10.4 (7.4-10.4) fL Haptoglobin Sodium 131 L (136-145) mmol/L Potassium 4.0 (3.5-5.1) mmol/L Chloride 91 L (98-107) mmol/L Carbon Dioxide 31 (21-32) mmol/L Anion Gap 9.0 (3-11) BUN 36 H (7-18) mg/dl Creatinine 2.52 H (0.6-1.4) mg/dl Est Cr Clr Drug Dosing 34.2 ml/min Est GFR ( Amer) 28.8 ml/min Est GFR (Non-Af Amer) 24.8 ml/min BUN/Creatinine Ratio 14.2 (10-20) Glucose 106 H (70-99) mg/dl Calcium 8.8 (8.5-10.1) mg/dl Total Bilirubin 1.2 H (0.2-1) mg/dl Direct Bilirubin 0.4 H (0-0.2) mg/dl AST 18 (15-37) U/L ALT 35 (12-78) Alkaline Phosphatase 64 (45-117) U/L Lactate Dehydrogenase (87-241) U/L Total Protein 6.3 L (6.4-8.2) gm/dl Albumin 2.9 L (3.4-5.0) gm/dl Stool Occult Bld Scrn Positive A (Negative) Anaplasma Smear Lyme Disease IgG Ab (Negative) Lyme Disease IgM Ab (Negative) 05/14/21 05/14/21 05/14/21 Range/Units 16:54 16:54 16:54 WBC (4.8-10.8) K/uL RBC (4.7-6.1) M/uL Hgb (14.0-18.0) g/dL Hct (42-52) % MCV (80-100) fL MCH (25-34) pg MCHC (32-36) g/dL RDW Std Deviation (36.4-46.3) fL RDW Coeff of Nimesh (11.5-14.5) % Plt Count (130-400) K/uL MPV (7.4-10.4) fL Haptoglobin Sodium 130 L (136-145) mmol/L Potassium 3.8 (3.5-5.1) mmol/L Chloride 90 L (98-107) mmol/L Carbon Dioxide 33 H (21-32) mmol/L Anion Gap 7.0 (3-11) BUN 33 H (7-18) mg/dl Creatinine 2.57 H (0.6-1.4) mg/dl Est Cr Clr Drug Dosing 33.5 ml/min Est GFR ( Amer) 28.1 ml/min Est GFR (Non-Af Amer) 24.3 ml/min BUN/Creatinine Ratio 12.8 (10-20) Glucose 139 H (70-99) mg/dl Calcium 8.6 (8.5-10.1) mg/dl Total Bilirubin (0.2-1) mg/dl Direct Bilirubin (0-0.2) mg/dl AST (15-37) U/L ALT (12-78) Alkaline Phosphatase (45-117) U/L Lactate Dehydrogenase 228 (87-241) U/L Total Protein (6.4-8.2) gm/dl Albumin (3.4-5.0) gm/dl Stool Occult Bld Scrn (Negative) Anaplasma Smear See Comment Lyme Disease IgG Ab (Negative) Lyme Disease IgM Ab (Negative) 05/14/21 05/14/21 05/14/21 Range/Units 16:54 07:25 07:25 WBC 5.26 (4.8-10.8) K/uL RBC 3.05 L (4.7-6.1) M/uL Hgb 9.6 L (14.0-18.0) g/dL Hct 28.3 L (42-52) % MCV 92.8 (80-100) fL MCH 31.5 (25-34) pg MCHC 33.9 (32-36) g/dL RDW Std Deviation 50.7 H (36.4-46.3) fL RDW Coeff of Nimesh 15.4 H (11.5-14.5) % Plt Count 120 L (130-400) K/uL MPV 9.4 (7.4-10.4) fL Haptoglobin Pending Sodium (136-145) mmol/L Potassium (3.5-5.1) mmol/L Chloride (98-107) mmol/L Carbon Dioxide (21-32) mmol/L Anion Gap (3-11) BUN (7-18) mg/dl Creatinine (0.6-1.4) mg/dl Est Cr Clr Drug Dosing ml/min Est GFR ( Amer) ml/min Est GFR (Non-Af Amer) ml/min BUN/Creatinine Ratio (10-20) Glucose (70-99) mg/dl Calcium (8.5-10.1) mg/dl Total Bilirubin (0.2-1) mg/dl Direct Bilirubin (0-0.2) mg/dl AST (15-37) U/L ALT (12-78) Alkaline Phosphatase (45-117) U/L Lactate Dehydrogenase (87-241) U/L Total Protein (6.4-8.2) gm/dl Albumin (3.4-5.0) gm/dl Stool Occult Bld Scrn (Negative) Anaplasma Smear Lyme Disease IgG Ab Negative (Negative) Lyme Disease IgM Ab Negative (Negative) PG Care Time/CCT Total # of Minutes Spent Total Time Spent with Patient: Total time spent is greater than 50% in coordination of care (as documented) at patient's floor/unit and/or counseling patient: Coding Level of Care Code 24190 Subseq Hosp Care Lvl 3 Diagnoses Right lower lobe pneumonia J18.9 Pneumonia type: due to unspecified organism Acute heart failure with preserved ejection fraction I50.31 Anemia D64.9 Epistaxis R04.0 Elevated digoxin level R78.89 Acute hyponatremia E87.1 Acute kidney injury superimposed on chronic kidney disease N17.9; N18.9 Severe aortic valve stenosis I35.0 Essential hypertension I10 Atrial flutter with rapid ventricular response I48.92 Pulmonary embolism I26.99 Acute cor pulmonale presence: unspecified Chronicity: unspecified Pulmonary embolism type: unspecified Polymyalgia rheumatica M35.3 COPD (chronic obstructive pulmonary disease) J44.1 COPD type: COPD with acute exacerbation Vitamin D deficiency E55.9 Positive fecal occult blood test R19.5 (1) COPD (chronic obstructive pulmonary disease) COPD type: COPD with acute exacerbation Qualified Code(s): J44.1 - Chronic obstructive pulmonary disease with (acute) exacerbation (2) Pulmonary embolism Acute cor pulmonale presence: unspecified Chronicity: unspecified Pulmonary embolism type: unspecified Qualified Code(s): I26.99 - Other pulmonary embolism without acute cor pulmonale (3) Right lower lobe pneumonia Pneumonia type: due to unspecified organism Qualified Code(s): J18.9 - Pneumonia, unspecified organism
[2021-05-15 08:20] LABS: Hemoglobin 9.3 g/dL (14.0-18.0); Mean Corpuscular Hemoglobin 31.1 pg (25-34); Mean Corpuscular Hgb Conc 33.2 g/dL (32-36); Mean Corpuscular Volume 93.6 fL (80-100); Mean Platelet Volume 10.4 fL (7.4-10.4); Platelet Count 124 K/uL (130-400); RDW Coefficient of Variation 15.5 % (11.5-14.5); RDW Standard Deviation 51.9 fL (36.4-46.3); Red Blood Count 2.99 M/uL (4.7-6.1); White Blood Count 5.11 K/uL (4.8-10.8)
[2021-05-15 08:48] LABS: Albumin Level 2.9 gm/dl (3.4-5.0); BUN Creatinine Ratio 14.2 (10-20); Bilirubin Direct 0.4 mg/dl (0-0.2); Calcium 8.8 mg/dl (8.5-10.1); Creatinine Clr Calc Pharmacy 34.2 ml/min; Est GFR (African American) 28.8 ml/min; Est GFR (Non-African American) 24.8 ml/min
[2021-05-15] MEDS: AZITHROMYCIN 250 MG TAB PO SCH (08:51)
[2021-05-15] MEDS: FINASTERIDE 5 MG TAB PO SCH (08:51)
[2021-05-15] MEDS: AMOXICILLIN/CLAVULANATE 875 MG TAB PO SCH ×2 (08:51→16:58)
[2021-05-15] MEDS: FLUTICASONE/VILANTEROL 100/25MCG 14 PUFFS/INHALER INH SCH (08:51)
[2021-05-15] MEDS: AMIODARONE 200 MG TAB PO SCH (08:51)
[2021-05-15] MEDS: APIXABAN 5 MG TABLET PO SCH ×2 (08:51→20:53)
[2021-05-15 08:52] LABS: Bilirubin,Total 1.2 mg/dl (0.2-1); Total Protein 6.3 gm/dl (6.4-8.2)
[2021-05-15] MEDS: PANTOprazole 40 MG TAB PO SCH ×2 (08:52→20:54)
[2021-05-15] MEDS: predniSONE 5 MG TAB PO SCH (08:52)
[2021-05-15] MEDS: LORATADINE 10 MG TAB PO SCH (08:52)
[2021-05-15] MEDS: SENNA 8.6 MG TAB PO SCH ×2 (08:52→20:54)
[2021-05-15] MEDS: ADVANCED PROBIOTIC 1250 MG CAPSULE PO SCH (08:52)
[2021-05-15] MEDS: IRON SUCROSE 200 MG in 0.9 % SODIUM CHLORIDE 100 ML IV SCH (09:28)
--- NOTE | 2021-05-15 09:35 | Nephrology Progress Note ---
Date of Service May 15, 2021 Assessment & Plan (1) Hyponatremia: Plan: * Hyponatremia likely related to both reduced renal perfusion associated w/ valvular heart disease and RLL pneumonia. Uosm is higher than expected and points to ADH activity * Patient is clinically volume contracted. His LE swelling is likely a manifestation of elevated R heart pressure. Lungs were clear to my exam today * Recommend weight based diuretic dosing (ie., EDW 112 kg, Furosemide 20 mg po daily PRN weight >114 kg or progressive dyspnea) * Wrap legs daily when OOB * Monitor PRP * No further Nephrology recommendations at this time. Will sign off. Please call if further assistance is needed (2) MAT (acute kidney injury): Plan: * MAT/CKD due to impaired renal perfusion and intravascular volume contraction (3) Anemia: Plan: * Iron sat < 16% w/ ferritin 519 * Day #2 of 5 IV Venofer * Monitor H&H (4) Right lower lobe pneumonia: Plan: * On Azithromycin therapy (5) Severe aortic valve stenosis: Plan: * May be candidate for TAVR Admission and Anticipated Discharge Date Admission Date: May 10, 2021 Subjective Mr. Robert was evaluated in his hospital room this morning. He denied angina and reports that he is breathing comfortably on O2 at 1L/min NC. His legs are wrapped and he is trying to keep them elevated. Review of Systems Constitutional: no fever Eyes: no problem reported Ear, Nose, Mouth, Throat: no problem reported Respiratory: no dyspnea Cardiovascular: + edema; no chest pain Gastrointestinal: no abdominal pain, no nausea, no vomiting and no diarrhea/loose stools Genitourinary: no dysuria, no urinary hesitancy or no hematuria Musculoskeletal: no back pain Integumentary: no rash Neurologic: no confusion Physical Exam Constitutional: not in distress (breathing comfortably on O2 at 1L/min NC) Eyes: PERRL, conjunctivae normal, anicteric sclerae ENMT: external ear and nose normal, oropharynx normal Neck: trachea midline, no thyromegaly Respiratory: normal respiratory effort, lungs clear to auscultation Cardiovascular: RRR, no murmur, no edema Rate/Rhythm: regular rate Heart Sounds: + murmur Gastrointestinal (Abdomen): normal bowel sounds, soft, nontender, no hepatosplenomegaly Neurologic: awake; not confused Results & Data ([facility]) Vital Signs (Past 12 Hours) Vital Signs Temp Pulse Pulse Resp BP BP Pulse Ox 05/15/21 07:36 36.4 C L 63 16 84/46 L 99 05/15/21 04:00 36.4 C L 62 18 94/47 L 92/48 L 98 05/15/21 00:44 63 05/14/21 23:00 36.4 C L 62 18 106/53 L 98 Laboratory Results Laboratory Tests 05/15/21 05/15/21 07:21 07:21 WBC 5.11 Hgb 9.3 L Hct 28.0 L Plt Count 124 L Sodium 131 L Potassium 4.0 Chloride 91 L Carbon Dioxide 31 BUN 36 H Creatinine 2.52 H PG Care Time/CCT Total # of Minutes Spent Total Time Spent with Patient: Total time spent is greater than 50% in coordination of care (as documented) at patient's floor/unit and/or counseling patient: Coding Level of Care Code 69838 Subseq Hosp Care Lvl 3 Diagnoses Hyponatremia E87.1 MAT (acute kidney injury) N17.9 Anemia D64.9 Right lower lobe pneumonia J18.9 Pneumonia type: due to unspecified organism Severe aortic valve stenosis I35.0 (1) Right lower lobe pneumonia Pneumonia type: due to unspecified organism Qualified Code(s): J18.9 - Pneumonia, unspecified organism
--- NOTE | 2021-05-15 10:04 | XCELERA ---
[id number]
--- NOTE | 2021-05-15 10:30 | Gastrointestinal Consultation ---
Date of Consultation May 15, 2021 Assessment & Plan (1) Positive fecal occult blood test: Given lack of overt GI bleeding, colonoscopy in 2019 for the same issue, hemodynamic stability, and acute RLL pneumonia, would recommend monitoring conservatively and adding Protonix 40 mg BID. When pneumonia resolved, could consider endoscopic eval as outpatient, however would advise doing this at a tertiary center given his severe aortic stenosis. Ideally should occur wherever he plans to have a TAVR. Continue to monitor H/H. Supportive care per primary team. Supervising Physician Co-Signing Physician Notes Agree with BARBARA Magana as above Abd: Soft, NT, ND, +BS Continue current therapy and supportive care No plans for invasive workup at this time until acute pulmonary and cardiac issues are evaluated and treated, including TAVR History of Present Illness Reason for Consultation: Positive FOBT Attending Physician: Linda Barnes MD History of Present Illness Patient is a 70 yo male who is currently hospitalized with hyponatremia, severe aortic stenosis, & right lower lobe pneumonia. At the time of my visit, the patient is currently at 6L O2. He has a recent history of PE and is Eliquis therapy. GI has been consulted for positive FOBT. Patient had an evaluation in 2019 for positive FOBT and positive cologard. Colonoscopy indicated internal hemorrhoids, diverticulosis, and 5 polyps, one of which was large at 2.5 cm which was not able to be endoscopically removed. He was sent for surgical resection. Currently he is not experiencing gross GI bleeding. H/H 9.3/28.0. Patient is being considered for outpatient TAVR when recovered. Echocardiogram indicates an EF of 40-45%. No current symptoms of abdominal pain, rectal bleeding, melena, or change in bowel habits. Patient had an abdominal CT in February 2021 that excluded any significant GI issues. Allergies Allergy/AdvReac Type Severity Reaction Status Date / Time grass pollen Allergy Mild Verified 05/10/21 17:24 Sulfa (Sulfonamide AdvReac Unknown Unknown Unverified 05/10/21 17:24 Antibiotics) Home Medications Medication Instructions Recorded Confirmed Type budesonide-formoterol HFA 160 2 puff INHALATION BID 06/24/18 05/10/21 History mcg-4.5 mcg/actuation aerosol inhaler (Symbicort) loratadine 10 mg tablet (Claritin) 10 mg PO QAM 06/24/18 05/10/21 History tiotropium bromide 18 mcg capsule 1 cap INHALATION HS 06/24/18 05/10/21 History with inhalation device (Spiriva with HandiHaler) acetaminophen 500 mg tablet 1,000 mg PO Q6H PRN 12/21/19 05/10/21 History (Tylenol Extra Strength) sennosides 8.6 mg tablet (Senokot) 8.6 mg PO BID 12/21/19 05/10/21 History finasteride 5 mg tablet 5 mg PO QAM #30 tab 07/25/20 05/10/21 Rx terazosin 5 mg capsule 5 mg PO QPM #90 cap 12/06/20 05/10/21 Rx allopurinol 300 mg tablet 300 mg PO DAILY 03/19/21 05/10/21 History famotidine 20 mg tablet 20 mg PO QDD 03/28/21 05/10/21 History omeprazole 40 mg capsule,delayed 40 mg PO QAM 03/28/21 05/10/21 History release prednisone 5 mg tablet 5 mg PO DAILY 03/28/21 05/10/21 History cyclobenzaprine 10 mg tablet 10 mg PO TID PRN #30 tab 04/15/21 05/10/21 Rx food supplemt, lactose-reduced 1 ea PO DAILY 04/21/21 05/10/21 History 0.04 gram-1 kcal/mL oral liquid (Boost) lactobacillus combination no.4 3 3,000 mmu cells PO DAILY 04/21/21 05/10/21 History billion cell capsule (Probiotic) amiodarone 200 mg tablet 200 mg PO DAILY #90 tab 04/30/21 05/10/21 Rx apixaban 5 mg tablet (Eliquis) 5 mg PO BID #90 tab 04/30/21 05/10/21 Rx digoxin 250 mcg (0.25 mg) tablet 250 mcg PO DAILY #90 tab 04/30/21 05/10/21 Rx levalbuterol HCl 0.63 mg/3 mL 0.63 mg NEB Q6R PRN #90 ml 05/06/21 05/10/21 Rx solution for nebulization tramadol 50 mg tablet 50 - 100 mg PO Q6H PRN 05/10/21 05/10/21 History Patient History Medical History (Updated 12/16/21 @ 10:38 by Corrie Morton PA-C) Atrial flutter Benign prostatic hyperplasia with urinary obstruction and other lower urinary tract symptoms Chronic heart failure with preserved ejection fraction Chronic obstructive pulmonary disease SEVERE per pulm 08/09. Uses inhalers daily and prn Chronic systolic heart failure CKD (chronic kidney disease) stage 2, GFR 60-89 ml/min Colon polyp COPD (chronic obstructive pulmonary disease) Diastolic dysfunction History of colon polyps History of elevated glucose History of smoking at least 1 pack per day for at least 30 years Obesity (BMI 30-39.9) Osteoarthritis Polymyalgia rheumatica Renal disease Severe aortic valve stenosis Surgical History H/O rectal polypectomy History of bilateral cataract extraction History of colonoscopy History of cystoscopy History of elbow surgery left ulnar nerve History of hernia repair Laparoscopic History of surgical removal of terminal ileum History of wisdom tooth extraction Family History Brother Family history of diabetes mellitus Family hx colonic polyps Prostate cancer Myocardial infarction H/O heart bypass surgery Mother Colorectal cancer Other No family history of adverse response to anesthesia Denies family history of Ovarian cancer Breast cancer Lung cancer Social History Smoking Status: Former smoker Tobacco Type: Cigarettes Second Hand Exposure: No; Hx Alcohol Use: No Hx Substance Use: No Preferred Language: Divehi Communication Ability: Effective Visual Impairment: Limited [place] Farmer Required: No Beliefs That Will Affect Care: None marital status: Current Living Situation: Spouse current occupational status: retired How many Children do You have: 1 Feels Safe at Home: Yes Childhood Exposure to Second-Hand Smoke: Yes caffeine: Yes (coffee, soda) Dental Care, Regularly: Yes Physical Activity Frequency: Does not Exercise Seatbelt Use: never Sunscreen Use: No Assistive Devices: Walker Review of Systems Constitutional: no fever and no chills Respiratory: + cough; no dyspnea Cardiovascular: no chest pain Gastrointestinal: no abdominal pain and no change in bowel habits Musculoskeletal: no problem reported Psychiatric: no problem reported Hematologic / Lymphatic: no unexplained weight loss Physical Exam Constitutional: WD/WN, vitals as above Respiratory: no respiratory distress Cardiovascular: Heart Sounds: + murmur Extremities: + edema Gastrointestinal (Abdomen): normal bowel sounds, soft, nontender, no hepatosplenomegaly Musculoskeletal: Head/Neck/Chest: normocephalic Psychiatric: Orientation: alert and oriented x 3 Results & Data ([facility]) Vital Signs (Past 12 Hours) Vital Signs Temp Pulse Pulse Resp BP BP Pulse Ox 05/15/21 07:36 36.4 C L 63 16 84/46 L 99 05/15/21 04:00 36.4 C L 62 18 94/47 L 92/48 L 98 05/15/21 00:44 63 05/14/21 23:00 36.4 C L 62 18 106/53 L 98 PG Care Time/CCT Total # of Minutes Spent Total Time Spent with Patient: Total time spent is greater than 50% in coordination of care (as documented) at patient's floor/unit and/or counseling patient: Coding Level of Care Code 98742 Initial Inpt Care Lvl 3 Diagnoses Positive fecal occult blood test R19.5
[2021-05-15] MEDS ORDERED: ALBUMIN 25% 12.5 GM/50 ML VIAL IV ONE (15:52)
[2021-05-15] MEDS: FAMOTIDINE 20 MG TAB PO SCH (16:58)
[2021-05-15] MEDS: UMECLIDINIUM BROMIDE 62.5MCG/BLISTER 7 PUFFS/INHALER INH SCH (20:55)
[2021-05-16 05:58] LABS: Hematocrit (blood only) 28.9 % (42-52); Hemoglobin 9.5 g/dL (14.0-18.0); Mean Corpuscular Hemoglobin 30.9 pg (25-34); Mean Corpuscular Hgb Conc 32.9 g/dL (32-36); Mean Corpuscular Volume 94.1 fL (80-100); Mean Platelet Volume 9.7 fL (7.4-10.4); Platelet Count 133 K/uL (130-400); RDW Coefficient of Variation 15.7 % (11.5-14.5); Red Blood Count 3.07 M/uL (4.7-6.1)
[2021-05-16 06:37] LABS: Albumin Level 3.2 gm/dl (3.4-5.0); Calcium 8.8 mg/dl (8.5-10.1); Creatinine Clr Calc Pharmacy 25.4 ml/min; Est GFR (African American) 20.1 ml/min; Est GFR (Non-African American) 17.4 ml/min; Potassium 3.5 mmol/L (3.5-5.1)
--- NOTE | 2021-05-16 08:17 | Hospitalist Progress Note ---
Date of Service May 16, 2021 Assessment & Plan (1) Right lower lobe pneumonia: Plan: IMPROVING XRAY with RLL PNA on admission as well as suspected CHF exacerbation. Recent PE February 2021, on Eliquis --> repeat w/ bilateral airspace opacities, most confluent in the right lung base. This could represent pulmonary edema and/or multifocal pneumonia. Clinical correlation will be required and radiographic follow-up to resolution is recommended. Given recent hospitalization, need to cover for gram-negative pneumonia as well as atypical Zosyn IV/Azithromycin for atypical coverage given recent hospitalization --> de- escalated to Augmentin (day 6/7-10) + Azithromycin (day 10/02) to cover for urine as well (enterococcus, pansensitive) Continue flutter valve, incentive spirometer Xopenex prn Blood cultures ngtd sputum culture -- light normal titus Wean O2 as tolerated (does use 2L HS, follows with [facility]) --> 1.5L for O2 sat 96%--> INSTRUCTED TO PLEASE TAKE OFF/WEAN OFF PATIENT WITH SIGNIFICANT UNDERLYING LUNG DISEASE to maintain 88-90s to prevent resp depression continue 2L HS. Was weaned to room air. Discussed with patient DAILY about not utilzing when up/awake and sats greater than 88-90%! 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 Mother with hx colon ca Prior CTAP last admission without obvious mass noted Likely given recent eliquis initiation February for his PE. No upper abd pain. GI consulted --> protonix 40mg BID. No plans for inpatient scope, high risk. rec for at tertiary care where he would also have consideration for his TAVR Venofer x 5 days per Nephrology (ok to give in addition to dose already given prior to them starting) hgb stable 9.5, monitor (3) Anemia: Plan: 2nd to anemia but possible occult losses while on eliquis since diagnosis of PE in Feb 2021, also possible valvular disease/hemolytic anemia. b12/folate without deficiency normocytic Also may have lost some blood from his epistaxis, but suspected not that much iron def with low iron sat, and was given dose of venofer on 05/13, then scheduled x 5 days Albumin provided, repeat ECHO (improvement in EF reported, mod MR) LDH wnl suggesting against hemolysis Haptoglobin pending + fecal occult as above --> GI consult --> PPI BID --> outpatient endoscopy at tertiary center when eval for TAVR --> repeat hgb today 9.5. monitor in AM Of note PPI likely contributing to worsening kidney failure along with HYPOTENSION -- see below (4) Acute kidney injury superimposed on chronic kidney disease: Plan: Cr 2.33 on admission Nephro on consult Holding diuretics as above, avoiding nephrotoxic agents --> per nephro would utilize weight based diuretics for wt >114kg Given albumin 05/14, NSS 250cc, Vit D replacement Venofer x 5 doses (in addition to 1 provided prior) Additional albumin 05/15, 05/16 to help with intravascular volume. Holing terazosin since 05/14 (having difficulty with voiding completely and asked RN to bladder scan to see about retention) CrUP TO 3.39 -- HAD BEEN HYPOTENSIVE (BUT ASYMPTOMATIC) ALL OF 05/15, ALBUMIN PROVIDED. OF NOTE, STARTED ON PROTONIX 40MG BID, WHICH COULD ALSO BE CONTRIBUTING THIS IS A NEW MEDICATION --> DISCUSSED WITH CARDS AND OK FOR MIDODRINE, WOULD NOT WORRY WITH HIS AORTIC STENOSIS. WILL START 2.5MG X 1, IF TOLERATES, SCHEDULE AND MONITOR --> ALSO GIVING EXTRA DOSE ALBUMIN FOLLOW BMP (5) Acute heart failure with preserved ejection fraction: Plan: Heart failure with preserved ejection fraction on previous echo, however recent ECHO with decrease EF 35-45% from previous value 50% in November 2020 recent decrease in EF thought 2nd to afib with RVR/aflutter (STILL IN FLUTTER, "RATE CONTROLLED" BNP >55752 during admission Acute on chronic combined systolic and diastolic heart failure Cardiology on consult -- FELT hypovolemic intravascularly given weight down on admission Continue to hold Lasix per cardiology and nephrology * Wt actually down from admission but still with significant LE edema --> improving some with DANE wraps --> continued, daily changes * Inaccurate I&Os, unmeasured voids * Wt 112kg (was 114kg at d/c 04/26) Given albumin for low BP -- SEE ABOVE Continue amiodarone, Eliquis for his afib Digoxin held and patient given dose of Digibind for elevated dig level -- > per cardiology, recs to discontinued this agent moving forward (After Digibind is given, the lab assay test for digoxin levels becomes an accurate as it measures total digoxin even that bound to the Nestor) LDH not elevated to suggest hemolysis -- see above regarding anemia REPEAT ECHO 05/15 WITH SIGNIFICANTLY DILATED IVC, INDICATING NEED FOR DIURETICS, DISCUSSED WITH NEPHRO, WOULD NOT GIVE GIVEN HYPOTENSION, CONCERNS REGARDING MIDODRINE AND HIS AORTIC STENOSIS BUT OK PER CARDIOLOGY AND WILL ORDER TO SEE ABOUT ABILITY TO RESTART SOME DIURETIC THERAPY Need for TAVR once clinically improved (6) Elevated digoxin level: Plan: Digoxin level noted to be elevated, 4.6 Likely exacerbated by giving 250 mcg dose in the setting of renal impairment We will hold digoxin, check a level in the morning --> repeat 3.6 (given per cardiology on 05/11) as noted above --> dig discontinued (7) Epistaxis: Plan: Now resolved with rhino rocket Hold off on removal of nasal balloon until after consultation with ENT as this is in the setting of anticoagulation --> discussed with patient and will continued to hold and arrange for outpt follow up with ENT Rhino rocket deflated but per Dr Montano to remain in place for fear scab dislodged/rebleeding on anticoagulation for recent PE which cannot be held. --> will need to arrange outpt f/u for removal in office in case of cautery need (8) Acute hyponatremia: Plan: serum Na 128 today, worsening volume overload on ECHO 05/15 as above -- prior hospitalization reported chronic in nature 2nd to overdiuresis and improved with NSS Although patient appears fluid overloaded on account of bilateral leg edema, he may be intravascularly depleted given such per nephrology/cardiology as above will hold off on diuretics for now as above per cardiology of note, also on tramadol prn (and steroids for PMR) which could be contributing TSH normal Urine osm higher than expected per Nephro and points to ADH activity -- agrees patient clinically volume contracted and LE swelling likely related to elevated R pressure (as well as hypoalbuminemic state). --> Giving dose of albumin 05/14 and again 05/15, repeating today manager area consult for assessment/supplementation -- boost with dinner. continues to follow/adjust (9) Severe aortic valve stenosis: Plan: Patient said he is open to being evaluated for possible TAVR We will defer to cardiology for further investigation and also cardiothoracic surgery as outpatient -- per Dr Centeno, not urgent at this time, however I am concerned given continued hospitalization and almost absent S2 and need for more urgent eval. echo with EF 40-45%, Lmild AR, MODERATE MITRAL REGURGITATION, IVC severely dilated -- compared to prior, overall LV systolic function appears slightly better however IVC severly dilated indicating volume overload state (10) Essential hypertension: Plan: Blood pressures soft, 80/42 -- asymptomatic but had been hypotensive all of 05/15 as above, likely worsening kidney function Continue to hold terazosin (for prostate), no diuretics, albumin given on 05/14, 05/15, 05/16 Venofer as above trial midodrine as above ?another dose of albumin vs trial midodrine? --> WILL REPEAT ALBUMIN X 1 THIS AFTERNOON 05/15 CONTINUE TO MONITOR (11) Atrial flutter with rapid ventricular response: Plan: history from previous hospital stay and remains in aflutter/rates in 80s, rate controlled dig on hold given elevated dig level, given digibind as above --> digoxin discontinued Continue amiodarone Continue apixaban continued monitoring on telemetry (12) Pulmonary embolism: Plan: Recent finding(diagnosed 02/2021) Continue Eliquis BID (13) Polymyalgia rheumatica: Plan: prednisone restarted 5mg daily, not ordered on admission extra dose 05/14 for hypotension, ?need for stress dosing --> WOULD AVOID given + fecal occult as above (14) COPD (chronic obstructive pulmonary disease): Plan: continue nebs, abx, tx as above WEAN OXYGEN TO MAINTAIN SAT 88 OR GREATER! (15) Vitamin D deficiency: Plan: in patient with CKD, previously on supplementation. Repeat level 13 -- ordered supplementation and would continue at discharge Plan: continued inpatient stay + fecal occult blood, GI consulted --> no inpatient scope, placed on Protonix BID Worsening kidney function/hypotension --> midodrine for BP support, extra dose albumin 05/16 monitor --> if possible would give some diuretic if Bps improved enough to tolerate holding off on diuretic to prevent worsening hypotension, avoiding IVF for BP support to prevent worsening hypotension HIGH RISK FOR INPATIENT READMISSION. DESPITE PATIENT AT "FUNCTIONAL BASELINE" PER THERAPY AND VOICING WISHES FOR DISCHARGE WHEN POSSIBLE, HE HAS WORSENING KIDNEY FUNCTION AND HYPOTENSION PATIENT WOULD BOUNCE RIGHT BACK UNTIL HE IS TUNED UP/IMPROVED PER DISCUSSION WITH CARDS, PROGRESSIVE CO-MORBIDITIES -- sounds like may need to have palliative discussion for goals of care if not making improvements with the above changes Will need outpatient f/u for TAVR/repeat endoscopy as above PT/OT with recs for return home. [facility] to do home visit to do assessment. Admission and Anticipated Discharge Date Admission Date: May 10, 2021 Supervising Physician Co-Signing Physician Notes Attending Attestation - Chart reviewed in detail, care plan d/w KARLEE Ryan. I agree w/ the chandler components of her documentation except - 1. acute/chronic systolic & diastolic CHF (EF is ~40% on echo) Patient is medically complex with severe , acute/chronic kidney failure, and a host of other problems. Suspect acute kidney failure is "Cardiorenal" syndrome in the setting of severe with systolic CHF. Will ask nephro/cardiology to discuss plan of care to determine best path f orward for helping his volume status. Garett Wilkins MD Subjective eval this morning hasn't gotten much sleep breathing stable has not made much urine and states he is only having some dribbling. no cp/lightheadedness/dizziness with low BPs. Has not gotten much sleep in prior nights due to roommate/coughing. discussed decompensated heart failure and need for TAVR eval as per discussion with Nephrology. Cards deferring management to nephro. Asked Nephro to discuss with cardiology directly given likely cardiorenal nature and hypotension likely to improve slightly with IVF as well as kidney perfusion, but would worsen HF, and obviously diuretics worsening hypotension and kidney function. Discussed with patient and will await their discussion but he would like to consider [place] to be called first prior to [place]. He is frustrated no one asked if he was a on admission and has been here several times and has son bringing "password" to help with adjustment in billing? per cards-- no concern about midodrine with his and ok to give dose and rec another dose albumin. No need emergent transfer as needs to recover from current illness. States patient may be at end of road and not sure he would even tolerate that at this point and believes while contributing, not main issue for current state. Review of Systems Review of Systems: All systems reviewed & are unremarkable except as noted in HPI & below Physical Exam Physical Exam: The patient is awake, alert and oriented 3, chronically ill appearing, sitting up in recliner with head in hands on bedside tray, no acute distress HEENT--PERRL, EOMI, mucous membranes and oropharynx mildly dry, rhino rocket to R nares (balloon deflated), dried blood present but no active bleeding Neck--supple. No JVD appreciated. No bruits. Thyroid normal, trachea midline, no adenopathy. Heart--irregularly irregular, +5/6 systolic murmur, S1, loud S2., 3-4+b/l LE edema wrapped with DANE wraps Lungs--reduced air entry on auscultation, RML/RLL crackles although with bibasilar crackles (DECREASED), diminished in the bases, no wheezing, 99% on 1.5L NC (asked RN to wean) Abdomen--normal bowel sounds, +distended, umbilical hernia, surgical scar anneliese- umbilical from prior ileocecectomy, non-tender to palpation Extremities--bilateral pitting leg edema 3+ to b/l LE, calves non-tender non- erythematous Neurologic--cranial nerves II through XII grossly intact. Rheumatologic--normal range of motion. Psychiatric--AOx3, cooperative Results & Data Results & Data ([facility]) Vital Signs (Past 12 Hours) Vital Signs Temp Pulse Resp BP Pulse Ox 05/16/21 03:48 36.5 C 63 19 91/37 L 98 05/15/21 23:02 36.5 C 63 18 90/49 L 96 Laboratory Results 05/16/21 05/16/21 05/15/21 Range/Units 05:30 05:30 08:30 WBC 7.10 (4.8-10.8) K/uL RBC 3.07 L (4.7-6.1) M/uL Hgb 9.5 L (14.0-18.0) g/dL Hct 28.9 L (42-52) % MCV 94.1 (80-100) fL MCH 30.9 (25-34) pg MCHC 32.9 (32-36) g/dL RDW Std Deviation 52.0 H (36.4-46.3) fL RDW Coeff of Nimesh 15.7 H (11.5-14.5) % Plt Count 133 (130-400) K/uL MPV 9.7 (7.4-10.4) fL Sodium 128 L (136-145) mmol/L Potassium 3.5 (3.5-5.1) mmol/L Chloride 89 L (98-107) mmol/L Carbon Dioxide 32 (21-32) mmol/L Anion Gap 7.0 (3-11) BUN 44 H (7-18) mg/dl Creatinine 3.39 H D (0.6-1.4) mg/dl Est Cr Clr Drug Dosing 25.4 ml/min Est GFR ( Amer) 20.1 ml/min Est GFR (Non-Af Amer) 17.4 ml/min BUN/Creatinine Ratio 13.0 (10-20) Glucose 98 (70-99) mg/dl Calcium 8.8 (8.5-10.1) mg/dl Total Bilirubin (0.2-1) mg/dl Direct Bilirubin (0-0.2) mg/dl AST (15-37) U/L ALT (12-78) Alkaline Phosphatase (45-117) U/L Total Protein (6.4-8.2) gm/dl Albumin 3.2 L (3.4-5.0) gm/dl Stool Occult Bld Scrn Positive A (Negative) 05/15/21 05/15/21 Range/Units 07:21 07:21 WBC 5.11 (4.8-10.8) K/uL RBC 2.99 L (4.7-6.1) M/uL Hgb 9.3 L (14.0-18.0) g/dL Hct 28.0 L (42-52) % MCV 93.6 (80-100) fL MCH 31.1 (25-34) pg MCHC 33.2 (32-36) g/dL RDW Std Deviation 51.9 H (36.4-46.3) fL RDW Coeff of Nimesh 15.5 H (11.5-14.5) % Plt Count 124 L (130-400) K/uL MPV 10.4 (7.4-10.4) fL Sodium 131 L (136-145) mmol/L Potassium 4.0 (3.5-5.1) mmol/L Chloride 91 L (98-107) mmol/L Carbon Dioxide 31 (21-32) mmol/L Anion Gap 9.0 (3-11) BUN 36 H (7-18) mg/dl Creatinine 2.52 H (0.6-1.4) mg/dl Est Cr Clr Drug Dosing 34.2 ml/min Est GFR ( Amer) 28.8 ml/min Est GFR (Non-Af Amer) 24.8 ml/min BUN/Creatinine Ratio 14.2 (10-20) Glucose 106 H (70-99) mg/dl Calcium 8.8 (8.5-10.1) mg/dl Total Bilirubin 1.2 H (0.2-1) mg/dl Direct Bilirubin 0.4 H (0-0.2) mg/dl AST 18 (15-37) U/L ALT 35 (12-78) Alkaline Phosphatase 64 (45-117) U/L Total Protein 6.3 L (6.4-8.2) gm/dl Albumin 2.9 L (3.4-5.0) gm/dl Stool Occult Bld Scrn (Negative) Diagnostic Findings Chest X-Ray 05/16/21 06:00 TWO VIEW CHEST CLINICAL HISTORY: Pneumonia. FINDINGS: AP and lateral chest radiographs are compared to study dated 05/12/2021 and correlated with chest CT dated 03/28/2021. The patient's head obscures the apices. The heart is enlarged noting atherosclerotic calcification of the thoracic aorta. Emphysema and chronic interstitial thickening is similar to previous. There is a small right pleural effusion with right basilar consolidation. Dependent opacities at the left lung base likely represent atelectasis. There is no pneumothorax. The skeletal structures are osteopenic. The bony thorax appears intact. Degenerative change is noted throughout the thoracic spine. IMPRESSION: 1. Cardiomegaly and emphysema. 2. There is a small right pleural effusion with right basilar consolidation. This has increased as compared to 05/12/2021. Radiographic follow-up to resolution is recommended. ACT 112: Negative or not required by law. Electronically signed by: Rey Cancino M.D. 05/16/2021 8:18 AM PG Care Time/CCT Total # of Minutes Spent Total Time Spent with Patient: Total time spent is greater than 50% in coordination of care (as documented) at patient's floor/unit and/or counseling patient: Coding Level of Care Code 30650 Subseq Hosp Care Lvl 3 Diagnoses Right lower lobe pneumonia J18.9 Pneumonia type: due to unspecified organism Positive fecal occult blood test R19.5 Anemia D64.9 Acute kidney injury superimposed on chronic kidney disease N17.9; N18.9 Acute heart failure with preserved ejection fraction I50.31 Elevated digoxin level R78.89 Epistaxis R04.0 Acute hyponatremia E87.1 Severe aortic valve stenosis I35.0 Essential hypertension I10 Atrial flutter with rapid ventricular response I48.92 Pulmonary embolism I26.99 Acute cor pulmonale presence: unspecified Chronicity: unspecified Pulmonary embolism type: unspecified Polymyalgia rheumatica M35.3 COPD (chronic obstructive pulmonary disease) J44.1 COPD type: COPD with acute exacerbation Vitamin D deficiency E55.9 (1) COPD (chronic obstructive pulmonary disease) COPD type: COPD with acute exacerbation Qualified Code(s): J44.1 - Chronic obstructive pulmonary disease with (acute) exacerbation (2) Pulmonary embolism Acute cor pulmonale presence: unspecified Chronicity: unspecified Pulmonary embolism type: unspecified Qualified Code(s): I26.99 - Other pulmonary embolism without acute cor pulmonale (3) Right lower lobe pneumonia Pneumonia type: due to unspecified organism Qualified Code(s): J18.9 - Pneumonia, unspecified organism
--- NOTE | 2021-05-16 08:19 | XRay Report ---
TWO VIEW CHEST CLINICAL HISTORY: Pneumonia. FINDINGS: AP and lateral chest radiographs are compared to study dated 05/12/2021 and correlated with chest CT dated 03/28/2021. The patient's head obscures the apices. The heart is enlarged noting athe rosclerotic calcification of the thoracic aorta. Emphysema and chronic interstitial thickening is sim ilar to previous. There is a small right pleural effusion with right basilar consolidation. Dependent opacities at the left lung base likely represent atelectasis. There is no pneumothorax. The skeletal structures are osteopenic. The bony thorax appears intact. Degenerative change is noted throughout t he thoracic spine. IMPRESSION: 1. Cardiomegaly and emphysema. 2. There is a small right pleural effusion with right basilar consolidation. This has increased as co mpared to 05/12/2021. Radiographic follow-up to resolution is recommended. ACT 112: Negative or not required by law. Electronically signed by: Rey Cancino M.D. 05/16/2021 8:18 AM
[2021-05-16] MEDS: SENNA 8.6 MG TAB PO SCH ×2 (08:42→20:49)
[2021-05-16] MEDS: APIXABAN 5 MG TABLET PO SCH ×2 (08:42→20:49)
[2021-05-16] MEDS: PANTOprazole 40 MG TAB PO SCH ×2 (08:42→20:48)
[2021-05-16] MEDS: AMOXICILLIN/CLAVULANATE 875 MG TAB PO SCH (08:42)
[2021-05-16] MEDS: predniSONE 5 MG TAB PO SCH (08:43)
[2021-05-16] MEDS: AMIODARONE 200 MG TAB PO SCH (08:44)
[2021-05-16] MEDS: ADVANCED PROBIOTIC 1250 MG CAPSULE PO SCH (08:44)
[2021-05-16] MEDS: LORATADINE 10 MG TAB PO SCH (08:44)
[2021-05-16] MEDS: FINASTERIDE 5 MG TAB PO SCH (08:44)
[2021-05-16] MEDS: FLUTICASONE/VILANTEROL 100/25MCG 14 PUFFS/INHALER INH SCH (08:45)
[2021-05-16] MEDS: AZITHROMYCIN 250 MG TAB PO SCH (08:45)
[2021-05-16] MEDS: IRON SUCROSE 200 MG in 0.9 % SODIUM CHLORIDE 100 ML IV SCH (08:52)
[2021-05-16] MEDS ORDERED: allopurinoL 100 MG TAB PO SCH (09:00)
--- NOTE | 2021-05-16 10:27 | Nephrology Progress Note ---
Date of Service May 16, 2021 Assessment & Plan (1) Hyponatremia: Plan: * Hyponatremia due to reduced renal perfusion associated w/ valvular heart disease * Patient is clinically volume contracted. His LE swelling is likely a manifestation of elevated R heart pressure. Echocardiogram studies have revealed severe , moderate MR and dilated IVC * Hyponatremia, hypotension and worsening renal function are poor prognostic signs in the setting of valvular heart disease * Consider transfer to tertiary care center to assess for TAVR (2) MAT (acute kidney injury): Plan: * MAT/CKD due to impaired renal perfusion (relative hypotension) and intravascular volume contraction (FeNa 0.3%) * Cr has risen to 3.3 today. Electrolyte balance is acceptable. No acute indication for FRUIT STUFFER * Will repeat urine microscopy to assess for ATN casts (3) Anemia: Plan: * Iron sat < 16% w/ ferritin 519 * Day #3 of 5 IV Venofer * Monitor H&H (4) Right lower lobe pneumonia: Plan: * On Azithromycin therapy (5) Severe aortic valve stenosis: Admission and Anticipated Discharge Date Admission Date: May 10, 2021 Subjective Asked to reassess Mr. Robert by the hospitalist service due to rising Cr. Mr. Robert c/o lack of sleep, fatigue and ATKINSON. He is breathing comfortably on O2 at 1L/min NC while at rest. His legs are wrapped w/ DANE bandages and he is trying to keep them elevated. Review of Systems Constitutional: no fever Eyes: no problem reported Ear, Nose, Mouth, Throat: no problem reported Respiratory: + dyspnea on exertion Cardiovascular: + edema; no chest pain Gastrointestinal: no abdominal pain, no nausea, no vomiting and no diarrhea/loose stools Genitourinary: no dysuria, no urinary hesitancy or no hematuria Musculoskeletal: no back pain Integumentary: no rash Neurologic: no confusion Physical Exam Constitutional: not in distress (breathing comfortably on O2 at 1L/min NC) Eyes: PERRL, conjunctivae normal, anicteric sclerae ENMT: external ear and nose normal, oropharynx normal Neck: trachea midline, no thyromegaly Respiratory: normal respiratory effort, lungs clear to auscultation Cardiovascular: RRR, no murmur, no edema Rate/Rhythm: regular rate Heart Sounds: + murmur Gastrointestinal (Abdomen): normal bowel sounds, soft, nontender, no hepatosplenomegaly Musculoskeletal: no cyanosis or clubbing, extremities motor strength 5/5 Skin: no rashes, warm and dry Neurologic: awake; not confused Results & Data ([facility]) Vital Signs (Past 12 Hours) Vital Signs Temp Pulse Resp BP BP Pulse Ox 05/16/21 09:20 36.4 C L 75/43 L 05/16/21 07:51 36.3 C L 64 12 93/47 L 98 05/16/21 03:48 36.5 C 63 19 91/37 L 98 05/15/21 23:02 36.5 C 63 18 90/49 L 96 Laboratory Results Laboratory Tests 05/16/21 05/16/21 05:30 05:30 WBC 7.10 Hgb 9.5 L Hct 28.9 L Plt Count 133 Sodium 128 L Potassium 3.5 Chloride 89 L Carbon Dioxide 32 BUN 44 H Creatinine 3.39 H D Calcium 8.8 Albumin 3.2 L Diagnostic Findings 05/16/21 CXR: small R effusion, mild pulmonary edema, CMG 05/15/21 Echo: Moderate MR, severely dilated IVC 04/22/21 Echocardiogram: Severe PG Care Time/CCT Total # of Minutes Spent Total Time Spent with Patient: Total time spent is greater than 50% in coordination of care (as documented) at patient's floor/unit and/or counseling patient: Coding Level of Care Code 05944 Subseq Hosp Care Lvl 3 Diagnoses Hyponatremia E87.1 MAT (acute kidney injury) N17.9 Anemia D64.9 Right lower lobe pneumonia J18.9 Pneumonia type: due to unspecified organism Severe aortic valve stenosis I35.0 (1) Right lower lobe pneumonia Pneumonia type: due to unspecified organism Qualified Code(s): J18.9 - Pneumonia, unspecified organism
[2021-05-16] MEDS ORDERED: ALBUMIN 25% 12.5 GM/50 ML VIAL IV ONE (13:24)
[2021-05-16] MEDS ORDERED: MIDODRINE HCL 2.5 MG TAB PO ONE (13:30)
--- NOTE | 2021-05-16 14:14 | Ultrasound Report ---
ULTRASOUND KIDNEYS AND BLADDER CLINICAL HISTORY: Worsening renal failure. Urinary retention. COMPARISON STUDY: Abdominal CT dated 03/28/2021. TECHNIQUE: Real-time, grayscale, and color flow sonography of the kidneys and bladder is performed. I mages are reviewed in the transverse and longitudinal planes. FINDINGS: Kidneys: The kidneys demonstrate cortical atrophy. Echotexture is normal. The right kidney measures 1 0.1 x 4.7 x 5.2 cm and the left kidney measures 10.7 x 5.2 x 5.6 cm. There is no hydronephrosis. No shadowing renal calculi are identified. There is no sonographic evidence of contour deforming renal m ass lesion. No perinephric fluid is identified. Bladder: The bladder is mildly distended. The bladder wall appears thickened and trabeculated suggest ing chronic outlet obstruction. Ureteral jets were not seen. IMPRESSION: 1. The kidneys demonstrate cortical atrophy and are without hydronephrosis. 2. The bladder is mildly distended, and the appearance of the bladder wall suggests the sequelae of c hronic outlet obstruction. ACT 112: Negative or not required by law. Electronically signed by: Rey Cancino M.D. 05/16/2021 2:12 PM
[2021-05-16] MEDS: FAMOTIDINE 20 MG TAB PO SCH (16:23)
[2021-05-16] MEDS: AMOXICILLIN/CLAVULANATE 500 MG TAB PO SCH (16:37)
[2021-05-16] MEDS: MIDODRINE HCL 2.5 MG TAB PO SCH (16:38)
[2021-05-16 20:19] LABS: Appearance Urine Cloudy (Clear); Bacteria Urine Automated Negative (Negative); Bilirubin Urine Negative (Negative); Blood Urine 3+ (Negative); Cast Urine Automated 0 /lpf (0-5); Color Urine Yellow; Epithelial Cell Urine Auto 0-5 /lpf (0-5); Glucose Urine UA Negative (Negative); Ketones Urine Negative (Negative); Leukocyte Esterase Urine 3+ (Negative); Nitrite Urine Negative (Negative); Protein Urine Negative (Negative); Specific Gravity Urine 1.014 (1.000-1.030); Urobilinogen Urine Negative (Negative); WBC Urine Automated >30 /hpf (0-5)
[2021-05-16] MEDS: UMECLIDINIUM BROMIDE 62.5MCG/BLISTER 7 PUFFS/INHALER INH SCH (20:48)
[2021-05-16] MEDS ORDERED: TAMSULOSIN HCL 0.4 MG CAP PO SCH (21:00)
--- NOTE | 2021-05-17 07:40 | Hospitalist Progress Note ---
Date of Service May 17, 2021 Assessment & Plan (1) Right lower lobe pneumonia: Plan: XRAY with RLL PNA on admission as well as suspected CHF exacerbation. Recent PE February 2021, on Eliquis Stable -- repeat XR unchanged from yesterday but reports no further sputum production and breathing is improved. Rec radiographic monitoring to resolution To have completed 7 day course Augmentin today, will extend for 10 day total. Completed 5 days Azithromycin as well given recent hospitalization. (MRSA nasal NEGATIVE) Continue flutter valve, incentive spirometer Xopenex prn Blood cultures ngtd sputum culture -- light normal titus Wean O2 as tolerated (does use 2L HS, follows with [facility]) --> repeatedly asked to wean off O2 during the day --> feels breathing is improved from days prior On day 4/5 Venofer Hgb stable. 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 Mother with hx colon ca Prior CTAP last admission without obvious mass noted Likely given recent eliquis initiation February for his PE. No upper abd pain. GI consulted --> protonix 40mg BID. No plans for inpatient scope, high risk. rec for at tertiary care where he would also have consideration for his TAVR Venofer x 5 days per Nephrology (ok to give in addition to dose already given prior to them starting) hgb stable 8.8, monitor (3) Anemia: Plan: 2nd to anemia but possible occult losses while on eliquis since diagnosis of PE in Feb 2021, also possible valvular disease/hemolytic anemia. b12/folate without deficiency normocytic Also may have lost some blood from his epistaxis, but suspected not that much iron def with low iron sat, and was given dose of venofer on 05/13, then scheduled x 5 days Albumin provided, repeat ECHO (improvement in EF reported, mod MR) LDH wnl suggesting against hemolysis Haptoglobin pending + fecal occult as above --> GI consult --> PPI BID --> outpatient endoscopy at tertiary center when eval for TAVR --> repeat hgb today 8.8. monitor in AM Of note PPI likely contributing to worsening kidney failure along with HYPOTENSION (improved) -- see below (4) Acute kidney injury superimposed on chronic kidney disease: Plan: Cr 2.33 on admission Holding diuretics as above, avoiding nephrotoxic agents --> per nephro would utilize weight based diuretics for wt >114kg Given albumin 05/14, NSS 250cc, Vit D replacement Venofer x 5 doses (in addition to 1 provided prior) Additional albumin 05/15, 05/16 to help with intravascular volume. Holing terazosin since 05/14 (having difficulty with voiding completely and asked RN to bladder scan to see about retention) CrUP TO 4.4 on 05/17 --> Fena low, clinically volume down Providing gentle IVF LR @60cc/hr given . Serial monitoring -- repeat BMP this afternoon Also started on midodrine 2.5mg TID for BP support as likely worsening hypotension worsening kidney perfusion Renal U/S not overly impressive, obstruction but noted chronic outlet obstruction Douglas placed 05/16 -- monitor urine output -- previously incorrect. patient reported improvement Nephrology on consult -> appreciate assistance. Close monitoring. Rec possible trial diuretics but holding off for now as above (5) Acute heart failure with preserved ejection fraction: Plan: Heart failure with preserved ejection fraction on previous echo, however recent ECHO with decrease EF 35-45% from previous value 50% in November 2020 recent decrease in EF thought 2nd to afib with RVR/aflutter (STILL IN FLUTTER, "RATE CONTROLLED" BNP >41766 during admission Acute on chronic combined systolic and diastolic heart failure Cardiology on consult -- FELT hypovolemic intravascularly given weight down on admission Continue to hold Lasix per cardiology and nephrology * Wt actually down from admission but still with significant LE edema --> improving some with DANE wraps --> continued, daily changes * Inaccurate I&Os, unmeasured voids * Wt 112kg (was 114kg at d/c 04/26) Given albumin for low BP -- SEE ABOVE Continue amiodarone, Eliquis for his afib Digoxin held and patient given dose of Digibind for elevated dig level -- > per cardiology, recs to discontinued this agent moving forward (After Digibind is given, the lab assay test for digoxin levels becomes an accurate as it measures total digoxin even that bound to the Nestor) LDH not elevated to suggest hemolysis -- see above regarding anemia REPEAT ECHO 05/15 WITH SIGNIFICANTLY DILATED IVC, INDICATING NEED FOR DIURETICS, DISCUSSED WITH NEPHRO, WOULD NOT GIVE GIVEN HYPOTENSION, CONCERNS REGARDING MIDODRINE AND HIS AORTIC STENOSIS BUT OK PER CARDIOLOGY AND WILL ORDER TO SEE ABOUT ABILITY TO RESTART SOME DIURETIC THERAPY --> MIDODRINE STARTED 05/16 and BPs improved, continued IVF for volume down, repeat labs this afternoon --> per nephro, trial of diuretics if not improved. Wt 112kg Need for TAVR once clinically improved (6) Elevated digoxin level: Plan: Digoxin level noted to be elevated, 4.6 Likely exacerbated by giving 250 mcg dose in the setting of renal impairment We will hold digoxin, check a level in the morning --> repeat 3.6 (given per cardiology on 05/11) as noted above --> dig discontinued (7) Epistaxis: Plan: Now resolved with rhino rocket Hold off on removal of nasal balloon until after consultation with ENT as this is in the setting of anticoagulation --> discussed with patient and will continued to hold and arrange for outpt follow up with ENT Rhino rocket deflated but per Dr Montano to remain in place for fear scab dislodged/rebleeding on anticoagulation for recent PE which cannot be held. --> will need to arrange outpt f/u for removal in office in case of cautery need (8) Acute hyponatremia: Plan: serum Na 129 today, worsening volume overload on ECHO 05/15 as above -- prior hospitalization reported chronic in nature 2nd to overdiuresis and improved with NSS Although patient appears fluid overloaded on account of bilateral leg edema, he may be intravascularly depleted given such per nephrology/cardiology as above and LE edema from venous stasis as sits in chair all day will hold off on diuretics for now as above per cardiology of note, also on tramadol prn (and steroids for PMR) which could be contributing TSH normal Urine osm higher than expected per Nephro and points to ADH activity -- agrees patient clinically volume contracted and LE swelling likely related to elevated R pressure (as well as hypoalbuminemic state). --> Gave 12.5g albumin 05/14,16, . no further Repeat urine studies without ATN however still Fena low, IVF as above stock receiver consult for assessment/supplementation -- boost with dinner. continues to follow/adjust (9) Severe aortic valve stenosis: Plan: Patient said he is open to being evaluated for possible TAVR We will defer to cardiology for further investigation and also cardiothoracic surgery as outpatient -- per Dr Centeno, not urgent at this time, however I am concerned given continued hospitalization and almost absent S2 and need for more urgent eval. echo with EF 40-45%, Lmild AR, MODERATE MITRAL REGURGITATION, IVC severely dilated -- compared to prior, overall LV systolic function appears slightly better however IVC severly dilated indicating volume overload state Gentle IVF for continued intravascular depletion. Close monitoring. (10) Essential hypertension: Plan: Blood pressures soft, 80/42 -- asymptomatic but had been hypotensive all of 05/15 as above, likely worsening kidney function Continue to hold terazosin (for prostate), no diuretics, albumin given on 05/14, 05/15, 05/16 Venofer as above trial midodrine as above -- continued as BPs 100/61 and likely hypotension significantly worsening patient's kidney function CONTINUE TO MONITOR (11) Atrial flutter with rapid ventricular response: Plan: history from previous hospital stay and remains in aflutter/rates in 80s, rate controlled dig on hold given elevated dig level, given digibind as above --> digoxin discontinued Continue amiodarone Continue apixaban continued monitoring on telemetry -- flutter 60-80s (12) Pulmonary embolism: Plan: Recent finding(diagnosed 02/2021) Continue Eliquis BID (13) Polymyalgia rheumatica: Plan: prednisone restarted 5mg daily, not ordered on admission extra dose 05/14 for hypotension, ?need for stress dosing --> WOULD AVOID given + fecal occult as above, utilizing midodrine for BP (14) COPD (chronic obstructive pulmonary disease): Plan: continue nebs, abx, tx as above WEAN OXYGEN TO MAINTAIN SAT 88 OR GREATER! (15) Vitamin D deficiency: Plan: in patient with CKD, previously on supplementation. Repeat level 13 -- ordered supplementation and would continue at discharge Plan: continued inpatient stay + fecal occult blood, GI consulted --> no inpatient scope, placed on Protonix BID Worsening kidney function/hypotension --> midodrine for BP support with improvement finally, however worsening kidney function (also new on PPI BID for +fecal occult/anemia and need outpt c-scope at tertiary care when he can be natalie luated for TAVR which is not emergent and likely not to be considered until patient recovered from his pneumonia) LR @60cc/hr, repeat labs this afternoon Per nephro, may need to consider trial of diuretics if no improvement however will monitor for now as I&O have not been accurate HIGH RISK FOR INPATIENT READMISSION. DESPITE PATIENT AT "FUNCTIONAL BASELINE" PER THERAPY AND VOICING WISHES FOR DISCHARGE WHEN POSSIBLE, HE HAS WORSENING KIDNEY FUNCTION AND HYPOTENSION PATIENT WOULD BOUNCE RIGHT BACK UNTIL HE IS TUNED UP/IMPROVED PT/OT with recs for return home. [facility] to do home visit to do assessment. Admission and Anticipated Discharge Date Admission Date: May 10, 2021 Supervising Physician Co-Signing Physician Notes I personally examined the patient and verified all chandler points of history and exam, discussed case, and agree with decision making with Sera Ryan PAC no sob. fluids going. answered all questions to the best of my ability and to pt/ satisfaction vitals noted on 2L O2, lungs cta b/l no r/r/w good effort ARF - most signs point to prerenal - cautiously hydrate and follow closely due to baseline cardiomyopathy - ?benefit from replacement - will try to more thoroughly review his situation otherwise as above, follow closely Subjective patient evlauated this morning got better sleep with room change can tell BP better although denied lightheadedness. he states he can tell he made a decent amount of urine (bag must have just been emptied, as minimal yellow urine draining. discussed elevation in creatinine -- patient states appetite has improved over past several days, however review of labs indicate still dry and starting IVF at slow rate and will check labs this afternoon. he states he took O2 off some during the day yesterday -- encouraged to continue to do so when up/awake given his underlying COPD but is ok to wear when sleeping/napping. no fever, chills, chest pain, no further sputum production, no abdominal pain, nausea or vomiting at this time. Review of Systems Review of Systems: All systems reviewed & are unremarkable except as noted in HPI & below Physical Exam Physical Exam: The patient is awake, alert and oriented 3, chronically ill appearing, sitting up in recliner, no acute distress HEENT--PERRL, EOMI, mucous membranes and oropharynx mildly dry, rhino rocket to R nares (balloon deflated), dried blood present but no active bleeding Neck--supple. No JVD appreciated. No bruits. Thyroid normal, trachea midline, no adenopathy. Heart--irregularly irregular, +5/6 systolic murmur, S1, loud S2., 3-4+b/l LE edema wrapped with DANE wraps Lungs--reduced air entry on auscultation, RML/RLL crackles although with bibasilar crackles (DECREASED), diminished in the bases, no wheezing, on 2L NC sleeping (asked to remove if tolerated during the day when awake) Abdomen--normal bowel sounds, +distended (less), umbilical hernia, surgical scar anneliese-umbilical from prior ileocecectomy, non-tender to palpation Extremities--bilateral pitting leg edema w/ b/l dane wrap, calves non-tender non- erythematous Neurologic--cranial nerves II through XII grossly intact. Rheumatologic--normal range of motion. Psychiatric--AOx3, cooperative Results & Data Results & Data ([facility]) Vital Signs (Past 12 Hours) Vital Signs Temp Pulse Pulse Resp BP Pulse Ox 05/17/21 07:15 65 05/17/21 07:02 36.4 C L 65 20 102/60 99 05/17/21 04:05 36.6 C 64 20 105/63 98 05/16/21 23:55 64 05/16/21 23:30 36.5 C 64 20 97/48 L 99 05/16/21 19:49 36.4 C L 64 20 92/50 L 97 Laboratory Results 05/17/21 05/17/21 05/16/21 Range/Units 06:55 06:55 20:06 WBC 6.32 (4.8-10.8) K/uL RBC 2.87 L (4.7-6.1) M/uL Hgb 8.8 L (14.0-18.0) g/dL Hct 27.2 L (42-52) % MCV 94.8 (80-100) fL MCH 30.7 (25-34) pg MCHC 32.4 (32-36) g/dL RDW Std Deviation 54.5 H (36.4-46.3) fL RDW Coeff of Nimesh 15.9 H (11.5-14.5) % Plt Count 126 L (130-400) K/uL MPV 10.0 (7.4-10.4) fL Sodium 129 L (136-145) mmol/L Potassium 3.5 (3.5-5.1) mmol/L Chloride 89 L (98-107) mmol/L Carbon Dioxide 30 (21-32) mmol/L Anion Gap 10.0 (3-11) BUN 51 H (7-18) mg/dl Creatinine 4.40 H D (0.6-1.4) mg/dl Est Cr Clr Drug Dosing 19.6 ml/min Est GFR ( Amer) 14.7 ml/min Est GFR (Non-Af Amer) 12.7 ml/min BUN/Creatinine Ratio 11.6 (10-20) Glucose 87 (70-99) mg/dl Calcium 8.7 (8.5-10.1) mg/dl Total Bilirubin 1.2 H (0.2-1) mg/dl Direct Bilirubin 0.4 H (0-0.2) mg/dl AST 19 (15-37) U/L ALT 37 (12-78) Alkaline Phosphatase 62 (45-117) U/L Total Protein 6.0 L (6.4-8.2) gm/dl Albumin 3.0 L (3.4-5.0) gm/dl Urine Color Urine Appearance (Clear) Urine pH (4.5-7.5) Ur Specific [place] (1.000-1.030) Urine Protein (Negative) Urine Glucose (UA) (Negative) Urine Ketones (Negative) Urine Blood (Negative) Urine Nitrite (Negative) Urine Bilirubin (Negative) Urine Urobilinogen (Negative) Ur Leukocyte Esterase (Negative) Urine WBC (Auto) (0-5) /hpf Urine RBC (Auto) (0-4) /hpf U Hyaline Cast (Auto) (0-5) /lpf U Epithel Cells (Auto) (0-5) /lpf Urine Bacteria (Auto) (Negative) Urine Yeast Urine Osmolality 277 L (500-800) mOsm/kg Ur Random Creatinine mg/dl Ur Random Sodium mmol/L Nasal Screen MRSA (PCR) (Negative) 12/05/16/21 05/16/21 Range/Units 20:06 20:06 20:06 WBC (4.8-10.8) K/uL RBC (4.7-6.1) M/uL Hgb (14.0-18.0) g/dL Hct (42-52) % MCV (80-100) fL MCH (25-34) pg MCHC (32-36) g/dL RDW Std Deviation (36.4-46.3) fL RDW Coeff of Nimesh (11.5-14.5) % Plt Count (130-400) K/uL MPV (7.4-10.4) fL Sodium (136-145) mmol/L Potassium (3.5-5.1) mmol/L Chloride (98-107) mmol/L Carbon Dioxide (21-32) mmol/L Anion Gap (3-11) BUN (7-18) mg/dl Creatinine (0.6-1.4) mg/dl Est Cr Clr Drug Dosing ml/min Est GFR ( Amer) ml/min Est GFR (Non-Af Amer) ml/min BUN/Creatinine Ratio (10-20) Glucose (70-99) mg/dl Calcium (8.5-10.1) mg/dl Total Bilirubin (0.2-1) mg/dl Direct Bilirubin (0-0.2) mg/dl AST (15-37) U/L ALT (12-78) Alkaline Phosphatase (45-117) U/L Total Protein (6.4-8.2) gm/dl Albumin (3.4-5.0) gm/dl Urine Color Yellow Urine Appearance Cloudy A (Clear) Urine pH 5.0 (4.5-7.5) Ur Specific [place] 1.014 (1.000-1.030) Urine Protein Negative (Negative) Urine Glucose (UA) Negative (Negative) Urine Ketones Negative (Negative) Urine Blood 3+ H (Negative) Urine Nitrite Negative (Negative) Urine Bilirubin Negative (Negative) Urine Urobilinogen Negative (Negative) Ur Leukocyte Esterase 3+ H (Negative) Urine WBC (Auto) >30 H (0-5) /hpf Urine RBC (Auto) 5-10 H (0-4) /hpf U Hyaline Cast (Auto) 0 (0-5) /lpf U Epithel Cells (Auto) 0-5 (0-5) /lpf Urine Bacteria (Auto) Negative (Negative) Urine Yeast Not Reportable Urine Osmolality (500-800) mOsm/kg Ur Random Creatinine 104.0 mg/dl Ur Random Sodium 21 mmol/L Nasal Screen MRSA (PCR) Negative (Negative) Diagnostic Findings Chest X-Ray 05/17/21 07:00 SINGLE VIEW CHEST CLINICAL HISTORY: Pneumonia. FINDINGS: 2 AP, portable, upright chest radiographs are compared to study dated 05/16/2021 and correlated with chest CT dated 03/28/2021. The heart is enlarged noting atherosclerotic calcification of the thoracic aorta. Emphysema and chronic interstitial thickening is similar to previous. There is a small right pleural effusion with right basilar consolidation. Dependent opacities are also seen at the left lung base. There is no pneumothorax. The skeletal structures are osteopenic. The bony thorax appears intact. Degenerative change is noted throughout the thoracic spine. IMPRESSION: 1. Cardiomegaly and emphysema. 2. A right pleural effusion with right basilar consolidation has not significant changed from yesterday. Radiographic follow-up to resolution is recommended. ACT 112: Negative or not required by law. Electronically signed by: Rey Cancino M.D. 05/17/2021 7:41 AM PG Care Time/CCT Total # of Minutes Spent Total Time Spent with Patient: Total time spent is greater than 50% in coordination of care (as documented) at patient's floor/unit and/or counseling patient: Coding Level of Care Code 12659 Subseq Hosp Care Lvl 3 Diagnoses Right lower lobe pneumonia J18.9 Pneumonia type: due to unspecified organism Positive fecal occult blood test R19.5 Anemia D64.9 Acute kidney injury superimposed on chronic kidney disease N17.9; N18.9 Acute heart failure with preserved ejection fraction I50.31 Elevated digoxin level R78.89 Epistaxis R04.0 Acute hyponatremia E87.1 Severe aortic valve stenosis I35.0 Essential hypertension I10 Atrial flutter with rapid ventricular response I48.92 Pulmonary embolism I26.99 Acute cor pulmonale presence: unspecified Chronicity: unspecified Pulmonary embolism type: unspecified Polymyalgia rheumatica M35.3 COPD (chronic obstructive pulmonary disease) J44.1 COPD type: COPD with acute exacerbation Vitamin D deficiency E55.9 (1) COPD (chronic obstructive pulmonary disease) COPD type: COPD with acute exacerbation Qualified Code(s): J44.1 - Chronic obstructive pulmonary disease with (acute) exacerbation (2) Pulmonary embolism Acute cor pulmonale presence: unspecified Chronicity: unspecified Pulmonary embolism type: unspecified Qualified Code(s): I26.99 - Other pulmonary embolism without acute cor pulmonale (3) Right lower lobe pneumonia Pneumonia type: due to unspecified organism Qualified Code(s): J18.9 - Pneumonia, unspecified organism
--- NOTE | 2021-05-17 07:43 | XRay Report ---
SINGLE VIEW CHEST CLINICAL HISTORY: Pneumonia. FINDINGS: 2 AP, portable, upright chest radiographs are compared to study dated 05/16/2021 and correl ated with chest CT dated 03/28/2021. The heart is enlarged noting atherosclerotic calcification of th e thoracic aorta. Emphysema and chronic interstitial thickening is similar to previous. There is a sm all right pleural effusion with right basilar consolidation. Dependent opacities are also seen at the left lung base. There is no pneumothorax. The skeletal structures are osteopenic. The bony thorax ap pears intact. Degenerative change is noted throughout the thoracic spine. IMPRESSION: 1. Cardiomegaly and emphysema. 2. A right pleural effusion with right basilar consolidation has not significant changed from yesterd ay. Radiographic follow-up to resolution is recommended. ACT 112: Negative or not required by law. Electronically signed by: Rey Cancino M.D. 05/17/2021 7:41 AM
[2021-05-17 07:46] LABS: Hematocrit (blood only) 27.2 % (42-52); Hemoglobin 8.8 g/dL (14.0-18.0); Mean Corpuscular Hemoglobin 30.7 pg (25-34); Mean Corpuscular Hgb Conc 32.4 g/dL (32-36); Mean Corpuscular Volume 94.8 fL (80-100); Platelet Count 126 K/uL (130-400); RDW Coefficient of Variation 15.9 % (11.5-14.5); RDW Standard Deviation 54.5 fL (36.4-46.3); Red Blood Count 2.87 M/uL (4.7-6.1); White Blood Count 6.32 K/uL (4.8-10.8)
[2021-05-17] MEDS: MIDODRINE HCL 2.5 MG TAB PO SCH ×3 (07:48→16:38)
[2021-05-17] MEDS: AMOXICILLIN/CLAVULANATE 500 MG TAB PO SCH ×2 (07:49→16:38)
[2021-05-17] MEDS: APIXABAN 5 MG TABLET PO SCH (08:10)
[2021-05-17] MEDS: LORATADINE 10 MG TAB PO SCH (08:10)
[2021-05-17] MEDS: ADVANCED PROBIOTIC 1250 MG CAPSULE PO SCH (08:10)
[2021-05-17] MEDS: AMIODARONE 200 MG TAB PO SCH (08:10)
[2021-05-17] MEDS: PANTOprazole 40 MG TAB PO SCH ×2 (08:10→21:16)
[2021-05-17] MEDS: SENNA 8.6 MG TAB PO SCH ×2 (08:11→21:17)
[2021-05-17] MEDS: FINASTERIDE 5 MG TAB PO SCH (08:11)
[2021-05-17] MEDS: predniSONE 5 MG TAB PO SCH (08:11)
[2021-05-17] MEDS: FLUTICASONE/VILANTEROL 100/25MCG 14 PUFFS/INHALER INH SCH (08:12)
[2021-05-17 08:14] LABS: BUN Creatinine Ratio 11.6 (10-20); Calcium 8.7 mg/dl (8.5-10.1); Creatinine Clr Calc Pharmacy 19.6 ml/min; Est GFR (African American) 14.7 ml/min; Est GFR (Non-African American) 12.7 ml/min; Potassium 3.5 mmol/L (3.5-5.1)
[2021-05-17 08:17] LABS: Bilirubin Direct 0.4 mg/dl (0-0.2); Bilirubin,Total 1.2 mg/dl (0.2-1)
[2021-05-17] MEDS: IRON SUCROSE 200 MG in 0.9 % SODIUM CHLORIDE 100 ML IV SCH (08:39)
[2021-05-17] MEDS: LACTATED RINGER'S 1,000 ML IV SCH (09:20)
--- NOTE | 2021-05-17 10:52 | Nephrology Progress Note ---
Date of Service May 17, 2021 Assessment & Plan (1) MAT (acute kidney injury): (2) Acute heart failure with preserved ejection fraction: (3) Acute hyponatremia: (4) Anemia: (5) Severe aortic valve stenosis: Plan: Mr. Robert admitted to the hospital on 05/10/2021 with progressive shortness of breath over few weeks. On admission he was thought to be volume overloaded, with pulmonary congestion, received1 dose of Lasix but discontinued because of worsening of renal function. Over last few days renal function has been progressively worsening with creatinine to 4.4 this morning. Renal USG unremarkable. Urine output has been low. Respiratory status seems to be acceptable. Blood pressure has been low. Developed hyponatremia. CXR with pl effusion and pulmonary congestion. Has been getting venofer -- Progressive worsening of renal function over last few days is hemodynamically mediated with hypotension. however, seems overall volume overloaded with almost 6 L positive and decreased urine output. Hyponatremia secondary to decreased free water clearance. -- Need to monitor respiratory status closely while on IV fluid, concern for worsening respiratory status, may need to discontinue IV fluid and give trial of IV Lasix although considering severe aortic stenosis, -- Consider transfer to tertiary care center to assess for TAVR Will follow Admission and Anticipated Discharge Date Admission Date: May 10, 2021 Subjective Hayden was seen and evaluated this morning. for all feeling about the same, denies any shortness of breath or chest pain. Appetite seems to be fair. Urine output relatively low, over last 24 hour only 400 cc. Renal function continues to worsen rapidly , creatinine up to 4.4., ultrasound with no postrenal obstruction. Developed acute hyponatremia with serum sodium dropping to 129. Review of Systems Review of Systems: Detail ROS was was done and pertinent positives and negatives mentioned above. Physical Exam Constitutional: WD/WN, vitals as above no acute distress Eyes: + anicteric sclerae Neck: normal visual inspection Respiratory: normal respiratory effort; no respiratory distress Auscultation: + diminished lung sounds Cardiovascular: Rate/Rhythm: regular rate and regular rhythm Heart Sounds: normal S1 and normal S2 Extremities: + edema Skin: normal turgor; no rashes Neurologic: no focal motor deficits and not confused Psychiatric: Orientation: alert and oriented x 3 Results & Data ([facility]) Vital Signs (Past 12 Hours) Vital Signs Temp Pulse Pulse Resp BP Pulse Ox 05/17/21 07:15 65 05/17/21 07:02 36.4 C L 65 20 102/60 99 05/17/21 04:05 36.6 C 64 20 105/63 98 05/16/21 23:55 64 05/16/21 23:30 36.5 C 64 20 97/48 L 99 PG Care Time/CCT Total # of Minutes Spent Total Time Spent with Patient: Total time spent is greater than 50% in coordination of care (as documented) at patient's floor/unit and/or counseling patient: Coding Level of Care Code 10969 Subseq Hosp Care Lvl 3 Diagnoses MAT (acute kidney injury) N17.9 Acute heart failure with preserved ejection fraction I50.31 Acute hyponatremia E87.1 Anemia D64.9 Severe aortic valve stenosis I35.0
[2021-05-17 16:19] LABS: Magnesium 2.2 mg/dl (1.8-2.4)
[2021-05-17] MEDS: FAMOTIDINE 20 MG TAB PO SCH (16:38)
[2021-05-17 17:38] LABS: Calcium 8.1 mg/dl (8.5-10.1); Creatinine Clr Calc Pharmacy 17.9 ml/min; Est GFR (African American) 13.1 ml/min; Est GFR (Non-African American) 11.3 ml/min; Potassium 3.8 mmol/L (3.5-5.1)
--- NOTE | 2021-05-17 20:38 | Communication Note ---
Date of Service: May 17, 2021 Contacted by nursing staff regarding worsening kidney function, blood clots/sediment in Douglas tubing, and concern for possible postobstructive cause given worsening MAT despite fluids. Patient himself feels the same as he did earlier today. He reports history of enlarged prostate. No complaints of abdominal pain with benign abdominal exam, though does have some small blood clots and sediment noted in his Douglas tubing with minimal urine in bag. Bladder scan without urine present. Given worsening MAT despite fluids I was concerned about postobstructive etiology and ordered CT abdomen/pelvis non-contrast for possible nephrolithiasis and placed consult for Urology for consideration of cystoscopy in the AM. Case discussed with Dr. Petr Arias. CTAP non-contrast without evidence of nephrolithiasis, pyelonephritis, or hydronephrosis; did show mild pericystic stranding. UA with reflex ordered. Eliquis held given blood in Douglas, and tamsulosin given for BPH/chronic outlet obstruction noted on renal US.
[2021-05-17] MEDS ORDERED: TAMSULOSIN HCL 0.4 MG CAP PO ONE (20:45)
[2021-05-17] MEDS: UMECLIDINIUM BROMIDE 62.5MCG/BLISTER 7 PUFFS/INHALER INH SCH (21:16)
--- NOTE | 2021-05-17 22:37 | CT Scan Report ---
CT SCAN OF THE ABDOMEN AND PELVIS WITHOUT IV CONTRAST CLINICAL HISTORY: Acute renal insufficiency. COMPARISON STUDY: Abdominal CT dated 03/28/2021. TECHNIQUE: CT scan of the abdomen and pelvis is performed from the lung bases to the proximal femora. Images are reviewed in the axial, sagittal, and coronal planes. IV contrast was not administered for this examination. A dose lowering technique was utilized adhering to the principles of ALARA. CT DOSE: 1234.92 mGy.cm FINDINGS: Lung bases: The heart is enlarged and without pericardial effusion. There is a small right pleural ef fusion with dense right basilar consolidation. There is trace left pleural effusion, as well as left basilar scarring/atelectasis. Liver: The unenhanced liver is normal in size, contour, and attenuation. There is no intrahepatic vivian iary ductal dilatation. Gallbladder: There are numerous calcified gallstones with no CT evidence of acute cholecystitis. Spleen: The spleen is mildly enlarged measuring 14.7 cm in length. Pancreas: The unenhanced pancreas is moderately atrophic and grossly unremarkable. Adrenal glands: Unremarkable. Kidneys: The unenhanced kidneys are atrophic and without hydronephrosis. There are no renal calculi i dentified. There is no evidence of contour deforming renal mass lesion. Nonspecific perinephric stran ding is similar to previous. Abdominal vasculature: The abdominal aorta is normal in course and caliber noting advanced atheroscle rotic calcification. Bowel: There is moderate to advanced colonic diverticulosis without CT evidence of acute diverticulit is. No bowel obstruction is seen. The appendix is not identified. Postoperative change in the right lower quadrant suggests previous appendectomy. Peritoneum: There is no intraperitoneal free air or abdominal ascites. There is our fat-containing um bilical and supraumbilical hernias. Lymphadenopathy: None. Pelvic viscera: The bladder is decompressed around a Douglas catheter and not well evaluated. There is mild pericystic stranding. The prostate gland is diminutive and heterogeneous. Skeletal structures: The skeletal structures are osteopenic. There is moderate lumbosacral spondylosi s. Sclerotic change is noted in the sacroiliac joints. No lytic or blastic lesions are seen. IMPRESSION: 1. The kidneys are atrophic and without hydronephrosis. 2. The bladder is decompressed around a Douglas catheter and not well evaluated. There is mild pericyst ic stranding. Correlate with urinalysis. 3. Right pleural effusion with dense right basilar consolidation. The appearance is typical for pneum onia, and radiographic follow-up to resolution is recommended. 4. Cardiomegaly and trace left pleural effusion. 5. Cholelithiasis. 6. Moderate to advanced colonic diverticulosis without CT evidence of acute diverticulitis. 7. Mild splenomegaly. 8. Additional findings as above. ACT 112: Negative or not required by law. Electronically signed by: Rey Cancino M.D. 05/17/2021 10:35 PM
[2021-05-17 23:52] LABS: BUN Creatinine Ratio 12.2 (10-20); Calcium 8.1 mg/dl (8.5-10.1); Creatinine Clr Calc Pharmacy 17.5 ml/min; Est GFR (African American) 12.8 ml/min; Potassium 3.8 mmol/L (3.5-5.1)
[2021-05-18] MEDS: LACTATED RINGER'S 1,000 ML IV SCH (01:19)
[2021-05-18 01:42] LABS: Appearance Urine Turbid (Clear); Bacteria Urine Automated Negative (Negative); Bilirubin Urine Negative (Negative); Blood Urine 3+ (Negative); Color Urine Yellow; Epithelial Cell Urine Auto 0-5 /lpf (0-5); Glucose Urine UA Negative (Negative); Ketones Urine Negative (Negative); Leukocyte Esterase Urine 3+ (Negative); Nitrite Urine Negative (Negative); Protein Urine 2+ (Negative); Specific Gravity Urine 1.013 (1.000-1.030); Urobilinogen Urine Negative (Negative); WBC Urine Automated >30 /hpf (0-5)
[2021-05-18 06:41] LABS: Hematocrit (blood only) 27.6 % (42-52); Hemoglobin 9.1 g/dL (14.0-18.0); Immature Granulocytes # (auto) 0.08 K/uL (0.00-0.02); Immature Granulocytes % (auto) 1.2 %; Lymphocytes # (auto) 0.62 K/uL (1.2-3.4); Lymphocytes % (auto) 9.4 %; Mean Corpuscular Volume 93.9 fL (80-100); Mean Platelet Volume 10.2 fL (7.4-10.4); Monocytes # (auto) 0.48 K/uL (0.11-0.59); Monocytes % (auto) 7.3 %; Neutrophils # (auto) 5.42 K/uL (1.4-6.5); Neutrophils % (auto) 82.1 %; Platelet Count 116 K/uL (130-400); RDW Standard Deviation 54.2 fL (36.4-46.3); Red Blood Count 2.94 M/uL (4.7-6.1)
[2021-05-18 06:50] LABS: INR 1.3 (0.9-1.1); Prothrombin Time 12.7 Seconds (9.0-12.0)
[2021-05-18 07:27] LABS: BUN Creatinine Ratio 11.5 (10-20); Bilirubin Direct 0.4 mg/dl (0-0.2); Bilirubin,Total 1.1 mg/dl (0.2-1); Calcium 8.6 mg/dl (8.5-10.1); Creatinine Clr Calc Pharmacy 2.2 ml/min; Est GFR (Non-African American) 10.4 ml/min; Potassium 3.6 mmol/L (3.5-5.1); Total Protein 5.9 gm/dl (6.4-8.2)
[2021-05-18] MEDS: PANTOprazole 40 MG TAB PO SCH (08:42)
[2021-05-18] MEDS: ADVANCED PROBIOTIC 1250 MG CAPSULE PO SCH (08:42)
[2021-05-18] MEDS: predniSONE 5 MG TAB PO SCH (08:42)
[2021-05-18] MEDS: MIDODRINE HCL 2.5 MG TAB PO SCH ×2 (08:42→12:14)
[2021-05-18] MEDS: LORATADINE 10 MG TAB PO SCH (08:43)
[2021-05-18] MEDS: FINASTERIDE 5 MG TAB PO SCH (08:43)
[2021-05-18] MEDS: AMIODARONE 200 MG TAB PO SCH (08:43)
[2021-05-18] MEDS: FLUTICASONE/VILANTEROL 100/25MCG 14 PUFFS/INHALER INH SCH (08:44)
[2021-05-18] MEDS: SENNA 8.6 MG TAB PO SCH (08:46)
--- NOTE | 2021-05-18 08:47 | Hospitalist Progress Note ---
Date of Service May 18, 2021 Assessment & Plan (1) Right lower lobe pneumonia: Plan: Patient admitted with RLL PNA on admission/CHF exacerbation (felt intravascularly depleted though as wt down on admission) with elevated BNP and recent PE in February 2021 on Eliquis and now +fecal occult blood but no franklin bleeding and on PPI BID with need for outpt c-scope in follow-up. Placed on Zosyn IV on admission, transitioned to Augmentin and extended course to 10 days (also covering for enterococcus in urine) Repeat CXR --> cardiomegaly and emphysema. R pleural effusion w/ R basilar consolidation (of note, small focal groundglass airspace opacity w/i periphery of RML on prior CTA from February admission as well as 2 subsegmental emboli w/i R lung) On 2L NC , sat currently 98% -- wean as tolerated given severe COPD and should be more like 88-90% per [facility] pulm notes and discussed with patient on multiple occassions BCx NGTD Sputum with light normal titus Continued flutter valve, incentive spirometer, xopenex prn Unfortunately, patient's kidney function continued to decline despite holding diuretics (of note, extra dig last admit in setting of acute kidney failure and no dig level checked and admitted with dig tox requiring dose of digibing) and placed on gentle IVF 05/17 as Fena still low indicating dry. Had decreased appetite from pneumonia but had been improving. Cr now >5, risk for HD. Nephrology following. Renal US/CTAP without nephrolithiasis or obstructive pathology causing worsening Cr. Has gotten 5 doses Venofer. Albumin x 3 for low BPs. Midodrine starting 2.5mg TID for BP support and currently 99/55. Repeat urine cxs without evidence for granular casts --> This morning, ordered 4mg IV bumex x 1. Discussed HD with patient in event of need for such Did discuss with Dr. Mckinney, regarding more urgent need for transfer for either balloon to help forward flow/eventual need for TAVR. Consult pending and he will assist with reaching out to interventional cardiology at [facility] about transfer for such. 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 Mother with hx colon ca Prior CTAP last admission without obvious mass noted Likely given recent eliquis initiation February for his PE. No upper abd pain. GI consulted --> protonix 40mg BID. No plans for inpatient scope, high risk. rec for at tertiary care where he would also have consideration for his TAVR Venofer x 5 days, hgb stable at 9.1 (3) Anemia: Plan: normocytic -- 2nd to anemia but possible occult losses while on eliquis since diagnosis of PE in Feb 2021, also possible valvular disease/hemolytic anemia. b12/folate without deficiency Also may have lost some blood from his epistaxis, but suspected not that much iron def with low iron sat, and was given dose of venofer on 05/13, then scheduled x 5 days Albumin provided, repeat ECHO (improvement in EF reported, mod MR) LDH wnl suggesting against hemolysis Haptoglobin pending + fecal occult as above --> GI consult --> PPI BID --> outpatient endoscopy at tertiary center when eval for TAVR --> repeat hgb today 9.1 from 8.8 Of note PPI likely contributing to worsening kidney failure along with HYPOTENSION (improved) -- see below (4) Acute kidney injury superimposed on chronic kidney disease: Plan: Cr 2.33 on admission Holding diuretics as above, avoiding nephrotoxic agents --> per nephro would utilize weight based diuretics for wt >114kg Given albumin 05/14, NSS 250cc, Vit D replacement Venofer x 5 doses Additional albumin 05/15, 05/16 to help with intravascular volume. Holing terazosin since 05/14 (having difficulty with voiding completely and asked RN to bladder scan to see about retention) Fena calculated low days prior and indicated intravascular depletion and was placed on gentle IVF @ 60cc/hr overnight Renal US without obstruction but had some clots. CTAP last evening without obstruction and flores with clear yellow in bag currently. No intervention per URology BP support with midodrine 2.5mg TID --> had pressures systolically in 70s days previous but no granular casts on multiple UAs to indicate ATN causing worsening renal failure CrUP TO 5.19 on 05/18 --> Nephro following. Stopped IVF, provided bumex 4mg IV x 1 (WEIGHT 116KG TODAY) and they discussed possible need for HD with patient Attempting to have cards 2nd opinion/consideration for tx for balloon/eventual TAVR Monitor BMP this afternoon (5) Acute heart failure with preserved ejection fraction: Plan: Heart failure with preserved ejection fraction on previous echo, however recent ECHO with decrease EF 35-45% from previous value 50% in November 2020 recent decrease in EF thought 2nd to afib with RVR/aflutter (STILL IN FLUTTER, "RATE CONTROLLED" BNP >00493 during admission Acute on chronic combined systolic and diastolic heart failure Cardiology on consult -- FELT hypovolemic intravascularly given weight down on admission Continue to hold Lasix per cardiology and nephrology * Wt actually down from admission but still with significant LE edema --> improving some with DANE wraps --> continued, daily changes * Inaccurate I&Os, unmeasured voids * Wt 116kg (was 114kg at d/c 04/26) Given albumin for low BP -- SEE ABOVE, now on midodrine for BP support and currently 90s/50s Continued on amiodaron, eliquis (missed evening dose for hematuria reported, resumed this morning given PE feb 2021) Digoxin held and patient given dose of Digibind for elevated dig level -- > per cardiology, recs to discontinued this agent moving forward (After Digibind is given, the lab assay test for digoxin levels becomes an accurate as it measures total digoxin even that bound to the Nestor) LDH not elevated to suggest hemolysis -- see above regarding anemia REPEAT ECHO 05/15 WITH SIGNIFICANTLY DILATED IVC, INDICATING NEED FOR DIURETICS, DISCUSSED WITH NEPHRO, WOULD NOT GIVE GIVEN HYPOTENSION, CONCERNS REGARDING MIDODRINE AND HIS AORTIC STENOSIS BUT OK PER CARDIOLOGY AND WILL ORDER TO SEE ABOUT ABILITY TO RESTART SOME DIURETIC THERAPY --> MIDODRINE STARTED 05/16 and BPs improved, continued however weight now 116kg and worsening sob/need for diuretic therapy per nephrology IVF d/c as above Bumex 4mg IV x 1 now Working on 2nd opinion as above for consideration for transfer/assistance with such for at least balloon angioplasty for temporizing until able to undergo TAVR (Discussed with patient and /son on phone this morning) Cards consult pending -- appreciate assistance (6) Elevated digoxin level: Plan: Digoxin level noted to be elevated, 4.6 Likely exacerbated by giving 250 mcg dose in the setting of renal impairment We will hold digoxin, check a level in the morning --> repeat 3.6 (given per cardiology on 05/11) as noted above --> dig discontinued moving forward per cards No need for additional digibind at this time (7) Epistaxis: Plan: Now resolved with rhino rocket Hold off on removal of nasal balloon until after consultation with ENT as this is in the setting of anticoagulation --> discussed with patient and will continued to hold and arrange for outpt follow up with ENT Rhino rocket deflated but per Dr Montano to remain in place for fear scab dislodged/rebleeding on anticoagulation for recent PE which cannot be held. --> will need to arrange outpt f/u for removal in office in case of cautery need (8) Acute hyponatremia: Plan: serum Na 128 today, worsening volume overload on ECHO 05/15 as above -- prior hospitalization reported chronic in nature 2nd to overdiuresis and improved with NSS Although patient appears fluid overloaded on account of bilateral leg edema, he may HAVE BEEN intravascularly depleted given such per nephrology/cardiology as above and LE edema from venous stasis as sits in chair all day of note, also on tramadol prn (and steroids for PMR) which could be contributing TSH normal Urine osm higher than expected per Nephro and points to ADH activity -- agreed patient clinically volume contracted and LE swelling likely related to elevated R pressure (as well as hypoalbuminemic state). --> Gave 12.5g albumin 05/14,16, 17. 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 continues to follow/adjust WORSENING hyponatremia 2nd to acute on chronic CHF as above Bumex 4mg IV x 1 now, repeating labs this afternoon (9) Severe aortic valve stenosis: Plan: Patient said he is open to being evaluated for possible TAVR We will defer to cardiology for further investigation and also cardiothoracic surgery as outpatient -- per Dr Centeno, not urgent at this time, however I am concerned given continued hospitalization and almost absent S2 and need for more urgent eval. echo with EF 40-45%, Lmild AR, MODERATE MITRAL REGURGITATION, IVC severely dilated -- compared to prior, overall LV systolic function appears slightly better however IVC severly dilated indicating volume overload state Gentle IVF for continued intravascular depletion overnight 05/17 --> stopped this morning Nephro ordered bumex 4mg IV x 1 Cards on consult for eval/possible need for more urgent transfer as above for balloon as temporizing measure to help improve renal perfusion prior to TAVR (10) Essential hypertension: Plan: BPs had been low DIuretics held as above on admission, then held terazosin Midodinre started and continued 2.5mg TID --> BP 90s systolically today Bumex 4mg IV x 1 as per nephro --> BPs currently 111/64 currently CONTINUE TO MONITOR (11) Atrial flutter with rapid ventricular response: Plan: history from previous hospital stay and remains in aflutter/rates in 80s, rate controlled dig on hold given elevated dig level, given digibind as above --> digoxin discontinued Continue amiodarone Continue apixaban (missed evening dose 05/17 as above) continued monitoring on telemetry -- flutter 60s (12) Pulmonary embolism: Plan: Recent finding(diagnosed 02/2021) Continue Eliquis BID (missed evening dose 05/17 as above, resumed this morning) (13) Polymyalgia rheumatica: Plan: prednisone restarted 5mg daily, not ordered on admission extra dose 05/14 for hypotension, ?need for stress dosing --> WOULD AVOID given + fecal occult as above, utilizing midodrine for BP (14) COPD (chronic obstructive pulmonary disease): Plan: continue nebs, abx, tx as above WEAN OXYGEN TO MAINTAIN SAT 88 OR GREATER! (15) Vitamin D deficiency: Plan: in patient with CKD, previously on supplementation. Repeat level 13 -- ordered supplementation and would continue at discharge Plan: worsening kidney function nephro ordered bumex 4mg IV x 1 now, repeating labs this afternoon Dr Mckinney to domenic -- appreciate assistance. Consideration for tx to [facility] for balloon/intervention for aortic stenosis to help with forward flow Updated patient and then called to discuss plan of care with Polly and son on the phone this morning. Patient high risk for TAVR in any case, but given worsening heart failure in the setting of hypotension/renal failure would anticipate expedited need for intervention. May be difficult to find patient a bed, and will reach out to other facilities if C unable to take/alternative recommendations made by Dr. Mckinney Side note: high risk for re-admit, PT/OT with recs for return home and [facility] to do home assessment however ambulatory status worsening with above and barely able to make to bathroom and back or any appoinments for followup per family and may need to consider re-eval Admission and Anticipated Discharge Date Admission Date: May 10, 2021 Subjective patient evaluated this morning. feeling slightly more fatigued, increased work of breathing and does endorse some increased shortness of breath/taking breath. lungs with scattered wheezing and diminshed. on 2 L NC. Discussed with cardiology this morning who will be evaluating this morning about possible need at least to transfer for balloon placement to help with forward flow and eventual need for TAVR but would want kidney function improved to undergo cath and avoid need for HD, however discussed that is the worry given worsening kidney function and need for HD at this time if no intervention undertaken. He denies fever or chills. Occassional cough, productive of clear sometimes, brownish sputum at others. Chest tightness associated with taking a deep breath -- eliquis on hold last night after clots reported in flores but resumed this morning (missed 1 dose). No abdominal pain or nausea at this time. Denies lightheadedness/dizziness but has not been up much. Nephrology to evaluate as well given worsening Cr. Bumex 4mg IV x 1 ordered. Called and updated and son by phone this morning and awaiting further plans/acceptance at tertiary facility. Review of Systems Review of Systems: All systems reviewed & are unremarkable except as noted in HPI & below Physical Exam Physical Exam: General: fatigued chronically ill appearing male sitting up in recliner, no acute distress Eyes anicteria, pupils equal and reactive ENT- mmm, rhino rocket (balloon deflated) to R nares, dried blood but no active bleeding trachea midline without deviation, +JVD CV: irregularly irregular, S1/absent S2 2nd to systolic mumur with radiation to carotids, calves non-tender but has 4+ edema b/l with DANE wraps in place Resp: no accessory muscle use, not tachypneic, diminished in the bases with scattered wheezing, on 2L NC Abd: +BS, +distended, non-tender, no guarding or rigidity, +umbilical hernia (non-tender), surgical scar anneliese-umbilical from prior ileocecectomy Skin: cool, dry, b/l LE pitting edema with DANE wraps Neuro: no focal deficit, lang interpreter intact MSK: moves all extremities Psych: AOx3, tired, cooperative Results & Data Results & Data ([facility]) Vital Signs (Past 12 Hours) Vital Signs Temp Pulse Pulse Resp BP Pulse Ox 05/18/21 08:02 36.7 C 64 18 92/48 L 98 05/18/21 07:00 65 05/18/21 04:24 36.7 C 64 18 96/46 L 97 05/17/21 22:44 36.5 C 64 20 95/53 L 97 Laboratory Results 05/18/21 05/18/21 05/18/21 Range/Units 06:06 06:06 06:06 WBC 6.60 (4.8-10.8) K/uL RBC 2.94 L (4.7-6.1) M/uL Hgb 9.1 L (14.0-18.0) g/dL Hct 27.6 L (42-52) % MCV 93.9 (80-100) fL MCH 31.0 (25-34) pg MCHC 33.0 (32-36) g/dL RDW Std Deviation 54.2 H (36.4-46.3) fL RDW Coeff of Nimesh 16.0 H (11.5-14.5) % Plt Count 116 L (130-400) K/uL MPV 10.2 (7.4-10.4) fL Immature Gran % (Auto) 1.2 % Neut % (Auto) 82.1 % Lymph % (Auto) 9.4 % [place] % (Auto) 7.3 % Eos % (Auto) 0.0 % Baso % (Auto) 0.0 % Neut # (Auto) 5.42 (1.4-6.5) K/uL Lymph # (Auto) 0.62 L (1.2-3.4) K/uL Jasper # (Auto) 0.48 (0.11-0.59) K/uL Eos # (Auto) 0.00 (0-0.5) K/uL Baso # (Auto) 0.00 (0-0.2) K/uL Immature Gran # (Auto) 0.08 H (0.00-0.02) K/uL PT 12.7 H (9.0-12.0) Seconds INR 1.3 H (0.9-1.1) Sodium 128 L (136-145) mmol/L Potassium 3.6 (3.5-5.1) mmol/L Chloride 88 L (98-107) mmol/L Carbon Dioxide 30 (21-32) mmol/L Anion Gap 10.0 (3-11) BUN 60 H (7-18) mg/dl Creatinine 5.19 H* (0.6-1.4) mg/dl Est Cr Clr Drug Dosing 2.2 ml/min Est GFR ( Amer) 12.0 ml/min Est GFR (Non-Af Amer) 10.4 ml/min BUN/Creatinine Ratio 11.5 (10-20) Glucose 89 (70-99) mg/dl Calcium 8.6 (8.5-10.1) mg/dl Magnesium (1.8-2.4) mg/dl Total Bilirubin 1.1 H (0.2-1) mg/dl Direct Bilirubin 0.4 H (0-0.2) mg/dl AST 16 (15-37) U/L ALT 39 (12-78) Alkaline Phosphatase 65 (45-117) U/L Total Protein 5.9 L (6.4-8.2) gm/dl Albumin 3.0 L (3.4-5.0) gm/dl Urine Color Urine Appearance (Clear) Urine pH (4.5-7.5) Ur Specific [place] (1.000-1.030) Urine Protein (Negative) Urine Glucose (UA) (Negative) Urine Ketones (Negative) Urine Blood (Negative) Urine Nitrite (Negative) Urine Bilirubin (Negative) Urine Urobilinogen (Negative) Ur Leukocyte Esterase (Negative) Urine WBC (Auto) (0-5) /hpf Urine RBC (Auto) (0-4) /hpf U Hyaline Cast (Auto) (0-5) /lpf U Epithel Cells (Auto) (0-5) /lpf Urine Bacteria (Auto) (Negative) Urine Yeast 05/18/21 05/17/21 05/17/21 Range/Units 01:24 23:02 16:13 WBC (4.8-10.8) K/uL RBC (4.7-6.1) M/uL Hgb (14.0-18.0) g/dL Hct (42-52) % MCV (80-100) fL MCH (25-34) pg MCHC (32-36) g/dL RDW Std Deviation (36.4-46.3) fL RDW Coeff of Nimesh (11.5-14.5) % Plt Count (130-400) K/uL MPV (7.4-10.4) fL Immature Gran % (Auto) % Neut % (Auto) % Lymph % (Auto) % [place] % (Auto) % Eos % (Auto) % Baso % (Auto) % Neut # (Auto) (1.4-6.5) K/uL Lymph # (Auto) (1.2-3.4) K/uL [place]asper # (Auto) (0.11-0.59) K/uL Eos # (Auto) (0-0.5) K/uL Baso # (Auto) (0-0.2) K/uL Immature Gran # (Auto) (0.00-0.02) K/uL PT (9.0-12.0) Seconds INR (0.9-1.1) Sodium 128 L 129 L (136-145) mmol/L Potassium 3.8 3.8 (3.5-5.1) mmol/L Chloride 89 L 89 L (98-107) mmol/L Carbon Dioxide 30 32 (21-32) mmol/L Anion Gap 9.0 8.0 (3-11) BUN 60 H 58 H (7-18) mg/dl Creatinine 4.93 H* 4.82 H* D (0.6-1.4) mg/dl Est Cr Clr Drug Dosing 17.5 17.9 ml/min Est GFR ( Amer) 12.8 13.1 ml/min Est GFR (Non-Af Amer) 11.0 11.3 ml/min BUN/Creatinine Ratio 12.2 12.0 (10-20) Glucose 98 107 H (70-99) mg/dl Calcium 8.1 L 8.1 L (8.5-10.1) mg/dl Magnesium (1.8-2.4) mg/dl Total Bilirubin (0.2-1) mg/dl Direct Bilirubin (0-0.2) mg/dl AST (15-37) U/L ALT (12-78) Alkaline Phosphatase (45-117) U/L Total Protein (6.4-8.2) gm/dl Albumin (3.4-5.0) gm/dl Urine Color Yellow Urine Appearance Turbid A (Clear) Urine pH 5.0 (4.5-7.5) Ur Specific [place] 1.013 (1.000-1.030) Urine Protein 2+ H (Negative) Urine Glucose (UA) Negative (Negative) Urine Ketones Negative (Negative) Urine Blood 3+ H (Negative) Urine Nitrite Negative (Negative) Urine Bilirubin Negative (Negative) Urine Urobilinogen Negative (Negative) Ur Leukocyte Esterase 3+ H (Negative) Urine WBC (Auto) >30 H (0-5) /hpf Urine RBC (Auto) 10-30 H (0-4) /hpf U Hyaline Cast (Auto) 1-5 (0-5) /lpf U Epithel Cells (Auto) 0-5 (0-5) /lpf Urine Bacteria (Auto) Negative (Negative) Urine Yeast Not Reportable 05/17/21 Range/Units 06:55 WBC (4.8-10.8) K/uL RBC (4.7-6.1) M/uL Hgb (14.0-18.0) g/dL Hct (42-52) % MCV (80-100) fL MCH (25-34) pg MCHC (32-36) g/dL RDW Std Deviation (36.4-46.3) fL RDW Coeff of Nimesh (11.5-14.5) % Plt Count (130-400) K/uL MPV (7.4-10.4) fL Immature Gran % (Auto) % Neut % (Auto) % Lymph % (Auto) % [place] % (Auto) % Eos % (Auto) % Baso % (Auto) % Neut # (Auto) (1.4-6.5) K/uL Lymph # (Auto) (1.2-3.4) K/uL [place] # (Auto) (0.11-0.59) K/uL Eos # (Auto) (0-0.5) K/uL Baso # (Auto) (0-0.2) K/uL Immature Gran # (Auto) (0.00-0.02) K/uL PT (9.0-12.0) Seconds INR (0.9-1.1) Sodium (136-145) mmol/L Potassium (3.5-5.1) mmol/L Chloride (98-107) mmol/L Carbon Dioxide (21-32) mmol/L Anion Gap (3-11) BUN (7-18) mg/dl Creatinine (0.6-1.4) mg/dl Est Cr Clr Drug Dosing ml/min Est GFR ( Amer) ml/min Est GFR (Non-Af Amer) ml/min BUN/Creatinine Ratio (10-20) Glucose (70-99) mg/dl Calcium (8.5-10.1) mg/dl Magnesium 2.2 (1.8-2.4) mg/dl Total Bilirubin (0.2-1) mg/dl Direct Bilirubin (0-0.2) mg/dl AST (15-37) U/L ALT (12-78) Alkaline Phosphatase (45-117) U/L Total Protein (6.4-8.2) gm/dl Albumin (3.4-5.0) gm/dl Urine Color Urine Appearance (Clear) Urine pH (4.5-7.5) Ur Specific [place] (1.000-1.030) Urine Protein (Negative) Urine Glucose (UA) (Negative) Urine Ketones (Negative) Urine Blood (Negative) Urine Nitrite (Negative) Urine Bilirubin (Negative) Urine Urobilinogen (Negative) Ur Leukocyte Esterase (Negative) Urine WBC (Auto) (0-5) /hpf Urine RBC (Auto) (0-4) /hpf U Hyaline Cast (Auto) (0-5) /lpf U Epithel Cells (Auto) (0-5) /lpf Urine Bacteria (Auto) (Negative) Urine Yeast Diagnostic Findings Abdomen/Pelvis CT 05/17/21 20:49 CT SCAN OF THE ABDOMEN AND PELVIS WITHOUT IV CONTRAST CLINICAL HISTORY: Acute renal insufficiency. COMPARISON STUDY: Abdominal CT dated 03/28/2021. TECHNIQUE: CT scan of the abdomen and pelvis is performed from the lung bases to the proximal femora. Images are reviewed in the axial, sagittal, and coronal planes. IV contrast was not administered for this examination. A dose lowering technique was utilized adhering to the principles of ALARA. CT DOSE: 1234.92 mGy.cm FINDINGS: Lung bases: The heart is enlarged and without pericardial effusion. There is a small right pleural effusion with dense right basilar consolidation. There is trace left pleural effusion, as well as left basilar scarring/atelectasis. Liver: The unenhanced liver is normal in size, contour, and attenuation. There is no intrahepatic biliary ductal dilatation. Gallbladder: There are numerous calcified gallstones with no CT evidence of acute cholecystitis. Spleen: The spleen is mildly enlarged measuring 14.7 cm in length. Pancreas: The unenhanced pancreas is moderately atrophic and grossly unremarkable. Adrenal glands: Unremarkable. Kidneys: The unenhanced kidneys are atrophic and without hydronephrosis. There are no renal calculi identified. There is no evidence of contour deforming renal mass lesion. Nonspecific perinephric stranding is similar to previous. Abdominal vasculature: The abdominal aorta is normal in course and caliber noting advanced atherosclerotic calcification. Bowel: There is moderate to advanced colonic diverticulosis without CT evidence of acute diverticulitis. No bowel obstruction is seen. The appendix is not identified. Postoperative change in the right lower quadrant suggests previous appendectomy. Peritoneum: There is no intraperitoneal free air or abdominal ascites. There is our fat-containing umbilical and supraumbilical hernias. Lymphadenopathy: None. Pelvic viscera: The bladder is decompressed around a Flores catheter and not well evaluated. There is mild pericystic stranding. The prostate gland is diminutive and heterogeneous. Skeletal structures: The skeletal structures are osteopenic. There is moderate lumbosacral spondylosis. Sclerotic change is noted in the sacroiliac joints. No lytic or blastic lesions are seen. IMPRESSION: 1. The kidneys are atrophic and without hydronephrosis. 2. The bladder is decompressed around a Flores catheter and not well evaluated. There is mild pericystic stranding. Correlate with urinalysis. 3. Right pleural effusion with dense right basilar consolidation. The appearance is typical for pneumonia, and radiographic follow-up to resolution is recommended. 4. Cardiomegaly and trace left pleural effusion. 5. Cholelithiasis. 6. Moderate to advanced colonic diverticulosis without CT evidence of acute diverticulitis. 7. Mild splenomegaly. 8. Additional findings as above. ACT 112: Negative or not required by law. Electronically signed by: Rey Cancino M.D. 05/17/2021 10:35 PM PG Care Time/CCT Total # of Minutes Spent Total Time Spent with Patient: Total time spent is greater than 50% in coordination of care (as documented) at patient's floor/unit and/or counseling patient: Coding Level of Care Code 97291 Subseq Hosp Care Lvl 3 Diagnoses Right lower lobe pneumonia J18.9 Pneumonia type: due to unspecified organism Positive fecal occult blood test R19.5 Anemia D64.9 Acute kidney injury superimposed on chronic kidney disease N17.9; N18.9 Acute heart failure with preserved ejection fraction I50.31 Elevated digoxin level R78.89 Epistaxis R04.0 Acute hyponatremia E87.1 Severe aortic valve stenosis I35.0 Essential hypertension I10 Atrial flutter with rapid ventricular response I48.92 Pulmonary embolism I26.99 Acute cor pulmonale presence: unspecified Chronicity: unspecified Pulmonary embolism type: unspecified Polymyalgia rheumatica M35.3 COPD (chronic obstructive pulmonary disease) J44.1 COPD type: COPD with acute exacerbation Vitamin D deficiency E55.9 (1) Right lower lobe pneumonia Pneumonia type: due to unspecified organism Qualified Code(s): J18.9 - Pneumonia, unspecified organism (2) Pulmonary embolism Acute cor pulmonale presence: unspecified Chronicity: unspecified Pulmonary embolism type: unspecified Qualified Code(s): I26.99 - Other pulmonary embolism without acute cor pulmonale (3) COPD (chronic obstructive pulmonary disease) COPD type: COPD with acute exacerbation Qualified Code(s): J44.1 - Chronic obstructive pulmonary disease with (acute) exacerbation
[2021-05-18] MEDS: IRON SUCROSE 200 MG in 0.9 % SODIUM CHLORIDE 100 ML IV SCH ×2 (10:03→11:19)
[2021-05-18] MEDS: AMOXICILLIN/CLAVULANATE 500 MG TAB PO SCH (10:14)
[2021-05-18] MEDS: APIXABAN 5 MG TABLET PO SCH (10:14)
--- NOTE | 2021-05-18 10:55 | Urology Consultation ---
Date of Consultation May 18, 2021 Assessment & Plan (1) Acute kidney injury superimposed on chronic kidney disease: (2) Benign prostatic hyperplasia with urinary obstruction and other lower urinary tract symptoms: Mr. Robert's catheter appears to be in good position. It is draining cl ear yellow urine. Both CT scan and ultrasound demonstrated atrophic kidneys with no hydronephrosis. The bladder is fully decompressed on the CT scan, and there is no evidence of obstruction of either ureter. I have very low suspicion for an obstructive component to his MAT. The recent worsening of his renal function seems to correlate with his hypotension, and I suspect that is a more likely etiology. I recommend maintaining the flores catheter in place for now to maximize drainage from the urinary tract. If the catheter stops draining, I would recommend bladder scan to assess for residual volume. There was no evidence of hematuria when I saw him, but if needed the catheter can be flushed gently if it becomes clogged. With the catheter in place, he does not need to be on an alpha mikael - if it would be beneficial to his blood pressure, he can hold terazosin, although when it comes time for a voiding trial he should resume this if possible. Recommendations: Maintain flores catheter until Cr improves. follow up urine culture, treat if positive. bladder scan if catheter stops draining. If catheter is clogged, can flush and aspirate gently with normal saline, or replace catheter if needed. OK to hold terazosin if helpful for blood pressure. Agree with evaluation for TAVR to help his systemic perfusion. Continue wraps or stockings for lower extremity edema, elevate legs as tolerated. We will arrange outpatient followup to ensure his bladder is emptying well. Urology will sign off for now. Please call with questions/concerns. History of Present Illness Reason for Consultation: MAT, ?need for cystoscopy Attending Physician: Dallas Chadwick, DO History of Present Illness This is a 70-year-old male with history of heart failure, aortic valve stenosis, chronic kidney disease, COPD (on nighttime oxygen), who presented to the hospital on 05/10/2021 with worsening shortness of breath and lower extremity edema. During his hospitalization, he was initially thought to be hypovolemic and diuretics were held. He was treated for a right-sided pneumonia. Over the past couple days he has had increased swelling of his lower extremities. He has had gradually increasing creatinine. Both nephrology and cardiology has been involved in his care. He usually takes diuretics, but has not been able to receive these recently due to hypotension. He has been started on midodrine to help with hypotension, but there is concern with his medication in the setting of aortic stenosis. Flores catheter was placed on 05/16/2021. At this point his tamsulosin was stopped due to low blood pressures. There were some reports of blood in the catheter tubing, but it has been draining okay. Urology was consulted for concern that there might be a post renal/obstructive etiology to his worsening renal function. He reports that he has an enlarged prostate, but he typically voids well with an alpha-mikael. He reports having good sensation in his bladder, and can feel when it is filling up; he currently denies a sense of bladder fullness or any need to void. He denies any prior history of hematuria. Labs reviewed: Creatinine trend: 05/10- range from 2.14 to 2.57. 05/16 : 3.39 05/17 : 4.4 --> 4.82 --> 4.93 05/18 : 5.19 Urinalysis (05/18/21): 3+ leukocyte esterase, negative nitrites, no yeast or bacteria. 10-30 RBC/hpf. Imaging reviewed: 05/16/21 : Renal US: IMPRESSION: 1. The kidneys demonstrate cortical atrophy and are without hydronephrosis. 2. The bladder is mildly distended, and the appearance of the bladder wall suggests the sequelae of chronic outlet obstruction. 05/17/21 : CT abdomen pelvis w/o contrast: IMPRESSION: 1. The kidneys are atrophic and without hydronephrosis. 2. The bladder is decompressed around a Flores catheter and not well evaluated. T here is mild pericystic stranding. Correlate with urinalysis. 3. Right pleural effusion with dense right basilar consolidation. The appearance is typical for pneumonia, and radiographic follow-up to resolution is recommended. 4. Cardiomegaly and trace left pleural effusion. 5. Cholelithiasis. 6. Moderate to advanced colonic diverticulosis without CT evidence of acute diverticulitis. 7. Mild splenomegaly. 8. Additional findings as above. Allergies Allergy/AdvReac Type Severity Reaction Status Date / Time grass pollen Allergy Mild Verified 05/10/21 17:24 Sulfa (Sulfonamide AdvReac Unknown Unknown Unverified 05/10/21 17:24 Antibiotics) Home Medications Medication Instructions Recorded Confirmed Type budesonide-formoterol HFA 160 2 puff INHALATION BID 06/24/18 05/10/21 History mcg-4.5 mcg/actuation aerosol inhaler (Symbicort) loratadine 10 mg tablet (Claritin) 10 mg PO QAM 06/24/18 05/10/21 History tiotropium bromide 18 mcg capsule 1 cap INHALATION HS 06/24/18 05/10/21 History with inhalation device (Spiriva with HandiHaler) acetaminophen 500 mg tablet 1,000 mg PO Q6H PRN 12/21/19 05/10/21 History (Tylenol Extra Strength) sennosides 8.6 mg tablet (Senokot) 8.6 mg PO BID 12/21/19 05/10/21 History finasteride 5 mg tablet 5 mg PO QAM #30 tab 07/25/20 05/10/21 Rx terazosin 5 mg capsule 5 mg PO QPM #90 cap 12/06/20 05/10/21 Rx allopurinol 300 mg tablet 300 mg PO DAILY 03/19/21 05/10/21 History famotidine 20 mg tablet 20 mg PO QDD 03/28/21 05/10/21 History omeprazole 40 mg capsule,delayed 40 mg PO QAM 03/28/21 05/10/21 History release prednisone 5 mg tablet 5 mg PO DAILY 03/28/21 05/10/21 History cyclobenzaprine 10 mg tablet 10 mg PO TID PRN #30 tab 04/15/21 05/10/21 Rx food supplemt, lactose-reduced 1 ea PO DAILY 04/21/21 05/10/21 History 0.04 gram-1 kcal/mL oral liquid (Boost) lactobacillus combination no.4 3 3,000 mmu cells PO DAILY 04/21/21 05/10/21 History billion cell capsule (Probiotic) amiodarone 200 mg tablet 200 mg PO DAILY #90 tab 04/30/21 05/10/21 Rx apixaban 5 mg tablet (Eliquis) 5 mg PO BID #90 tab 04/30/21 05/10/21 Rx digoxin 250 mcg (0.25 mg) tablet 250 mcg PO DAILY #90 tab 04/30/21 05/10/21 Rx levalbuterol HCl 0.63 mg/3 mL 0.63 mg NEB Q6R PRN #90 ml 05/06/21 05/10/21 Rx solution for nebulization tramadol 50 mg tablet 50 - 100 mg PO Q6H PRN 05/10/21 05/10/21 History Patient History Medical History (Updated 05/15/21 @ 10:38 by Corrie Morton PA-C) Atrial flutter Benign prostatic hyperplasia with urinary obstruction and other lower urinary tract symptoms Chronic heart failure with preserved ejection fraction Chronic obstructive pulmonary disease SEVERE per pulm 08/09. Uses inhalers daily and prn Chronic systolic heart failure CKD (chronic kidney disease) stage 2, GFR 60-89 ml/min Colon polyp COPD (chronic obstructive pulmonary disease) Diastolic dysfunction History of colon polyps History of elevated glucose History of smoking at least 1 pack per day for at least 30 years Obesity (BMI 30-39.9) Osteoarthritis Polymyalgia rheumatica Renal disease Severe aortic valve stenosis Surgical History H/O rectal polypectomy History of bilateral cataract extraction History of colonoscopy History of cystoscopy History of elbow surgery left ulnar nerve History of hernia repair Laparoscopic History of surgical removal of terminal ileum History of wisdom tooth extraction Family History Brother Family history of diabetes mellitus Family hx colonic polyps Prostate cancer Myocardial infarction H/O heart bypass surgery Mother Colorectal cancer Other No family history of adverse response to anesthesia Denies family history of Ovarian cancer Breast cancer Lung cancer Social History Smoking Status: Former smoker Tobacco Type: Cigarettes Second Hand Exposure: No; Hx Alcohol Use: No Hx Substance Use: No Preferred Language: Chinese Communication Ability: Effective Visual Impairment: Limited Physical Instructor Required: No Beliefs That Will Affect Care: None marital status: Current Living Situation: Spouse current occupational status: retired How many Children do You have: 1 Feels Safe at Home: Yes Childhood Exposure to Second-Hand Smoke: Yes caffeine: Yes (coffee, soda) Dental Care, Regularly: Yes Physical Activity Frequency: Does not Exercise Seatbelt Use: never Sunscreen Use: No Assistive Devices: Oxygen - Continuous and Walker Review of Systems Constitutional: no fever and no chills Eyes: no worsening vision Ear, Nose, Mouth, Throat: no tinnitus Respiratory: + dyspnea and + dyspnea on exertion Cardiovascular: + dyspnea on exertion and + orthopnea Gastrointestinal: no abdominal pain Genitourinary: + as per Subjective / HPI Musculoskeletal: + swelling Integumentary: no rash and no lesions Neurologic: no localized weakness, no numbness and no paresthesia Endocrine: + fatigue Hematologic / Lymphatic: no easy bleeding and no easy bruising Physical Exam Constitutional: well developed and well nourished; no acute distress Eyes: + anicteric sclerae; pupils not irregular Respiratory: normal respiratory effort (on supplement O2 by nasal canula) Cardiovascular: Extremities: + edema (b/l lower extremities above knees) Gastrointestinal (Abdomen): Inspection/Auscultation: abdomen not distended Musculoskeletal: bilateral lower extremity edema extending up above knees Skin: no rashes and no lesions Neurologic: moves all extremities and awake Psychiatric: Orientation: alert and oriented x 3 Genitourinary: flores catheter in place draining clear yellow urine. No evidence of active bleeding. No clots in the tubing or collection bag. Results & Data ([facility]) Vital Signs (Past 12 Hours) Vital Signs Temp Pulse Pulse Resp BP Pulse Ox 05/18/21 08:02 36.7 C 64 18 92/48 L 98 05/18/21 07:00 65 05/18/21 04:24 36.7 C 64 18 96/46 L 97 05/17/21 22:44 36.5 C 64 20 95/53 L 97 PG Care Time/CCT Total # of Minutes Spent Total Time Spent with Patient: Total time spent is greater than 50% in coordination of care (as documented) at patient's floor/unit and/or counseling patient: Coding Level of Care Code 83598 Initial Inpt Care Lvl 2 Diagnoses Acute kidney injury superimposed on chronic kidney disease N17.9; N18.9 Benign prostatic hyperplasia with urinary obstruction and other lower urinary tract symptoms N40.1; N13.8
[2021-05-18 11:16] LABS: Creatinine Urine Random 92.9 mg/dl
--- NOTE | 2021-05-18 11:47 | Nephrology Progress Note ---
Date of Service May 18, 2021 Assessment & Plan (1) MAT (acute kidney injury): (2) Severe aortic valve stenosis: (3) Acute hyponatremia: (4) Acute heart failure with preserved ejection fraction: (5) Anemia: Plan: Mr. Robert admitted to the hospital on 05/10/2021 with progressive shortness of breath over few weeks. On admission he was thought to be volume overloaded, with pulmonary congestion, received1 dose of Lasix but discontinued because of worsening of renal function. Over last few days renal function has been progressively worsening with creatinine to 4.4 this morning. Renal USG unremarkable. Urine output has been low. Respiratory status seems to be acceptable. Blood pressure has been low. Developed hyponatremia. CXR with pl effusion and pulmonary congestion. Has been getting venofer Cr 5.2, UO low, no obstruction. -- Progressive worsening of renal function over last few days is hemodynamically mediated with hypotension. Oliguric with volume overloaded >6 L positive and decreased urine output. Hyponatremia secondary to decreased free water clearance. -- Bumex 4 mg IV x 1 dose now -- Consider transfer to tertiary care center to assess for TAVR -- discussed at length about possible need for [employer] in next 24/48 h. Explained the HD procedure, risk of TDC, risk of infection. Called Polly ( C: [phone], H: [phone]) Will follow Admission and Anticipated Discharge Date Admission Date: May 10, 2021 Elen Blake was seen and evaluated this morning. He is feeling about the same, may be slightly heavy breathing. Urine output relatively low, CT A/P with no obstruction. Renal function continues to worsen rapidly , creatinine up to 5.2. serum sodium 129. BP has been low. Review of Systems Review of Systems: Detail ROS was was done and pertinent positives and negatives mentioned above. Physical Exam Constitutional: WD/WN, vitals as above no acute distress Eyes: + anicteric sclerae Neck: normal visual inspection Respiratory: normal respiratory effort; no respiratory distress Auscultation: + diminished lung sounds Cardiovascular: Rate/Rhythm: regular rate and regular rhythm Heart Sounds: normal S1 and normal S2 Extremities: + edema Skin: normal turgor; no rashes Neurologic: no focal motor deficits and not confused Psychiatric: Orientation: alert and oriented x 3 Results & Data ([facility]) Vital Signs (Past 12 Hours) Vital Signs Temp Pulse Pulse Resp BP Pulse Ox 05/18/21 11:32 36.8 C 64 20 99/55 L 98 05/18/21 08:02 36.7 C 64 18 92/48 L 98 05/18/21 07:00 65 05/18/21 04:24 36.7 C 64 18 96/46 L 97 PG Care Time/CCT Total # of Minutes Spent Total Time Spent with Patient: Total time spent is greater than 50% in coordination of care (as documented) at patient's floor/unit and/or counseling patient: Coding Level of Care Code 87909 Subseq Hosp Care Lvl 3 Diagnoses MAT (acute kidney injury) N17.9 Acute heart failure with preserved ejection fraction I50.31 Acute hyponatremia E87.1 Anemia D64.9 Severe aortic valve stenosis I35.0
[2021-05-18] MEDS ORDERED: BUMETANIDE 4 MG in SYRINGE 0 ML IV STA (11:50)
--- NOTE | 2021-05-18 13:08 | Cardiology Consultation ---
Date of Consultation May 18, 2021 History of Present Illness Reason for Consultation: Second opinion for severe aortic stenosis with worsening renal failure and atrial flutter Attending Physician: Dallas Chadwick, DO History of Present Illness I spent over 50 minutes reviewing his chart, discussing his medical condition with Jimena OSWALD discussing his condition and transfer with his family and discussing transfer with [facility]. In reviewing his outpatient records he has had critical aortic stenosis with a decline in his LV function and worsening renal function. He was admitted to [facility] with pneumonia he does have a history of a pulmonary embolism in February. In January his creatinine was 1.3. Upon admission his creatinine was 2.2 and with progressive diuretics he is only had worsening renal function his creatinine is now greater than 5 and he is also hyponatremic. He remains short of breath talking in sentences. At home he is sleeping in a recliner due to the fact that he is short of breath laying flat. He is also had atrial flutter he initially received digoxin but as his renal function worsened and that was discontinued. Unfortunately with worsening renal function its been a challenge to give him diuretics. He has profound lower extremity edema which she notes was not present in early fall 2020. He is un aware of any palpitations or fluttering. He notes before all this in the fall he could walk about 75 feet. He is now short of breath with minimal amounts of activity. He is having some chest discomfort this morning as his heart failure seems to worsen. He has early satiety and increased abdominal distention and weight gain. The rest of a complete review of systems is otherwise negative Allergies Allergy/AdvReac Type Severity Reaction Status Date / Time grass pollen Allergy Mild Verified 05/10/21 17:24 Sulfa (Sulfonamide AdvReac Unknown Unknown Unverified 05/10/21 17:24 Antibiotics) Home Medications Medication Instructions Recorded Confirmed Type budesonide-formoterol HFA 160 2 puff INHALATION BID 06/24/18 05/10/21 History mcg-4.5 mcg/actuation aerosol inhaler (Symbicort) loratadine 10 mg tablet (Claritin) 10 mg PO QAM 06/24/18 05/10/21 History tiotropium bromide 18 mcg capsule 1 cap INHALATION HS 06/24/18 05/10/21 History with inhalation device (Spiriva with HandiHaler) acetaminophen 500 mg tablet 1,000 mg PO Q6H PRN 12/21/19 05/10/21 History (Tylenol Extra Strength) sennosides 8.6 mg tablet (Senokot) 8.6 mg PO BID 12/21/19 05/10/21 History finasteride 5 mg tablet 5 mg PO QAM #30 tab 07/25/20 05/10/21 Rx terazosin 5 mg capsule 5 mg PO QPM #90 cap 12/06/20 05/10/21 Rx allopurinol 300 mg tablet 300 mg PO DAILY 03/19/21 05/10/21 History famotidine 20 mg tablet 20 mg PO QDD 03/28/21 05/10/21 History omeprazole 40 mg capsule,delayed 40 mg PO QAM 03/28/21 05/10/21 History release prednisone 5 mg tablet 5 mg PO DAILY 03/28/21 05/10/21 History cyclobenzaprine 10 mg tablet 10 mg PO TID PRN #30 tab 04/15/21 05/10/21 Rx food supplemt, lactose-reduced 1 ea PO DAILY 04/21/21 05/10/21 History 0.04 gram-1 kcal/mL oral liquid (Boost) lactobacillus combination no.4 3 3,000 mmu cells PO DAILY 04/21/21 05/10/21 History billion cell capsule (Probiotic) amiodarone 200 mg tablet 200 mg PO DAILY #90 tab 04/30/21 05/10/21 Rx apixaban 5 mg tablet (Eliquis) 5 mg PO BID #90 tab 04/30/21 05/10/21 Rx digoxin 250 mcg (0.25 mg) tablet 250 mcg PO DAILY #90 tab 04/30/21 05/10/21 Rx levalbuterol HCl 0.63 mg/3 mL 0.63 mg NEB Q6R PRN #90 ml 05/06/21 05/10/21 Rx solution for nebulization tramadol 50 mg tablet 50 - 100 mg PO Q6H PRN 05/10/21 05/10/21 History Patient History Medical History Atrial flutter Benign prostatic hyperplasia with urinary obstruction and other lower urinary tract symptoms Chronic heart failure with preserved ejection fraction Chronic obstructive pulmonary disease SEVERE per pulm 08/09. Uses inhalers daily and prn Chronic systolic heart failure CKD (chronic kidney disease) stage 2, GFR 60-89 ml/min Colon polyp COPD (chronic obstructive pulmonary disease) Diastolic dysfunction History of colon polyps History of elevated glucose History of smoking at least 1 pack per day for at least 30 years Obesity (BMI 30-39.9) Osteoarthritis Polymyalgia rheumatica Renal disease Severe aortic valve stenosis Surgical History H/O rectal polypectomy History of bilateral cataract extraction History of colonoscopy History of cystoscopy History of elbow surgery left ulnar nerve History of hernia repair Laparoscopic History of surgical removal of terminal ileum History of wisdom tooth extraction Family History Brother Family history of diabetes mellitus Family hx colonic polyps Prostate cancer Myocardial infarction H/O heart bypass surgery Mother Colorectal cancer Other No family history of adverse response to anesthesia Denies family history of Ovarian cancer Breast cancer Lung cancer Social History Smoking Status: Former smoker Tobacco Type: Cigarettes Second Hand Exposure: No; Hx Alcohol Use: No Hx Substance Use: No Preferred Language: Brazilian Communication Ability: Effective Visual Impairment: Limited 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 Beliefs That Will Affect Care: None marital status: Current Living Situation: Spouse current occupational status: retired How many Children do You have: 1 Feels Safe at Home: Yes Childhood Exposure to Second-Hand Smoke: Yes caffeine: Yes (coffee, soda) Dental Care, Regularly: Yes Physical Activity Frequency: Does not Exercise Seatbelt Use: never Sunscreen Use: No Assistive Devices: Oxygen - Continuous and Walker Results & Data ([facility]) Vital Signs (Past 12 Hours) Vital Signs Temp Pulse Pulse Resp BP Pulse Ox 05/18/21 12:30 65 111/64 05/18/21 11:32 36.8 C 64 20 99/55 L 98 05/18/21 08:02 36.7 C 64 18 92/48 L 98 05/18/21 07:00 65 05/18/21 04:24 36.7 C 64 18 96/46 L 97 He is awake alert and oriented x3 he is short of breath talking in sentences. HEENT: Moderately reduced carotid upstrokes Lungs: Decreased breath sounds approximately a third [address] way up bilaterally Heart: Regular rate and rhythm (atrial flutter) with a harsh 3 out of 6 crescendo decrescendo murmur which is honking and late peaking, S2 is now preserved psychiatric his affect appeared appropriate Abdomen: Soft distended positive bowel sounds Extremities: Marked pitting edema to the knees bilaterally All of his diagnostic studies outpatient and inpatient records were reviewed IMPRESSIONS: 1 critical aortic stenosis with a dimensionless index of 0.17 and a mean gradient of 60 mmHg in the face of an ejection fraction in the 35 to 40% range March 2021 2. Acute on chronic systolic, valvular, and diastolic heart failure 3. Acute on chronic kidney injury with a baseline creatinine of 1.3 in January; 2.22 this admission now with a creatinine of greater than 5 4. Hyponatremia new this admission 5. Admitted for pneumonia this admission 6. History of 2 small pulmonary emboli fall 2020 7. Atrial flutter with a controlled ventricular rate 8. On anticoagulation as an outpatient along with amiodarone As was discussed with Hayden his family and the primary service, I believe he needs to be transferred to [facility] for balloon valvuloplasty of his aortic valve. This is the best chance that we can improve forward flow to his kidneys and reduce his heart failure symptoms in the short-term. He may benefit from dobutamine upon arrival at [facility] [place] [facility] depending on his tolerance as well as the need to avoid worsening his underlying heart rate as well as any ventricular ectopy. The best case scenario is that with valvuloplasty and improvement in forward flow and reduction in back pressure into his lungs and right-sided heart failure that we can stabilize him and ultimately down the road if things improve he could undergo transaortic valve replacement. The reason he cannot undergo TAVR immediately is the fact that he would need contrast for both a cardiac catheterization as well as CT angiogram of his entire aorta which would place him on dialysis given his current renal function. This was discussed with the transferring team at [facility] in detail as well as the primary service here. Please see the first For the amount of time spent just reviewing his records and in conversation.
--- NOTE | 2021-05-18 13:21 | Discharge Summary ---
Date of Service May 18, 2021 Admission HPI Per Admitting Provider 70 yo maleMrWhit Robert is a 70 y/o WM with a PMHx of CHF- Diastolic dysfunction, Severe , CKD, COPD (uses nocturnal O2), CKD, remote h/o PE (03/20-- on Eliquis), PMR- on chronic prednisone therapy, and RA. He presented to the ED with progressive SOB ongoing. even before his most recent admission in March. Family at bedside report that he has not improved since discharge and has not truly returned to baseline. Patient as remained SOB. Patient has orthopnea and requires to sleep upright in a recliner. Patient also has noticed worseneing of his lower extremity edema. Using his nebulizer more often without improvement in symptoms. Denies CP/palpitations or hemoptysis/cough. During time in the ER, patient had a brief episode of epistaxis which improved with pressure. Admission Exam Per Admitting Provider General: sitting at the bedside. Breathing appears to be labored. HEENT: Head is AT/NC Neck: unable to appreciate JVD. Cardiac: Irregular rate but regular rate and rhythm with 3/6 holosystolic murmur Lungs: bibasilar crackles Abdomen: Mildly distended soft and nontender in all quadrants. Extremities: 3+ pitting edema tracking proximally involving the lower legs and thighs. Neuro: A&O X4 cranial nerves II through XII are grossly intact no focal neuro deficits Skin: No obvious skin lesions or rashes Psych: Appropriate affect pleasant and cooperative Principal Diagnosis Aortic Stenosis, CHF, Dig Toxicity, Acute on Chronic Renal Failure Discharge Exam General: fatigued chronically ill appearing male sitting up in recliner, no acute distress Eyes anicteria, pupils equal and reactive ENT- mmm, rhino rocket (balloon deflated) to R nares, dried blood but no active bleeding trachea midline without deviation, +JVD CV: irregularly irregular, S1/quiet S2 2nd to harsh 3-4/6 systolic mumur with ra diation to carotids, calves non-tender but has 4+ edema b/l with DANE wraps in place Resp: no accessory muscle use, not tachypneic, diminished in the bases with scattered wheezing, on 2L NC Abd: +BS, +distended, non-tender, no guarding or rigidity, +umbilical hernia (non-tender), surgical scar anneliese-umbilical from prior ileocecectomy Skin: cool, dry, b/l LE pitting edema with DANE wraps Neuro: no focal deficit, teradata solution architect intact MSK: moves all extremities Psych: AOx3, tired, cooperative Discharge Data Allergies Allergy/AdvReac Type Severity Reaction Status Date / Time grass pollen Allergy Mild Verified 05/10/21 17:24 Sulfa (Sulfonamide AdvReac Unknown Unknown Unverified 05/10/21 17:24 Antibiotics) Consultations 05/10/21 17:33 ED Decision to Admit Stat 05/10/21 18:38 Consult Cardiology Routine 05/13/21 13:10 Consult Nephrology Routine 05/15/21 09:25 Consult Gastroenterology Routine 05/17/21 20:43 Consult Urology Routine 05/18/21 11:28 Consult Cardiology Routine 05/18/21 12:47 Burn CD for patient Routine Ordered Studies Chest X-Ray 05/10/21 15:53 XR chest 1V portable CLINICAL HISTORY: Dyspnea. Follow-up right basilar atelectasis versus infiltrate COMPARISON STUDY: 04/23/2021 TECHNIQUE: 1 view of the chest FINDINGS: Single frontal view of the chest demonstrates the cardiomediastinal silhouette to be within normal limits. Compared to previous examination, there is increased opacity seen at the right lung base most characteristic of pneumonia. There is also a small right pleural effusion. Left hemithorax is clear. There is no evidence for left pleural effusion. There is no evidence for vascular congestion. There is no acute osseous pathology. IMPRESSION: Interval increased right lower lobe alveolar opacity characteristic of pneumonia. There is also small right pleural effusion. ACT 112: Negative or not required by law. Electronically signed by: Franklin Garcia M.D. 05/10/2021 4:12 PM Chest X-Ray 05/12/21 08:09 TWO VIEW CHEST CLINICAL HISTORY: Pneumonia. FINDINGS: AP and lateral chest radiographs are compared to study dated 05/10/2021. Correlation is made with chest CT dated 03/28/2021. The heart is enlarged noting atherosclerotic calcification of the thoracic aorta. Emphysema and chronic interstitial thickening is similar to previous. There are bilateral airspace opacities, most confluent at the right lung base There are small pleural effusions, right larger than left. No pneumothorax is seen. The skeletal structures are osteopenic. There are healed left-sided rib fractures. Degenerative change is noted in the thoracic spine. IMPRESSION: 1. Cardiomegaly and emphysema. 2. Bilateral airspace opacities, most confluent in the right lung base. This could represent pulmonary edema and/or multifocal pneumonia. Clinical correlation will be required and radiographic follow-up to resolution is recommended. 3. Small pleural effusions. ACT 112: Negative or not required by law. Electronically signed by: Rey Cancino M.D. 05/12/2021 10:12 AM Chest X-Ray 05/16/21 06:00 TWO VIEW CHEST CLINICAL HISTORY: Pneumonia. FINDINGS: AP and lateral chest radiographs are compared to study dated 05/12/2021 and correlated with chest CT dated 03/28/2021. The patient's head obscures the apices. The heart is enlarged noting atherosclerotic calcification of the thoracic aorta. Emphysema and chronic interstitial thickening is similar to previous. There is a small right pleural effusion with right basilar consolidation. Dependent opacities at the left lung base likely represent atelectasis. There is no pneumothorax. The skeletal structures are osteopenic. The bony thorax appears intact. Degenerative change is noted throughout the thoracic spine. IMPRESSION: 1. Cardiomegaly and emphysema. 2. There is a small right pleural effusion with right basilar consolidation. This has increased as compared to 05/12/2021. Radiographic follow-up to resolution is recommended. ACT 112: Negative or not required by law. Electronically signed by: Rey Cancino M.D. 05/16/2021 8:18 AM Renal Ultrasound 05/16/21 13:30 ULTRASOUND KIDNEYS AND BLADDER CLINICAL HISTORY: Worsening renal failure. Urinary retention. COMPARISON STUDY: Abdominal CT dated 03/28/2021. TECHNIQUE: Real-time, grayscale, and color flow sonography of the kidneys and bladder is performed. Images are reviewed in the transverse and longitudinal planes. FINDINGS: Kidneys: The kidneys demonstrate cortical atrophy. Echotexture is normal. The right kidney measures 10.1 x 4.7 x 5.2 cm and the left kidney measures 10.7 x 5.2 x 5.6 cm. There is no hydronephrosis. No shadowing renal calculi are binu ntified. There is no sonographic evidence of contour deforming renal mass lesion. No perinephric fluid is identified. Bladder: The bladder is mildly distended. The bladder wall appears thickened and trabeculated suggesting chronic outlet obstruction. Ureteral jets were not seen. IMPRESSION: 1. The kidneys demonstrate cortical atrophy and are without hydronephrosis. 2. The bladder is mildly distended, and the appearance of the bladder wall suggests the sequelae of chronic outlet obstruction. ACT 112: Negative or not required by law. Electronically signed by: eRy Cancino M.D. 05/16/2021 2:12 PM Chest X-Ray 05/17/21 07:00 SINGLE VIEW CHEST CLINICAL HISTORY: Pneumonia. FINDINGS: 2 AP, portable, upright chest radiographs are compared to study dated 05/16/2021 and correlated with chest CT dated 03/28/2021. The heart is enlarged noting atherosclerotic calcification of the thoracic aorta. Emphysema and chronic interstitial thickening is similar to previous. There is a small right pleural effusion with right basilar consolidation. Dependent opacities are also seen at the left lung base. There is no pneumothorax. The skeletal structures are osteopenic. The bony thorax appears intact. Degenerative change is noted throughout the thoracic spine. IMPRESSION: 1. Cardiomegaly and emphysema. 2. A right pleural effusion with right basilar consolidation has not significant changed from yesterday. Radiographic follow-up to resolution is recommended. ACT 112: Negative or not required by law. Electronically signed by: Rey Cancino M.D. 05/17/2021 7:41 AM Abdomen/Pelvis CT 05/17/21 20:49 CT SCAN OF THE ABDOMEN AND PELVIS WITHOUT IV CONTRAST CLINICAL HISTORY: Acute renal insufficiency. COMPARISON STUDY: Abdominal CT dated 03/28/2021. TECHNIQUE: CT scan of the abdomen and pelvis is performed from the lung bases to the proximal femora. Images are reviewed in the axial, sagittal, and coronal planes. IV contrast was not administered for this examination. A dose lowering technique was utilized adhering to the principles of ALARA. CT DOSE: 1234.92 mGy.cm FINDINGS: Lung bases: The heart is enlarged and without pericardial effusion. There is a small right pleural effusion with dense right basilar consolidation. There is trace left pleural effusion, as well as left basilar scarring/atelectasis. Liver: The unenhanced liver is normal in size, contour, and attenuation. There is no intrahepatic biliary ductal dilatation. Gallbladder: There are numerous calcified gallstones with no CT evidence of acute cholecystitis. Spleen: The spleen is mildly enlarged measuring 14.7 cm in length. Pancreas: The unenhanced pancreas is moderately atrophic and grossly unre markable. Adrenal glands: Unremarkable. Kidneys: The unenhanced kidneys are atrophic and without hydronephrosis. There are no renal calculi identified. There is no evidence of contour deforming renal mass lesion. Nonspecific perinephric stranding is similar to previous. Abdominal vasculature: The abdominal aorta is normal in course and caliber noting advanced atherosclerotic calcification. Bowel: There is moderate to advanced colonic diverticulosis without CT evidence of acute diverticulitis. No bowel obstruction is seen. The appendix is not identified. Postoperative change in the right lower quadrant suggests previous appendectomy. Peritoneum: There is no intraperitoneal free air or abdominal ascites. There is our fat-containing umbilical and supraumbilical hernias. Lymphadenopathy: None. Pelvic viscera: The bladder is decompressed around a Flores catheter and not well evaluated. There is mild pericystic stranding. The prostate gland is diminutive and heterogeneous. Skeletal structures: The skeletal structures are osteopenic. There is moderate lumbosacral spondylosis. Sclerotic change is noted in the sacroiliac joints. No lytic or blastic lesions are seen. IMPRESSION: 1. The kidneys are atrophic and without hydronephrosis. 2. The bladder is decompressed around a Flores catheter and not well evaluated. There is mild pericystic stranding. Correlate with urinalysis. 3. Right pleural effusion with dense right basilar consolidation. The appearance is typical for pneumonia, and radiographic follow-up to resolution is recommended. 4. Cardiomegaly and trace left pleural effusion. 5. Cholelithiasis. 6. Moderate to advanced colonic diverticulosis without CT evidence of acute diverticulitis. 7. Mild splenomegaly. 8. Additional findings as above. ACT 112: Negative or not required by law. Electronically signed by: Rey Cancino M.D. 05/17/2021 10:35 PM Hospital Course (1) Right lower lobe pneumonia: Patient admitted with RLL PNA on admission/CHF exacerbation (felt intravascularly depleted though as wt down on admission) with elevated BNP and recent PE in February 2021 on Eliquis and now +fecal occult blood but no franklin bleeding and on PPI BID with need for outpt c-scope in follow-up. Placed on Zosyn IV on admission, transitioned to Augmentin and extended course to 10 days (also covering for enterococcus in urine) Repeat CXR --> cardiomegaly and emphysema. R pleural effusion w/ R basilar consolidation (of note, small focal groundglass airspace opacity w/i periphery of RML on prior CTA from February admission as well as 2 subsegmental emboli w/i R lung) On 2L NC , sat currently 98% -- wean as tolerated given severe COPD and should be more like 88-90% per [facility] pulm notes and discussed with patient on multiple occassions BCx NGTD Sputum with light normal titus Continued flutter valve, incentive spirometer, xopenex prn Unfortunately, patient's kidney function continued to decline despite holding diuretics (of note, extra dig last admit in setting of acute kidney failure and no dig level checked and admitted with dig tox requiring dose of digibing) and placed on gentle IVF 05/17 as Fena still low indicating dry. Had decreased appetite from pneumonia but had been improving. Cr now >5, risk for HD. Nephrology following. Renal US/CTAP without nephrolithiasis or obstructive pathology causing worsening Cr. Has gotten 5 doses Venofer. Albumin x 3 for low BPs. Midodrine starting 2.5mg TID for BP support and currently 99/55. Repeat urine cxs without evidence for granular casts --> This morning, ordered 4mg IV bumex x 1. Discussed HD with patient in event of need for such Did discuss with Dr. Mckinney, regarding more urgent need for transfer for either balloon to help forward flow/eventual need for TAVR. Consult pending and he will assist with reaching out to interventional cardiology at [facility] about transfer for such. Worsening kidney function/hypotension as below, also with +fecal occult/anemia, CHF -- see below 05/18 12:30pm-- spoke with Dr. Mckinney. Dr Macias at [facility] able to accept in transfer. Will obtain COVID -19 testing and arrange for transportation -- NEGATIVE Updated patient and family. Agreed with Dr cMkinney, patient with critical aortic stenosis with a dimensionless index of 0.17 and a mean gradient of 60 mmHg in the face of an ejection fraction in the 35 to 40% range March 2021, now with Cr >5 with baseline ~1.3 in January, worsening hyponatremia Per Dr Mckinney, "I believe he needs to be transferred to [facility] for balloon valvuloplasty of his aortic valve. This is the best chance that we can improve forward flow to his kidneys and reduce his heart failure symptoms in the short-term." "may benefit from dobutamine upon arrival at [facility] depending on his tolerance as well as the need to avoid worsening his underlying heart rate as well as any ventricular ectopy. The best case scenario is that with valvuloplasty and improvement in forward flow and reduction in back pressure into his lungs and right-sided heart failure that we can stabilize him and ultimately down the road if things improve he could undergo transaortic valve replacement. The reason he cannot undergo TAVR immediately is the fact that he would need contrast for both a cardiac catheterization as well as CT angiogram of his entire aorta which would place him on dialysis given his current renal function." (2) Acute heart failure with preserved ejection fraction: Heart failure with preserved ejection fraction on previous echo, however recent ECHO with decrease EF 35-45% from previous value 50% in November 2020 recent decrease in EF thought 2nd to afib with RVR/aflutter (STILL IN FLUTTER, "RATE CONTROLLED" BNP >76663 during admission Acute on chronic combined systolic and diastolic heart failure Cardiology on consult -- FELT hypovolemic intravascularly given weight down on admission Continue to hold Lasix per cardiology and nephrology * Wt actually down from admission but still with significant LE edema --> improving some with DANE wraps --> continued, daily changes * Inaccurate I&Os, unmeasured voids * Wt 116kg (was 114kg at d/c 04/26) Given albumin for low BP -- SEE ABOVE, now on midodrine for BP support and currently 90s/50s Continued on amiodaron, eliquis (missed evening dose for hematuria reported, resumed this morning given PE feb 2021) Digoxin held and patient given dose of Digibind for elevated dig level -- > per cardiology, recs to discontinued this agent moving forward (After Digibind is given, the lab assay test for digoxin levels becomes an accurate as it measures total digoxin even that bound to the Nestor) LDH not elevated to suggest hemolysis -- see above regarding anemia REPEAT ECHO 05/15 WITH SIGNIFICANTLY DILATED IVC, INDICATING NEED FOR DIURETICS, DISCUSSED WITH NEPHRO, WOULD NOT GIVE GIVEN HYPOTENSION, CONCERNS REGARDING MIDODRINE AND HIS AORTIC STENOSIS BUT OK PER CARDIOLOGY AND WILL ORDER TO SEE ABOUT ABILITY TO RESTART SOME DIURETIC THERAPY --> MIDODRINE STARTED 05/16 and BPs improved, continued however weight now 116kg and worsening sob/need for diuretic therapy per nephrology IVF d/c as above Bumex 4mg IV x 1 now Working on 2nd opinion as above for consideration for transfer/assistance with such for at least balloon angioplasty for temporizing until able to undergo TAVR (Discussed with patient and /son on phone this morning) Cards consult pending -- appreciate assistance -- see above, transferring patient to [facility], Dr Macias accepting provider (3) Acute kidney injury superimposed on chronic kidney disease: Cr 2.33 on admission Holding diuretics as above, avoiding nephrotoxic agents --> per nephro would utilize weight based diuretics for wt >114kg Given albumin 05/14, NSS 250cc, Vit D replacement Venofer x 5 doses Additional albumin 05/15, 05/16 to help with intravascular volume. Holing terazosin since 05/14 (having difficulty with voiding completely and asked RN to bladder scan to see about retention) Fena calculated low days prior and indicated intravascular depletion and was placed on gentle IVF @ 60cc/hr overnight Renal US without obstruction but had some clots. CTAP last evening without obstruction and flores with clear yellow in bag currently. No intervention per URology BP support with midodrine 2.5mg TID --> had pressures systolically in 70s days previous but no granular casts on multiple UAs to indicate ATN causing worsening renal failure CrUP TO 5.19 on 05/18 --> Nephro following while inpatient Stopped IVF, provided bumex 4mg IV x 1 (WEIGHT 116KG TODAY) and they discussed possible need for HD with patient Attempting to have cards 2nd opinion/consideration for tx for balloon/eventual TAVR -- transferring as above for valvuloplasty as bridge until able to have TAVR (4) Severe aortic valve stenosis: Patient said he is open to being evaluated for possible TAVR We will defer to cardiology for further investigation and also cardiothoracic surgery as outpatient -- per Dr Centeno, not urgent at this time, however I am concerned given continued hospitalization and almost absent S2 and need for more urgent eval. echo with EF 40-45%, Lmild AR, MODERATE MITRAL REGURGITATION, IVC severely dilated -- compared to prior, overall LV systolic function appears slightly better however IVC severly dilated indicating volume overload state Gentle IVF for continued intravascular depletion overnight 05/17 --> stopped this morning Nephro ordered bumex 4mg IV x 1 Cards on consult for eval/possible need for more urgent transfer as above for balloon as temporizing measure to help improve renal perfusion prior to TAVR (5) Elevated digoxin level: Digoxin level noted to be elevated, 4.6 Likely exacerbated by giving 250 mcg dose in the setting of renal impairment We will hold digoxin, check a level in the morning --> repeat 3.6 (given per cardiology on 05/11) as noted above --> dig discontinued moving forward per cards No need for additional digibind at this time (6) Positive fecal occult blood test: +fecal occult but no franklin bleeding, s/p 5 doses venofer prior abnormal cologuard and c-scope with Dr barber in 2018, unable to biopsy one area and referral to surgery --> 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 Mother with hx colon ca Prior CTAP last admission without obvious mass noted Likely given recent eliquis initiation February for his PE. No upper abd pain. GI consulted --> protonix 40mg BID. No plans for inpatient scope, high risk. rec for at tertiary care where he would also have consideration for his TAVR Venofer x 5 days, hgb stable at 9.1 (7) Anemia: normocytic -- 2nd to anemia but possible occult losses while on eliquis since diagnosis of PE in Feb 2021, also possible valvular disease/hemolytic anemia. b12/folate without deficiency Also may have lost some blood from his epistaxis, but suspected not that much iron def with low iron sat, and was given dose of venofer on 05/13, then scheduled x 5 days Albumin provided, repeat ECHO (improvement in EF reported, mod MR) LDH wnl suggesting against hemolysis Haptoglobin pending + fecal occult as above --> GI consult --> PPI BID --> outpatient endoscopy at tertiary center when eval for TAVR --> repeat hgb today 9.1 from 8.8 Of note PPI likely contributing to worsening kidney failure along with HYPOTENSION (improved) -- see below (8) Epistaxis: Now resolved with rhino rocket Hold off on removal of nasal balloon until after consultation with ENT as this is in the setting of anticoagulation --> discussed with patient and will continued to hold and arrange for outpt follow up with ENT Rhino rocket deflated but per Dr Montano to remain in place for fear scab dislodged/rebleeding on anticoagulation for recent PE which cannot be held. --> will need to arrange outpt f/u for removal in office in case of cautery need (9) Acute hyponatremia: serum Na 128 today, worsening volume overload on ECHO 05/15 as above -- prior hospitalization reported chronic in nature 2nd to overdiuresis and improved with NSS Although patient appears fluid overloaded on account of bilateral leg edema, he may HAVE BEEN intravascularly depleted given such per nephrology/cardiology as above and LE edema from venous stasis as sits in chair all day of note, also on tramadol prn (and steroids for PMR) which could be contributing TSH normal Urine osm higher than expected per Nephro and points to ADH activity -- agreed patient clinically volume contracted and LE swelling likely related to elevated R pressure (as well as hypoalbuminemic state). --> Gave 12.5g albumin 05/14,16, 17. no further Repeat urine studies without ATN however still Fena low, IVF as above cork grinder consult for assessment/supplementation -- boost with dinner. continues to follow/adjust WORSENING hyponatremia 2nd to acute on chronic CHF as above Bumex 4mg IV x 1 now, repeating labs this afternoon (10) Essential hypertension: BPs had been low DIuretics held as above on admission, then held terazosin Midodinre started and continued 2.5mg TID --> BP 90s systolically today Bumex 4mg IV x 1 as per nephro --> BPs currently 111/64 currently CONTINUE TO MONITOR (11) Atrial flutter with rapid ventricular response: history from previous hospital stay and remains in aflutter/rates in 80s, rate controlled dig on hold given elevated dig level, given digibind as above --> digoxin discontinued Continue amiodarone Continue apixaban (missed evening dose 05/17 as above) continued monitoring on telemetry -- flutter 60s (12) Pulmonary embolism: Recent finding(diagnosed 02/2021) Continue Eliquis BID (missed evening dose 05/17 as above, resumed this morning) (13) Polymyalgia rheumatica: prednisone restarted 5mg daily, not ordered on admission extra dose 05/14 for hypotension, ?need for stress dosing --> WOULD AVOID given + fecal occult as above, utilizing midodrine for BP (14) COPD (chronic obstructive pulmonary disease): continue nebs, abx, tx as above WEAN OXYGEN TO MAINTAIN SAT 88 OR GREATER! (15) Vitamin D deficiency: in patient with CKD, previously on supplementation. Repeat level 13 -- ordered supplementation and would continue at discharge worsening kidney function nephro ordered bumex 4mg IV x 1 now, repeating labs this afternoon Dr Mckinney to [facility] -- appreciate assistance. Consideration for tx to [facility] for balloon/intervention for aortic stenosis to help with forward flow Updated patient and then called to discuss plan of care with Polly and son on the phone this morning. Patient high risk for TAVR in any case, but given worsening heart failure in the setting of hypotension/renal failure would anticipate expedited need for intervention. May be difficult to find patient a bed, and will reach out to other facilities if [facility] unable to take/alternative recommendations made by Dr. Mckinney --> tx to [facility], , accepting provider Dr Macias. Arrangements being made for transfer with ACLS. Total Time Total Time Spent Total Time Spent (In Minutes): 90 Discharge Plan Discharge Items Patient Disposition: Transfer Acute Care Hospital Reason For Visit: SOB Discharge Diagnosis: Aortic Stenosis, Worsening Kidney Failure, CHF Goals: You have been hospitalized for an acute medical problem. During your stay at [facility], we have made an effort to correct the problem that brought you to the hospital while keeping you as comfortable as possible. Medications were used to bring your condition under control and your discharge i nstructions will include directions for any medications you should take after leaving the hospital. Please make sure you see your Primary Care Provider as part of your follow up plan. Activity: As commented below Non-emergency contact: Primary Care Provider, Specialist, Civil Design Technician, Escrow Secretary and Supervisor [employer] Call non-emergency contact if: you have any medication questions Follow-up/Referrals: Cesar Barber DO [Physician] - Israel Centeno MD [Physician] - Tracy Gomez MD [Primary Care Provider] - Krystin Montano MD [Physician] - (for Rhino Rocket extraction/cautery in office) Diet: Heart Healthy Addtl Attending Provider Instructions: You have been hospitalized and noted to have right sided pneumonia, aortic stenosis (severe), CHF (although volume depleted on admission), and worsening kidney failure likely secondary to digoxin toxicity in setting of UTI, requiring Digibind and this has been discontinued. Cardiology, Nephrology, Urology and Gastroenterology consulted while inpatient. Unfortunately kidney function continues to worsen and is likely due to your significant aortic stenosis and consultation with Dr Mckinney was taken and you are being made arrangements for transfer to [facility] for aortic valvuloplasty with balloon as a temporary fix to help with blood flow/perfusion to your kidneys and prevent backwards flow, and you will eventually need a valve replacement to prevent continued issues. You will need follow up with ENT after discharge for removal of rhino rocket. You need follow up with GI for colonoscopy after valve is addressed given your underlying anemia and positive blood noted in school. You will be sent with flores catheter and can try voiding trial at [facility] once other issues are resolved. You have completed a course of antibiotics 7 days however these have been extended given enterococcus on urine culture recollected on 05/16. Pending Studies at Discharge: Yes Studies:: Repeat urine cx Stand-Alone Forms: My [facility] Skilled Items Patient informed of condition?: Yes DNR: No Discharge Level of Care: Other Communicable Disease: No Discharge Prognosis: Deteriorating Lines: Peripheral IV Urinary Catheter: Yes Medications and DC Order Prescriptions: New amoxicillin-pot clavulanate 500-125 mg Tablet 1 tab PO BIDM Qty: 0 RF: 0 pantoprazole 40 mg Tablet,Delayed Release (Dr/Ec) 40 mg PO BID Qty: 0 RF: 0 allopurinol 100 mg Tablet 50 mg PO Q48H Qty: 0 RF: 0 ergocalciferol (vitamin D2) 1,250 mcg (50,000 unit) Capsule 50,000 unit PO We@1600 Qty: 0 RF: 0 Continued finasteride 5 mg tablet 5 mg PO QAM Qty: 30 RF: 11 terazosin 5 mg capsule 5 mg PO QPM Qty: 90 RF: 1 cyclobenzaprine 10 mg tablet 10 mg PO TID PRN (Reason: muscle spasm) Qty: 30 RF: 0 amiodarone 200 mg tablet 200 mg PO DAILY Qty: 90 RF: 3 Eliquis 5 mg tablet 5 mg PO BID Qty: 90 RF: 3 levalbuterol HCl 0.63 mg/3 mL solution for nebulization 0.63 mg NEB Q6R PRN (Reason: shortness of breath or wheezing) Qty: 90 RF: 0 sennosides [Senokot] 8.6 mg Tablet 8.6 mg PO BID RF: 0 acetaminophen [Tylenol Extra Strength] 500 mg Tablet 1,000 mg PO Q6H PRN (Reason: Pain) RF: 0 loratadine [Claritin] 10 mg Tablet 10 mg PO QAM RF: 0 Spiriva with HandiHaler 18 mcg Capsule, W/Inhalation Device 1 cap INHALATION HS RF: 0 budesonide-formoterol [Symbicort] 160-4.5 mcg/actuation Hfa Aerosol Inhaler 2 puff INHALATION BID RF: 0 prednisone 5 mg tablet 5 mg PO DAILY RF: 0 Boost 0.04 gram- 1 kcal/mL Liquid 1 ea PO DAILY RF: 0 Probiotic 3 billion cell Capsule 3,000 mmu cells PO DAILY RF: 0 tramadol 50 mg tablet 50 - 100 mg PO Q6H PRN (Reason: pain) RF: 0 Discontinued digoxin 250 mcg (0.25 mg) tablet 250 mcg PO DAILY Qty: 90 RF: 3 allopurinol 300 mg tablet 300 mg PO DAILY RF: 0 omeprazole 40 mg capsule,delayed release(DR/EC) 40 mg PO QAM RF: 0 famotidine 20 mg Tablet 20 mg PO QDD RF: 0 Discharge Orders: Discharge Order (Routine); Ordered 05/18/21 Ordered By: Jimena Ryan Admission Data Admit Date/Time: 05/10/21 18:44 Attending Provider: Dallas Chadwick Admit Provider: Deon Wetzel Primary Care Provider: Tracy Gomez Other Providers: Deon Wetzel ; Israel Centeno ; [place] ; Charly Chase ; [facility] ; Augustus Boudreaux [facility] ; [place] ; Cesar Barber ; Petr Arias ; Darnell Mckinney Supervising Physician Co-Signing Physician Notes I personally examined the patient and verified all chandler points of history and exam, discussed case, and agree with decision making with Sera Ryan PAC no sob. fluids going. is now set up for transfer for balloon valvulplasty vitals noted on 2L O2,breathing unlabored no accessory muscles good effort ARF - most signs point to prerenal - continue to cautiously hydrate and follow closely due to baseline cardiomyopathy - if able to successfully balloon, could then likely increase fluids with less risk, and better forward flow likely would help as well - for transfer in anticipation of balloon, eventually tavr otherwise as above Coding Level of Care Code D/C DAY MANAGEMENT >30 MINS Diagnoses Right lower lobe pneumonia J18.9 Pneumonia type: due to unspecified organism Positive fecal occult blood test R19.5 Anemia D64.9 Acute kidney injury superimposed on chronic kidney disease N17.9; N18.9 Acute heart failure with preserved ejection fraction I50.31 Elevated digoxin level R78.89 Epistaxis R04.0 Acute hyponatremia E87.1 Severe aortic valve stenosis I35.0 Essential hypertension I10 Atrial flutter with rapid ventricular response I48.92 Pulmonary embolism I26.99 Acute cor pulmonale presence: unspecified Chronicity: unspecified Pulmonary embolism type: unspecified Polymyalgia rheumatica M35.3 COPD (chronic obstructive pulmonary disease) J44.1 COPD type: COPD with acute exacerbation Vitamin D deficiency E55.9
[2021-05-18] MEDS ORDERED: Nursing to Pharmacy Communication SCH (13:30)
[2021-05-18] MEDS ORDERED: TAMSULOSIN HCL 0.4 MG CAP PO SCH (21:00)
== END 2021-05-18 16:15 | disposition short-term general hospital (02) | DRG 291 ==
LOC: ED 15:39 → EDINP 18:44 → SUATTDRO 18:44 → 2N 05-11 00:40

== ENCOUNTER 2021-08-05 10:14 | Inpatient (IN) ==
[2021-08-05] MEDS ORDERED: SODIUM CHLORIDE 0.9% 500 ML IV ONE (10:45)
--- NOTE | 2021-08-05 10:49 | Emergency Department Note ---
Impression & Plan Pulmonary emboli, Pacemaker, Leukopenia ED Provider Note NAME: ANDRES PETERSON AGE: 71 SEX: M : 1950 ARRIVES VIA: Walk-In INFORMANT: Patient ED PROVIDER(S): Dallas Flaherty DO CHIEF COMPLAINT: shortness of breath, N,V,D HPI: Patient is a 71-year-old male who was referred in by his cash control specialist Dr. Leon's office. He was for the past 24 hours having nausea and vomiting started last night. Last time he vomited was around 530 this morning. He does start keeping down clear liquids and the small mount of toast this morning. He called the office and was referred in. He did admit that he was having shortness of breath over the past week. Shortness of breath has been gradually getting slightly worse. Denies any cough or runny nose. No loss of taste or smell. Again this April did have a TAVR x2 as well as a cardiac arrest with an ICD placement [employer]. Shortness of breath is mainly worse when up moving around. When he is at rest he is okay. He notes he has been able to do more after doing physical therapy over the past week but is not sure whether the shortness of breath is related to the increased activity versus worsening symptoms. ROS: See above HPI for pertinent positives & negatives. A total of 10 systems reviewed and were otherwise negative. PAST MEDICAL HISTORY:See Below PAST SURGICAL HISTORY:See Below FAMILY HISTORY:See Below SOCIAL HISTORY:See Below HOME MEDICATIONS:See Below ALLERGIES:See Below VITALS:See Below PHYSICAL EXAMINATION: GENERAL: Sitting up in bed, alert, well appearing, well nourished, no distress, non-toxic EYE EXAM: normal conjunctiva. PERRL and EOM's grossly intact. OROPHARYNX: no exudate, no erythema, lips, buccal mucosa, and tongue normal and mucous membranes are moist NECK: supple, no nuchal rigidity, no adenopathy, non-tender LUNGS: Clear to auscultation. Normal chest wall mechanics HEART: no murmurs, S1 normal and S2 normal ABDOMEN: abdomen soft, non-tender, normo-active bowel sounds, no masses, no rebound or guarding. UPPER EXTREMITIES: upper extremities are grossly normal. LOWER EXTREMITIES: No pitting edema. NEURO EXAM: Normal sensorium, cranial nerves II-XII grossly intact, normal speech, no gross weakness of arms, no gross weakness of legs. MEDICAL DECISION MAKING: Patient is a 71-year-old male who presents ER for nausea vomiting and worsening shortness of breath of the past several days. He had a recent admission and discharge from [facility] following a TAVR x2 with reported tamponade and cardiac arrest with an ICD placement and evacuation back in May. IV was established blood was obtained. Labs show leukopenia 3.2 as well as anemia 11 and thrombocytopenia 97. BMP with a creatinine 1.4. LFTs bilirubin were unremarkab le. Troponin was detectable but not positive. Lipase was normal. UA with epithelial cells suggesting contamination as well as possible yeast. CT angio of the chest showed no PEs. Discussed with Dr. Mandel from cardiology here reviewed his records and recommended heparin. Did not give him a bolus but rather started with low-dose heparin. Discussed with Enrique from admitting hospitalist team who accept the patient in admission. Patient was updated bedside. He had no other bleeding risk factors other than the recent procedure and tamponade which per cardio is felt to be secondary to recent intervention. Echo was ordered as well per Dr. Patel request. Triage Nursing notes reviewed. Limited review of prior medical records performed Vital Signs: reviewed and remarkable for no significant abnormalities Differential diagnosis: Differential diagnoses includes but is not limited to pneumonia, bronchitis, COPD/Asthma exacerbation, pneumothorax, pulmonary embolism, congestive heart failure, acute coronary syndrome ER treatment provided: See below Diagnostics interpreted by me: ECG: This rhythm rate of [address] wave changes in the high lateral leads as well as the lateral QTC 402 Cardiac Monitoring: An order was placed for continuous cardiac monitoring. The monitor shows a rate of 62 with sinus rhythm. Laboratory studies: As stated above and show below. Imaging studies: CT angio shows PEs CT abdomen pelvis showed no acute pathology with the exception of a right lower lobe nodule which will need to be followed up on Consultation(s): Discussed with Dr. Mandel from cardiology as stated above Discussed with Enrique Terry from admitting hospitalist as stated above Procedures: none Critical Care: I have personally spent 33 minutes of critical care time in the direct m anagement of this patient. This includes bedside care, interpretation of diagnostic studies, and testing, discussion with consultants, patient, and family members, and other required patient management activities. This 33 minutes is in excess of all separately billable procedures. Past Med/Surg History Medical History Atrial flutter Benign prostatic hyperplasia with urinary obstruction and other lower urinary tract symptoms Chronic heart failure with preserved ejection fraction Chronic obstructive pulmonary disease SEVERE per pulm 08/09. Uses inhalers daily and prn Chronic systolic heart failure CKD (chronic kidney disease) stage 2, GFR 60-89 ml/min Colon polyp COPD (chronic obstructive pulmonary disease) Diastolic dysfunction History of colon polyps History of elevated glucose History of smoking at least 1 pack per day for at least 30 years Obesity (BMI 30-39.9) Osteoarthritis Polymyalgia rheumatica Renal disease Severe aortic valve stenosis Surgical History H/O rectal polypectomy History of bilateral cataract extraction History of colonoscopy History of cystoscopy History of elbow surgery left ulnar nerve History of hernia repair Laparoscopic History of surgical removal of terminal ileum History of wisdom tooth extraction Family History Brother Family history of diabetes mellitus Family hx colonic polyps Prostate cancer Myocardial infarction H/O heart bypass surgery Mother Colorectal cancer Other No family history of adverse response to anesthesia Denies family history of Ovarian cancer Breast cancer Lung cancer Social History Smoking Status: Never smoker Tobacco Type: Cigarettes Second Hand Exposure: No; Hx Alcohol Use: No Hx Substance Use: No Preferred Language: Lebanese Communication Ability: Effective Visual Impairment: Limited 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 Beliefs That Will Affect Care: None marital status: Current Living Situation: Spouse current occupational status: retired How many Children do You have: 1 Feels Safe at Home: Yes Childhood Exposure to Second-Hand Smoke: Yes caffeine: Yes (coffee, soda) Dental Care, Regularly: Yes Physical Activity Frequency: Does not Exercise Seatbelt Use: never Sunscreen Use: No Assistive Devices: Glasses and Oxygen - Continuous Allergies Allergies Allergy/AdvReac Type Severity Reaction Status Date / Time grass pollen Allergy Mild Verified 07/21/21 09:16 Sulfa (Sulfonamide AdvReac Unknown Unknown Verified 07/21/21 09:16 Antibiotics) Home Meds Home Medications Medication Instructions Recorded Confirmed budesonide-formoterol HFA 160 2 puff INHALATION BID 06/24/18 08/05/21 mcg-4.5 mcg/actuation aerosol inhaler (Symbicort) loratadine 10 mg tablet (Claritin) 10 mg PO QAM 06/24/18 08/05/21 tiotropium bromide 18 mcg capsule 1 cap INHALATION HS 06/24/18 08/05/21 with inhalation device (Spiriva with HandiHaler) sennosides 8.6 mg tablet (Senokot) 8.6 mg PO BID 12/21/19 08/05/21 prednisone 5 mg tablet 5 mg PO QAM 03/28/21 08/05/21 lactobacillus combination no.4 3 3,000 mmu cells PO QAM 04/21/21 08/05/21 billion cell capsule (Probiotic) aspirin 81 mg chewable tablet 81 mg PO QAM 06/17/21 08/05/21 omeprazole 40 mg capsule,delayed 40 mg PO DAILYBB 06/17/21 08/05/21 release terazosin 5 mg capsule 10 mg PO HS cap 06/17/21 08/05/21 sacubitril 24 mg-valsartan 26 mg 1 tab PO BID 07/15/21 08/05/21 tablet (Entresto) levalbuterol HCl 0.63 mg/3 mL 0.63 mg NEB Q6R PRN 07/21/21 08/05/21 solution for nebulization (Xopenex) bumetanide 1 mg tablet 0.5 mg PO QAM tab 08/04/21 08/05/21 albuterol sulfate 90 mcg/actuation 1 inh INHALATION QID PRN 08/05/21 08/05/21 aerosol inhaler amiodarone 200 mg tablet 200 mg PO QAM 08/05/21 08/05/21 folic acid 1 mg tablet 1 mg PO QAM 08/05/21 08/05/21 ipratropium 0.5 mg-albuterol 3 mg 3 ml INHALATION UD PRN 08/05/21 08/05/21 (2.5 mg base)/3 mL nebulization soln iron 150 mg-vit C 60 mg-folate 1 1 tab PO QAM 08/05/21 08/05/21 [id number] tablet (Niferex (Sumalate-Quatrefolic)) Previous Rx's Medication Instructions Recorded allopurinol 100 mg tablet 50 mg PO Q48H #0 tab 05/18/21 finasteride 5 mg tablet 5 mg PO QAM #30 tab 08/04/21 cyclobenzaprine 10 mg tablet 10 mg PO TID PRN #30 tab 08/05/21 Results & Data (ED) Vital Signs Vital Signs - 24 hr 08/05/21 10:17 08/05/21 10:33 08/05/21 11:38 Temperature 36.4 C L Temperature Source Temporal Artery Scan Pulse Rate 80 Pulse Rate [Apical] 69 Respiratory Rate 20 18 Respiratory Depth Normal Blood Pressure 117/62 Blood Pressure [Right Arm] 127/63 Blood Pressure Mean 80 Blood Pressure Mean [Right Arm] 84 Pulse Oximetry 94 93 Oxygen Delivery Method Room Air Room Air Room Air Oxygen Flow Rate 93 Sepsis Recent Fever Within 48 Hours No Sepsis New/Unexplained Change in Mental Status No Sepsis Action Taken by Nursing No Action Required Laboratory Data Result diagrams: 08/05/21 11:14 08/05/21 11:14 Lab Results 08/05/21 08/05/21 08/05/21 Range/Units 11:14 11:14 11:14 WBC 3.23 L (4.8-10.8) K/uL RBC 3.45 L (4.7-6.1) M/uL Hgb 11.1 L (14.0-18.0) g/dL Hct 34.8 L (42-52) % MCV 100.9 H (80-100) fL MCH 32.2 (25-34) pg MCHC 31.9 L (32-36) g/dL RDW Std Deviation 58.6 H (36.4-46.3) fL RDW Coeff of Nimesh 15.8 H (11.5-14.5) % Plt Count 97 L (130-400) K/uL MPV 10.2 (7.4-10.4) fL Immature Gran % (Auto) 0.3 % Neut % (Auto) 75.9 % Lymph % (Auto) 13.9 % Preston % (Auto) 7.1 % Eos % (Auto) 2.5 % Baso % (Auto) 0.3 % Neut # (Auto) 2.45 (1.4-6.5) K/uL Lymph # (Auto) 0.45 L (1.2-3.4) K/uL Preston # (Auto) 0.23 (0.11-0.59) K/uL Eos # (Auto) 0.08 (0-0.5) K/uL Baso # (Auto) 0.01 (0-0.2) K/uL Immature Gran # (Auto) 0.01 (0.00-0.02) K/uL PT 11.2 (9.0-12.0) Seconds INR 1.1 (0.9-1.1) Sodium 139 (136-145) mmol/L Potassium 4.2 (3.5-5.1) mmol/L Chloride 102 (98-107) mmol/L Carbon Dioxide 31 (21-32) mmol/L Anion Gap 6 (3-11) BUN 27 H (6-23) mg/dl Creatinine 1.44 H (0.6-1.4) mg/dl Est Cr Clr Drug Dosing 56.5 ml/min Est GFR ( Amer) 56.2 ml/min Est GFR (Non-Af Amer) 48.5 ml/min BUN/Creatinine Ratio 18.8 (10-20) Glucose 91 (70-99(Fasting)) mg/dl Calcium 9.6 (8.5-10.1) mg/dl Total Bilirubin 0.8 (0.2-1.0) mg/dl AST 12 L (13-39) U/L ALT 10 (7-52) U/L Alkaline Phosphatase 111 H (34-104) U/L Troponin I 0.03 (0-0.04) ng/ml Total Protein 6.8 (6.0-8.3) gm/dl Albumin 4.1 (3.4-5.0) gm/dl Globulin 2.7 (2.5-4.0) gm/dl Albumin/Globulin Ratio 1.5 (0.9-2) Lipase 10 L (11-82) U/L Urine Color Urine Appearance (Clear) Urine pH (4.5-7.5) Ur Specific Cade (1.000-1.030) Urine Protein (Negative) Urine Glucose (UA) (Negative) Urine Ketones (Negative) Urine Blood (Negative) Urine Nitrite (Negative) Urine Bilirubin (Negative) Urine Urobilinogen (Negative) Ur Leukocyte Esterase (Negative) Urine WBC (Auto) (0-5) /hpf Urine RBC (Auto) (0-4) /hpf U Hyaline Cast (Auto) (0-5) /lpf U Epithel Cells (Auto) (0-5) /lpf Urine Bacteria (Auto) (Negative) Urine Yeast (None Prsent) 08/05/21 Range/Units 11:14 WBC (4.8-10.8) K/uL RBC (4.7-6.1) M/uL Hgb (14.0-18.0) g/dL Hct (42-52) % MCV (80-100) fL MCH (25-34) pg MCHC (32-36) g/dL RDW Std Deviation (36.4-46.3) fL RDW Coeff of Nimesh (11.5-14.5) % Plt Count (130-400) K/uL MPV (7.4-10.4) fL Immature Gran % (Auto) % Neut % (Auto) % Lymph % (Auto) % Preston % (Auto) % Eos % (Auto) % Baso % (Auto) % Neut # (Auto) (1.4-6.5) K/uL Lymph # (Auto) (1.2-3.4) K/uL Preston # (Auto) (0.11-0.59) K/uL Eos # (Auto) (0-0.5) K/uL Baso # (Auto) (0-0.2) K/uL Immature Gran # (Auto) (0.00-0.02) K/uL PT (9.0-12.0) Seconds INR (0.9-1.1) Sodium (136-145) mmol/L Potassium (3.5-5.1) mmol/L Chloride (98-107) mmol/L Carbon Dioxide (21-32) mmol/L Anion Gap (3-11) BUN (6-23) mg/dl Creatinine (0.6-1.4) mg/dl Est Cr Clr Drug Dosing ml/min Est GFR ( Amer) ml/min Est GFR (Non-Af Amer) ml/min BUN/Creatinine Ratio (10-20) Glucose (70-99(Fasting)) mg/dl Calcium (8.5-10.1) mg/dl Total Bilirubin (0.2-1.0) mg/dl AST (13-39) U/L ALT (7-52) U/L Alkaline Phosphatase (34-104) U/L Troponin I (0-0.04) ng/ml Total Protein (6.0-8.3) gm/dl Albumin (3.4-5.0) gm/dl Globulin (2.5-4.0) gm/dl Albumin/Globulin Ratio (0.9-2) Lipase (11-82) U/L Urine Color Yellow Urine Appearance Clear (Clear) Urine pH 6.0 (4.5-7.5) Ur Specific Cade 1.013 (1.000-1.030) Urine Protein Negative (Negative) Urine Glucose (UA) Negative (Negative) Urine Ketones Negative (Negative) Urine Blood 1+ H (Negative) Urine Nitrite Negative (Negative) Urine Bilirubin Negative (Negative) Urine Urobilinogen Negative (Negative) Ur Leukocyte Esterase Trace H (Negative) Urine WBC (Auto) 5-10 H (0-5) /hpf Urine RBC (Auto) 0-4 (0-4) /hpf U Hyaline Cast (Auto) 1-5 (0-5) /lpf U Epithel Cells (Auto) 10-20 H (0-5) /lpf Urine Bacteria (Auto) Negative (Negative) Urine Yeast Budding A (None Prsent) Administered Medications Discontinued Medications Sodium Chloride (Nss) 500 mls @ 999 mls/hr IV .Q31M ONE Stop: 08/05/21 11:15 Last Admin: 08/05/21 11:44 Dose: 999 mls/hr Documented by: [id number] Imaging Data Radiologist's Impression: Abdomen/Pelvis CT 08/05/21 10:[address] WITH IV CONTRAST CT DOSE: 2009.72 mGy.cm HISTORY: Nausea. Vomiting. Diarrhea. TECHNIQUE: Multiaxial CT images of the abdomen and pelvis were performed following the use of intravenous contrast. A dose lowering technique was uti lized adhering to the principles of ALARA. COMPARISON STUDY: Abdomen and pelvis CT 05/17/2021. FINDINGS: A 12 mm nodule within the base the right lower lobe. This favors resolving consolidation rather than a solid nodule. This was not present [address] However, [address] follow-up recommended to ensure resolution. No pneumoperitoneum. No pneumatosis. No suspicious lytic or blastic osseous lesions. Pacemaker wires and an aortic valve stent are noted. Tiny fat- containing superimposed over hernia. There is also a small fat-containing umbilical hernia. Multiple small gallstones. No gallbladder wall thickening. The liver, spleen, adrenal glands, and pancreas are unremarkable. Bilateral cortical renal scarring is again noted. No hydronephrosis. No retroperitoneal lymphadenopathy. Calcified plaque within the normal caliber abdominal aorta. The main portal vein is patent. The bladder is unremarkable. Colonic diverticulosis. No evidence for acute diverticulitis. No bowel wall thickening or obstruction. Postoperative changes consistent with a prior right hemicolectomy with ileocolonic anastomosis. IMPRESSION: 1. No bowel wall thickening or obstruction. 2. Colonic diverticulosis. No evidence for acute diverticulitis. 3. Cholelithiasis. 4. A 12 mm nodule within the base the right lower lobe. This favors resolving consolidation rather than a solid nodule. This was not present 07/30/[address] However, [address] follow-up recommended to ensure resolution. 5. Additional findings as described above. ACT 112: Positive. There are findings on this exam that require communication between the performing entity and the patient following Patient Test Result Information Act ([place] Act 112) guidelines. Electronically signed by: Jesse Collins M.D. 08/05/2021 1:25 PM Chest CTA 08/05/21 10:45 CT angio chest PE protocol CLINICAL HISTORY: sob TECHNIQUE: Multidetector row helical CT of the chest was performed with angiographic protocol. Coronal and sagittal reformations were obtained. Coronal and sagittal MIPS were obtained from the axial data set and were submitted for review. Automated dose lowering techniques and/or adjustment according to patient size were utilized for this exam. Comparison: Comparison is made to CT chest 03/28/2021 FINDINGS: Lungs and pleura: Diffuse centrilobular emphysema is seen most prominent in the upper lobes. A large bulla is seen in the left lung base. Atelectasis is seen. Heart and pericardium: Heart size is normal. No pericardial effusion. Patient is status post aortic prosthesis. Vessels: Segmental and subsegmental pulmonary emboli are seen in the right upper lobe. Moderate atherosclerotic disease is seen. Mediastinum and bandar: Unremarkable. Chest wall and lower neck: Unremarkable. Abdomen: Unremarkable. Bones: Degenerative changes in the thoracic spine. IMPRESSION: Segmental and subsegmental pulmonary emboli in the right upper lobe. No evidence of right heart strain. ACT 112: Negative or not required by law. Electronically signed by: Jose J Hatfield M.D. 08/05/2021 12:46 PM Chest X-Ray 08/05/21 10:45 XR chest 1V portable HISTORY: 71 years-old Male Chest Pain acute atypical chest pain COMPARISON: 05/17/2021, 12/21/2019. TECHNIQUE: Portable AP view of the chest FINDINGS: Cardiac silhouette is enlarged. Left subclavian pacer. Aortic valvular endograft. Atherosclerosis of the thoracic aortic arch. Blunting of the costophrenic angles. No pneumothorax, large pleural effusion or overt pulmonary edema. Chronic interstitial coarsening of the lung bases. IMPRESSION: 1. Cardiomegaly without acute process. 2. Chronic interstitial coarsening of the lung bases. ACT 112: Negative or not required by law. The above report was generated using voice recognition software. It may contain grammatical, syntax or spelling errors. Electronically signed by: Silas Velez M.D. 08/05/2021 11:20 AM Discharge Plan Visit Data Chief Complaint: Shortness of Breath/Dyspnea Stated Complaint: SOB, COUGH, CAN'T WALK, NAUSEA ED Provider: Dallas Flaherty Discharge Problem: Pulmonary emboli, Pacemaker, Leukopenia Forms Stand Alone Forms: [facility] Prescriptions Prescriptions: No Action finasteride 5 mg tablet 5 mg PO QAM Qty: 30 RF: 11 cyclobenzaprine 10 mg tablet 10 mg PO TID PRN (Reason: muscle spasm) Qty: 30 RF: 0 Entresto 24-26 mg tablet 1 tab PO BID RF: 0 bumetanide 1 mg tablet 0.5 mg PO QAM RF: 0 terazosin 5 mg capsule 10 mg PO HS RF: 0 omeprazole 40 mg capsule,delayed release(DR/EC) 40 mg PO DAILYBB RF: 0 aspirin 81 mg tablet,chewable 81 mg PO QAM RF: 0 sennosides [Senokot] 8.6 mg Tablet 8.6 mg PO BID RF: 0 loratadine [Claritin] 10 mg Tablet 10 mg PO QAM RF: 0 Spiriva with HandiHaler 18 mcg Capsule, W/Inhalation Device 1 cap INHALATION HS RF: 0 budesonide-formoterol [Symbicort] 160-4.5 mcg/actuation Hfa Aerosol Inhaler 2 puff INHALATION BID RF: 0 ipratropium-albuterol 0.5 mg-3 mg(2.5 mg base)/3 mL solution for nebulization 3 ml INHALATION UD PRN (Reason: Shortness Of Breath) RF: 0 albuterol sulfate 90 mcg/actuation Hfa Aerosol Inhaler 1 inh INHALATION QID PRN (Reason: Shortness Of Breath) RF: 0 amiodarone 200 mg tablet 200 mg PO QAM RF: 0 folic acid 1 mg tablet 1 mg PO QAM RF: 0 Niferex (Sumalate-Quatrefolic) 150 mg iron- 60 mg-1 mg tablet 1 tab PO QAM RF: 0 prednisone 5 mg tablet 5 mg PO QAM RF: 0 Probiotic 3 billion cell Capsule 3,000 mmu cells PO QAM RF: 0 allopurinol 100 mg Tablet 50 mg PO Q48H Qty: 0 RF: 0 levalbuterol HCl [Xopenex] 0.63 mg/3 mL solution for nebulization 0.63 mg NEB Q6R PRN (Reason: shortness of breath or wheezing) RF: 0 Referrals Referrals: Tracy Gomez MD [Primary Care Provider] - Discharge Problem: Pulmonary emboli Qualifiers: Pulmonary embolism type: other Chronicity: acute Acute cor pulmonale presence: unspecified Qualified Code(s): I26.99 - Other pulmonary embolism without acute cor pulmonale Leukopenia Qualifiers: Leukopenia type: unspecified Qualified Code(s): D72.819 - Decreased white blood cell count, unspecified
--- NOTE | 2021-08-05 11:22 | XRay Report ---
XR chest 1V portable HISTORY: 71 years-old Male Chest Pain acute atypical chest pain COMPARISON: 05/17/2021, 12/21/2019. TECHNIQUE: Portable AP view of the chest FINDINGS: Cardiac silhouette is enlarged. Left subclavian pacer. Aortic valvular endograft. Atherosclerosis of the thoracic aortic arch. Blunting of the costophrenic angles. No pneumothorax, large pleural effusio n or overt pulmonary edema. Chronic interstitial coarsening of the lung bases. IMPRESSION: 1. Cardiomegaly without acute process. 2. Chronic interstitial coarsening of the lung bases. ACT 112: Negative or not required by law. The above report was generated using voice recognition software. It may contain grammatical, syntax o r spelling errors. Electronically signed by: Silas Velez M.D. 08/05/2021 11:20 AM
[2021-08-05 11:27] LABS: Hematocrit (blood only) 34.8 % (42-52); Hemoglobin 11.1 g/dL (14.0-18.0); Mean Corpuscular Hemoglobin 32.2 pg (25-34); Mean Corpuscular Hgb Conc 31.9 g/dL (32-36); Mean Corpuscular Volume 100.9 fL (80-100); RDW Coefficient of Variation 15.8 % (11.5-14.5); RDW Standard Deviation 58.6 fL (36.4-46.3); Red Blood Count 3.45 M/uL (4.7-6.1); White Blood Count 3.23 K/uL (4.8-10.8)
[2021-08-05 11:30] LABS: Mean Platelet Volume 10.2 fL (7.4-10.4); Platelet Count 97 K/uL (130-400)
[2021-08-05 11:47] LABS: INR 1.1 (0.9-1.1); Prothrombin Time 11.2 Seconds (9.0-12.0)
[2021-08-05 11:48] LABS: Basophils # (auto) 0.01 K/uL (0-0.2); Basophils % (auto) 0.3 %; Eosinophils # (auto) 0.08 K/uL (0-0.5); Eosinophils % (auto) 2.5 %; Immature Granulocytes # (auto) 0.01 K/uL (0.00-0.02); Immature Granulocytes % (auto) 0.3 %; Lymphocytes # (auto) 0.45 K/uL (1.2-3.4); Lymphocytes % (auto) 13.9 %; Monocytes # (auto) 0.23 K/uL (0.11-0.59); Monocytes % (auto) 7.1 %; Neutrophils # (auto) 2.45 K/uL (1.4-6.5); Neutrophils % (auto) 75.9 %
[2021-08-05 11:49] LABS: Appearance Urine Clear (Clear); Bacteria Urine Automated Negative (Negative); Bilirubin Urine Negative (Negative); Blood Urine 1+ (Negative); Color Urine Yellow; Glucose Urine UA Negative (Negative); Ketones Urine Negative (Negative); Leukocyte Esterase Urine Trace (Negative); Nitrite Urine Negative (Negative); Protein Urine Negative (Negative); Specific Gravity Urine 1.013 (1.000-1.030); Urobilinogen Urine Negative (Negative)
[2021-08-05 11:52] LABS: Troponin I 0.03 ng/ml (0-0.04)
[2021-08-05 11:54] LABS: Albumin Globulin Ratio 1.5 (0.9-2); Albumin Level 4.1 gm/dl (3.4-5.0); BUN Creatinine Ratio 18.8 (10-20); Bilirubin,Total 0.8 mg/dl (0.2-1.0); Calcium 9.6 mg/dl (8.5-10.1); Creatinine Clr Calc Pharmacy 56.5 ml/min; Est GFR (African American) 56.2 ml/min; Est GFR (Non-African American) 48.5 ml/min; Globulin 2.7 gm/dl (2.5-4.0); Potassium 4.2 mmol/L (3.5-5.1); Total Protein 6.8 gm/dl (6.0-8.3)
[2021-08-05 12:01] LABS: RBC Urine Automated 0-4 /hpf (0-4)
--- NOTE | 2021-08-05 12:47 | CT Scan Report ---
CT angio chest PE protocol CLINICAL HISTORY: sob TECHNIQUE: Multidetector row helical CT of the chest was performed with angiographic protocol. Oliveros l and sagittal reformations were obtained. Coronal and sagittal MIPS were obtained from the axial ray a set and were submitted for review. Automated dose lowering techniques and/or adjustment according to patient size were utilized for this exam. Comparison: Comparison is made to CT chest 03/28/2021 FINDINGS: Lungs and pleura: Diffuse centrilobular emphysema is seen most prominent in the upper lobes. A large bulla is seen in the left lung base. Atelectasis is seen. Heart and pericardium: Heart size is normal. No pericardial effusion. Patient is status post aortic p rosthesis. Vessels: Segmental and subsegmental pulmonary emboli are seen in the right upper lobe. Moderate ather osclerotic disease is seen. Mediastinum and bandar: Unremarkable. Chest wall and lower neck: Unremarkable. Abdomen: Unremarkable. Bones: Degenerative changes in the thoracic spine. IMPRESSION: Segmental and subsegmental pulmonary emboli in the right upper lobe. No evidence of right heart strai n. ACT 112: Negative or not required by law. Electronically signed by: Jose J Hatfield M.D. 08/05/2021 12:46 PM
--- NOTE | 2021-08-05 13:26 | CT Scan Report ---
ABDOMEN AND PELVIS CT WITH IV CONTRAST CT DOSE: 2009.72 mGy.cm HISTORY: Nausea. Vomiting. Diarrhea. TECHNIQUE: Multiaxial CT images of the abdomen and pelvis were performed following the use of intrave nous contrast. A dose lowering technique was utilized adhering to the principles of ALARA. COMPARISON STUDY: Abdomen and pelvis CT 05/17/2021. FINDINGS: A 12 mm nodule within the base the right lower lobe. This favors resolving consolidation ra ther than a solid nodule. This was not present 07/30/[address] However, [address] follow-up recommended to ensure resolution. No pneumoperitoneum. No pneumatosis. No suspicious lytic or blastic osseous lesions. Pacemaker wires and an aortic valve stent are noted. Tiny fat-containing superimposed over hernia. There is also a small fat-containing umbilical hernia. Multiple small galls tones. No gallbladder wall thickening. The liver, spleen, adrenal glands, and pancreas are unremarkab le. Bilateral cortical renal scarring is again noted. No hydronephrosis. No retroperitoneal lymphaden opathy. Calcified plaque within the normal caliber abdominal aorta. The main portal vein is patent. T he bladder is unremarkable. Colonic diverticulosis. No evidence for acute diverticulitis. No bowel wa ll thickening or obstruction. Postoperative changes consistent with a prior right hemicolectomy with ileocolonic anastomosis. IMPRESSION: 1. No bowel wall thickening or obstruction. 2. Colonic diverticulosis. No evidence for acute diverticulitis. 3. Cholelithiasis. 4. A 12 mm nodule within the base the right lower lobe. This favors resolving consolidation rather th an a solid nodule. This was not present 07/30/[address] However, [address] follow- up recommended to ensure resolution. 5. Additional findings as described above. ACT 112: Positive. There are findings on this exam that require communication between the performing entity and the patient following Patient Test Result Information Act ([place] Act 112) guidelines. Electronically signed by: Jesse Collins M.D. 08/05/2021 1:25 PM
[2021-08-05] MEDS ORDERED: Heparin IV Adult Wt-Based Standard WITH Bolus Protocol IV STA (13:58)
[2021-08-05] MEDS ORDERED: HEPARIN SOD (PORCINE) 1000 UNIT/ML IV ONE ×2 (14:13→14:41)
[2021-08-05] MEDS ORDERED: HEPARIN SODIUM/DEXTROSE 25,000 UNITS/500 ML BAG IV SCH ×2 (14:15→14:45)
[2021-08-05] MEDS ORDERED: Heparin IV Adult Wt-Based Low-Dose WITH Bolus Protocol STA (14:26)
--- NOTE | 2021-08-05 14:28 | History & Physical Report ---
Date of Service August 05, 2021 Assessment & Plan (1) Acute pulmonary embolism: Plan: Acute pulmonary embolism, history of prior DVT/PE CXR: Cardiomegaly without acute process, chronic interstitial coarsening of the bases. CTA: Segmental and subsegmental pulmonary emboli in right upper lobe. No evidence of right heart strain on CT. Large bullae in left lung base. Centrilobular emphysema in upper lobes. Atelectasis. No pulmonary edema. During admission to [facility] 2 months ago patient with multiple events of bleeding, bloody pericardial effusion without known cause, required transfusions. For this reason his anticoagulation was discontinued at that time. Was recommended to continue aspirin therapy long-term and defer anticoagulation at that time and discharged. She was also noted to be maintaining sinus rhythm while on amiodarone, although was admitted with atrial fibrillation. TTE pending Bloody pericardial effusion 06/01/2021, unclear if this was a result of CPR from resuscitation were present before. Patient with increased shortness of breath over the last week - Increased bleeding risk, will start heparin gtt LOW DOSE no bolus. Discussed with Dr. Zhong consulted for discharge anticoagulation recommendations given recurrent bleeding/high risk in the past. Recommend low dose heparin not lovenox at this time and bringing up slowly on warfarin 3mg daily to start. high risk for DOAC tx. Will start warfarin tomorrow and follow for bleeding overnight on heparin gtt. Continue ASA. CTA/P: Right lower lobe resolving consolidation versus nodule, 3-month CT follow-up recommended. No bowel thickening or obstruction. Diverticulosis without diverticulitis. Cholelithiasis. Macrocytic anemia (2) Anemia: Plan: Hemoglobin 11.1 MCV 100.9. 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 twice daily - Echo as above (6) CKD (chronic kidney disease) stage 2, GFR 60-89 ml/min: Plan: Chronic kidney disease Patient with recent history of acute renal failure while hospitalized 05/20 Recent creatinine 07/29/2021 1.68, admitting creatinine 1.44 ? Patient's baseline, trend daily Renally dose medications -UA contaminated appearing with budding hyphae, epithelial cells. UC pending (7) GERD with esophagitis: Plan: - Convert home omeprazole to protonix 40mg dialy (8) Essential hypertension: Plan: - As above (9) Polymyalgia rheumatica: Plan: PMR Continue home prednisone 5 mg daily (10) Pacemaker: Plan: - As above (11) S/P TAVR (transcatheter aortic valve replacement): Plan: - As above (12) COPD (chronic obstructive pulmonary disease): Plan: COPD No acute exacerbation Continue Spiriva Xopenex every 6 hours as needed for wheezing Continue Symbicort/equivalent History of tobacco use Plan: DVT PPx: On heparin as above Diet: HH Dispo: Med Tele Code Status: Full History of Present Illness Chief Complaint: Shortness of Breath Primary Care Provider: Tracy Gomez MD Hayden is a 71-year-old male with a past medical history of TAVR x2, cardiac arrest while in hospital parking lot 06/01/2021, ICD placement, and tamponade with bariatric fluid culture positive for methicillin sensitive staph epidermidis spectated possible contaminant but treated with 4 weeks of eyes to be cefazolin, discharged 06/10/2021 from [facility], past PE February 2021, recent Ledbetter removal 07/21/2021 (was present to complete antibiotics for staph sepsis), Presents with increased shortness of breath for several days and 1 day of vomiting. Patient called into his sl[facility] and was referred to the emergency department for further evaluation, case was discussed with Dr. Mckinney by emergency department provider, and was started on heparin drip pending echo. Patient has a pertinent recent history of TAVR placement x2 with repeat due to leak, cardiac arrest while in the hospital parking lot 06/01, and subsequent tamp onade with tap showing bloody effusion which did culture positive for staph epidermidis possible contaminant but treated for 4 weeks with cefazolin. Patient does have a history of DVT and atrial flutter, but due to recurrent bleeding, his hemorrhagic pericardial effusion, and requirement of blood transfusions in [facility] was discharged on aspirin monotherapy and was recommended against anticoagulation at that time. Patient has had worsening shortness of breath for the last 7 days, seems to be gradually getting worse. This is not associated with a cough, upper respiratory symptoms, change in taste or smell, or fever. Hx of COPD. "I was disappointed because I thought I'd be able to breath better with my heart getting the valve fixed. Was feeling pretty damn good for a while, bu tthe last week have been short of breath again." Has some urinary retention improved with finasteride. No dysuria, burning with urine. Hx of prostate problems which reports no changes No fevers, chills, or sweats but is cold often. no chest pain, no chest pressure .no dyspnea. No pain with inspiration. No back pain, flank pain, or kidney pain Reports he gets nosebleeds easily infrequently, none in the last few days. Reports that he stopped his heparin previously due to bleeding, is not sure if he had an allergy or not but was told that due to his bleeding they could not continue him on that or Eliquis at the time of his surgery admission. Medical History: Reviewed Medications: Reviewed Surgical History: Reviewed Allergies: Reviewed. Sulfa 'felt crappy, sick.' No hives/breathing problems Social History: No tobacco product use, no alcohol, no recreational drugs or medical marijuana. Code Status:Medical surrogate decision maker would be Polly Harper. Full Code. Allergies Allergy/AdvReac Type Severity Reaction Status Date / Time grass pollen Allergy Mild Verified 07/21/21 09:16 Sulfa (Sulfonamide AdvReac Unknown Unknown Verified 07/21/21 09:16 Antibiotics) Home Medications Medication Instructions Recorded Confirmed Type budesonide-formoterol HFA 160 2 puff INHALATION BID 06/24/18 07/21/21 History mcg-4.5 mcg/actuation aerosol inhaler (Symbicort) loratadine 10 mg tablet (Claritin) 10 mg PO QAM 06/24/18 07/21/21 History tiotropium bromide 18 mcg capsule 1 cap INHALATION HS 06/24/18 07/21/21 History with inhalation device (Spiriva with HandiHaler) sennosides 8.6 mg tablet (Senokot) 8.6 mg PO BID 12/21/19 07/21/21 History prednisone 5 mg tablet 5 mg PO DAILY 03/28/21 07/21/21 History lactobacillus combination no.4 3 3,000 mmu cells PO DAILY 04/21/21 07/21/21 History billion cell capsule (Probiotic) allopurinol 100 mg tablet 50 mg PO Q48H #0 tab 05/18/21 07/21/21 Rx aspirin 81 mg chewable tablet 81 mg PO DAILY 06/17/21 07/21/21 History omeprazole 40 mg capsule,delayed 40 mg PO DAILY 06/17/21 07/21/21 History release terazosin 5 mg capsule 10 mg PO QPM cap 06/17/21 07/21/21 History sacubitril 24 mg-valsartan 26 mg 1 tab PO BID 07/15/21 07/21/21 History tablet (Entresto) levalbuterol HCl 0.63 mg/3 mL 0.63 mg NEB Q6R PRN 07/21/21 07/21/21 History solution for nebulization (Xopenex) bumetanide 1 mg tablet 0.5 mg PO DAILY tab 08/04/21 08/04/21 History finasteride 5 mg tablet 5 mg PO QAM #30 tab 08/04/21 Rx albuterol sulfate 90 mcg/actuation 1 inh INHALATION QID PRN 08/05/21 08/05/21 History aerosol inhaler amiodarone 200 mg tablet 200 mg PO QAM 08/05/21 08/05/21 History cyclobenzaprine 10 mg tablet 10 mg PO TID PRN #30 tab 08/05/21 Rx folic acid 1 mg tablet 1 mg PO QAM 08/05/21 08/05/21 History ipratropium 0.5 mg-albuterol 3 mg 3 ml INHALATION UD PRN 08/05/21 08/05/21 History (2.5 mg base)/3 mL nebulization soln iron 150 mg-vit C 60 mg-folate 1 1 tab PO QAM 08/05/21 08/05/21 History [id number]-tulfokw tablet (Niferex (Sumalate-Quatrefolic)) Past Med/Surg History Medical History Atrial flutter Benign prostatic hyperplasia with urinary obstruction and other lower urinary tract symptoms Chronic heart failure with preserved ejection fraction Chronic obstructive pulmonary disease SEVERE per pulm 08/09. Uses inhalers daily and prn Chronic systolic heart failure CKD (chronic kidney disease) stage 2, GFR 60-89 ml/min Colon polyp COPD (chronic obstructive pulmonary disease) Diastolic dysfunction History of colon polyps History of elevated glucose History of smoking at least 1 pack per day for at least 30 years Obesity (BMI 30-39.9) Osteoarthritis Polymyalgia rheumatica Renal disease Severe aortic valve stenosis Surgical History H/O rectal polypectomy History of bilateral cataract extraction History of colonoscopy History of cystoscopy History of elbow surgery left ulnar nerve History of hernia repair Laparoscopic History of surgical removal of terminal ileum History of wisdom tooth extraction Family History Brother Family history of diabetes mellitus Family hx colonic polyps Prostate cancer Myocardial infarction H/O heart bypass surgery Mother Colorectal cancer Other No family history of adverse response to anesthesia Denies family history of Ovarian cancer Breast cancer Lung cancer Social History Smoking Status: Never smoker Tobacco Type: Cigarettes Second Hand Exposure: No; Hx Alcohol Use: No Hx Substance Use: No Preferred Language: Latvian Communication Ability: Effective Visual Impairment: Limited Mechanical Integrity Specialist Required: No Beliefs That Will Affect Care: None marital status: Current Living Situation: Spouse current occupational status: retired How many Children do You have: 1 Feels Safe at Home: Yes Childhood Exposure to Second-Hand Smoke: Yes caffeine: Yes (coffee, soda) Dental Care, Regularly: Yes Physical Activity Frequency: Does not Exercise Seatbelt Use: never Sunscreen Use: No Assistive Devices: Glasses and Oxygen - Continuous Review of Systems Review of Systems: All systems reviewed & are unremarkable except as noted in Subjective Physical Exam Physical Exam: General: A&Ox3. NAD. Cooperative. HEENT: Atraumatic, normocephalic. Visual acuity and hearing grossly intact. Pupils equal and reactive to light. Pulm: CTAB A&P. -wheezes, -rales, -rhonchi. Symmetrical chest rise. No increase in work of breathing. No respiratory distress. Cardiac: RRR, -mrg. Radial pulses intact and symmetrical. Abdominal: Nontender, nondistended, soft. BS present. Extremities: 1+ pitting edema of the left lower extremity, trace ankle edema of the right lower extremity. Patient reports legs at baseline, left leg has had increased swelling compared to the right chronically and appears at/proved compared to normal baseline. Sensation of soft touch in hands and feet without deficit. Medical Technician strength intact bilaterally, hip flexion intact bilaterally. Results & Data Results & Data ([facility]) Vital Signs (Past 12 Hours) Vital Signs Temp Pulse Pulse Resp BP BP Pulse Ox 08/05/21 11:38 69 18 127/63 93 08/05/21 10:17 36.4 C L 80 20 117/62 94 PG Care Time/CCT Total # of Minutes Spent Total Time Spent with Patient: Total time spent is greater than 50% in coordination of care (as documented) at patient's floor/unit and/or counseling patient: Coding Level of Care Code 47765 Initial Inpt Care Lvl 3 Diagnoses Acute pulmonary embolism I26.99 Anemia D64.9 Atrial flutter I48.92 Benign prostatic hyperplasia with urinary obstruction and other lower urinary tract symptoms N40.1; N13.8 Chronic heart failure with preserved ejection fraction I50.32 CKD (chronic kidney disease) stage 2, GFR 60-89 ml/min N18.2 GERD with esophagitis K21.00 Essential hypertension I10 Polymyalgia rheumatica M35.3 Pacemaker Z95.0 S/P TAVR (transcatheter aortic valve replacement) Z95.2 COPD (chronic obstructive pulmonary disease) J44.1 COPD type: COPD with acute exacerbation (1) COPD (chronic obstructive pulmonary disease) COPD type: COPD with acute exacerbation Qualified Code(s): J44.1 - Chronic obstructive pulmonary disease with (acute) exacerbation
[2021-08-05] MEDS ORDERED: Heparin IV Adult Wt-Based Low-Dose *NO* Bolus Protocol IV SCH (14:38)
[2021-08-05] MEDS ORDERED: HEPARIN SOD (PORCINE) 1000 UNIT/ML ONE (14:41)
[2021-08-05] MEDS: HEPARIN SODIUM/DEXTROSE 25,000 UNITS/500 ML BAG IV SCH (15:48)
--- NOTE | 2021-08-05 15:53 | Electrocardiogram Report ---
Test Reason : Blood Pressure : / mmHG Vent. Rate : 069 BPM Atrial Rate : 069 BPM P-R Int : 180 ms QRS Dur : 098 ms QT Int : 376 ms P-R-T Axes : 028 -38 189 degrees QTc Int : 402 ms Normal sinus rhythm Left axis deviation Low voltage QRS Nonspecific ST and T wave abnormality Lateral leads Abnormal ECG When compared with ECG of 13-MAY-2021 10:54, Atrial flutter no longer present HR has decreased by 15 bpm Confirmed by Ok Mandel ([id number]) on 08/05/2021 3:53:03 PM Referred By: Confirmed By:Ok Mandel
--- NOTE | 2021-08-05 16:20 | XCELERA ---
[id number] \\[id number]
[2021-08-05] MEDS ORDERED: ACETAMINOPHEN 325 MG TAB PO PRN (18:43)
[2021-08-05] MEDS ORDERED: POLYETHYLENE (MIRALAX) 17 GM PACK PO PRN (18:43)
[2021-08-05] MEDS ORDERED: LEVALBUTEROL HCL 1.25 MG/3 ML NEB NEB PRN (18:43)
[2021-08-05] MEDS ORDERED: CYCLOBENZAPRINE HCL 10 MG TAB PO PRN (18:43)
[2021-08-05] MEDS ORDERED: FLUTICASONE/VILANTEROL 100/25MCG 14 PUFFS/INHALER INH SCH (19:00)
[2021-08-05] MEDS: allopurinoL 100 MG TAB PO SCH (19:44)
[2021-08-05] MEDS: TERAZOSIN HCL 5 MG CAP PO SCH (19:55)
[2021-08-05] MEDS: SENNA 8.6 MG TAB PO SCH (19:56)
[2021-08-05] MEDS: VALSARTAN/SACUBITRIL 26/24MG TAB PO SCH (19:56)
[2021-08-05] MEDS: FINASTERIDE 5 MG TAB PO SCH (20:01)
[2021-08-05] MEDS ORDERED: UMECLIDINIUM BROMIDE 62.5MCG/BLISTER 7 PUFFS/INHALER INH SCH (21:00)
[2021-08-05 22:04] LABS: Partial Thromboplastin Ratio 1.9
[2021-08-05 22:11] LABS: Partial Thromboplastin Time 51.3 Seconds (21.0-31.0)
[2021-08-06 06:20] LABS: Hematocrit (blood only) 30.9 % (42-52); Hemoglobin 10.2 g/dL (14.0-18.0); Mean Corpuscular Hemoglobin 32.8 pg (25-34); Mean Corpuscular Volume 99.4 fL (80-100); RDW Coefficient of Variation 15.5 % (11.5-14.5); RDW Standard Deviation 56.1 fL (36.4-46.3); Red Blood Count 3.11 M/uL (4.7-6.1); White Blood Count 2.89 K/uL (4.8-10.8)
[2021-08-06 06:25] LABS: Mean Platelet Volume 9.7 fL (7.4-10.4); Platelet Count 93 K/uL (130-400)
[2021-08-06 06:47] LABS: BUN Creatinine Ratio 17.1 (10-20); Calcium 9.1 mg/dl (8.5-10.1); Creatinine Clr Calc Pharmacy 57.9 ml/min; Est GFR (African American) 58.2 ml/min; Est GFR (Non-African American) 50.2 ml/min; Potassium 4.1 mmol/L (3.5-5.1)
[2021-08-06 07:05] LABS: INR 1.1 (0.9-1.1); Prothrombin Time 11.4 Seconds (9.0-12.0)
[2021-08-06 07:30] LABS: Basophils # (auto) 0.01 K/uL (0-0.2); Basophils % (auto) 0.3 %; Eosinophils # (auto) 0.11 K/uL (0-0.5); Eosinophils % (auto) 3.8 %; Immature Granulocytes # (auto) 0.01 K/uL (0.00-0.02); Immature Granulocytes % (auto) 0.3 %; Lymphocytes # (auto) 0.74 K/uL (1.2-3.4); Lymphocytes % (auto) 25.6 %; Monocytes % (auto) 6.9 %; Neutrophils # (auto) 1.82 K/uL (1.4-6.5); Neutrophils % (auto) 63.1 %
[2021-08-06 07:48] LABS: Partial Thromboplastin Ratio 2.3
[2021-08-06 07:51] LABS: Partial Thromboplastin Time 64.4 Seconds (21.0-31.0)
[2021-08-06] MEDS: VALSARTAN/SACUBITRIL 26/24MG TAB PO SCH ×2 (08:06→20:43)
[2021-08-06] MEDS: BUMETANIDE 1 MG TAB PO SCH (08:06)
[2021-08-06] MEDS: FINASTERIDE 5 MG TAB PO SCH (08:06)
[2021-08-06] MEDS: AMIODARONE 200 MG TAB PO SCH (08:06)
[2021-08-06] MEDS: FOLIC ACID 1 MG TAB PO SCH (08:06)
[2021-08-06] MEDS: ASPIRIN 81 MG ECTAB PO SCH (08:07)
[2021-08-06] MEDS: CEROVITE ADV FORMULA TAB PO SCH (08:07)
[2021-08-06] MEDS: SENNA 8.6 MG TAB PO SCH ×2 (08:07→20:44)
[2021-08-06] MEDS: predniSONE 5 MG TAB PO SCH (08:07)
[2021-08-06] MEDS ORDERED: FINASTERIDE 5 MG TAB PO SCH (09:00)
--- NOTE | 2021-08-06 12:33 | Hospitalist Progress Note ---
Date of Service August 06, 2021 Assessment & Plan (1) Acute pulmonary embolism: Plan: Acute pulmonary embolism, history of prior DVT/PE CXR: Cardiomegaly without acute process, chronic interstitial coarsening of the bases. CTA: Segmental and subsegmental pulmonary emboli in right upper lobe. No evidence of right heart strain on CT. Large bullae in left lung base. Centrilobular emphysema in upper lobes. Atelectasis. No pulmonary edema. During admission to [facility] 2 months ago patient with multiple events of bleeding, bloody pericardial effusion without known cause, required transfusions. For this reason his anticoagulation was discontinued at that time. Was recommended to continue aspirin therapy long-term and defer anticoagulation at that time and discharged. he was also noted to be maintaining sinus rhythm while on amiodarone, although was admitted with atrial fibrillation. Echo as above Bloody pericardial effusion 06/01/2021, unclear if this was a result of CPR from resuscitation or present before. Increased bleeding risk, will start heparin gtt LOW DOSE no bolus. Discussed with Dr. Zhong consulted for discharge anticoagulation recommendations given recurrent bleeding/high risk in the past. Recommend low dose heparin not lovenox at this time and bringing up slowly on warfarin 3mg daily to start. high risk for DOAC tx. Will start warfarin tomorrow and follow for bleeding overnight on heparin gtt. Continue ASA. CTA/P: Right lower lobe resolving consolidation versus nodule, 3-month CT follow-up recommended. No bowel thickening or obstruction. Diverticulosis without diverticulitis. Cholelithiasis. Discussed this case in detail with Dr. Georges at [facility] who was on consult during the patient's complicated hospitalization in May. She does not believe that the patient has a contraindication to anticoagulation therapy. Does not believe there is place at this time for IVC filter placement since he is a candidate for treatment with blood thinners. Obviously, given his recent history, close monitoring for bleeding events will need to be carried out. She is happy to follow up with him following this hospitalization either in her clinic or via telehealth as the question of treatment duration since this event appears to be unprovoked will need to be re-evaluated on a continual basis. 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 twice daily Echo as above (6) CKD (chronic kidney disease) stage 2, GFR 60-89 ml/min: Plan: Chronic kidney disease Patient with recent history of acute renal failure while hospitalized 05/20 Recent creatinine 07/29/2021 1.68, admitting creatinine 1.44 ? Patient's baseline, trend daily Renally dose medications UA contaminated appearing with budding hyphae, epithelial cells. UC pending (7) GERD with esophagitis: Plan: Convert home omeprazole to protonix 40mg daily per hospital formulary (8) Essential hypertension: Plan: As above (9) Polymyalgia rheumatica: Plan: PMR Continue home prednisone 5 mg daily (10) Pacemaker: Plan: As above (11) S/P TAVR (transcatheter aortic valve replacement): Plan: As above (12) COPD (chronic obstructive pulmonary disease): Plan: COPD on chronic 2L supplemental O2, h/o tobacco use No acute exacerbation Continue Spiriva Xopenex every 6 hours as needed for wheezing Continue Symbicort/equivalent Plan: DVT PPx: On heparin as above Diet: Dispo: Med Tele Admission and Anticipated Discharge Date Admission Date: August 05, 2021 Subjective Patient seen on daily rounds this morning. He is resting comfortably in bed and offers no complaints at this time. He denies dyspnea or chest pain. Denies n/v. Pt had a rather recent complex history including a TAVR done at [facility] in May which was complicated by cardiac arrest and bleeding issues. Now he presents with segmental and subsegmental PEs in the RUL, has been started on Heparin gtt and Warfarin. He has had no bleeding issues reported since the events that occurred in May. Pt's title clerk automobile is recommending IVC filter placement and no ACT. Review of Systems Review of Systems: CONSTITUTIONAL: Denies weight loss/gain, fever and chills, fatigue, malaise, generalized weakness. HEENT: Denies changes in vision and hearing. RESPIRATORY: Denies SOB, cough, wheezing. CV: Denies palpitations, CP, lower extremity edema, orthopnea, PND. GI: Denies abdominal pain, nausea, vomiting and diarrhea. : Denies dysuria and urinary frequency, urgency, hesitancy. MUSCULOSKELETAL: Denies myalgia and joint pain. SKIN: Denies rash and pruritus. NEUROLOGICAL: Denies headache, syncope, focal weakness, numbness, tingling. PSYCHIATRIC: Denies recent changes in mood. Denies anxiety and depression. Physical Exam Physical Exam: GENERAL: 71 yo well-developed, well-nourished elderly WM. NAD. LUNGS: Clear to auscultation bilaterally. No accessory muscle use. No W/R/R. CARDIOVASCULAR: Regular rate and rhythm. No M/G/R. No JVD. ABDOMEN: Soft, non-tender and non-distended. BS normal x 4 quad. EXTREMITIES: No edema. Non-tender. Peripheral pulses +2/4. NEUROLOGIC: A&O x3. PSYCHIATRIC: Cooperative. Appropriate mood and affect. SKIN: Warm, dry, intact. No rashes or lesions. Results & Data Results & Data ([facility]) Vital Signs (Past 12 Hours) Vital Signs Temp Pulse Pulse Resp BP Pulse Ox 08/06/21 10:48 36.6 C 70 18 125/68 93 08/06/21 07:12 36.7 C 63 18 134/70 97 08/06/21 07:02 67 08/06/21 03:10 36.8 C 64 20 133/73 97 08/06/21 01:19 76 Laboratory Results 08/06/21 06:03 08/06/21 06:03 Diagnostic Findings Echocardiogram Interpretation Results: (08/05/21) Compared with 05/15/2021 study, in the interim the patient has undergone a TAVR procedure. Bioprosthetic valve appears to be functioning appropriately, previously noted severe aortic stenosis is now only mild. Aortic regurgitation no longer seen. Mitral regurgitation not seen currently, although there does not appear to be mild mitral stenosis. No pericardial effusion. The study was technically difficult and limited. Left ventricular systolic function is mild to moderately reduced. Ejection fraction equals 45-50% There is mild to moderate global hypokinesis of the left ventricle. There is a bioprosthetic aortic valve. Mild valvular aortic stenosis. No aortic regurgitation is present. Calcified mitral apparatus causing mitral stenosis. There is mild mitral stenosis. There is no pericardial effusion. PG Care Time/CCT Total # of Minutes Spent Total Time Spent with Patient: Total time spent is greater than 50% in coordination of care (as documented) at patient's floor/unit and/or counseling patient: Coding Level of Care Code 28819 Subseq Hosp Care Lvl 3 Diagnoses Acute pulmonary embolism I26.99 Anemia D64.9 Atrial flutter I48.92 Benign prostatic hyperplasia with urinary obstruction and other lower urinary tract symptoms N40.1; N13.8 Chronic heart failure with preserved ejection fraction I50.32 CKD (chronic kidney disease) stage 2, GFR 60-89 ml/min N18.2 GERD with esophagitis K21.00 Essential hypertension I10 Polymyalgia rheumatica M35.3 Pacemaker Z95.0 S/P TAVR (transcatheter aortic valve replacement) Z95.2 COPD (chronic obstructive pulmonary disease) J44.1 COPD type: COPD with acute exacerbation (1) COPD (chronic obstructive pulmonary disease) COPD type: COPD with acute exacerbation Qualified Code(s): J44.1 - Chronic obstructive pulmonary disease with (acute) exacerbation
[2021-08-06] MEDS: HEPARIN SODIUM/DEXTROSE 25,000 UNITS/500 ML BAG IV SCH (13:08)
--- NOTE | 2021-08-06 14:32 | Ultrasound Report ---
BILATERAL LOWER EXTREMITY VENOUS DOPPLER HISTORY: Pulmonary embolus. Assess for DVT. COMPARISON STUDY: None. FINDINGS: There is occlusive deep vein thrombus seen within the proximal right popliteal vein. There is also deep vein thrombus within one of 2 left posterior tibial veins. The remaining bilateral lower extremity deep venous structures are patent. IMPRESSION: Bilateral lower extremity DVT as described above. ACT 112: Negative or not required by law. Electronically signed by: Jesse Collins M.D. 08/06/2021 2:30 PM
[2021-08-06] MEDS: WARFARIN SOD 3 MG TAB PO SCH (17:14)
[2021-08-06] MEDS: TERAZOSIN HCL 5 MG CAP PO SCH (18:09)
[2021-08-06] MEDS: BUDESONIDE/FORMOTEROL FUMARATE 160/4.5 60 PUFFS/INHALER INH SCH (18:10)
[2021-08-06] MEDS: UMECLIDINIUM BROMIDE 62.5MCG/BLISTER 7 PUFFS/INHALER INH SCH (20:43)
[2021-08-07 06:04] LABS: Hematocrit (blood only) 32.2 % (42-52); Hemoglobin 10.5 g/dL (14.0-18.0); Mean Corpuscular Hemoglobin 32.3 pg (25-34); Mean Corpuscular Hgb Conc 32.6 g/dL (32-36); Mean Corpuscular Volume 99.1 fL (80-100); RDW Coefficient of Variation 15.2 % (11.5-14.5); RDW Standard Deviation 55.3 fL (36.4-46.3); Red Blood Count 3.25 M/uL (4.7-6.1); White Blood Count 3.61 K/uL (4.8-10.8)
[2021-08-07 06:25] LABS: BUN Creatinine Ratio 14.6 (10-20); Calcium 8.3 mg/dl (8.5-10.1); Creatinine Clr Calc Pharmacy 49.1 ml/min; Est GFR (Non-African American) 41.5 ml/min
[2021-08-07 06:28] LABS: Mean Platelet Volume 9.7 fL (7.4-10.4); Platelet Count 93 K/uL (130-400)
[2021-08-07 06:31] LABS: Partial Thromboplastin Ratio 2.5; Prothrombin Time 10.9 Seconds (9.0-12.0)
[2021-08-07 06:34] LABS: Basophils # (auto) 0.01 K/uL (0-0.2); Basophils % (auto) 0.3 %; Eosinophils # (auto) 0.06 K/uL (0-0.5); Eosinophils % (auto) 1.7 %; Immature Granulocytes # (auto) 0.02 K/uL (0.00-0.02); Immature Granulocytes % (auto) 0.6 %; Lymphocytes # (auto) 0.87 K/uL (1.2-3.4); Lymphocytes % (auto) 24.1 %; Monocytes # (auto) 0.25 K/uL (0.11-0.59); Monocytes % (auto) 6.9 %; Neutrophils % (auto) 66.4 %; RBC Morphology Unremarkable
[2021-08-07 06:46] LABS: Partial Thromboplastin Time 69.2 Seconds (21.0-31.0)
[2021-08-07] MEDS: CEROVITE ADV FORMULA TAB PO SCH (08:34)
[2021-08-07] MEDS: FINASTERIDE 5 MG TAB PO SCH (08:34)
[2021-08-07] MEDS: predniSONE 5 MG TAB PO SCH (08:34)
[2021-08-07] MEDS: allopurinoL 100 MG TAB PO SCH (08:35)
[2021-08-07] MEDS: BUMETANIDE 1 MG TAB PO SCH (08:35)
[2021-08-07] MEDS: FOLIC ACID 1 MG TAB PO SCH (08:36)
[2021-08-07] MEDS: AMIODARONE 200 MG TAB PO SCH (08:36)
[2021-08-07] MEDS: VALSARTAN/SACUBITRIL 26/24MG TAB PO SCH ×2 (08:36→20:22)
[2021-08-07] MEDS: ASPIRIN 81 MG ECTAB PO SCH (08:36)
[2021-08-07] MEDS: SENNA 8.6 MG TAB PO SCH ×2 (08:39→20:21)
[2021-08-07] MEDS: BUDESONIDE/FORMOTEROL FUMARATE 160/4.5 60 PUFFS/INHALER INH SCH ×2 (09:35→19:22)
--- NOTE | 2021-08-07 09:52 | Hospitalist Progress Note ---
Date of Service August 07, 2021 Assessment & Plan (1) Acute pulmonary embolism: Plan: Acute pulmonary embolism, history of prior DVT/PE CXR: Cardiomegaly without acute process, chronic interstitial coarsening of the bases. CTA: Segmental and subsegmental pulmonary emboli in right upper lobe. No evidence of right heart strain on CT. Large bullae in left lung base. Centrilobular emphysema in upper lobes. Atelectasis. No pulmonary edema. During admission to [facility] 2 months ago patient with multiple events of bleeding, bloody pericardial effusion without known cause, required transfusions. For this reason his anticoagulation was discontinued at that time. Was recommended to continue aspirin therapy long-term and defer anticoagulation at that time and discharged. he was also noted to be maintaining sinus rhythm while on amiodarone, although was admitted with atrial fibrillation. Echo completed -- no evidence of right heart strain, LVEF 45-50%, mild to mod global hypokinesis, mild A, no pericardial effusion Bloody pericardial effusion 06/01/2021, unclear if this was a result of CPR from resuscitation or present before. Increased bleeding risk, will start heparin gtt LOW DOSE no bolus. Discussed with Dr. Zhong consulted for discharge anticoagulation recommendations given recurrent bleeding/high risk in the past. Recommend low dose heparin not lovenox at this time and bringing up slowly on warfarin 3mg daily to start. high risk for DOAC tx. Started on Warfarin on 08/06 and being monitored for bleeding overnight on heparin gtt. ASA continued. CTA/P: Right lower lobe resolving consolidation versus nodule, 3-month CT follow-up recommended. No bowel thickening or obstruction. Diverticulosis without diverticulitis. Cholelithiasis. Discussed this case in detail with Dr. Georges at [facility] who was on consult during the patient's complicated hospitalization in May. She does not believe that the patient has a contraindication to anticoagulation therapy. Does not believe there is place at this time for IVC filter placement since he is a candidate for treatment with blood thinners. Obviously, given his recent history, close monitoring for bleeding events will need to be carried out. She is happy to follow up with him following this hospitalization either in her clinic or via telehealth as the question of treatment duration since this event appears to be unprovoked will need to be re-evaluated on a continual basis. Continue Heparin gtt and Coumadin until INR therapeutic between 2-3 (2) Anemia: Plan: Pancytopenia, ongoing since May 2021 H&H stable History of iron deficiency, vitamin deficiency B12--> 692 thiamine pending CBC daily (3) Atrial flutter: Plan: Atrial flutter Continue amiodarone anticoagulation as above (4) Benign prostatic hyperplasia with urinary obstruction and other lower urinary tract symptoms: Plan: flomax, dutasteride [employer] No new urinary sx or signs of UTI (5) Chronic heart failure with preserved ejection fraction: Plan: CAD with history of [place] Continue aspirin 81 mg daily Continue Entresto 24-26 mg 1 tab p.o. twice daily Echo completed (6) CKD (chronic kidney disease) stage 2, GFR 60-89 ml/min: Plan: Chronic kidney disease Patient with recent history of acute renal failure while hospitalized 05/20 Recent creatinine 07/29/2021 1.68, admitting creatinine 1.44 ? Patient's baseline, trend daily Renally dose medications UA contaminated appearing with budding hyphae, epithelial cells. UC pending (7) GERD with esophagitis: Plan: Convert home omeprazole to protonix 40mg daily per hospital formulary (8) Essential hypertension: Plan: As above (9) Polymyalgia rheumatica: Plan: PMR Continue home prednisone 5 mg daily (10) Pacemaker: Plan: As above (11) S/P TAVR (transcatheter aortic valve replacement): Plan: As above (12) COPD (chronic obstructive pulmonary disease): Plan: COPD on chronic 2L supplemental O2 at HS, h/o tobacco use No acute exacerbation Continue Spiriva Xopenex every 6 hours as needed for wheezing Continue Symbicort/equivalent Plan: DVT PPx: On heparin and Coumadin as above I had a lengthy discussion with patient regarding keeping him hospitalized until his INR is therapeutic given the complexity of the recent bleeding events that occurred in May. Although not happy about it, he is agreeable. He is also agreeable to f/u with hematology in [place] (Dr. Georges) via telehealth and the anticoagulation clinic upon discharge. Continue trending daily PT/PTT/INR. At this time, no need for IVC as it was determined that ACT is not contraindicated in this patient. I would recommend hypercoagulable panel be drawn in this patient once decision is made to stop Coumadin given that this is his second PE/DVT in <6 months. Admission and Anticipated Discharge Date Admission Date: August 05, 2021 Subjective Patient seen on daily rounds this morning. He is resting comfortably in bed and offers no complaints at this time. He denies dyspnea or chest pain. Denies n/v. Pt had a rather recent complex history including a TAVR done at [facility] in May which was complicated by cardiac arrest and bleeding issues. Now he presents with segmental and subsegmental PEs in the RUL, has been started on Heparin gtt and Warfarin. He has had no bleeding issues reported since the events that occurred in May. Admits that he has been mostly sedentary following his lengthy hospitalization. Pt also noted to have bilateral DVTs found on venous dopplers performed 08/06. Review of Systems Review of Systems: CONSTITUTIONAL: Denies weight loss/gain, fever and chills, fatigue, malaise, generalized weakness. HEENT: Denies changes in vision and hearing. RESPIRATORY: Denies SOB, cough, wheezing. CV: Denies palpitations, CP, lower extremity edema, orthopnea, PND. GI: Denies abdominal pain, nausea, vomiting and diarrhea. : Denies dysuria and urinary frequency, urgency, hesitancy. MUSCULOSKELETAL: Denies myalgia and joint pain. SKIN: Denies rash and pruritus. NEUROLOGICAL: Denies headache, syncope, focal weakness, numbness, tingling. PSYCHIATRIC: Denies recent changes in mood. Denies anxiety and depression. Physical Exam 2 Physical Exam: GENERAL: 71 yo well-developed, well-nourished elderly WM. NAD. LUNGS: Nonlabored, overall diminished w/ fine bibasilar crackles, no wheezes or rhonchi. CARDIOVASCULAR: Regular rate and rhythm. No M/G/R. No JVD. ABDOMEN: Soft, non-tender and non-distended. BS normal x 4 quad. EXTREMITIES: No edema. Non-tender. Peripheral pulses +2/4. NEUROLOGIC: A&O x3. PSYCHIATRIC: Cooperative. Appropriate mood and affect. SKIN: Warm, dry, intact. No rashes or lesions. Results & Data Results & Data ([facility]) Vital Signs (Past 12 Hours) Vital Signs Temp Pulse Resp BP Pulse Ox 08/07/21 07:05 36.4 C L 63 18 145/69 H 93 08/07/21 03:35 36.4 C L 62 18 134/68 94 08/06/21 22:48 36.7 C 67 20 119/66 93 Laboratory Results 08/07/21 05:27 08/07/21 05:27 PG Care Time/CCT Total # of Minutes Spent Total Time Spent with Patient: Total time spent is greater than 50% in coordination of care (as documented) at patient's floor/unit and/or counseling patient: Coding Level of Care Code 04986 Subseq Hosp Care Lvl 3 Diagnoses Acute pulmonary embolism I26.99 Anemia D64.9 Atrial flutter I48.92 Benign prostatic hyperplasia with urinary obstruction and other lower urinary tract symptoms N40.1; N13.8 Chronic heart failure with preserved ejection fraction I50.32 CKD (chronic kidney disease) stage 2, GFR 60-89 ml/min N18.2 GERD with esophagitis K21.00 Essential hypertension I10 Polymyalgia rheumatica M35.3 Pacemaker Z95.0 S/P TAVR (transcatheter aortic valve replacement) Z95.2 COPD (chronic obstructive pulmonary disease) J44.1 COPD type: COPD with acute exacerbation (1) COPD (chronic obstructive pulmonary disease) COPD type: COPD with acute exacerbation Qualified Code(s): J44.1 - Chronic obstructive pulmonary disease with (acute) exacerbation
[2021-08-07 13:55] LABS: Partial Thromboplastin Ratio 1.7
[2021-08-07 13:56] LABS: Partial Thromboplastin Time 48.1 Seconds (21.0-31.0)
[2021-08-07] MEDS: HEPARIN SODIUM/DEXTROSE 25,000 UNITS/500 ML BAG IV SCH (16:03)
[2021-08-07] MEDS: WARFARIN SOD 3 MG TAB PO SCH (16:09)
[2021-08-07] MEDS: TERAZOSIN HCL 5 MG CAP PO SCH (20:21)
[2021-08-07] MEDS: UMECLIDINIUM BROMIDE 62.5MCG/BLISTER 7 PUFFS/INHALER INH SCH (20:22)
[2021-08-08 06:19] LABS: INR 1.1 (0.9-1.1); Prothrombin Time 11.6 Seconds (9.0-12.0)
[2021-08-08 06:21] LABS: Hematocrit (blood only) 29.5 % (42-52); Hemoglobin 9.8 g/dL (14.0-18.0); Mean Corpuscular Hemoglobin 32.6 pg (25-34); Mean Corpuscular Hgb Conc 33.2 g/dL (32-36); RDW Coefficient of Variation 15.2 % (11.5-14.5); RDW Standard Deviation 54.8 fL (36.4-46.3); Red Blood Count 3.01 M/uL (4.7-6.1); White Blood Count 3.32 K/uL (4.8-10.8)
[2021-08-08 06:44] LABS: BUN Creatinine Ratio 13.5 (10-20); Creatinine Clr Calc Pharmacy 47.1 ml/min; Est GFR (African American) 45.7 ml/min; Est GFR (Non-African American) 39.4 ml/min; Potassium 3.8 mmol/L (3.5-5.1)
[2021-08-08 06:45] LABS: Mean Platelet Volume 9.6 fL (7.4-10.4); Platelet Count 92 K/uL (130-400)
[2021-08-08 06:54] LABS: Basophils # (auto) 0.01 K/uL (0-0.2); Basophils % (auto) 0.3 %; Eosinophils # (auto) 0.09 K/uL (0-0.5); Eosinophils % (auto) 2.7 %; Immature Granulocytes # (auto) 0.02 K/uL (0.00-0.02); Immature Granulocytes % (auto) 0.6 %; Lymphocytes # (auto) 0.85 K/uL (1.2-3.4); Lymphocytes % (auto) 25.6 %; Monocytes # (auto) 0.25 K/uL (0.11-0.59); Monocytes % (auto) 7.5 %; Neutrophils % (auto) 63.3 %
[2021-08-08] MEDS: AMIODARONE 200 MG TAB PO SCH (08:00)
[2021-08-08] MEDS: BUMETANIDE 1 MG TAB PO SCH (08:01)
[2021-08-08] MEDS: FOLIC ACID 1 MG TAB PO SCH (08:01)
[2021-08-08] MEDS: ASPIRIN 81 MG ECTAB PO SCH (08:01)
[2021-08-08] MEDS: FINASTERIDE 5 MG TAB PO SCH (08:01)
[2021-08-08] MEDS: CEROVITE ADV FORMULA TAB PO SCH (08:02)
[2021-08-08] MEDS: VALSARTAN/SACUBITRIL 26/24MG TAB PO SCH ×2 (08:02→20:34)
[2021-08-08] MEDS: predniSONE 5 MG TAB PO SCH (08:02)
[2021-08-08] MEDS: SENNA 8.6 MG TAB PO SCH ×3 (08:02→20:33)
[2021-08-08] MEDS: BUDESONIDE/FORMOTEROL FUMARATE 160/4.5 60 PUFFS/INHALER INH SCH ×2 (08:05→18:25)
[2021-08-08 09:15] LABS: Partial Thromboplastin Time 54.1 Seconds (21.0-31.0)
--- NOTE | 2021-08-08 10:54 | Hospitalist Progress Note ---
Date of Service August 08, 2021 Assessment & Plan (1) Acute pulmonary embolism: Plan: Acute pulmonary embolism, history of prior DVT/PE CXR: Cardiomegaly without acute process, chronic interstitial coarsening of the bases. CTA: Segmental and subsegmental pulmonary emboli in right upper lobe. No evidence of right heart strain on CT. Large bullae in left lung base. Centrilobular emphysema in upper lobes. Atelectasis. No pulmonary edema. During admission to [facility] 2 months ago patient with multiple events of bleeding, bloody pericardial effusion without known cause, required transfusions. For this reason his anticoagulation was discontinued at that time. Was recommended to continue aspirin therapy long-term and defer anticoagulation at that time and discharged. he was also noted to be maintaining sinus rhythm while on amiodarone, although was admitted with atrial fibrillation. Echo completed -- no evidence of right heart strain, LVEF 45-50%, mild to mod global hypokinesis, mild A, no pericardial effusion Bloody pericardial effusion 06/01/2021, unclear if this was a result of CPR from resuscitation or present before. Increased bleeding risk, will start heparin gtt LOW DOSE no bolus. Discussed with Dr. Zhong consulted for discharge anticoagulation recommendations given recurrent bleeding/high risk in the past. Recommend low dose heparin not lovenox at this time and bringing up slowly on warfarin 3mg daily to start. high risk for DOAC tx. Started on Warfarin on 08/06 and being monitored for bleeding overnight on heparin gtt. ASA continued. CTA/P: Right lower lobe resolving consolidation versus nodule, 3-month CT follow-up recommended. No bowel thickening or obstruction. Diverticulosis without diverticulitis. Cholelithiasis. Discussed this case in detail with Dr. Georges at [facility] who was on consult during the patient's complicated hospitalization in May. She does not believe that the patient has a contraindication to anticoagulation therapy. Does not believe there is place at this time for IVC filter placement since he is a candidate for treatment with blood thinners. Obviously, given his recent history, close monitoring for bleeding events will need to be carried out. She is happy to follow up with him following this hospitalization either in her clinic or via telehealth as the question of treatment duration since this event appears to be unprovoked will need to be re-evaluated on a continual basis. Continue Heparin gtt and Coumadin until INR therapeutic between 2-3 (preferred closer to 2) (2) Anemia: Plan: Pancytopenia, ongoing since May 2021 H&H stable History of iron deficiency, vitamin deficiency B12--> 692 thiamine pending CBC daily (3) Atrial flutter: Plan: Atrial flutter Continue amiodarone anticoagulation as above (4) Benign prostatic hyperplasia with urinary obstruction and other lower urinary tract symptoms: Plan: flomax, dutasteride [employer] No new urinary sx or signs of UTI (5) Chronic heart failure with preserved ejection fraction: Plan: CAD with history of [place] Continue aspirin 81 mg daily Continue Entresto 24-26 mg 1 tab p.o. twice daily Echo completed this admission, no RV strain (6) CKD (chronic kidney disease) stage 2, GFR 60-89 ml/min: Plan: Chronic kidney disease Patient with recent history of acute renal failure while hospitalized 05/20 Recent creatinine 07/29/2021 1.68, admitting creatinine 1.44 ? Patient's baseline, trend daily, today creatinine up to 1.71, may need gentle IVF hydration but hold off at this time Renally dose medications UA contaminated appearing with budding hyphae, epithelial cells. UC negative. (7) GERD with esophagitis: Plan: Convert home omeprazole to protonix 40mg daily per hospital formulary (8) Essential hypertension: Plan: As above (9) Polymyalgia rheumatica: Plan: PMR Continue home prednisone 5 mg daily (10) Pacemaker: Plan: As above (11) S/P TAVR (transcatheter aortic valve replacement): Plan: As above (12) COPD (chronic obstructive pulmonary disease): Plan: COPD on chronic 2L supplemental O2 at HS, h/o tobacco use No acute exacerbation Continue Spiriva Xopenex every 6 hours as needed for wheezing Continue Symbicort (pt's brought in from home) Plan: DVT PPx: On heparin and Coumadin as above I had a lengthy discussion with patient regarding keeping him hospitalized until his INR is therapeutic given the complexity of the recent bleeding events that occurred in May. Although not happy about it, he is agreeable. He is also agreeable to f/u with hematology in [place] (Dr. Georges) via telehealth and the anticoagulation clinic upon discharge. Continue trending daily PT/PTT/INR. At this time, no need for IVC as it was determined that ACT is not contraindicated in this patient. I would recommend hypercoagulable panel be drawn in this patient once decision is made to stop Coumadin given that this is his second PE/DVT in <6 months. PT/OT consulted I have updated patient's , Polly, via phone on 08/08. Admission and Anticipated Discharge Date Admission Date: August 05, 2021 Subjective Patient seen on daily rounds this morning. He is resting comfortably in bed and offers no complaints at this time. He denies dyspnea or chest pain. Denies n/v. Pt had a rather recent complex history including a TAVR done at [facility] in Jun 21 which was complicated by cardiac arrest and bleeding issues. Now he presents with segmental and subsegmental PEs in the RUL, has been started on Heparin gtt and Warfarin. He has had no bleeding issues reported since the events that occurred in May. Admits that he has been mostly sedentary following his lengthy hospitalization. Pt also noted to have bilateral DVTs found on venous dopplers performed 08/06. Review of Systems Review of Systems: CONSTITUTIONAL: Denies weight loss/gain, fever and chills, fatigue, malaise, generalized weakness. HEENT: Denies changes in vision and hearing. RESPIRATORY: Denies SOB, cough, wheezing. CV: Denies palpitations, CP, lower extremity edema, orthopnea, PND. GI: Denies abdominal pain, nausea, vomiting and diarrhea. : Denies dysuria and urinary frequency, urgency, hesitancy. MUSCULOSKELETAL: Denies myalgia and joint pain. SKIN: Denies rash and pruritus. NEUROLOGICAL: Denies headache, syncope, focal weakness, numbness, tingling. PSYCHIATRIC: Denies recent changes in mood. Denies anxiety and depression. Physical Exam Physical Exam: GENERAL: 71 yo well-developed, well-nourished elderly WM. NAD. LUNGS: Nonlabored, CTAB. CARDIOVASCULAR: Regular rate and rhythm. No M/G/R. No JVD. ABDOMEN: Soft, non-tender and non-distended. BS normal x 4 quad. EXTREMITIES: No edema. Non-tender. Peripheral pulses +2/4. NEUROLOGIC: A&O x3. PSYCHIATRIC: Cooperative. Appropriate mood and affect. SKIN: Warm, dry, intact. No rashes or lesions. Results & Data Results & Data ([facility]) Vital Signs (Past 12 Hours) Vital Signs Temp Pulse Pulse Resp BP BP Pulse Ox 08/08/21 07:14 36.4 C L 67 20 104/61 96 08/08/21 06:14 61 08/08/21 04:00 36.4 C L 65 18 117/61 96 08/08/21 01:20 66 08/07/21 23:00 36.5 C 66 18 135/75 94 Laboratory Results 08/08/21 06:00 08/08/21 06:00 PT=11.6 INR=1.1 PTT=54.1 PG Care Time/CCT Total # of Minutes Spent Total Time Spent with Patient: Total time spent is greater than 50% in coordination of care (as documented) at patient's floor/unit and/or counseling patient: Coding Level of Care Code 85506 Subseq Hosp Care Lvl 2 Diagnoses Acute pulmonary embolism I26.99 Anemia D64.9 Atrial flutter I48.92 Benign prostatic hyperplasia with urinary obstruction and other lower urinary tract symptoms N40.1; N13.8 Chronic heart failure with preserved ejection fraction I50.32 CKD (chronic kidney disease) stage 2, GFR 60-89 ml/min N18.2 GERD with esophagitis K21.00 Essential hypertension I10 Polymyalgia rheumatica M35.3 Pacemaker Z95.0 S/P TAVR (transcatheter aortic valve replacement) Z95.2 COPD (chronic obstructive pulmonary disease) J44.1 COPD type: COPD with acute exacerbation (1) COPD (chronic obstructive pulmonary disease) COPD type: COPD with acute exacerbation Qualified Code(s): J44.1 - Chronic obstructive pulmonary disease with (acute) exacerbation
[2021-08-08] MEDS: WARFARIN SOD 3 MG TAB PO SCH (16:31)
[2021-08-08] MEDS: TERAZOSIN HCL 5 MG CAP PO SCH (18:24)
[2021-08-08] MEDS: HEPARIN SODIUM/DEXTROSE 25,000 UNITS/500 ML BAG IV SCH (18:25)
[2021-08-08] MEDS: UMECLIDINIUM BROMIDE 62.5MCG/BLISTER 7 PUFFS/INHALER INH SCH (20:34)
[2021-08-09 05:40] LABS: Hematocrit (blood only) 30.2 % (42-52); Hemoglobin 9.9 g/dL (14.0-18.0); Mean Corpuscular Hemoglobin 32.5 pg (25-34); Mean Corpuscular Hgb Conc 32.8 g/dL (32-36); RDW Coefficient of Variation 15.6 % (11.5-14.5); RDW Standard Deviation 56.8 fL (36.4-46.3); Red Blood Count 3.05 M/uL (4.7-6.1); White Blood Count 3.36 K/uL (4.8-10.8)
[2021-08-09 05:44] LABS: Platelet Count 89 K/uL (130-400)
[2021-08-09 05:54] LABS: INR 1.1 (0.9-1.1); Prothrombin Time 11.7 Seconds (9.0-12.0)
[2021-08-09 06:07] LABS: BUN Creatinine Ratio 15.8 (10-20); Creatinine Clr Calc Pharmacy 52.9 ml/min; Est GFR (African American) 52.7 ml/min; Est GFR (Non-African American) 45.4 ml/min; Potassium 3.7 mmol/L (3.5-5.1)
[2021-08-09 06:39] LABS: Partial Thromboplastin Time 55.1 Seconds (21.0-31.0)
[2021-08-09 06:45] LABS: Basophils # (auto) 0.01 K/uL (0-0.2); Basophils % (auto) 0.3 %; Eosinophils # (auto) 0.07 K/uL (0-0.5); Eosinophils % (auto) 2.1 %; Immature Granulocytes # (auto) 0.03 K/uL (0.00-0.02); Immature Granulocytes % (auto) 0.9 %; Lymphocytes # (auto) 0.83 K/uL (1.2-3.4); Lymphocytes % (auto) 24.7 %; Monocytes # (auto) 0.28 K/uL (0.11-0.59); Monocytes % (auto) 8.3 %; Neutrophils # (auto) 2.14 K/uL (1.4-6.5); Neutrophils % (auto) 63.7 %; RBC Morphology Unremarkable
[2021-08-09] MEDS: allopurinoL 100 MG TAB PO SCH (07:55)
[2021-08-09] MEDS: AMIODARONE 200 MG TAB PO SCH (07:56)
[2021-08-09] MEDS: ASPIRIN 81 MG ECTAB PO SCH (07:57)
[2021-08-09] MEDS: BUMETANIDE 1 MG TAB PO SCH (07:58)
[2021-08-09] MEDS: FINASTERIDE 5 MG TAB PO SCH (07:59)
[2021-08-09] MEDS: FOLIC ACID 1 MG TAB PO SCH (07:59)
[2021-08-09] MEDS: VALSARTAN/SACUBITRIL 26/24MG TAB PO SCH ×2 (08:00→20:52)
[2021-08-09] MEDS: CEROVITE ADV FORMULA TAB PO SCH (08:00)
[2021-08-09] MEDS: SENNA 8.6 MG TAB PO SCH ×2 (08:00→20:52)
[2021-08-09] MEDS: predniSONE 5 MG TAB PO SCH (08:39)
[2021-08-09] MEDS: BUDESONIDE/FORMOTEROL FUMARATE 160/4.5 60 PUFFS/INHALER INH SCH ×2 (08:41→18:30)
--- NOTE | 2021-08-09 12:08 | Hospitalist Progress Note ---
Date of Service August 09, 2021 Assessment & Plan (1) Acute pulmonary embolism: Plan: Acute pulmonary embolism, history of prior DVT/PE Patient has remained hemodynamically stable. He is not tachycardic or hypotensive. Not requiring any supplemental oxygen. CXR: Cardiomegaly without acute process, chronic interstitial coarsening of the bases. CTA: Segmental and subsegmental pulmonary emboli in right upper lobe. No evidence of right heart strain on CT. Large bullae in left lung base. Centrilobular emphysema in upper lobes. Atelectasis. No pulmonary edema. Does have history of DVT/PE in the past for which he was taking Eliquis. This was recently stopped as outlined below During admission to [facility] 2 months ago patient with multiple events of bleeding, bloody pericardial effusion, required transfusions. For this reason his anticoagulation was discontinued at that time. Was recommended to continue aspirin therapy long-term and defer anticoagulation at that time and discharged. he was also noted to be maintaining sinus rhythm while on amiodarone Echo completed -- no evidence of right heart strain, LVEF 45-50%, mild to mod global hypokinesis, mild A, no pericardial effusion Bloody pericardial effusion 06/01/2021, unclear if this was a result of CPR from resuscitation or present before. Increased bleeding risk, now on heparin gtt LOW DOSE no bolus. prior provider Discussed with Dr. Zhong consulted for discharge anticoagulation recommendations given recurrent bleeding/high risk in the past. Recommend low dose heparin not lovenox at this time and bringing up slowly on warfarin daily to start. high risk for DOAC tx. Started on Warfarin on 08/06 and being monitored for bleeding on heparin gtt. Received Coumadin 3 mg daily X3 consecutive days. INR remains subtherapeutic at 1.1. Will increase to 5mg with FU INR to trend. 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 Georges at [facility] who was on consult during the patient's complicated hospitalization in May. She does not believe that the patient has a contraindication to anticoagulation therapy. Does not believe there is place at this time for IVC filter placement since he is a candidate for treatment with blood thinners. Obviously, given his recent history, close monitoring for bleeding events will need to be carried out. She is happy to follow up with him following this hospitalization either in her clinic or via telehealth as the question of treatment duration since this event appears to be unprovoked will need to be re-evaluated on a continual basis. 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 can not find records regarding cardiac cath and integrity of his coronary arteries. Continue aspirin 81 mg daily for now. uncertain if this is necessary (derick with the need for ACT and his bleeding risk). Will investigate this further Continue Entresto 24-26 mg 1 tab p.o. twice daily Echo completed this admission, no RV strain (6) CKD (chronic kidney disease) stage 2, GFR 60-89 ml/min: Plan: Chronic kidney disease Patient with recent history of acute renal failure while hospitalized 05/20 Recent creatinine 07/29/2021 1.52, admitting creatinine 1.44 ? Patient's baseline but was as high as 5.19 prior to TAVR (cardiorenal syndrome) Renally dose medications UA contaminated appearing with budding hyphae, epithelial cells. UC negative. Continue to monitor (7) GERD with esophagitis: Plan: Add Protonix for GI prophylaxis given Coumadin in conjunction with aspirin in addition to his chronic prednisone therapy (8) Essential hypertension: Plan: As above (9) Polymyalgia rheumatica: Plan: PMR Continue home prednisone 5 mg daily (10) Pacemaker: Plan: As above (11) S/P TAVR (transcatheter aortic valve replacement): Plan: As above (12) COPD (chronic obstructive pulmonary disease): Plan: COPD on chronic 2L supplemental O2 at HS, h/o tobacco use No acute exacerbation Continue Spiriva Xopenex every 6 hours as needed for wheezing Continue Symbicort (pt's brought in from home) (13) Abnormal CT scan, chest: Plan: CTA/P: Right lower lobe resolving consolidation versus nodule, 3-month CT follow-up recommended. No bowel thickening or obstruction. Diverticulosis with out diverticulitis. Cholelithiasis. Plan: DVT PPx: On heparin and Coumadin as above I had a lengthy discussion with patient regarding keeping him hospitalized until his INR is therapeutic given the complexity of the recent bleeding events that occurred in May. Although not happy about it, he is agreeable. He is also agreeable to f/u with hematology in [place] (Dr. Georges) via telehealth and the anticoagulation clinic upon discharge. Continue trending daily PT/PTT/INR. At this time, no need for IVC as it was determined that ACT is not contraindicated in this patient. PT/OT consulted Admission and Anticipated Discharge Date Admission Date: August 05, 2021 Supervising Physician Co-Signing Physician Notes chart reviewed, case d/w J Josiane PAC - agree w above Subjective Patient seen on daily rounds today. Brown on a heparin drip, bridging with Coumadin, awaiting therapeutic INR. Patient has had a complicated last several months. I last saw him in March for A. fib with RVR. At that time, was found to have critical aortic stenosis and there was lengthy discussion with him regarding TAVR. We were able to get control his heart rate with an amiodarone drip and he was subsequently discharged with amiodarone. Subsequently he returned in April with acute uncompensated CHF and renal failure due to cardiorenal syndrome from the severe aortic stenosis. He was transferred to [facility] and underwent TAVR. Was subsequently discharged and while in the parking lot, went into cardiac arrest requiring CPR. Was found to have a pericardial effusion that was drained. Was bloody. Received a blood transfusion. His Eliquis was stopped at that time. Culture data from the pericardial effusion grew staph epidermidis. Uncertain if this was a skin contaminant but he completed a full course of antibiotics as recommended by infectious disease. He has remained off of Eliquis since that time. In addition, did have a PPM placed due to bradycardia found following his cardiac arrest. Hospitalized at this time with an acute PE of menses which he does have history of. Has been on aspirin but no anticoagulation therapy. Ultimately, anticoagulation therapy has been a concern given the recent pericardial effusion (positive for blood) and need for blood transfusion. The bloody pericardial effusion was thought to subsequently be related to the CPR that he received and his hemoglobin has remained stable since. Ultimately, it was decided upon placing him on Coumadin and heparin watching closely for evidence of bleeding. So far, his hemoglobin has remained stable. His INR remains subtherapeutic at 1.1. Vocalizes no complaints or concerns. Denies fevers, chills, chest pain, shortne ss of breath, abdominal pain, nausea or vomiting. His only complaint is that he remains in the hospital Review of Systems Review of Systems: All systems reviewed and are unremarkable except as noted in HPI and below Denies fevers, chills, headache, nasal congestion, sore throat, cough, chest pain, shortness of breath, palpitations, orthopnea, PND, abdominal pain, nausea, vomiting, diarrhea, constipation, dysuria, hematuria, frequency, back pain, joint pain or swelling, easy bruising or bleeding, skin lesions or rashes. Physical Exam Physical Exam: General: Resting comfortably in his hospital bed. NAD. HEENT: Head is AT/NC. Buccal mucosa is moist and pink Neck: No JVD. Negative hepatojugular reflex Cardiac: Currently in a sinus rhythm with 1/6 LUZ MARINA Lungs: CTA without W/R/R Abdomen: Normoactive X4. Soft and nontender in all quadrants. Extremities: No peripheral clubbing cyanosis or edema Neuro: A&O X4. Cranial nerves II through XII are grossly intact. No focal neuro deficits Skin: No obvious skin lesions or rashes Psych: Appropriate affect. Pleasant and cooperative Results & Data Results & Data ([facility]) Vital Signs (Past 12 Hours) Vital Signs Temp Pulse Pulse Resp BP Pulse Ox 08/09/21 06:55 36.6 C 63 18 118/67 96 08/09/21 04:06 36.3 C L 62 18 110/66 97 08/09/21 00:08 61 PG Care Time/CCT Total # of Minutes Spent Total Time Spent with Patient: Total time spent is greater than 50% in coordination of care (as documented) at patient's floor/unit and/or counseling patient: Coding Level of Care Code 92544 Subseq Hosp Care Lvl 3 Diagnoses Acute pulmonary embolism I26.99 Anemia D64.9 Atrial flutter I48.92 Benign prostatic hyperplasia with urinary obstruction and other lower urinary tract symptoms N40.1; N13.8 Chronic heart failure with preserved ejection fraction I50.32 CKD (chronic kidney disease) stage 2, GFR 60-89 ml/min N18.2 GERD with esophagitis K21.00 Essential hypertension I10 Polymyalgia rheumatica M35.3 Pacemaker Z95.0 S/P TAVR (transcatheter aortic valve replacement) Z95.2 COPD (chronic obstructive pulmonary disease) J44.1 COPD type: COPD with acute exacerbation Abnormal CT scan, chest R93.89 (1) COPD (chronic obstructive pulmonary disease) COPD type: COPD with acute exacerbation Qualified Code(s): J44.1 - Chronic obstructive pulmonary disease with (acute) exacerbation
[2021-08-09] MEDS: WARFARIN SOD 5 MG TAB PO SCH (17:38)
[2021-08-09] MEDS: TERAZOSIN HCL 5 MG CAP PO SCH (18:30)
[2021-08-09] MEDS: UMECLIDINIUM BROMIDE 62.5MCG/BLISTER 7 PUFFS/INHALER INH SCH (20:53)
[2021-08-09] MEDS: HEPARIN SODIUM/DEXTROSE 25,000 UNITS/500 ML BAG IV SCH (22:26)
[2021-08-10 06:06] LABS: INR 1.2 (0.9-1.1); Partial Thromboplastin Ratio 2.1; Prothrombin Time 12.5 Seconds (9.0-12.0)
[2021-08-10 06:44] LABS: Partial Thromboplastin Time 56.4 Seconds (21.0-31.0)
[2021-08-10] MEDS: AMIODARONE 200 MG TAB PO SCH (07:30)
[2021-08-10] MEDS: BUDESONIDE/FORMOTEROL FUMARATE 160/4.5 60 PUFFS/INHALER INH SCH ×2 (07:30→18:21)
[2021-08-10] MEDS: BUMETANIDE 1 MG TAB PO SCH (07:31)
[2021-08-10] MEDS: FINASTERIDE 5 MG TAB PO SCH (07:31)
[2021-08-10] MEDS: FOLIC ACID 1 MG TAB PO SCH (07:32)
[2021-08-10] MEDS: predniSONE 5 MG TAB PO SCH (07:33)
[2021-08-10] MEDS: CEROVITE ADV FORMULA TAB PO SCH (07:33)
[2021-08-10] MEDS: PANTOprazole 40 MG TAB PO SCH (07:33)
[2021-08-10] MEDS: VALSARTAN/SACUBITRIL 26/24MG TAB PO SCH ×2 (07:34→20:59)
[2021-08-10] MEDS: SENNA 8.6 MG TAB PO SCH ×2 (07:34→20:59)
--- NOTE | 2021-08-10 09:09 | Hospitalist Progress Note ---
Date of Service August 10, 2021 Assessment & Plan (1) Acute pulmonary embolism: Plan: Acute pulmonary embolism, history of prior DVT/PE Patient has remained hemodynamically stable. He is not tachycardic or hypotensive. Not requiring any supplemental oxygen. CXR: Cardiomegaly without acute process, chronic interstitial coarsening of the bases. CTA: Segmental and subsegmental pulmonary emboli in right upper lobe. No evidence of right heart strain on CT. Large bullae in left lung base. Centrilobular emphysema in upper lobes. Atelectasis. No pulmonary edema. Does have history of DVT/PE in the past for which he was taking Eliquis. This was recently stopped as outlined below During admission to [facility] 2 months ago patient with multiple events of bleeding, bloody pericardial effusion, required transfusions. For this reason his anticoagulation was discontinued at that time. Was recommended to continue aspirin therapy long-term and defer anticoagulation at that time and discharged. he was also noted to be maintaining sinus rhythm while on amiodarone Echo completed -- no evidence of right heart strain, LVEF 45-50%, mild to mod global hypokinesis, mild A, no pericardial effusion Bloody pericardial effusion 06/01/2021, unclear if this was a result of CPR from resuscitation or present before. Increased bleeding risk, now on heparin gtt LOW DOSE no bolus. prior provider Discussed with Dr. Zhong consulted for discharge anticoagulation recommendations given recurrent bleeding/high risk in the past. Recommend low dose heparin not lovenox at this time and bringing up slowly on warfarin daily to start. high risk for DOAC tx. Started on Warfarin on 08/06 and being monitored for bleeding on heparin gtt. although Coumadin be utilized due to presumed decreased risk of bleeding, there still is a risk of bleeding should he become hypercoagulable. All of these risks were outlined with the patient. Unfortunately, given the acute on chronic PE he does need anticoagulated. Received Coumadin 3 mg daily X3 consecutive days. INR remained subtherapeutic at 1.1. Increased Coumadin to 5mg on 08/09. INR 1.2 today. 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 Thus far, seems to be tolerating heparin without bleeding issues. Could potentially consider transition from Coumadin to DOAC in 3 to 6 months (at prevention dosing rather than treatment dosing) should he continue to tolerate from a bleeding standpoint. Continue Heparin gtt and Coumadin until INR therapeutic between 2-3 (preferred closer to 2) prior provider Discussed this case in detail with Dr. Georges at [facility] who was on consult during the patient's complicated hospitalization in May. She does not believe that the patient has a contraindication to anticoagulation therapy. Does not believe there is place at this time for IVC filter placement since he is a candidate for treatment with blood thinners. Obviously, given his recent history, close monitoring for bleeding events will need to be carried out. She is happy to follow up with him following this hospitalization either in her clinic or via telehealth as the question of treatment duration since this event appears to be unprovoked will need to be re-evaluated on a continual basis. (2) Anemia: Plan: Pancytopenia, ongoing since May 2021 H&H stable History of iron deficiency, vitamin deficiency B12--> 692 thiamine pending CBC daily Thus far, tolerating heparin/Coumadin bridge now on empiric PPI given coumadin and chronic prednisone (for GI prophylaxis) Patient was on aspirin in addition to Coumadin. Lengthy review of his records show no evidence of underlying coronary artery disease. He did have cardiac arrest s/p TAVR but per cardiology records, this was due to bradycardia. Uncertain if he had a block or sick sinus syndrome but at any rate, he underwent permanent pacemaker. He denies any known history of coronary artery disease. He denies history of TIA/stroke. I did touch base with in house division engineer Fish Tender. He agreed that given need for anticoagulation therapy and bleeding risk, would stop antiplatelet agent. 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 can not find records regarding cardiac cath and integrity of his coronary arteries. Aspirin stopped given need for anticoagulation therapy and his bleeding risk. Again, as outlined above I did review records in great detail and he has no known underlying coronary artery disease. Cardiac arrest that occurred post TAVR was secondary to documented bradycardia by cardiology. Uncertain if he had a block or sick sinus syndrome. At any rate, he underwent permanent pacemaker placement. Did discuss with cardiology prior to discontinuation of aspirin Continue Entresto 24-26 mg 1 tab p.o. twice daily Echo completed this admission, no RV strain (6) CKD (chronic kidney disease) stage 2, GFR 60-89 ml/min: Plan: Chronic kidney disease Patient with recent history of acute renal failure while hospitalized 05/20 Recent creatinine 07/29/2021 1.52, admitting creatinine 1.44 ? Patient's baseline but was as high as 5.19 prior to TAVR (cardiorenal syndrome) Renally dose medications UA contaminated appearing with budding hyphae, epithelial cells. UC negative. Continue to monitor (7) GERD with esophagitis: Plan: continue Protonix for GI prophylaxis given Coumadin in conjunction chronic prednisone therapy (8) Essential hypertension: Plan: As above (9) Polymyalgia rheumatica: Plan: PMR Continue home prednisone 5 mg daily (10) Pacemaker: Plan: As above (11) S/P TAVR (transcatheter aortic valve replacement): Plan: As above (12) COPD (chronic obstructive pulmonary disease): Plan: COPD on chronic 2L supplemental O2 at HS, h/o tobacco use No acute exacerbation Continue Spiriva Xopenex every 6 hours as needed for wheezing Continue Symbicort (pt's brought in from home) (13) Abnormal CT scan, chest: Plan: CTA/P: Right lower lobe resolving consolidation versus nodule, 3-month CT follow-up recommended. No bowel thickening or obstruction. Diverticulosis without diverticulitis. Cholelithiasis. Plan: DVT PPx: On heparin and Coumadin as above I had a lengthy discussion with patient regarding keeping him hospitalized until his INR is therapeutic given the complexity of the recent bleeding events that occurred in May. Although not happy about it, he is agreeable. He is also agreeable to f/u with hematology in [place] (Dr. Georges) via telehealth and the anticoagulation clinic upon discharge. Continue trending daily PT/PTT/INR. At this time, no need for IVC as it was determined that ACT is not contraindicated in this patient. PT/OT consulted Admission and Anticipated Discharge Date Admission Date: August 05, 2021 Subjective Patient seen on daily rounds today. Vocalizes no complaints or concerns. Denies fevers, chills, chest pain, shortness of breath, abdominal pain, nausea or vomiting. Moving bladder without difficulty. Has not had a BM in 3 days but does not feel the urge. Deniesabdominal discomfort or nausea. Is passing flatus. Review of Systems Review of Systems: All systems reviewed and are unremarkable except as noted in HPI and below Denies fevers, chills, headache, nasal congestion, sore throat, cough, chest pain, shortness of breath, palpitations, orthopnea, PND, abdominal pain, nausea, vomiting, diarrhea, constipation, dysuria, hematuria, frequency, back pain, joint pain or swelling, easy bruising or bleeding, skin lesions or rashes. Physical Exam Physical Exam: General: Resting comfortably in his hospital bed. NAD. HEENT: Head is AT/NC. Buccal mucosa is moist and pink Neck: No JVD. Negative hepatojugular reflex Cardiac: Currently in a sinus rhythm with 1/6 LUZ MARINA Lungs: CTA without W/R/R Abdomen: Normoactive X4. Soft and nontender in all quadrants. Extremities: No peripheral clubbing cyanosis or edema Neuro: A&O X4. Cranial nerves II through XII are grossly intact. No focal ne uro deficits Skin: No obvious skin lesions or rashes Psych: Appropriate affect. Pleasant and cooperative Results & Data Results & Data ([facility]) Vital Signs (Past 12 Hours) Vital Signs Temp Pulse Resp BP Pulse Ox 08/10/21 06:46 36.4 C L 63 18 117/62 97 08/10/21 03:59 36.6 C 72 20 106/63 96 08/09/21 23:12 36.6 C 73 20 126/66 96 Laboratory Results INR 1.2 (0.9-1.1) H 08/10/21 05:17 PG Care Time/CCT Total # of Minutes Spent Total Time Spent with Patient: Total time spent is greater than 50% in coordination of care (as documented) at patient's floor/unit and/or counseling patient: Coding Level of Care Code 22943 Subseq Hosp Care Lvl 2 Diagnoses Acute pulmonary embolism I26.99 Anemia D64.9 Atrial flutter I48.92 Benign prostatic hyperplasia with urinary obstruction and other lower urinary t ract symptoms N40.1; N13.8 Chronic heart failure with preserved ejection fraction I50.32 CKD (chronic kidney disease) stage 2, GFR 60-89 ml/min N18.2 GERD with esophagitis K21.00 Essential hypertension I10 Polymyalgia rheumatica M35.3 Pacemaker Z95.0 S/P TAVR (transcatheter aortic valve replacement) Z95.2 COPD (chronic obstructive pulmonary disease) J44.1 COPD type: COPD with acute exacerbation Abnormal CT scan, chest R93.89 (1) COPD (chronic obstructive pulmonary disease) COPD type: COPD with acute exacerbation Qualified Code(s): J44.1 - Chronic obstructive pulmonary disease with (acute) exacerbation
[2021-08-10] MEDS ORDERED: POLYETHYLENE (MIRALAX) 17 GM PACK PO PRN (10:04)
[2021-08-10] MEDS: WARFARIN SOD 5 MG TAB PO SCH (15:46)
[2021-08-10] MEDS: TERAZOSIN HCL 5 MG CAP PO SCH (18:21)
[2021-08-10] MEDS: UMECLIDINIUM BROMIDE 62.5MCG/BLISTER 7 PUFFS/INHALER INH SCH (20:59)
[2021-08-11] MEDS: HEPARIN SODIUM/DEXTROSE 25,000 UNITS/500 ML BAG IV SCH (00:30)
[2021-08-11 05:36] LABS: Hematocrit (blood only) 32.3 % (42-52); Hemoglobin 10.6 g/dL (14.0-18.0); Mean Corpuscular Hemoglobin 32.6 pg (25-34); Mean Corpuscular Hgb Conc 32.8 g/dL (32-36); Mean Corpuscular Volume 99.4 fL (80-100); RDW Coefficient of Variation 15.3 % (11.5-14.5); RDW Standard Deviation 56.3 fL (36.4-46.3); Red Blood Count 3.25 M/uL (4.7-6.1); White Blood Count 3.43 K/uL (4.8-10.8)
[2021-08-11 05:50] LABS: Mean Platelet Volume 9.4 fL (7.4-10.4); Platelet Count 98 K/uL (130-400)
[2021-08-11 06:00] LABS: BUN Creatinine Ratio 17.4 (10-20); Creatinine Clr Calc Pharmacy 43.7 ml/min; Est GFR (African American) 41.8 ml/min; Est GFR (Non-African American) 36.1 ml/min; Magnesium 1.8 mg/dl (1.7-2.4); Potassium 3.9 mmol/L (3.5-5.1)
[2021-08-11 06:07] LABS: INR 1.4 (0.9-1.1); Partial Thromboplastin Ratio 2.4; Prothrombin Time 14.9 Seconds (9.0-12.0)
[2021-08-11 06:25] LABS: Basophils # (auto) 0.01 K/uL (0-0.2); Basophils % (auto) 0.3 %; Eosinophils # (auto) 0.06 K/uL (0-0.5); Eosinophils % (auto) 1.7 %; Immature Granulocytes # (auto) 0.04 K/uL (0.00-0.02); Immature Granulocytes % (auto) 1.2 %; Lymphocytes # (auto) 0.85 K/uL (1.2-3.4); Lymphocytes % (auto) 24.8 %; Monocytes # (auto) 0.22 K/uL (0.11-0.59); Monocytes % (auto) 6.4 %; Neutrophils # (auto) 2.25 K/uL (1.4-6.5); Neutrophils % (auto) 65.6 %
[2021-08-11 06:36] LABS: Partial Thromboplastin Time 65.2 Seconds (21.0-31.0)
[2021-08-11] MEDS: BUMETANIDE 1 MG TAB PO SCH ×2 (07:39→07:40)
[2021-08-11] MEDS: BUDESONIDE/FORMOTEROL FUMARATE 160/4.5 60 PUFFS/INHALER INH SCH ×2 (07:39→18:15)
[2021-08-11] MEDS: SENNA 8.6 MG TAB PO SCH ×2 (07:40→20:31)
[2021-08-11] MEDS: AMIODARONE 200 MG TAB PO SCH (07:40)
[2021-08-11] MEDS: VALSARTAN/SACUBITRIL 26/24MG TAB PO SCH ×2 (07:40→20:31)
[2021-08-11] MEDS: predniSONE 5 MG TAB PO SCH (07:40)
[2021-08-11] MEDS: allopurinoL 100 MG TAB PO SCH (07:40)
[2021-08-11] MEDS: FOLIC ACID 1 MG TAB PO SCH (07:41)
[2021-08-11] MEDS: PANTOprazole 40 MG TAB PO SCH (07:41)
[2021-08-11] MEDS: CEROVITE ADV FORMULA TAB PO SCH (07:41)
[2021-08-11] MEDS: FINASTERIDE 5 MG TAB PO SCH (07:41)
[2021-08-11 12:02] LABS: Partial Thromboplastin Ratio 2.2
[2021-08-11 12:14] LABS: Partial Thromboplastin Time 60.3 Seconds (21.0-31.0)
--- NOTE | 2021-08-11 13:02 | Hospitalist Progress Note ---
Date of Service August 11, 2021 Assessment & Plan (1) Acute pulmonary embolism: Plan: Acute pulmonary embolism, history of prior DVT/PE Patient has remained hemodynamically stable. He is not tachycardic or hypotensive. Not requiring any supplemental oxygen. CXR: Cardiomegaly without acute process, chronic interstitial coarsening of the bases. CTA: Segmental and subsegmental pulmonary emboli in right upper lobe. No evidence of right heart strain on CT. Large bullae in left lung base. Centrilobular emphysema in upper lobes. Atelectasis. No pulmonary edema. Does have history of DVT/PE in the past for which he was taking Eliquis. This was recently stopped as outlined below During admission to [facility] 2 months ago patient with multiple events of bleeding, bloody pericardial effusion, required transfusions. For this reason his anticoagulation was discontinued at that time. Was recommended to continue aspirin therapy long-term and defer anticoagulation at that time and discharge. he was also noted to be maintaining sinus rhythm while on amiodarone Echo completed -- no evidence of right heart strain, LVEF 45-50%, mild to mod global hypokinesis, mild A, no pericardial effusion Given Increased bleeding risk (as outlined below) and CKD-- now on heparin gtt bridge with Coumadin. Dr. Acharya has been following peripherally and will follow up as an OP once discharged Received Coumadin 3 mg daily X3 consecutive days. INR remained subtherapeutic at 1.1. Increased Coumadin to 5mg on 08/09. INR slowly rising. Updated D/W Dr. Acharya regarding stability in h/h (x6 days on heparin) and perhaps discharging with renally dose adjusted lovenox. She advises continuation of heparin/coumadin with 5mg today as INR may be therapeutic tomorrow. 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 Thus far, seems to be tolerating heparin without bleeding issues. Could potentially consider transition from Coumadin to DOAC in 3 to 6 months (at prevention dosing rather than treatment dosing) should he continue to tolerate from a bleeding standpoint. This will be at the discretion of PCP/Dr. Acharya at that time Continue Heparin gtt and Coumadin until INR therapeutic between 2-3 (preferred closer to 2) L prior provider Discussed this case in detail with Dr. Georges at [facility] who was on consult during the patient's complicated hospitalization in May. She does not believe that the patient has a contraindication to anticoagulation therapy. Does not believe there is place at this time for IVC filter placement since he is a candidate for treatment with blood thinners. Obviously, given his recent history, close monitoring for bleeding events will need to be carried out. She is happy to follow up with him following this hospitalization either in her clinic or via telehealth as the question of treatment duration since this event appears to be unprovoked will need to be re-evaluated on a continual basis. (2) Anemia: Plan: Pancytopenia, ongoing since May 2021 H&H stable since this hospitalization (9-10) With review of records at length, hemoglobin was down to 7 when in [place]. In addition, he had a bloody pericardial effusion (that was likely result of CPR) It was reported that his anemia was likely multifactorial. Patient does have underlying CKD and his creatinine was over 5 at that time. In addition, he was significantly volume overloaded from his critical aortic stenosis. Last, he had multiple procedures including a TAVR which could have contributed to hemolysis. He does not appear to have any active bleeding at this time. Aspirin stopped given bleeding riskNo evidence of CAD. Recent cardiac arrest d/t SSS for which PPM placed. 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 can not find records regarding cardiac cath and integrity of his coronary arteries. Aspirin stopped given need for anticoagulation therapy and his bleeding risk. D/W cardiology prior to discontinuation of aspirin Continue Entresto 24-26 mg 1 tab p.o. twice daily Echo completed this admission, no RV strain (6) CKD (chronic kidney disease) stage 2, GFR 60-89 ml/min: Plan: Chronic kidney disease Patient with recent history of acute renal failure while hospitalized 05/20 ? new baseline as recently as high as 5.19 prior to recent TAVR (from car diorenal syndrome) during this hospitalization, trending 1.4-1.8 Bumex 0.5 mg daily. Now that he is s/p TAVR, could consider discontinuation of this altogether; however, his recent echocardiograms ~notes decreased EF of 45% less likely need to accept a degree of renal impairment to keep CHF compensated Hold diuretic for now and continue to trend renal function Prednisone likely contributing to this as well Renally dose medications UA contaminated appearing with budding hyphae, epithelial cells. UC negative. Continue to monitor (7) GERD with esophagitis: Plan: continue Protonix for GI prophylaxis given Coumadin in conjunction chronic prednisone therapy (8) Essential hypertension: Plan: As above (9) Polymyalgia rheumatica: Plan: PMR Continue home prednisone 5 mg daily (10) Pacemaker: Plan: As above (11) S/P TAVR (transcatheter aortic valve replacement): Plan: As above (12) COPD (chronic obstructive pulmonary disease): Plan: COPD on chronic 2L supplemental O2 at HS, h/o tobacco use No acute exacerbation Continue Spiriva Xopenex every 6 hours as needed for wheezing Continue Symbicort (pt's brought in from home) (13) Abnormal CT scan, chest: Plan: CTA/P: Right lower lobe resolving consolidation versus nodule, 3-month CT follow-up recommended. No bowel thickening or obstruction. Diverticulosis without diverticulitis. Cholelithiasis. Plan: DVT PPx: On heparin and Coumadin as above I had a lengthy discussion with patient regarding keeping him hospitalized until his INR is therapeutic given the complexity of the recent anemia with ? bleeding event that occurred in May. Although not happy about it, he is agreeable. He is also agreeable to f/u with hematology in [place] (Dr. Goerges) via telehealth and the anticoagulation clinic upon discharge. Continue trending daily PT/PTT/INR. At this time, no need for IVC as it was determined that ACT is not contraindicated in this patient. PT/OT consulted Plan of care to be discussed with Dr. Baker. Further orders as warranted. Admission and Anticipated Discharge Date Admission Date: August 05, 2021 Subjective Patient seen on daily rounds today. Vocalizes no complaints or concerns. Denies fevers, chills, chest pain, shortness of breath, abdominal pain, nausea or vomiting. Did move his bowels last evening. Nursing voices no complaints or concerns. Review of Systems Review of Systems: All systems reviewed and are unremarkable except as noted in HPI and below Denies fevers, chills, headache, nasal congestion, sore throat, cough, chest pain, shortness of breath, palpitations, orthopnea, PND, abdominal pain, nausea, vomiting, diarrhea, constipation, dysuria, hematuria, frequency, back pain, j oint pain or swelling, easy bruising or bleeding, skin lesions or rashes. Physical Exam Physical Exam: General: Resting comfortably in his hospital bed. NAD. HEENT: Head is AT/NC. Buccal mucosa is moist and pink Neck: No JVD. Negative hepatojugular reflex Cardiac: Currently in a sinus rhythm with 1/6 LUZ MARINA Lungs: CTA without W/R/R Abdomen: Normoactive X4. Soft and nontender in all quadrants. Extremities: No peripheral clubbing cyanosis or edema Neuro: A&O X4. Cranial nerves II through XII are grossly intact. No focal neuro deficits Skin: No obvious skin lesions or rashes Psych: Appropriate affect. Pleasant and cooperative Results & Data Results & Data ([facility]) Vital Signs (Past 12 Hours) Vital Signs Temp Pulse Pulse Resp BP BP Pulse Ox 08/11/21 11:16 102/56 L 08/11/21 10:47 36.4 C L 76 18 94/52 L 94 08/11/21 07:46 36.3 C L 70 20 118/52 L 94 08/11/21 03:36 36.5 C 62 18 109/64 97 Laboratory Results INR 1.4 (0.9-1.1) H 08/11/21 05:24 08/11/21 05:24 08/11/21 05:24 PG Care Time/CCT Total # of Minutes Spent Total Time Spent with Patient: Total time spent is greater than 50% in coordination of care (as documented) at patient's floor/unit and/or counseling patient: Coding Level of Care Code 94773 Subseq Hosp Care Lvl 2 Diagnoses Acute pulmonary embolism I26.99 Anemia D64.9 Atrial flutter I48.92 Benign prostatic hyperplasia with urinary obstruction and other lower urinary tract symptoms N40.1; N13.8 Chronic heart failure with preserved ejection fraction I50.32 CKD (chronic kidney disease) stage 2, GFR 60-89 ml/min N18.2 GERD with esophagitis K21.00 Essential hypertension I10 Polymyalgia rheumatica M35.3 Pacemaker Z95.0 S/P TAVR (transcatheter aortic valve replacement) Z95.2 COPD (chronic obstructive pulmonary disease) J44.1 COPD type: COPD with acute exacerbation Abnormal CT scan, chest R93.89 (1) COPD (chronic obstructive pulmonary disease) COPD type: COPD with acute exacerbation Qualified Code(s): J44.1 - Chronic obstructive pulmonary disease with (acute) exacerbation
[2021-08-11] MEDS ORDERED: WARFARIN SOD 7.5 MG TAB PO ONE (16:00)
[2021-08-11] MEDS: TERAZOSIN HCL 5 MG CAP PO SCH (18:15)
[2021-08-11 18:45] LABS: Partial Thromboplastin Ratio 2.2
[2021-08-11 18:53] LABS: Partial Thromboplastin Time 60.5 Seconds (21.0-31.0)
[2021-08-11] MEDS: UMECLIDINIUM BROMIDE 62.5MCG/BLISTER 7 PUFFS/INHALER INH SCH (20:31)
[2021-08-12] MEDS: HEPARIN SODIUM/DEXTROSE 25,000 UNITS/500 ML BAG IV SCH ×2 (03:46→07:23)
[2021-08-12 06:35] LABS: Hemoglobin 10.5 g/dL (14.0-18.0); Mean Corpuscular Hemoglobin 32.7 pg (25-34); Mean Corpuscular Hgb Conc 32.8 g/dL (32-36); Mean Corpuscular Volume 99.7 fL (80-100); Platelet Count 112 K/uL (130-400); RDW Coefficient of Variation 15.5 % (11.5-14.5); Red Blood Count 3.21 M/uL (4.7-6.1); White Blood Count 3.52 K/uL (4.8-10.8)
[2021-08-12 07:02] LABS: Calcium 9.1 mg/dl (8.5-10.1); Creatinine Clr Calc Pharmacy 42.1 ml/min; Est GFR (African American) 40.2 ml/min; Est GFR (Non-African American) 34.7 ml/min; Potassium 3.9 mmol/L (3.5-5.1)
[2021-08-12 07:11] LABS: INR 1.8 (0.9-1.1); Partial Thromboplastin Ratio 2.6
[2021-08-12 07:13] LABS: Partial Thromboplastin Time 72.1 Seconds (21.0-31.0)
[2021-08-12] MEDS: BUDESONIDE/FORMOTEROL FUMARATE 160/4.5 60 PUFFS/INHALER INH SCH ×2 (07:47→17:02)
[2021-08-12] MEDS: predniSONE 5 MG TAB PO SCH (07:48)
[2021-08-12] MEDS: CEROVITE ADV FORMULA TAB PO SCH (07:48)
[2021-08-12] MEDS: VALSARTAN/SACUBITRIL 26/24MG TAB PO SCH ×2 (07:48→21:32)
[2021-08-12] MEDS: AMIODARONE 200 MG TAB PO SCH (07:48)
[2021-08-12] MEDS: FOLIC ACID 1 MG TAB PO SCH (07:48)
[2021-08-12] MEDS: FINASTERIDE 5 MG TAB PO SCH (07:48)
[2021-08-12] MEDS: PANTOprazole 40 MG TAB PO SCH (07:48)
[2021-08-12] MEDS: SENNA 8.6 MG TAB PO SCH ×2 (07:49→21:32)
[2021-08-12 10:41] LABS: Appearance Urine Clear (Clear); Bacteria Urine Automated Negative (Negative); Bilirubin Urine Negative (Negative); Blood Urine 1+ (Negative); Cast Urine Automated 0 /lpf (0-5); Color Urine Yellow; Glucose Urine UA Negative (Negative); Ketones Urine Negative (Negative); Leukocyte Esterase Urine Trace (Negative); Nitrite Urine Negative (Negative); Protein Urine Negative (Negative); RBC Urine Automated 0-4 /hpf (0-4); Specific Gravity Urine 1.009 (1.000-1.030); Urobilinogen Urine Negative (Negative)
[2021-08-12 13:52] LABS: Partial Thromboplastin Ratio 2.1
[2021-08-12 14:05] LABS: Partial Thromboplastin Time 58.4 Seconds (21.0-31.0)
[2021-08-12 14:21] LABS: Prothrombin Time 20.7 Seconds (9.0-12.0)
--- NOTE | 2021-08-12 15:22 | Hospitalist Progress Note ---
Date of Service August 12, 2021 Assessment & Plan (1) Acute pulmonary embolism: Plan: Acute pulmonary embolism, history of prior DVT/PE Patient has remained hemodynamically stable. He is not tachycardic or hypotensive. Not requiring any supplemental oxygen. CXR: Cardiomegaly without acute process, chronic interstitial coarsening of the bases. CTA: Segmental and subsegmental pulmonary emboli in right upper lobe. No evidence of right heart strain on CT. Large bullae in left lung base. Centrilobular emphysema in upper lobes. Atelectasis. No pulmonary edema. Does have history of DVT/PE in the past for which he was taking Eliquis. This was recently stopped as outlined below During admission to [facility] 2 months ago patient with multiple events of bleeding, bloody pericardial effusion, required transfusions. For this reason his anticoagulation was discontinued at that time. Was recommended to continue aspirin therapy long-term and defer anticoagulation at that time and discharge. he was also noted to be maintaining sinus rhythm while on amiodarone Echo completed -- no evidence of right heart strain, LVEF 45-50%, mild to mod global hypokinesis, mild A, no pericardial effusion Given Increased bleeding risk (as outlined below) and CKD-- now on heparin gtt bridge with Coumadin. Dr. Acharya has been following peripherally and will follow up as an OP once discharged Received Coumadin 3 mg daily X3 consecutive days. INR remained subtherapeutic at 1.1. Increased Coumadin to 5mg on 08/09 x2 doses. INR= 1.4. 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 Thus far, seems to be tolerating heparin without bleeding issues. Could potentially consider transition from Coumadin to DOAC in 3 to 6 months (at prevention dosing rather than treatment dosing) should he continue to tolerate from a bleeding standpoint. This will be at the discretion of PCP/Dr. Acharya at that time at this time, INR is therapeutic. Lengthy discussion with attending provider and Dr. Acharya. Although patient has been on a heparin drip now for 7 to 8 days, need to have some overlap since now therapeutic. Recommendations are for 24 to 48-hour overlap (once therapeutic given risk of rebound hypercoaguable cascase). Multiple considerations (including lovenox bridge at home since tolerating heparin) but this was a concern as well given renal dysfunction. At any rate, plan is to keep heparin drip on board. Given 5mg of coumadin tonight with plan to D/C (likely tomorrow) with 4mg daily and FU with Dr. Acharya in the coagulation clinic on . Dr. Acharya did advise 1 dose of lovenox prior to D/C tomorrow (as will help provide continued overlap once home and linger longer given renal dysfunction) prior provider Discussed this case in detail with Dr. Georges at [facility] who was on consult during the patient's complicated hospitalization in May. She does not believe that the patient has a contraindication to anticoagulation therapy. Does not believe there is place at this time for IVC filter placement since he is a candidate for treatment with blood thinners. Obviously, given his recent history, close monitoring for bleeding events will need to be carried out. She is happy to follow up with him following this hospitalization either in her clinic or via telehealth as the question of treatment duration since this event appears to be unprovoked will need to be re-evaluated on a continual basis. (2) Anemia: Plan: Pancytopenia, ongoing since May 2021 H&H stable since this hospitalization (9-10) With review of records at length, hemoglobin was down to 7 when in [place]. In addition, he had a bloody pericardial effusion (that was likely result of CPR) It was reported that his anemia was likely multifactorial. Patient does have underlying CKD and his creatinine was over 5 at that time. In addition, he was significantly volume overloaded from his critical aortic stenosis. Last, he had multiple procedures including a TAVR which could have contributed to hemolysis. He does not appear to have any active bleeding at this time. Aspirin stopped given bleeding riskNo evidence of CAD. Recent cardiac arrest d/t SSS for which PPM placed. 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 can not find records regarding cardiac cath and integrity of his coronary arteries. Aspirin stopped given need for anticoagulation therapy and his bleeding risk. D/W cardiology prior to discontinuation of aspirin Continue Entresto 24-26 mg 1 tab p.o. twice daily Echo completed this admission, no RV strain (6) CKD (chronic kidney disease) stage 2, GFR 60-89 ml/min: Plan: Chronic kidney disease Patient with recent history of acute renal failure while hospitalized 05/20 ? new baseline as recently as high as 5.19 prior to recent TAVR (from cardiorenal syndrome) during this hospitalization, trending 1.4-1.8 Bumex 0.5 mg daily. Now that he is s/p TAVR, could consider discontinuation of this altogether; however, his recent echocardiograms ~notes decreased EF of 45% less likely need to accept a degree of renal impairment to keep CHF compensated Hold diuretic for now and continue to trend renal function. May need Bumex every other day as opposed to daily since s/p TAVR Prednisone likely contributing to this as well Renally dose medications UA contaminated appearing with budding hyphae, epithelial cells. UC negative. Continue to monitor (7) GERD with esophagitis: Plan: continue Protonix for GI prophylaxis given Coumadin in conjunction chronic prednisone therapy (8) Essential hypertension: Plan: As above (9) Polymyalgia rheumatica: Plan: PMR Continue home prednisone 5 mg daily (10) Pacemaker: Plan: As above (11) S/P TAVR (transcatheter aortic valve replacement): Plan: As above (12) COPD (chronic obstructive pulmonary disease): Plan: COPD on chronic 2L supplemental O2 at HS, h/o tobacco use No acute exacerbation Continue Spiriva Xopenex every 6 hours as needed for wheezing Continue Symbicort (pt's brought in from home) (13) Abnormal CT scan, chest: Plan: CTA/P: Right lower lobe resolving consolidation versus nodule, 3-month CT follow-up recommended. No bowel thickening or obstruction. Diverticulosis without diverticulitis. Cholelithiasis. (14) Frequency of urination: Plan: Patient is complaining of some urinary frequency. Will obtain a urinalysis. He denies dysuria. No fevers. slightly leukopenic but not leukocytosis. Plan: I had a lengthy discussion with patient regarding keeping him hospitalized until his INR is therapeutic given the complexity of the recent anemia with ? bleeding event that occurred in May. Although not happy about it, he is agreeable. He is also agreeable to f/u with hematology in [place] (Dr. Georges) via telehealth and the anticoagulation clinic upon discharge. Continue trending daily PT/PTT/INR. At this time, no need for IVC as it was determined that ACT is not contraindicated in this patient. PT/OT consulted Plan of care to be discussed with Dr. Wetzel. Further orders as warranted. Admission and Anticipated Discharge Date Admission Date: August 05, 2021 Subjective Patient seen on daily rounds today. Vocalizes no complaints or concerns. Again, anxious to be discharged but otherwise denies fevers, chills, chest pain, shortness of breath, abdominal pain, nausea or vomiting. Nursing voices no complaints or concerns. Review of Systems Review of Systems: All systems reviewed and are unremarkable except as noted in HPI and below Denies fevers, chills, headache, nasal congestion, sore throat, cough, chest pain, shortness of breath, palpitations, orthopnea, PND, abdominal pain, nausea, vomiting, diarrhea, constipation, dysuria, hematuria, frequency, back pain, joint pain or swelling, easy bruising or bleeding, skin lesions or rashes. Physical Exam Physical Exam: General: Resting comfortably in his hospital bed. NAD. HEENT: Head is AT/NC. Buccal mucosa is moist and pink Neck: No JVD. Negative hepatojugular reflex Cardiac: Currently in a sinus rhythm with 1/6 LUZ MARINA Lungs: CTA without W/R/R Abdomen: Normoactive X4. Soft and nontender in all quadrants. Extremities: No peripheral clubbing cyanosis or edema Neuro: A&O X4. Cranial nerves II through XII are grossly intact. No focal neuro deficits Skin: No obvious skin lesions or rashes Psych: Appropriate affect. Pleasant and cooperative Results & Data Results & Data ([facility]) Vital Signs (Past 12 Hours) Vital Signs Temp Pulse Resp BP BP Pulse Ox 08/12/21 14:42 36.3 C L 73 20 104/61 97 08/12/21 06:41 36.5 C 66 18 117/60 98 Laboratory Results 08/12/21 06:11 08/12/21 06:11 INR 2.0 (0.9-1.1) H 08/12/21 13:09 PG Care Time/CCT Total # of Minutes Spent Total Time Spent with Patient: Total time spent is greater than 50% in coordination of care (as documented) at patient's floor/unit and/or counseling patient: Coding Level of Care Code 22747 Subseq Hosp Care Lvl 2 Diagnoses Acute pulmonary embolism I26.99 Anemia D64.9 Atrial flutter I48.92 Benign prostatic hyperplasia with urinary obstruction and other lower urinary tract symptoms N40.1; N13.8 Chronic heart failure with preserved ejection fraction I50.32 CKD (chronic kidney disease) stage 2, GFR 60-89 ml/min N18.2 GERD with esophagitis K21.00 Essential hypertension I10 Polymyalgia rheumatica M35.3 Pacemaker Z95.0 S/P TAVR (transcatheter aortic valve replacement) Z95.2 COPD (chronic obstructive pulmonary disease) J44.1 COPD type: COPD with acute exacerbation Abnormal CT scan, chest R93.89 Frequency of urination R35.0 (1) COPD (chronic obstructive pulmonary disease) COPD type: COPD with acute exacerbation Qualified Code(s): J44.1 - Chronic obstructive pulmonary disease with (acute) exacerbation
[2021-08-12] MEDS ORDERED: SODIUM CHLORIDE 0.9% 500 ML IV SCH (15:45)
[2021-08-12] MEDS ORDERED: WARFARIN SOD 5 MG TAB PO SCH (16:00)
[2021-08-12] MEDS: TERAZOSIN HCL 5 MG CAP PO SCH (18:16)
[2021-08-12 21:33] LABS: Partial Thromboplastin Ratio 2.2
[2021-08-12 21:34] LABS: Partial Thromboplastin Time 60.6 Seconds (21.0-31.0)
[2021-08-12] MEDS: UMECLIDINIUM BROMIDE 62.5MCG/BLISTER 7 PUFFS/INHALER INH SCH (21:39)
[2021-08-13 05:45] LABS: Hematocrit (blood only) 29.5 % (42-52); Hemoglobin 9.9 g/dL (14.0-18.0); Mean Corpuscular Hemoglobin 33.2 pg (25-34); Mean Corpuscular Hgb Conc 33.6 g/dL (32-36); RDW Coefficient of Variation 15.4 % (11.5-14.5); RDW Standard Deviation 56.1 fL (36.4-46.3); Red Blood Count 2.98 M/uL (4.7-6.1); White Blood Count 2.82 K/uL (4.8-10.8)
[2021-08-13 06:10] LABS: BUN Creatinine Ratio 18.3 (10-20); Calcium 8.7 mg/dl (8.5-10.1); Creatinine Clr Calc Pharmacy 39.6 ml/min; Est GFR (African American) 37.3 ml/min; Est GFR (Non-African American) 32.2 ml/min; Potassium 4.4 mmol/L (3.5-5.1)
[2021-08-13 06:30] LABS: Mean Platelet Volume 9.3 fL (7.4-10.4); Platelet Count 98 K/uL (130-400)
[2021-08-13 06:31] LABS: Basophils # (auto) 0.01 K/uL (0-0.2); Basophils % (auto) 0.4 %; Eosinophils # (auto) 0.06 K/uL (0-0.5); Eosinophils % (auto) 2.1 %; Immature Granulocytes # (auto) 0.01 K/uL (0.00-0.02); Immature Granulocytes % (auto) 0.4 %; Lymphocytes # (auto) 0.73 K/uL (1.2-3.4); Lymphocytes % (auto) 25.9 %; Monocytes # (auto) 0.25 K/uL (0.11-0.59); Monocytes % (auto) 8.9 %; Neutrophils # (auto) 1.76 K/uL (1.4-6.5); Neutrophils % (auto) 62.3 %; Platelet Estimate Decreased (Normal)
[2021-08-13 06:37] LABS: INR 2.5 (0.9-1.1); Partial Thromboplastin Ratio 2.3; Prothrombin Time 25.5 Seconds (9.0-12.0)
[2021-08-13 07:04] LABS: Partial Thromboplastin Time 64.3 Seconds (21.0-31.0)
[2021-08-13] MEDS: HEPARIN SODIUM/DEXTROSE 25,000 UNITS/500 ML BAG IV SCH (09:13)
[2021-08-13] MEDS: AMIODARONE 200 MG TAB PO SCH (09:14)
[2021-08-13] MEDS: allopurinoL 100 MG TAB PO SCH (09:14)
[2021-08-13] MEDS: SENNA 8.6 MG TAB PO SCH (09:14)
[2021-08-13] MEDS: VALSARTAN/SACUBITRIL 26/24MG TAB PO SCH (09:14)
[2021-08-13] MEDS: predniSONE 5 MG TAB PO SCH (09:15)
[2021-08-13] MEDS: PANTOprazole 40 MG TAB PO SCH (09:15)
[2021-08-13] MEDS: FINASTERIDE 5 MG TAB PO SCH (09:15)
[2021-08-13] MEDS: CEROVITE ADV FORMULA TAB PO SCH (09:15)
[2021-08-13] MEDS: FOLIC ACID 1 MG TAB PO SCH (09:15)
[2021-08-13] MEDS: BUDESONIDE/FORMOTEROL FUMARATE 160/4.5 60 PUFFS/INHALER INH SCH (09:18)
[2021-08-13] MEDS ORDERED: ENOXAPARIN 100 MG/1ML SYR SQ ONE (12:00)
--- NOTE | 2021-08-13 14:04 | Discharge Summary ---
Date of Service August 13, 2021 Admission HPI Per Admitting Provider Hayden is a 71-year-old male with a past medical history of TAVR x2, cardiac arrest while in hospital parking lot 06/01/2021, ICD placement, and tamponade with bariatric fluid culture positive for methicillin sensitive staph epidermidis spectated possible contaminant but treated with 4 weeks of eyes to be cefazolin, discharged 06/10/2021 from [facility], past PE February 2021, recent Ledbetter removal 07/21/2021 (was present to complete antibiotics for staph sepsis), Presents with increased shortness of breath for several days and 1 day of vomiting. 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 Mckinney by emergency department provider, and was started on heparin drip pending echo. Patient has a pertinent recent history of TAVR placement x2 with repeat due to leak, cardiac arrest while in the hospital parking lot 06/01, and subsequent tamponade with tap showing bloody effusion which did culture positive for staph epidermidis possible contaminant but treated for 4 weeks with cefazolin. Patient does have a history of DVT and atrial flutter, but due to recurrent bleeding, his hemorrhagic pericardial effusion, and requirement of blood transfusions in [facility] was discharged on aspirin monotherapy and was recommended against anticoagulation at that time. Patient has had worsening shortness of breath for the last 7 days, seems to be gradually getting worse. This is not associated with a cough, upper respiratory symptoms, change in taste or smell, or fever. Hx of COPD. "I was disappointed because I thought I'd be able to breath better with my heart getting the valve fixed. Was feeling pretty damn good for a while, bu tthe last week have been short of breath again." Has some urinary retention improved with finasteride. No dysuria, burning with urine. Hx of prostate problems which reports no changes No fevers, chills, or sweats but is cold often. no chest pain, no chest pressure .no dyspnea. No pain with inspiration. No back pain, flank pain, or kidney pain Reports he gets nosebleeds easily infrequently, none in the last few days. Reports that he stopped his heparin previously due to bleeding, is not sure if he had an allergy or not but was told that due to his bleeding they could not continue him on that or Eliquis at the time of his surgery admission. Medical History: Reviewed Medications: Reviewed Surgical History: Reviewed Allergies: Reviewed. Sulfa 'felt crappy, sick.' No hives/breathing problems Social History: No tobacco product use, no alcohol, no recreational drugs or medical marijuana. Code Status:Medical surrogate decision maker would be Polly Harper. Full Code. Principal Diagnosis 1. Acute pulmonary embolism 2. Acute DVT Bilateral legs. 3. Acute on chronic renal impairment 4. Anemia Discharge Exam General: Resting comfortably in his hospital bed. NAD. HEENT: Head is AT/NC. Buccal mucosa is moist and pink Neck: No JVD. Negative hepatojugular reflex Cardiac: Currently in a sinus rhythm with 1/6 LUZ MARINA Lungs: CTA without W/R/R Abdomen: Normoactive X4. Soft and nontender in all quadrants. Extremities: No peripheral clubbing cyanosis or edema Neuro: A&O X4. Cranial nerves II through XII are grossly intact. No focal neuro deficits Skin: No obvious skin lesions or rashes Psych: Appropriate affect. Pleasant and cooperative Discharge Data Allergies Allergy/AdvReac Type Severity Reaction Status Date / Time grass pollen Allergy Mild Verified 07/21/21 09:16 Sulfa (Sulfonamide AdvReac Unknown Unknown Verified 07/21/21 09:16 Antibiotics) Consultations 08/05/21 13:59 ED Decision to Admit Stat Ordered Studies 08/05/21 10:45 CT abd pelvis IV con only Stat MPRESSION: 1. No bowel wall thickening or obstruction. 2. Colonic diverticulosis. No evidence for acute diverticulitis. 3. Cholelithiasis. 4. A 12 mm nodule within the base the right lower lobe. This favors resolving consolidation rather than a solid nodule. This was not present 07/30/[address] However, [address] follow-up recommended to ensure resolution. 5. Additional findings as described above. CT angio chest PE protocol Stat IMPRESSION: Segmental and subsegmental pulmonary emboli in the right upper lobe. No evidence of right heart strain. 08/06/21 12:16 US venous doppler LE Urgent IMPRESSION: Bilateral lower extremity DVT as described above. Echocardiogram: EF 45-50% mild-mod global hypokinesis of left ventricle bioprosthetic valve no right sided heart strain Hospital Course (1) Acute pulmonary embolism: Acute pulmonary embolism, history of prior DVT/PE Patient has remained hemodynamically stable. He is not tachycardic or hypotensive. Not requiring any supplemental oxygen. CXR: Cardiomegaly without acute process, chronic interstitial coarsening of the bases. CTA: Segmental and subsegmental pulmonary emboli in right upper lobe. No evidence of right heart strain on CT. Large bullae in left lung base. Centrilobular emphysema in upper lobes. Atelectasis. No pulmonary edema. Does have history of DVT/PE in the past for which he was taking Eliquis. This was recently stopped as outlined below During admission to [facility] 2 months ago patient with multiple events of bleeding, bloody pericardial effusion, required transfusions. For this reason his anticoagulation was discontinued at that time. Was recommended to continue aspirin therapy long-term and defer anticoagulation at that time and discharge. he was also noted to be maintaining sinus rhythm while on amiodarone Echo completed -- no evidence of right heart strain, LVEF 45-50%, mild to mod global hypokinesis, mild A, no pericardial effusion Given Increased bleeding risk (as outlined below) and CKD-- now on heparin gtt bridge with Coumadin. Dr. Acharya has been following peripherally and will follow up as an OP once discharged Received Coumadin 3 mg daily X3 consecutive days. INR remained subtherapeutic at 1.1. Increased Coumadin to 5mg on 08/09 x2 doses. INR= 1.4. 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 Thus far, seems to be tolerating heparin without bleeding issues. Could potentially consider transition from Coumadin to DOAC in 3 to 6 months (at prevention dosing rather than treatment dosing) should he continue to tolerate from a bleeding standpoint. This will be at the discretion of PCP/Dr. Acharya at that time - reached therapeutic state on the afternoon of 08/12 (2.0). Given need for continued overlap once reached therapeutic level given rebound hypercoagulable cascade, coumadin/heparin continued. - INR remains therapeutic on day of D/C (08/13) @2.5 - spoke with Dr. Acharya in great detail regarding this. Needs an additional 24 hours of overlap (since reaching therapeutic goal) but patient has been very anxious to be discharged. No bleeding concerns on Heparin now for over 7 days. Will given 1 dose lovenox now (100mg)-- this will last 24 hours as renal adjustment for his renal dysfunction is once a day - D/C to home with coumadin 4mg daily with FU to see Dr. Acharya in the coagulation clinic tomorrow prior provider Discussed this case in detail with Dr. Georges at [facility] who was on consult during the patient's complicated hospitalization in May. She does not believe that the patient has a contraindication to anticoagulation therapy. Does not believe there is place at this time for IVC filter placement since he is a candidate for treatment with blood thinners. Obviously, given his recent history, close monitoring for bleeding events will need to be carried out. She is happy to follow up with him following this hospitalization either in her clinic or via telehealth as the question of treatment duration since this event appears to be unprovoked will need to be re-evaluated on a continual basis. (2) Anemia: Pancytopenia, ongoing since May 2021 H&H stable since this hospitalization (9-10) With review of records at length, hemoglobin was down to 7 when in [place]. In addition, he had a bloody pericardial effusion (that was likely result of CPR) It was reported that his anemia was likely multifactorial. Patient does have underlying CKD and his creatinine was over 5 at that time. In addition, he was significantly volume overloaded from his critical aortic stenosis. Last, he had multiple procedures including a TAVR which could have contributed to hemolysis. He does not appear to have any active bleeding at this time. Aspirin stopped given bleeding riskNo evidence of CAD. Recent cardiac arrest d/t SSS for which PPM placed. 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 can not find records regarding cardiac cath and integrity of his coronary arteries. Aspirin stopped given need for anticoagulation therapy and his bleeding risk. D/W cardiology prior to discontinuation of aspirin Continue Entresto 24-26 mg 1 tab p.o. twice daily Echo completed this admission, no RV strain (6) CKD (chronic kidney disease) stage 2, GFR 60-89 ml/min: Chronic kidney disease Patient with recent history of acute renal failure while hospitalized 05/20 ? new baseline as recently as high as 5.19 prior to recent TAVR (from cardiorenal syndrome) during this hospitalization, trending 1.4-2.0 Bumex 0.5 mg daily. Now that he is s/p TAVR, could consider discontinuation of this altogether; however, his recent echocardiograms ~notes decreased EF of 45% less likely need to accept a degree of renal impairment to keep CHF compensated Bumex on hold x days Prednisone likely contributing to this as well D/C to home. continue to hold Bumex through the weekend. Resume Wednesday and take MWF (as opposed to daily) - FU labs to be drawn in 1 week to trend (order provided). Further labs per PCP (7) GERD with esophagitis: continue PPIfor GI prophylaxis given Coumadin in conjunction chronic prednisone therapy (8) Essential hypertension: As above (9) Polymyalgia rheumatica: PMR Continue home prednisone 5 mg daily (10) Pacemaker: As above (11) S/P TAVR (transcatheter aortic valve replacement): As above (12) COPD (chronic obstructive pulmonary disease): COPD on chronic 2L supplemental O2 at HS, h/o tobacco use No acute exacerbation Continue Spiriva Xopenex every 6 hours as needed for wheezing Continue Symbicort (pt's brought in from home) (13) Abnormal CT scan, chest: CTA/P: Right lower lobe resolving consolidation versus nodule, 3-month CT follow-up recommended. No bowel thickening or obstruction. Diverticulosis without diverticulitis. Cholelithiasis. (14) Frequency of urination: Patient is complaining of some urinary frequency. Will obtain a urinalysis. He denies dysuria. No fevers. slightly leukopenic but not leukocytosis. I had a lengthy discussion with patient regarding keeping him hospitalized until his INR is therapeutic given the complexity of the recent anemia with ? bleeding event that occurred in May. Although not happy about it, he is agreeable. He is also agreeable to f/u with hematology in [place] (Dr. Georges) via telehealth and the anticoagulation clinic upon discharge. Continue trending daily PT/PTT/INR. At this time, no need for IVC as it was determined that ACT is not contraindicated in this patient. PT/OT consulted Plan of care discussed with Dr. Wetzel. Further orders as warranted. Total Time Total Time Spent Total Time Spent (In Minutes): 50 min including time spent with patient, coordination of care, D/W attending provider, and preparation of documentation Discharge Plan Discharge Items Patient Disposition: Home - Home Health Services Reason For Visit: ACUTE PE, HX OF CARDIAC ARREST AND HEMORRHAGIC Discharge Diagnosis: 1. Acute Pulmonary Embolic 2. Acute on Chronic Kidney Disease Activity: Resume your previous activity Non-emergency contact: Primary Care Provider and Specialist Call non-emergency contact if: you have any medication questions and your symptoms worsen Follow-up/Referrals: Zoey Acharya MD, PhD [Pathologist] - 08/14/21 11:00 am ([facility]) Tracy Gomez MD [Primary Care Provider] - 08/19/21 11:30 am Diet: Regular Addtl Attending Provider Instructions: you were hospitalized with a blood clot in your lung (Pulmonary Embolism) With recent anemia, blood thinners were a concern (given risk of bleeding). The anemia that you experienced while in [place], was likely a result of multiple different factors. These include dilutional from fluid overload, recent procedure/surgery and blood loss, hemolysis (breaking up of blood cells) from the replacement of your aortic valve, and your chronic kidney disease. In addition, you had a pericardial effusion (blood within the sac that your heart sits). This is the reason that your were sent home without blood thinners (given risk of further bleeding within that sac). I suspect (but can not prove) that the bleeding within the sac was due to you receiving CPR. We have been between a rock and a hard place- meaning that you NEED to have treatment for the blood clots within the lung (as these can be fatal) but ultimately, we have been cautiously doing so because of the concern for bleeding. There are multiple different options when choosing blood thinners. We have been trying to choose the blood thinner safest for you given the concern of bleeding (which we decided upon Coumadin because of its ability to be reversed). As you know, Coumadin takes day to "build up" in the system which is why we have kept you in the hospital on the heparin drip. The lab test that we use to monitor your Coumadin level is called a Protime (INR). The goal range for this is 2-3. a protime/INR >3.0--> increases your risk of bleeding a protime/INR <2.0--> increases your risk of additional clots You are going to follow up with Dr. Acharya for management of your Coumadin. She has advised taking 4mg of Coumadin daily and then follow up with her at 11:00. She will repeat your protime (labs) and make additional recommendations based on this Coumadin is a blood thinner and ultimately, increases your risk of bleeding when you cut yourself. For minor cuts, apply direct pressure. If unable to stop bleeding after 10min, go to the emergency department. For major cuts, go directly to the emergency department. You will need to have your blood count monitored regularly to ensure that it is note dropping (which would indicate some internal bleeding) As we discussed, you need to be consistent with your vitamin K rich foods (as these will interact with your coumadin). It is not that you need to avoid them all together, but we are adjusting and monitoring your dosing based on what you eat so it is important to be consistent. (see handout regarding vitamin K rich foods) STOP YOUR ASPIRIN. Again, given risk of bleeding and need for Coumadin therapy, I believe it is likely too risky to be on both. Stop Aspirin You are already on Omeprazole (stomach pill) which should help protect your stomach from bleeding Hold Bumex through the weekend. May resume Wednesday (sooner if you notice and increased in swelling or shortness of breath) and take Mondays, Wednesdays and Fridays. Now that your heart valve as been replaced, I am not convinced that this medication is needed everyday as it does worsen your renal function. I would not stop it but cut back to every other day. You should have follow up labs to further trend your renal function and determine need for added adjustments. You will need follow up labs in 1 week (to trend your blood count and kidney function)-- see order Last, your CT of the chest showed a residual consolidation (or shadow) within the right lower lobe. This might be resolving issue from recent pneumonia. A [address] scan is recommended. Pending Studies at Discharge: No Stand-Alone Forms: [facility], Smoking Cessation Medications and DC Order Prescriptions: New bumetanide 1 mg Tablet 0.5 mg PO DIRECTED Qty: 30 RF: 0 warfarin 4 mg tablet 4 mg PO DAILY Qty: 30 RF: 0 Continued finasteride 5 mg tablet 5 mg PO QAM Qty: 30 RF: 11 cyclobenzaprine 10 mg tablet 10 mg PO TID PRN (Reason: muscle spasm) Qty: 30 RF: 0 Entresto 24-26 mg tablet 1 tab PO BID RF: 0 terazosin 5 mg capsule 10 mg PO HS RF: 0 omeprazole 40 mg capsule,delayed release(DR/EC) 40 mg PO DAILYBB RF: 0 sennosides [Senokot] 8.6 mg Tablet 8.6 mg PO BID RF: 0 loratadine [Claritin] 10 mg Tablet 10 mg PO QAM RF: 0 Spiriva with HandiHaler 18 mcg Capsule, W/Inhalation Device 1 cap INHALATION HS RF: 0 budesonide-formoterol [Symbicort] 160-4.5 mcg/actuation Hfa Aerosol Inhaler 2 puff INHALATION BID RF: 0 ipratropium-albuterol 0.5 mg-3 mg(2.5 mg base)/3 mL solution for nebulization 3 ml INHALATION UD PRN (Reason: Shortness Of Breath) RF: 0 albuterol sulfate 90 mcg/actuation Hfa Aerosol Inhaler 1 inh INHALATION QID PRN (Reason: Shortness Of Breath) RF: 0 amiodarone 200 mg tablet 200 mg PO QAM RF: 0 folic acid 1 mg tablet 1 mg PO QAM RF: 0 Niferex (Sumalate-Quatrefolic) 150 mg iron- 60 mg-1 mg tablet 1 tab PO QAM RF: 0 prednisone 5 mg tablet 5 mg PO QAM RF: 0 Probiotic 3 billion cell Capsule 3,000 mmu cells PO QAM RF: 0 allopurinol 100 mg Tablet 50 mg PO Q48H Qty: 0 RF: 0 levalbuterol HCl [Xopenex] 0.63 mg/3 mL solution for nebulization 0.63 mg NEB Q6R PRN (Reason: shortness of breath or wheezing) RF: 0 Discontinued bumetanide 1 mg tablet 0.5 mg PO QAM RF: 0 aspirin 81 mg tablet,chewable 81 mg PO QAM RF: 0 Discharge Orders: Discharge Order (Routine); Ordered 08/13/21 Ordered By: Jacquelyn Reece/Other Patient Handouts: What to Know When TakingWarfarin Admission Data Admit Date/Time: 08/05/21 14:56 Attending Provider: Deon Wetzel Admit Provider: Enrique Richardson Primary Care Provider: Tracy Gomez Other Providers: [facility] ; [place] ; Enrique Richardson Other Interventions: Discharge Summary Assessment (RN) Last Done: 08/13/21 13:26 Coding Level of Care Code D/C DAY MANAGEMENT >30 MINS Diagnoses Acute pulmonary embolism I26.99 Anemia D64.9 Atrial flutter I48.92 Benign prostatic hyperplasia with urinary obstruction and other lower urinary tract symptoms N40.1; N13.8 Chronic heart failure with preserved ejection fraction I50.32 CKD (chronic kidney disease) stage 2, GFR 60-89 ml/min N18.2 GERD with esophagitis K21.00 Essential hypertension I10 Polymyalgia rheumatica M35.3 Pacemaker Z95.0 S/P TAVR (transcatheter aortic valve replacement) Z95.2 COPD (chronic obstructive pulmonary disease) J44.1 COPD type: COPD with acute exacerbation Abnormal CT scan, chest R93.89 Frequency of urination R35.0
== END 2021-08-13 14:43 | disposition home health service (06) | DRG 176 ==
LOC: ED 10:14 → SUATTDRO 14:56 → 2N 14:56 → 3N 08-13 02:54
DX: J43.2 Centrilobular emphysema; I48.92 Unspecified atrial flutter; Z88.2 Allergy status to sulfonamides; Z83.3 Family history of diabetes mellitus; I82.403 Acute embolism and thrombosis of unspecified deep veins of lower extremity, bilateral; N18.2 Chronic kidney disease, stage 2 (mild); I26.94 Multiple subsegmental thrombotic pulmonary emboli without acute cor pulmonale; Z86.74 Personal history of sudden cardiac arrest; Z86.711 Personal history of pulmonary embolism; Z95.810 Presence of automatic (implantable) cardiac defibrillator; E66.9 Obesity, unspecified; D61.818 Other pancytopenia; I50.32 Chronic diastolic (congestive) heart failure; I31.3 Pericardial effusion (noninflammatory); N40.1 Benign prostatic hyperplasia with lower urinary tract symptoms; M35.3 Polymyalgia rheumatica; Z86.718 Personal history of other venous thrombosis and embolism; K21.00 Gastro-esophageal reflux disease with esophagitis, without bleeding; I13.0 Hypertensive heart and chronic kidney disease with heart failure and stage 1 through stage 4 chronic kidney disease, or unspecified chronic kidney disease; Z95.2 Presence of prosthetic heart valve

== ENCOUNTER 2022-07-06 14:00 | Observation (INO) ==
--- NOTE | 2022-07-06 14:56 | Emergency Department Note ---
Impression & Plan Retrosternal chest pain, Elevated LFTs, Abnormal gallbladder ultrasound, COVID- 19 ED Provider Note INFORMANT: Patient and EMS ED PROVIDER(S): Mainor Rosales MD CHIEF COMPLAINT: Chest pain PLAN: Disposition: Admitted Condition: Good Outpatient prescription management: none Referral: None MEDICAL DECISION MAKING: Patient was evaluated, labs and imaging ordered. ECG without ischemia. CXR showed increase in RLL mass without other acute disease. CBC revealed stable pancytopenia. The troponin was normal. LFTs were elevated and this was new compared to prior labs reviewed in EMR. Given the chest pain complaints and LFT elevations further management in the hospital was deemed necessary. US was ordered and raised concerns for possibilities of acute cholecystitis but further imaging recommended. Discussed admission with patient and family. Consulted with Dr. Richardson of the [facility] [place]. Discussed hx and findings. Patient was evaluated and admitted. Screening covid testing on admission also revealed the patient to be positive for Covid 19. After review of the information above and other included data, I feel the patient requires admission. Triage Nursing notes reviewed and agree them. Vital Signs: reviewed and remarkable for mild hypertension Prior /Outside records reviewed: Recent primary care visit reviewed. Patient has history of PE as well as his valve replacement. Anticoagulated. 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 Differential diagnosis: Cardiac ischemia, aortic dissection, pulmonary embolism, pneumothorax, pneumonia, pericarditis, myocarditis, esophageal rupture, GERD, cholecystitis, pancreatitis, musculoskeletal, as well as other pathologies. Diagnostics, as interpreted by me: ECG: Twelve-lead ECG reveals normal sinus rhythm 85 bpm. Left axis deviation. Low voltage QRS. Inferior Q waves. Septal Q waves. No ST elevation. Cardiac Monitoring: Cardiac monitoring ordered by me: The patient was placed on continuous cardiac monitoring and observed. It revealed a normal sinus rhythm at 78 beats per minute without ectopy or evidence of dysrhythmia. Medical decision rules: none Imaging studies: Chest x-ray. Findings: A chest x-ray was performed and revealed no pneumothorax, effusion, infiltrate, pulmonary edema, free air under the diaphragm, or wide mediastinum. Impression: No acute disease. HPI: The patient is a 72 year old male who presents to the Emergency Room with complaints of chest pain. This started about 11 30-12 o'clock today and is currently resolved. The patient also notes the following associated symptoms, some mild shortness of breath. The patient has noted increasing his oxygen for relieving factors. Current pain is rated as 0/10. Patient has a history of lung cancer. He is also anticoagulated for A-fib chronically. Pt denies LOC, headache, fevers, chills, diaphoresis, visual changes, neck pain, nausea, vomiting, abdominal pain, back pain, melena, hematochezia, urinary symptoms, n umbness, weakness, lymphadenopathy, rash, or other complaints. PAST MEDICAL HISTORY: See Below, lung cancer, anticoagulated PAST SURGICAL HISTORY: See Below, valve replacement SOCIAL HISTORY:, HOME MEDICATIONS: See Below ALLERGIES: See Below VITALS: See Below PHYSICAL EXAMINATION: GENERAL: Awake, alert, well-appearing, in no distress HENT: Normocephalic, atraumatic. Oropharynx unremarkable. EYES: Normal conjunctiva. Sclera non-icteric. NECK: Inspection normal. Non-tender. Supple. No nuchal rigidity. FROM. No masses. RESPIRATORY: Clear to auscultation. No wheezes. No rales. Normal respiratory effort. CARDIAC: Normal rate. Normal rhythm. No murmurs. No rubs. Extremities warm and well perfused. Pulses equal. No JVD. GI: Soft, non-distended. No tenderness to palpation. No rebound or guarding. No masses. RECTAL: Deferred. MUSCULOSKELETAL: Atraumatic. Chest examination reveals no tenderness. The back is symmetrical on inspection without obvious abnormality. There is no CVA tenderness to palpation. No joint edema. LOWER EXTREMITIES: Calves are equal size bilaterally and non-tender. 1+ edema. No discoloration. NEURO: Normal sensorium. No sensory or motor deficits noted. SKIN: No rash or jaundice noted. Past Med/Surg History Medical History Acute pulmonary embolism Atrial flutter Benign prostatic hyperplasia with urinary obstruction and other lower urinary tract symptoms Central venous catheter in place Chronic heart failure with preserved ejection fraction Chronic obstructive pulmonary disease Chronic systolic heart failure CKD (chronic kidney disease) stage 2, GFR 60-89 ml/min Colon polyp COPD (chronic obstructive pulmonary disease) Diastolic dysfunction History of colon polyps History of elevated glucose History of smoking at least 1 pack per day for at least 30 years Lung nodule Obesity (BMI 30-39.9) Osteoarthritis Polymyalgia rheumatica 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 Son No problems noted. Other No family history of adverse response to anesthesia Denies family history of Ovarian cancer Breast cancer Lung cancer Social History Smoking Status: Unknown if ever smoked Tobacco Type: Cigarettes Cigarettes Per Day: 1-2 PPD x 50 yrs;Quit 2010; Second Hand Exposure: No; Hx Alcohol Use: Yes (Quit 3-4 yrs ago;but priot to that drank beer daily;) Alcohol Intake Frequency: Monthly or Less Hx Substance Use: No Preferred Language: Serbian Communication Ability: Effective Visual Impairment: No Limitations Hearing Ability: Hard of Hearing Electric Serviceman Required: No Beliefs That Will Affect Care: None marital status: Current Living Situation: Spouse current occupational status: retired How many Children do You have: 1 Feels Safe at Home: Yes Diet Comment: Heart Healthy Diet caffeine: Yes (coffee, soda) during the past year weight has: remained stable Seatbelt Use: always Assistive Devices: Cane Allergies Allergies Allergy/AdvReac Type Severity Reaction Status Date / Time grass pollen Allergy Mild Unknown Verified 06/26/22 11:07 Sulfa (Sulfonamide AdvReac Unknown Unknown Verified 06/26/22 11:07 Antibiotics) digoxin AdvReac Weakness Verified 06/26/22 11:07 Home Meds Home Medications Medication Instructions Recorded Confirmed budesonide-formoterol HFA 160 2 puff inhalation BID 06/24/18 07/06/22 mcg-4.5 mcg/actuation aerosol inhaler (Symbicort) loratadine 10 mg tablet (Claritin) 10 mg PO QAM 06/24/18 07/06/22 tiotropium bromide 18 mcg capsule 1 cap inhalation HS 06/24/18 07/06/22 with inhalation device (Spiriva with HandiHaler) lactobacillus combination no.4 3 3,000 mmu cells PO QAM 04/21/21 07/06/22 billion cell capsule (Probiotic) terazosin 5 mg capsule 10 mg PO HS 06/17/21 07/06/22 sacubitril 24 mg-valsartan 26 mg 1 tab PO BID 07/15/21 07/06/22 tablet (Entresto) levalbuterol HCl 0.63 mg/3 mL 0.63 mg NEB Q6R PRN shortness of 07/21/21 07/06/22 solution for nebulization (Xopenex) breath or wheezing albuterol sulfate 90 mcg/actuation 1 inh inhalation QID PRN Shortness 08/05/21 07/06/22 aerosol inhaler Of Breath amiodarone 200 mg tablet 200 mg PO QAM 08/05/21 07/06/22 folic acid 1 mg tablet 1 mg PO QAM 08/05/21 07/06/22 ipratropium 0.5 mg-albuterol 3 mg 3 ml inhalation UD PRN Shortness 08/05/21 07/06/22 (2.5 mg base)/3 mL nebulization Of Breath soln [id number] acid-vit 1 tab PO DAILY 08/22/21 07/06/22 K-lycop 400 mcg-20 mcg-370 mcg tablet (One-A-Day Men's 50 Plus) roflumilast 500 mcg tablet 500 mcg PO DAILY 11/07/21 07/06/22 (Daliresp) cyanocobalamin (vitamin B-12) 1,000 mcg PO QAM 01/01/22 07/06/22 1,000 mcg tablet bumetanide 1 mg tablet 0.5 mg PO 3XWK 02/12/22 07/06/22 cyclobenzaprine 10 mg tablet 10 mg PO DAILY PRN muscle spasm 02/12/22 07/06/22 azithromycin 500 mg tablet 500 mg PO 3XWK 03/19/22 07/06/22 ondansetron 4 mg disintegrating 4 mg PO Q6 PRN Nausea 03/19/22 07/06/22 tablet famotidine 20 mg tablet (Pepcid) 20 mg PO BID PRN heartburn 03/24/22 07/06/22 warfarin 2 mg tablet See Rx Instructions PO UD 05/25/22 07/06/22 Previous Rx's Medication Instructions Recorded finasteride 5 mg tablet 5 mg PO QAM #30 tabs 08/04/21 sennosides 8.6 mg-docusate sodium See Rx Instructions PO DAILY PRN 08/19/21 50 mg tablet (Senokot-S) constipation #30 tabs meclizine 25 mg tablet 25 mg PO BID PRN dizziness #20 tabs 02/05/22 omeprazole 40 mg capsule,delayed 40 mg PO BID #180 caps 04/10/22 release prednisone 2.5 mg tablet 2.5 mg PO .MWF #30 tabs 06/11/22 hydrocodone 5 mg-acetaminophen 325 1 tab PO Q6H PRN pain #30 tabs 06/26/22 mg tablet Results & Data (ED) Vital Signs Vital Signs - 24 hr 07/06/22 14:13 07/06/22 14:13 07/06/22 14:13 Temperature 36.9 C Temperature Source Oral Pulse Rate 86 78 Pulse Rate [Apical] Pulse Rhythm Irregular Pulse Rhythm [Apical] Pulse Strength [Apical] Respiratory Rate 20 20 Respiratory Effort / Characteristics Non-Labored Non-Labored Respiratory Depth Normal Normal Respiratory Pattern Regular Blood Pressure 153/66 H Blood Pressure [Left Arm] Blood Pressure [Right Arm] Blood Pressure Mean 95 Blood Pressure Mean [Left Arm] Blood Pressure Mean [Right Arm] Blood Pressure Position Sitting Blood Pressure Position [Left Arm] Pulse Oximetry 99 99 Oxygen Delivery Method Nasal Cannula Nasal Cannula Nasal Cannula Oxygen Flow Rate 4 4 4 Sepsis Recent Fever Within 48 Hours No Sepsis New/Unexplained Change in Mental Status No Sepsis Action Taken by Nursing No Action Required Oxygen Flow Rate - Titration Pulse Oximetry Post Tiitration 07/06/22 17:53 07/06/22 17:30 07/06/22 19:00 Temperature Temperature Source Pulse Rate Pulse Rate [Apical] 80 75 Pulse Rhythm Pulse Rhythm [Apical] Regular Pulse Strength [Apical] Normal Respiratory Rate 22 16 Respiratory Effort / Characteristics Non-Labored Spontaneous Non-Labored Respiratory Depth Normal Normal Respiratory Pattern Regular Regular Blood Pressure Blood Pressure [Left Arm] 158/78 H Blood Pressure [Right Arm] 146/86 H Blood Pressure Mean Blood Pressure Mean [Left Arm] 104 Blood Pressure Mean [Right Arm] 106 Blood Pressure Position Blood Pressure Position [Left Arm] Lying Pulse Oximetry 97 99 97 Oxygen Delivery Method Room Air Room Air Nasal Cannula Oxygen Flow Rate 4 Sepsis Recent Fever Within 48 Hours Sepsis New/Unexplained Change in Mental Status Sepsis Action Taken by Nursing Oxygen Flow Rate - Titration 0 Pulse Oximetry Post Tiitration 96 Laboratory Data 07/06/22 15:00 07/06/22 15:00 Lab Results 07/06/22 07/06/22 07/06/22 Range/Units 15:00 15:00 15:05 WBC 4.51 L (4.8-10.8) K/ul RBC 3.23 L (4.70-6.10) M/uL Hgb 10.5 L (14.0-18.0) g/dl Hct 31.6 L (42.0-52.0) % MCV 97.8 (80.0-100.0) fL MCH 32.5 (25.0-34.0) pg MCHC 33.2 (32.0-36.0) g/dL RDW Std Deviation 47.0 H (36.4-46.3) fL RDW Coeff of Nimesh 13.2 (11.5-14.5) % Plt Count 85 L (130-400) K/uL MPV 9.6 (9.4-12.4) fL Immature Gran % (Auto) 0.7 % Neut % (Auto) 90.0 % Lymph % (Auto) 3.3 % Faulkner % (Auto) 5.3 % Eos % (Auto) 0.7 % Baso % (Auto) 0.0 % Neut # (Auto) 4.06 (1.40-6.50) K/uL Lymph # (Auto) 0.15 L (1.2-3.4) K/uL Faulkner # (Auto) 0.24 (0.11-0.59) K/uL Eos # (Auto) 0.03 (0-0.50) K/uL Baso # (Auto) 0.00 (0-0.2) K/uL Immature Gran # (Auto) 0.03 (0.01-0.20) K/uL PT (9.0-12.0) Seconds INR (0.9-1.1) Sodium 139 (136-145) mmol/L Potassium 3.9 (3.5-5.1) mmol/L Chloride 104 (98-107) mmol/L Carbon Dioxide 30 (21-32) mmol/L Anion Gap 5 (3-11) BUN 18 (6-23) mg/dl Creatinine 1.55 H (0.6-1.4) mg/dl Est Cr Clr Drug Dosing 51.9 ml/min Est GFR ( Amer) 51.1 ml/min Est GFR (Non-Af Amer) 44.1 ml/min BUN/Creatinine Ratio 11.6 (10-20) Glucose 118 H (70-99(Fasting)) mg/dl Calcium 8.8 (8.5-10.1) mg/dl Total Bilirubin 0.9 (0.2-1.0) mg/dl AST 131 H (13-39) U/L ALT 71 H (7-52) U/L Alkaline Phosphatase 265 H (34-104) U/L Troponin I High Sens 14.0 (0-20) pg/ml Total Protein 6.6 (6.0-8.3) gm/dl Albumin 3.5 (3.4-5.0) gm/dl Globulin 3.1 (2.5-4.0) gm/dl Albumin/Globulin Ratio 1.1 (0.9-2) Lipase 16 (11-82) U/L SARS-CoV-2 (PCR) POSITIVE A* (Negative) Influenza Type A (PCR) Negative (Neg) Influenza Type B (PCR) Negative (Neg) RSV (RT-PCR) Negative (Neg) 07/06/22 07/06/22 Range/Units 18:13 18:13 WBC (4.8-10.8) K/ul RBC (4.70-6.10) M/uL Hgb (14.0-18.0) g/dl Hct (42.0-52.0) % MCV (80.0-100.0) fL MCH (25.0-34.0) pg MCHC (32.0-36.0) g/dL RDW Std Deviation (36.4-46.3) fL RDW Coeff of Nimesh (11.5-14.5) % Plt Count (130-400) K/uL MPV (9.4-12.4) fL Immature Gran % (Auto) % Neut % (Auto) % Lymph % (Auto) % Faulkner % (Auto) % Eos % (Auto) % Baso % (Auto) % Neut # (Auto) (1.40-6.50) K/uL Lymph # (Auto) (1.2-3.4) K/uL Faulkner # (Auto) (0.11-0.59) K/uL Eos # (Auto) (0-0.50) K/uL Baso # (Auto) (0-0.2) K/uL Immature Gran # (Auto) (0.01-0.20) K/uL PT 26.9 H (9.0-12.0) Seconds INR 2.7 H (0.9-1.1) Sodium (136-145) mmol/L Potassium (3.5-5.1) mmol/L Chloride (98-107) mmol/L Carbon Dioxide (21-32) mmol/L Anion Gap (3-11) BUN (6-23) mg/dl Creatinine (0.6-1.4) mg/dl Est Cr Clr Drug Dosing ml/min Est GFR ( Amer) ml/min Est GFR (Non-Af Amer) ml/min BUN/Creatinine Ratio (10-20) Glucose (70-99(Fasting)) mg/dl Calcium (8.5-10.1) mg/dl Total Bilirubin (0.2-1.0) mg/dl AST (13-39) U/L ALT (7-52) U/L Alkaline Phosphatase (34-104) U/L Troponin I High Sens 14.9 (0-20) pg/ml Total Protein (6.0-8.3) gm/dl Albumin (3.4-5.0) gm/dl Globulin (2.5-4.0) gm/dl Albumin/Globulin Ratio (0.9-2) Lipase (11-82) U/L SARS-CoV-2 (PCR) (Negative) Influenza Type A (PCR) (Neg) Influenza Type B (PCR) (Neg) RSV (RT-PCR) (Neg) Imaging Data Radiologist's Impression: Chest X-Ray 07/06/22 14:13 XR chest 1V portable CLINICAL HISTORY: Chest pain, nonspecific COMPARISON STUDY: Chest CT March 10, 2022 and chest radiograph March 19, 2022. PET/CT March 04, 2022. FINDINGS: Left subclavian pacer and prosthetic aortic valve are noted. Cardiomegaly is unchanged. There is no evidence for pulmonary edema. There is underlying emphysema. No pneumothorax or pleural effusion is present. The known right lower lobe mass has likely increased in size since prior chest CT although suboptimally assessed by radiography. This measures approximately 3.8 cm. IMPRESSION: 1. Suspected increase in size of the suspicious right lower lobe mass. 2. No acute findings. 3. Emphysema. ACT 112: Negative or not required by law. Electronically signed by: Curtis Reynolds M.D. 07/06/2022 3:09 PM Gallbladder Ultrasound 07/06/22 15:54 ULTRASOUND RIGHT UPPER QUADRANT ABDOMEN CLINICAL HISTORY: Elevated hepatic transaminases. Atypical chest pain. COMPARISON STUDY: Abdominal CT and abdominal ultrasound dated 03/10/2022 TECHNIQUE: Real-time, grayscale, and color flow sonography of the right upper quadrant of the abdomen was performed. Images are reviewed in the transverse and longitudinal planes. FINDINGS: Liver: The liver is normal in size and heterogeneous in echotexture. There is no intrahepatic biliary ductal dilatation. The main portal vein is patent. Gallbladder: The gallbladder is filled with shadowing gallstones. The gallbladder wall is difficult to visualize but appears mildly thickened. No pericholecystic fluid is seen. A sonographic Garsia's sign is equivocal. The common bile duct measures up to 0.7 cm in diameter. Pancreas: Not visualized due to overlying bowel gas. Right kidney: Survey images of the right kidney demonstrate cortical atrophy. Echotexture there is normal. There is no hydronephrosis. Ascites: None. IMPRESSION: 1. The gallbladder is filled with shadowing stones comment the gallbladder wall appears mildly thickened. A sonographic Garsia's sign was equivocal. Acute or chronic cholecystitis is not excluded. Clinical correlation will be required. If warranted a nuclear hepatobiliary scan could be considered for further assessment. 2. There is no intra or extrahepatic biliary ductal dilatation. 3. Nonvisualization of the pancreas. ACT 112: Negative or not required by law. Electronically signed by: Rey Cancino M.D. 07/06/2022 5:17 PM Discharge Plan Visit Data Chief Complaint: Chest Pain ED Provider: Mainor Rosales Discharge Problem: Retrosternal chest pain, Elevated LFTs, Abnormal gallbladder ultrasound, COVID- 19 Forms Stand Alone Forms: [facility] Prescriptions Prescriptions: No Action One-A-Day Men's 50 Plus 400-20-370 mcg tablet 1 tab PO DAILY Daliresp 500 mcg tablet 500 mcg PO DAILY bumetanide 1 mg tablet 0.5 mg PO 3XWK Rx Instructions: take on mondays, wednesdays and fridays cyclobenzaprine 10 mg tablet 10 mg PO DAILY PRN (Reason: muscle spasm) warfarin 2 mg tablet See Rx Instructions PO UD Rx Instructions: 4mg q Mo, 2mg x 6 days per [facility] orally use as directed; cyanocobalamin (vitamin B-12) 1,000 mcg tablet 1,000 mcg PO QAM famotidine [Pepcid] 20 mg tablet 20 mg PO BID PRN (Reason: heartburn) finasteride 5 mg tablet 5 mg PO QAM Qty: 30 11RF omeprazole 40 mg capsule,delayed release(DR/EC) 40 mg PO BID Qty: 180 1RF prednisone 2.5 mg tablet 2.5 mg PO .MWF Qty: 30 5RF Entresto 24-26 mg tablet 1 tab PO BID sennosides-docusate sodium [Senokot-S] 8.6-50 mg tablet See Rx Instructions PO DAILY PRN (Reason: constipation) Qty: 30 0RF Rx Instructions: 1-3 tabs PO daily PRN; terazosin 5 mg capsule 10 mg PO HS Rx Instructions: Takes at 7pm with Symbicort hydrocodone-acetaminophen 5-325 mg tablet 1 tab PO Q6H PRN (Reason: pain) Qty: 30 0RF meclizine 25 mg tablet 25 mg PO BID PRN (Reason: dizziness) Qty: 20 0RF loratadine [Claritin] 10 mg Tablet 10 mg PO QAM Spiriva with HandiHaler 18 mcg Capsule, W/Inhalation Device 1 cap INHALATION HS budesonide-formoterol [Symbicort] 160-4.5 mcg/actuation Hfa Aerosol Inhaler 2 puff INHALATION BID Rx Instructions: Takes in morning and at 7pm ipratropium-albuterol 0.5 mg-3 mg(2.5 mg base)/3 mL solution for nebulization 3 ml INHALATION UD PRN (Reason: Shortness Of Breath) albuterol sulfate 90 mcg/actuation Hfa Aerosol Inhaler 1 inh INHALATION QID PRN (Reason: Shortness Of Breath) amiodarone 200 mg tablet 200 mg PO QAM folic acid 1 mg tablet 1 mg PO QAM Probiotic 3 billion cell Capsule 3,000 mmu cells PO QAM levalbuterol HCl [Xopenex] 0.63 mg/3 mL solution for nebulization 0.63 mg NEB Q6R PRN (Reason: shortness of breath or wheezing) ondansetron 4 mg tablet,disintegrating 4 mg PO Q6 PRN (Reason: Nausea) azithromycin 500 mg tablet 500 mg PO 3XWK Rx Instructions: wednesday,wednesday,wednesday daily Referrals Referrals: Tracy Gomez MD [Primary Care Provider] -
--- NOTE | 2022-07-06 15:12 | XRay Report ---
XR chest 1V portable CLINICAL HISTORY: Chest pain, nonspecific COMPARISON STUDY: Chest CT March 10, 2022 and chest radiograph March 19, 2022. PET/CT March 04, 2022. FINDINGS: Left subclavian pacer and prosthetic aortic valve are noted. Cardiomegaly is unchanged. The re is no evidence for pulmonary edema. There is underlying emphysema. No pneumothorax or pleural effu najma is present. The known right lower lobe mass has likely increased in size since prior chest CT al though suboptimally assessed by radiography. This measures approximately 3.8 cm. IMPRESSION: 1. Suspected increase in size of the suspicious right lower lobe mass. 2. No acute findings. 3. Emphysema. ACT 112: Negative or not required by law. Electronically signed by: Curtis Reynolds M.D. 07/06/2022 3:09 PM
[2022-07-06 15:17] LABS: Hematocrit (blood only) 31.6 % (42.0-52.0); Hemoglobin 10.5 g/dl (14.0-18.0); Mean Corpuscular Hemoglobin 32.5 pg (25.0-34.0); Mean Corpuscular Hgb Conc 33.2 g/dL (32.0-36.0); Mean Corpuscular Volume 97.8 fL (80.0-100.0); Platelet Count 85 K/uL (130-400); RDW Coefficient of Variation 13.2 % (11.5-14.5); Red Blood Count 3.23 M/uL (4.70-6.10); White Blood Count 4.51 K/ul (4.8-10.8)
[2022-07-06 15:18] LABS: Eosinophils # (auto) 0.03 K/uL (0-0.50); Eosinophils % (auto) 0.7 %; Immature Granulocytes # (auto) 0.03 K/uL (0.01-0.20); Immature Granulocytes % (auto) 0.7 %; Lymphocytes # (auto) 0.15 K/uL (1.2-3.4); Lymphocytes % (auto) 3.3 %; Mean Platelet Volume 9.6 fL (9.4-12.4); Monocytes # (auto) 0.24 K/uL (0.11-0.59); Monocytes % (auto) 5.3 %; Neutrophils # (auto) 4.06 K/uL (1.40-6.50)
[2022-07-06 15:34] LABS: Albumin Level 3.5 gm/dl (3.4-5.0); Bilirubin,Total 0.9 mg/dl (0.2-1.0); Calcium 8.8 mg/dl (8.5-10.1); Potassium 3.9 mmol/L (3.5-5.1)
[2022-07-06 15:40] LABS: Albumin Globulin Ratio 1.1 (0.9-2); BUN Creatinine Ratio 11.6 (10-20); Creatinine Clr Calc Pharmacy 51.9 ml/min; Est GFR (African American) 51.1 ml/min; Est GFR (Non-African American) 44.1 ml/min; Globulin 3.1 gm/dl (2.5-4.0); Total Protein 6.6 gm/dl (6.0-8.3)
[2022-07-06 16:01] LABS: Influenza A virus by PCR Negative (Neg); Influenza B virus by PCR Negative (Neg); RSV by PCR Negative (Neg)
--- NOTE | 2022-07-06 16:39 | History & Physical Report ---
Date of Service July 06, 2022 Assessment & Plan (1) Retrosternal chest pain: Plan: -Admit to med/tele -At this time the patient is afebrile, hemodynamically stable, and stable on RA -At this time the etiology of the patient's chest pain is unknown but includes and is not limited to cardiac causes, cholecystitis, referred pain from his known RLL lung mass, and musculoskeletal pain -Initial high sensitivity trop is WNL and no acute ECG findings, continue to mo nitor on tele -Will repeat another troponin STAT and then monitor q6h overnight -Chest xray shows progression of his known RLL mass, he is scheduled for his first radiation treatment next week -Low suspicion for PE at this time as he is stable on RA, without pleuritic chest pain, and is on Warfarin -Initial RUQ US shows gallstones but is equivocal for acute cholecystitis, will obtain a HIDA scan in the AM for further assessment -AM CBC, CMP, (2) 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: Plan: -Recently diagnosed -Following with Heme/onc and rad/onc at the cancer center -Scheduled for his first round of radiation on 07/15 (3) Elevated LFTs: Plan: -Alk phos, AST, and ALT are elevated today -Could possibly be related to his current Covid 19 infection but need to rule out biliary sources -RUQ US was equovical -Will make him NPO at midnight and obtain HIDA scan in the ED -Would consult General Surgery with any concerning findings (4) COVID-19: Plan: -Noted on ED screen today -Patient is currently stable on RA -Noticed URI symptoms approximately 4 days ago -Symptomatic treatment for now with incentive spirometry, flutter therapy, home breathing treatments -If he would become hypoxic would need to start Dex and possibly remdesivir if his renal function and liver function are stable (5) Chronic heart failure with preserved ejection fraction: Plan: -Patient examines euvolemic at this time -Continue Entresto and Bumetanide (6) Polymyalgia rheumatica: Plan: -Continue 2.5 mg PO prednisone on MWF (7) GERD with esophagitis: Plan: -Continue omeprazole (8) Thrombocytopenia: Plan: -Stable (9) Essential hypertension: Plan: -Stable -Continue Entresto (10) COPD (chronic obstructive pulmonary disease): Plan: -Stable on RA -Continue home breathing treatments -Continue HS 2L NC -Incentive spirometry and flutter therapy -Continue chronic azithromycin therapy MWF (11) Atrial flutter: Plan: -Stable -Continue amiodarone and Warfarin -Obtaining PT/INR now and will dose Warfain accordingly Plan The patient was seen with and discussed with Dr. Richardson at the time of the admission History of Present Illness Chief Complaint: Chest pain Primary Care Provider: Tracy Gomez MD Hayden is a 72 year old male with a PMH significant for recently diagnosed squamous cell carcinoma of the RLL, follows with the [facility], afib on warfarin, COPD, aortic stenosis S/P TAVR, S/P pacemaker placement, nocturnal hypoxia on O2, polymyalgia rheumatica, GERD,HTN, HFpEF (LVEF of 60% and grade I diastolic dysfunction as of 09/2021) and thrombocytopenia who presented to the [facility] ED on 07/06/22 with a chief complaint of chest pain. In the ED the patient was found to be afebrile, hemodynamically stable, and stable on 4L NC. Labs were remarkable for a WBC of 4.51, stable Hgb and platelet count, stable cr at 1.55, stable electrolytes, lipase of 16, initial high se nsitivity trop of 14, but elevated AST of 131, ALT of 71, and alk phos of 265, total bili was stable at 0.9, and covid 19 positive. Chest xray today was read as "1. Suspected increase in size of the suspicious right lower lobe mass. 2. No acute findings. 3. Emphysema.". Gall Bladder US was read as "1. The gallbladder is filled with shadowing stones comment the gallbladder wall appears mildly thickened. A sonographic Garsia's sign was equivocal. Acute or chronic cholecystitis is not excluded. Clinical correlation will be required. If warranted a nuclear hepatobiliary scan could be considered for further assessment. 2. There is no intra or extrahepatic biliary ductal dilatation. 3. Nonvisualization of the pancreas." Per chart review, the patient was recently seen by heme/onc and radiation/onc last month, he is scheduled to start radiation therapy on 07/15/22. He was seen in the [facility] ED on 03/19/22 for similar symptoms today and underwent a gallbladder US which was read as "1. Cholelithiasis with gallbladder wall thickening. The pericholecystic stranding seen on CT is not identified by ultrasound. Findings could be correlated with nuclear medicine hepatobiliary scan to exclude acute cholecystitis. 2. Mild dilation of the common bile duct, 8 mm." His LFT's were stable at that time and his symptoms resolved at receiving antacids and morphine. He was educated on proper diet and discharged home at that time. At the time of the exam the patient was resting comfortably in bed in no acute distress with his Daughters sitting bedside. He states that he developed sudden, sharp, lower substernal chest pain at approximately 11:30 this morning. Prior to this he was in his normal state of health and had a sticky bun and cup of coffee for breakfast. When the chest pain started he was resting in a chair, he denies the pain radiating and it did not change with movement or position. He did not take any medications prior to coming in but did put his oxygen on at 4L/min, this did improve his symptoms. By the time he arrived to the ED he was chest pain free and is still pain free during my exam. When asked, he did develop URI symptoms approximately 4 days ago but has not required increased O2 and has not had an increased in his chronic cough or sputum production. When asked, he states that he only uses 2L NC at night, not during the day or with exertion. He denies recent fevers, chills, SOB, abdominal pain, nausea, vomiting, diarrhea, dysuria, hematuria, and recent falls. Please refer to Dr. Richardson's attestation for any changes to the treatment plan Allergies Allergy/AdvReac Type Severity Reaction Status Date / Time grass pollen Allergy Mild Unknown Verified 06/26/22 11:07 Sulfa (Sulfonamide AdvReac Unknown Unknown Verified 06/26/22 11:07 Antibiotics) digoxin AdvReac Weakness Verified 06/26/22 11:07 Home Medications Medication Instructions Recorded Confirmed Type budesonide-formoterol HFA 160 2 puff inhalation BID 06/24/18 07/01/22 History mcg-4.5 mcg/actuation aerosol inhaler (Symbicort) loratadine 10 mg tablet (Claritin) 10 mg PO QAM 06/24/18 07/01/22 History tiotropium bromide 18 mcg capsule 1 cap inhalation HS 06/24/18 07/01/22 History with inhalation device (Spiriva with HandiHaler) lactobacillus combination no.4 3 3,000 mmu cells PO QAM 04/21/21 07/01/22 History billion cell capsule (Probiotic) terazosin 5 mg capsule 10 mg PO HS 06/17/21 07/01/22 History sacubitril 24 mg-valsartan 26 mg 1 tab PO BID 07/15/21 07/01/22 History tablet (Entresto) levalbuterol HCl 0.63 mg/3 mL 0.63 mg NEB Q6R PRN shortness of 07/21/21 07/01/22 History solution for nebulization (Xopenex) breath or wheezing finasteride 5 mg tablet 5 mg PO QAM #30 tabs 08/04/21 07/01/22 Rx albuterol sulfate 90 mcg/actuation 1 inh inhalation QID PRN Shortness 08/05/21 07/01/22 History aerosol inhaler Of Breath amiodarone 200 mg tablet 200 mg PO QAM 08/05/21 07/01/22 History folic acid 1 mg tablet 1 mg PO QAM 08/05/21 07/01/22 History ipratropium 0.5 mg-albuterol 3 mg 3 ml inhalation UD PRN Shortness 08/05/21 07/01/22 History (2.5 mg base)/3 mL nebulization Of Breath soln sennosides 8.6 mg-docusate sodium See Rx Instructions PO DAILY PRN 08/19/21 07/01/22 Rx 50 mg tablet (Senokot-S) constipation #30 tabs xrdorzlahpqn-nwq-rewdk acid-vit 1 tab PO DAILY 08/22/21 07/01/22 History K-lycop 400 mcg-20 mcg-370 mcg tablet (One-A-Day Men's 50 Plus) roflumilast 500 mcg tablet 500 mcg PO DAILY 11/07/21 07/01/22 History (Daliresp) cyanocobalamin (vitamin B-12) 1,000 mcg PO QAM 01/01/22 07/01/22 History 1,000 mcg tablet meclizine 25 mg tablet 25 mg PO BID PRN dizziness #20 tabs 02/05/22 07/01/22 Rx bumetanide 1 mg tablet 0.5 mg PO 3XWK 02/12/22 07/01/22 History cyclobenzaprine 10 mg tablet 10 mg PO DAILY PRN muscle spasm 02/12/22 07/01/22 History azithromycin 500 mg tablet 500 mg PO 3XWK 03/19/22 07/01/22 History ondansetron 4 mg disintegrating 4 mg PO Q6 PRN Nausea 03/19/22 07/01/22 History tablet famotidine 20 mg tablet (Pepcid) 20 mg PO BID PRN heartburn 03/24/22 07/01/22 History omeprazole 40 mg capsule,delayed 40 mg PO BID #180 caps 04/10/22 07/01/22 Rx release warfarin 2 mg tablet See Rx Instructions PO UD 05/25/22 07/01/22 History prednisone 2.5 mg tablet 2.5 mg PO .MWF #30 tabs 06/11/22 07/01/22 Rx hydrocodone 5 mg-acetaminophen 325 1 tab PO Q6H PRN pain #30 tabs 06/26/22 07/01/22 Rx mg tablet Past Med/Surg History Medical History Acute pulmonary embolism Atrial flutter Benign prostatic hyperplasia with urinary obstruction and other lower urinary tract symptoms Central venous catheter in place Chronic heart failure with preserved ejection fraction Chronic obstructive pulmonary disease Chronic systolic heart failure CKD (chronic kidney disease) stage 2, GFR 60-89 ml/min Colon polyp COPD (chronic obstructive pulmonary disease) Diastolic dysfunction History of colon polyps History of elevated glucose History of smoking at least 1 pack per day for at least 30 years Lung nodule Obesity (BMI 30-39.9) Osteoarthritis Polymyalgia rheumatica 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 Son No problems noted. Other No family history of adverse response to anesthesia Denies family history of Ovarian cancer Breast cancer Lung cancer Social History Smoking Status: Unknown if ever smoked Tobacco Type: Cigarettes Cigarettes Per Day: 1-2 PPD x 50 yrs;Quit 2010; Second Hand Exposure: No; Hx Alcohol Use: Yes (Quit 3-4 yrs ago;but priot to that drank beer daily;) Alcohol Intake Frequency: Monthly or Less Hx Substance Use: No Preferred Language: Azerbaijani Communication Ability: Effective Visual Impairment: No Limitations Hearing Ability: Hard of Hearing Assistant Chief Train Dispatcher Required: No Beliefs That Will Affect Care: None marital status: Current Living Situation: Spouse current occupational status: retired How many Children do You have: 1 Feels Safe at Home: Yes Diet Comment: Heart Healthy Diet caffeine: Yes (coffee, soda) during the past year weight has: remained stable Seatbelt Use: always Assistive Devices: Cane Review of Systems Review of Systems: Denies current fever, chills, headache, changes in vision, hearing, taste, and smell, chest pain, SOB, cough, abdominal pain, nausea, vomiting, diarrhea, hematemesis, melena, dysuria, hematuria, and recent falls. All systems have been reviewed and are otherwise negative. Physical Exam Physical Exam: Physical Exam: General: In no acute distress, stated age, chronically ill-appearing but non- toxic appearing HEENT: Normocephalic, atraumatic, no scleral icterus, pupils around round, symmetrical, and reactive to light, moist mucus membranes, trachea midline, no thyromegaly Chest/Pulm: No respiratory distress, symmetrical chest expansion, expiratory wheezing noted throughout with decreased breath sounds in the RLL Cardiac: RRR, no murmurs noted Abdomen: Negative for ascites and bruising, normoactive bowel sounds, soft, non-tender to palpation throughout, negative garsia's sign Musculoskeletal: Symmetrical and without signs of acute trauma, upper and lower extremities with full ROM, no atrophy, spasticity, or flaccidity Extremities: Radial, dorsalis pedis, and posterior tibial pulses are intact and symmetrical, no pitting edema noted in the BL LE's Skin: Warm, dry, no rashes , lesions, or scars noted Neuro: Alert and oriented to person, place, month, year, and president, no focal defects, CN II-XII tested and intact, finger to nose test negative, no tremors noted Psych: No acute distress, calm and cooperative during the exam Results & Data Results & Data ([facility]) Vital Signs (Past 12 Hours) Vital Signs Temp Pulse Resp BP Pulse Ox O2 Del Method O2 Flow Rate 07/06/22 14:13 78 20 99 Nasal Cannula 4 07/06/22 14:13 36.9 C 86 20 153/66 H 99 Nasal Cannula 4 07/06/22 14:13 Nasal Cannula 4 Laboratory Results Abnormal lab results 07/06/22 07/06/22 Range/Units 15:00 15:00 WBC 4.51 L (4.8-10.8) K/ul RBC 3.23 L (4.70-6.10) M/uL Hgb 10.5 L (14.0-18.0) g/dl Hct 31.6 L (42.0-52.0) % RDW Std Deviation 47.0 H (36.4-46.3) fL Plt Count 85 L (130-400) K/uL Lymph # (Auto) 0.15 L (1.2-3.4) K/uL Creatinine 1.55 H (0.6-1.4) mg/dl Glucose 118 H (70-99(Fasting)) mg/dl AST 131 H (13-39) U/L ALT 71 H (7-52) U/L Alkaline Phosphatase 265 H (34-104) U/L Abnormal lab results 07/06/22 07/06/22 07/06/22 Range/Units 15:00 15:00 15:05 WBC 4.51 L (4.8-10.8) K/ul RBC 3.23 L (4.70-6.10) M/uL Hgb 10.5 L (14.0-18.0) g/dl Hct 31.6 L (42.0-52.0) % RDW Std Deviation 47.0 H (36.4-46.3) fL Plt Count 85 L (130-400) K/uL Lymph # (Auto) 0.15 L (1.2-3.4) K/uL Creatinine 1.55 H (0.6-1.4) mg/dl Glucose 118 H (70-99(Fasting)) mg/dl AST 131 H (13-39) U/L ALT 71 H (7-52) U/L Alkaline Phosphatase 265 H (34-104) U/L SARS-CoV-2 (PCR) POSITIVE A* (Negative) Diagnostic Findings Chest X-Ray 07/06/22 14:13 XR chest 1V portable CLINICAL HISTORY: Chest pain, nonspecific COMPARISON STUDY: Chest CT March 10, 2022 and chest radiograph March 19, 2022. PET/CT March 04, 2022. FINDINGS: Left subclavian pacer and prosthetic aortic valve are noted. Cardiomegaly is unchanged. There is no evidence for pulmonary edema. There is underlying emphysema. No pneumothorax or pleural effusion is present. The known right lower lobe mass has likely increased in size since prior chest CT although suboptimally assessed by radiography. This measures approximately 3.8 cm. IMPRESSION: 1. Suspected increase in size of the suspicious right lower lobe mass. 2. No acute findings. 3. Emphysema. ACT 112: Negative or not required by law. Electronically signed by: Curtis Reynolds M.D. 07/06/2022 3:09 PM Gallbladder Ultrasound 07/06/22 15:54 ULTRASOUND RIGHT UPPER QUADRANT ABDOMEN CLINICAL HISTORY: Elevated hepatic transaminases. Atypical chest pain. COMPARISON STUDY: Abdominal CT and abdominal ultrasound dated 03/10/2022 TECHNIQUE: Real-time, grayscale, and color flow sonography of the right upper quadrant of the abdomen was performed. Images are reviewed in the transverse and longitudinal planes. FINDINGS: Liver: The liver is normal in size and heterogeneous in echotexture. There is no intrahepatic biliary ductal dilatation. The main portal vein is patent. Gallbladder: The gallbladder is filled with shadowing gallstones. The gallbladder wall is difficult to visualize but appears mildly thickened. No pericholecystic fluid is seen. A sonographic Garsia's sign is equivocal. The common bile duct measures up to 0.7 cm in diameter. Pancreas: Not visualized due to overlying bowel gas. Right kidney: Survey images of the right kidney demonstrate cortical atrophy. Echotexture there is normal. There is no hydronephrosis. Ascites: None. IMPRESSION: 1. The gallbladder is filled with shadowing stones comment the gallbladder wall appears mildly thickened. A sonographic Garsia's sign was equivocal. Acute or chronic cholecystitis is not excluded. Clinical correlation will be required. If warranted a nuclear hepatobiliary scan could be considered for further assessment. 2. There is no intra or extrahepatic biliary ductal dilatation. 3. Nonvisualization of the pancreas. ACT 112: Negative or not required by law. Electronically signed by: Rey Cancino M.D. 07/06/2022 5:17 PM ECG Additional Comments: Normal sinus rhythm Left axis deviation Low voltage QRS Septal infarct , age undetermined Inferior infarct , age undetermined Abnormal ECG When compared with ECG of 19-MAR-2022 01:19, Sinus rhythm has replaced Electronic ventricular pacemaker Code Status & VTE Plan Code Status Full code VTE Prophylaxis Plan VTE Prophylaxis will be ordered: Yes Supervising Physician Co-Signing Physician Notes Patient seen and examined, chart reviewed, case discussed with Phillip Britton PA-C and I agree with the assessment and plan as above except as otherwise noted Labs and images reviewed Hyaden is a 72-year-old male with a past medical history of recently diagnosed lung cancer pending initial treatment this coming week who experienced an episode of substernal chest pain for which he called EMS. This had improved by time of arrival to the ER. Initial work-up in the ER was with a negative troponin, no EKG changes. However initial labs did show elevated transaminitis which was new. During previous admission patient was noted to have cholelithiasis with gallbladder wall thickening and a 8 mm CBD dilation. Given this history new transaminitis, and in anticipation of requiring SCC treatment urgently in the future with enlarging liver mass patient was recommended for admission for expedited evaluation of potential underlying Sugey cystitis/cholelithiasis. At time of hospital consultation gallbladder ultrasound repeat is pending. No leukocytosis, hemoglobin 10.5, creatinine is 1.55 which is near patient's baseline transaminitis is new with AST 131, ALT 71, alk phos 265, normal lipase. COVID positive, cough uri sx x4 days without hypoxia, no steroid/remdesivir indicated. Agree with workup and eval as noted above, HIDA pending. Continue trops/cardiac overnight eval, no chest pain at assessment. PG Care Time/CCT Total # of Minutes Spent Total Time Spent with Patient: Total time spent is greater than 50% in coordination of care (as documented) at patient's floor/unit and/or counseling patient: Coding [place] [address] INT INP/OBS CARE 3/75MIN Patient Type Established Medical Decision Making High Complexity Diagnoses Retrosternal chest pain R07.2 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 C34.31 Elevated LFTs R79.89 COVID-19 U07.1 Chronic heart failure with preserved ejection fraction I50.32 Polymyalgia rheumatica M35.3 GERD with esophagitis K21.00 Thrombocytopenia D69.6 Essential hypertension I10 COPD (chronic obstructive pulmonary disease) J44.1 COPD type: COPD with acute exacerbation Atrial flutter I48.92 (1) COPD (chronic obstructive pulmonary disease) COPD type: COPD with acute exacerbation Qualified Code(s): J44.1 - Chronic obstructive pulmonary disease with (acute) exacerbation
[2022-07-06 16:59] LABS: SARS CoV2 RNA(COVID-19) Ceph POSITIVE (Negative)
--- NOTE | 2022-07-06 17:18 | Ultrasound Report ---
ULTRASOUND RIGHT UPPER QUADRANT ABDOMEN CLINICAL HISTORY: Elevated hepatic transaminases. Atypical chest pain. COMPARISON STUDY: Abdominal CT and abdominal ultrasound dated 03/10/2022 TECHNIQUE: Real-time, grayscale, and color flow sonography of the right upper quadrant of the abdomen was performed. Images are reviewed in the transverse and longitudinal planes. FINDINGS: Liver: The liver is normal in size and heterogeneous in echotexture. There is no intrahepatic biliary ductal dilatation. The main portal vein is patent. Gallbladder: The gallbladder is filled with shadowing gallstones. The gallbladder wall is difficult t o visualize but appears mildly thickened. No pericholecystic fluid is seen. A sonographic Garsia's si gn is equivocal. The common bile duct measures up to 0.7 cm in diameter. Pancreas: Not visualized due to overlying bowel gas. Right kidney: Survey images of the right kidney demonstrate cortical atrophy. Echotexture there is no rmal. There is no hydronephrosis. Ascites: None. IMPRESSION: 1. The gallbladder is filled with shadowing stones comment the gallbladder wall appears mildly thicke maverick. A sonographic Garsia's sign was equivocal. Acute or chronic cholecystitis is not excluded. Clini ana maría correlation will be required. If warranted a nuclear hepatobiliary scan could be considered for f urther assessment. 2. There is no intra or extrahepatic biliary ductal dilatation. 3. Nonvisualization of the pancreas. ACT 112: Negative or not required by law. Electronically signed by: Rey Cancino M.D. 07/06/2022 5:17 PM
[2022-07-06 18:57] LABS: INR 2.7 (0.9-1.1); Prothrombin Time 26.9 Seconds (9.0-12.0)
[2022-07-06] MEDS ORDERED: ALBUT/IPRATROP 3MG/0.5MG NEB 3 ML VIAL INH PRN (20:14)
[2022-07-06] MEDS ORDERED: ALBUTEROL HFA 8 GM INHALER INH PRN (20:14)
[2022-07-06] MEDS ORDERED: ACETAMINOPHEN 325 MG TAB PO PRN (20:14)
[2022-07-06] MEDS ORDERED: HYDROCODONE/ACETAMOPHEN 5/325MG TAB PO PRN (20:14)
[2022-07-06] MEDS ORDERED: WARFARIN SOD 4 MG TAB PO SCH (21:00)
[2022-07-06] MEDS: AZITHROMYCIN 250 MG TAB PO SCH (21:33)
[2022-07-06] MEDS: VALSARTAN/SACUBITRIL 26/24MG TAB PO SCH (21:35)
[2022-07-06] MEDS: TERAZOSIN HCL 5 MG CAP PO SCH (21:38)
[2022-07-06] MEDS: PANTOprazole 40 MG TAB PO SCH (21:40)
[2022-07-06] MEDS: predniSONE 2.5 MG TAB PO SCH (21:42)
[2022-07-06] MEDS: UMECLIDINIUM BROMIDE 62.5MCG/BLISTER 7 PUFFS/INHALER INH SCH (21:44)
[2022-07-07 06:17] LABS: Hematocrit (blood only) 30.2 % (42.0-52.0); Mean Corpuscular Hemoglobin 32.1 pg (25.0-34.0); Mean Corpuscular Hgb Conc 33.1 g/dL (32.0-36.0); Mean Corpuscular Volume 96.8 fL (80.0-100.0); Mean Platelet Volume 9.9 fL (9.4-12.4); Platelet Count 77 K/uL (130-400); RDW Standard Deviation 46.5 fL (36.4-46.3); Red Blood Count 3.12 M/uL (4.70-6.10); White Blood Count 3.38 K/ul (4.8-10.8)
[2022-07-07 06:25] LABS: Albumin Globulin Ratio 1.2 (0.9-2); Albumin Level 3.4 gm/dl (3.4-5.0); BUN Creatinine Ratio 10.1 (10-20); Bilirubin,Total 0.7 mg/dl (0.2-1.0); Calcium 8.7 mg/dl (8.5-10.1); Creatinine Clr Calc Pharmacy 54.3 ml/min; Est GFR (Non-African American) 46.6 ml/min; Globulin 2.8 gm/dl (2.5-4.0); Magnesium 1.7 mg/dl (1.7-2.4); Potassium 3.8 mmol/L (3.5-5.1); Total Protein 6.2 gm/dl (6.0-8.3)
[2022-07-07 06:34] LABS: INR 2.4 (0.9-1.1)
--- NOTE | 2022-07-07 08:08 | Electrocardiogram Report ---
Test Reason : Blood Pressure : / mmHG Vent. Rate : 085 BPM Atrial Rate : 085 BPM P-R Int : 170 ms QRS Dur : 096 ms QT Int : 352 ms P-R-T Axes : 018 -47 055 degrees QTc Int : 418 ms Normal sinus rhythm Left axis deviation Low voltage QRS Possible Old Anteroseptal infarct Possible Old Inferior infarct Abnormal ECG When compared with ECG of 19-MAR-2022 01:19, Sinus rhythm has replaced Electronic ventricular pacemaker Confirmed by Ok Mandel ([id number]) on 07/07/2022 8:07:52 AM Referred By: Confirmed By:Ok Mandel
[2022-07-07] MEDS ORDERED: PIPERACILLIN/TAZOBACTAM 4.5 GM in DEXTROSE 5% 100 ML IV ONE (08:30)
[2022-07-07] MEDS: FOLIC ACID 1 MG TAB PO SCH (08:48)
[2022-07-07] MEDS: AMIODARONE 200 MG TAB PO SCH (08:48)
[2022-07-07] MEDS: PANTOprazole 40 MG TAB PO SCH ×2 (08:48→20:02)
[2022-07-07] MEDS: FLUTICASONE/VILANTEROL 100/25MCG 14 PUFFS/INHALER INH SCH (08:48)
[2022-07-07] MEDS: ROFLUMILAST 500 MCG TAB PO SCH (08:49)
[2022-07-07] MEDS ORDERED: SODIUM CHLORIDE 0.65% NA SOLN 45 ML (OCEAN) ONE (10:26)
[2022-07-07] MEDS: VALSARTAN/SACUBITRIL 26/24MG TAB PO SCH ×2 (10:36→20:02)
--- NOTE | 2022-07-07 10:46 | Gastrointestinal Consultation ---
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 US ABD suggests stones filling the gallbladder with mild gallbladder thickening; CBD appears to be 7 mm. HIDA scan pending for today. Pt currently having no abd pain; resting comfortably in bed, abd nontender, soft. He's had several recurrent episodes of similar chest pain over the last year that have resolved; question whether these are related to underlying stone dz; also has known lung CA. We are asked to evaluate his LFTs; these could be elevated in the setting of COVID (viral illness); as he has normal bili and nondilated CBD on imaging does not appear to have acute biliary obstruction. Will wait to see what HIDA shows and trend LFTs. - Would continue broad spectrum ABX as per primary care - Await HIDA results - Pt has pacemaker; can't get MRI - Trend LFTs, CBC - As per surgery he would be high risk for cholecystectomy, and we could see whether he would be a good candidate for Axios stenting to facilitate drainage of the GB. Thank you for allowing us to participate in the care of this patient. Please call with any acute changes, questions or concerns. Please see addendum below with additional recommendation from my supervising physician. Supervising Physician Co-Signing Physician Notes Saw and evaluated the patient. We are consulted for new onset elevation of liver associated enzymes associated with right upper quadrant discomfort. Of note the patient also has a very significant history which includes congestive heart failure, pacemaker placement and a history of a cardiac arrest in the setting of active lung cancer. Patient notes that that his abdominal pain is subsiding significantly as compared to yesterday. Of note his imaging did show evidence of cholelithiasis but no obvious choledocholithiasis. The patient does have a history of a bad back and feels that he is unable to lay for prolonged pain HIDA scan had been ordered by general surgery who had been contemplating cholecystectomy. After discussion with Dr. Darling he feels that the patient is far too ill to undergo cholecystectomy. Physical examination Obese male, no obvious distress no scleral icterus Right upper quadrant tender palpation Impression: Patient with a history of COVID presenting with abdominal discomfort and a modest elevation of his liver enzymes. It is unclear if this is related to choledocholithiasis or perhaps one of his other conditions such as heart failure or perhaps his COVID infection. Recommend imaging however the patient feels he is unable to lay for significant period of time thus we will do clinical follow-up for the present time. The patient appears to be not a candidate for cholecystectomy due to his numerous comorbid medical conditions thus we have been asked to provide endoscopic treatment with placement of an axios stent to his gallbladder over the next 2 weeks. We will make arrangements for this study to be done at [facility] for the patient. History of Present Illness Reason for Consultation: Dr. Darling Requesting Physician: alejandro cee med problems Attending Physician: Linda Barnes MD History of Present Illness Pt is a 72-year-old male with PMhx recently diagnosed lung cancer about to start radiation treatment next week, along with multiple comorbidities, including CKD, COPD, complicated cardiac hx including CHF, status post TAVR, status post pacemaker insertion 2021 after cardiac arrest, a-flutter on Coumadin, and others, who presented yesterday with URI symptoms x4 days, and substernal chest pain. On arrival, he was found to be COVID-positive. Labs notable for new transaminitis with AST 131, ALT 71, alk phos 265, normal bili and lipase, no leukocytosis, hemoglobin 10.5 and creatinine 1.5, near patient's baseline. He was placed on 2 L NC, broad-spectrum antibiotics. GB US w/ gallbladder which is filled with shadowing stones, appears mildly thickened, acute on chronic cholecystitis not excluded, CBD measures 7 mm. Cardiac work-up including troponin and EKG without any acute changes surgery has been consulted to look at his gallbladder, and they have asked us to see him to evaluate his elevated LFTs. HIDA is pending for today. Per surgery he would be high risk for cholecystectomy given his multiple comorbidities. Today, AST 131, ALT 133, alk phos 292, bili 0.7, hemoglobin 10, PLT 77, WBC 3K. He states his retrosternal chest pain has resolved. He has had several episodes of this repeated over the last year, and has known gallstones. He states he has cut out fatty food in his diet, hoping this would improve his discomfort, as symptoms often occur after eating a fatty meal. Typically chest pain episodes would last several hours and resolve; usually they were associate with some nausea and dry heaves however not this time. Currently feels well with no complaints. No alcohol or tobacco use. History of laparoscopic ileocecectomy in 2019, for large cecal polyp which turned out to be a TVA. Denies abdominal pain, nausea vomiting hematemesis, or hematochezia, jaundice, fevers or chills, rigors, leg edema, CP, SOB. Colonoscopy 07/07/2018 Case: - one 25 mm polyp in the cecum. Treatment not successful. Four 5 to 18 mm polyps in the sigmoid, removed with a hot snare. Resected and retrieved. - Diverticulosis in the sigmoid colon. Nonbleeding internal hemorrhoids Path from ileocecectomy 08/23/2018: FINAL DIAGNOSIS TERMINAL ILEUM AND CECUM (LAPAROSCOPIC ILEOCECECTOMY): 1. 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 2. THE PROXIMAL MARGIN OF RESECTION, THE DISTAL MARGIN OF RESECTION, AND THE MESENTERIC MARGIN OF RESECTION ARE ALL FREE OF LESIONAL TISSUE. 3. SIX BENIGN PERICOLIC LYMPH NODES ARE IDENTIFIED. 4. SECTIONS OF THE APPENDIX ARE UNREMARKABLE. Allergies Allergy/AdvReac Type Severity Reaction Status Date / Time grass pollen Allergy Mild Unknown Verified 06/26/22 11:07 Sulfa (Sulfonamide AdvReac Unknown Unknown Verified 06/26/22 11:07 Antibiotics) digoxin AdvReac Weakness Verified 06/26/22 11:07 Home Medications Medication Instructions Recorded Confirmed Type budesonide-formoterol HFA 160 2 puff inhalation BID 06/24/18 07/06/22 History mcg-4.5 mcg/actuation aerosol inhaler (Symbicort) loratadine 10 mg tablet (Claritin) 10 mg PO QAM 06/24/18 07/06/22 History tiotropium bromide 18 mcg capsule 1 cap inhalation HS 06/24/18 07/06/22 History with inhalation device (Spiriva with HandiHaler) lactobacillus combination no.4 3 3,000 mmu cells PO QAM 04/21/21 07/06/22 History billion cell capsule (Probiotic) terazosin 5 mg capsule 10 mg PO HS 06/17/21 07/06/22 History sacubitril 24 mg-valsartan 26 mg 1 tab PO BID 07/15/21 07/06/22 History tablet (Entresto) levalbuterol HCl 0.63 mg/3 mL 0.63 mg NEB Q6R PRN shortness of 07/21/21 07/06/22 History solution for nebulization (Xopenex) breath or wheezing finasteride 5 mg tablet 5 mg PO QAM #30 tabs 08/04/21 07/06/22 Rx albuterol sulfate 90 mcg/actuation 1 inh inhalation QID PRN Shortness 08/05/21 07/06/22 History aerosol inhaler Of Breath amiodarone 200 mg tablet 200 mg PO QAM 08/05/21 07/06/22 History folic acid 1 mg tablet 1 mg PO QAM 08/05/21 07/06/22 History ipratropium 0.5 mg-albuterol 3 mg 3 ml inhalation UD PRN Shortness 08/05/21 07/06/22 History (2.5 mg base)/3 mL nebulization Of Breath soln sennosides 8.6 mg-docusate sodium See Rx Instructions PO DAILY PRN 08/19/21 07/06/22 Rx 50 mg tablet (Senokot-S) constipation #30 tabs ghdhstppcqjc-wrv-jhmrd acid-vit 1 tab PO DAILY 08/22/21 07/06/22 History K-lycop 400 mcg-20 mcg-370 mcg tablet (One-A-Day Men's 50 Plus) roflumilast 500 mcg tablet 500 mcg PO DAILY 11/07/21 07/06/22 History (Daliresp) cyanocobalamin (vitamin B-12) 1,000 mcg PO QAM 01/01/22 07/06/22 History 1,000 mcg tablet meclizine 25 mg tablet 25 mg PO BID PRN dizziness #20 tabs 02/05/22 07/06/22 Rx bumetanide 1 mg tablet 0.5 mg PO 3XWK 02/12/22 07/06/22 History cyclobenzaprine 10 mg tablet 10 mg PO DAILY PRN muscle spasm 02/12/22 07/06/22 History azithromycin 500 mg tablet 500 mg PO 3XWK 03/19/22 07/06/22 History ondansetron 4 mg disintegrating 4 mg PO Q6 PRN Nausea 03/19/22 07/06/22 History tablet famotidine 20 mg tablet (Pepcid) 20 mg PO BID PRN heartburn 03/24/22 07/06/22 History omeprazole 40 mg capsule,delayed 40 mg PO BID #180 caps 04/10/22 07/06/22 Rx release warfarin 2 mg tablet See Rx Instructions PO UD 05/25/22 07/06/22 History prednisone 2.5 mg tablet 2.5 mg PO .MWF #30 tabs 06/11/22 07/06/22 Rx hydrocodone 5 mg-acetaminophen 325 1 tab PO Q6H PRN pain #30 tabs 06/26/22 07/06/22 Rx mg tablet Patient History Medical History Acute pulmonary embolism Atrial flutter Benign prostatic hyperplasia with urinary obstruction and other lower urinary tract symptoms Central venous catheter in place Chronic heart failure with preserved ejection fraction Chronic obstructive pulmonary disease Chronic systolic heart failure CKD (chronic kidney disease) stage 2, GFR 60-89 ml/min Colon polyp COPD (chronic obstructive pulmonary disease) Diastolic dysfunction History of colon polyps History of elevated glucose History of smoking at least 1 pack per day for at least 30 years Lung nodule Obesity (BMI 30-39.9) Osteoarthritis Polymyalgia rheumatica 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 Son No problems noted. Other No family history of adverse response to anesthesia Denies family history of Ovarian cancer Breast cancer Lung cancer Social History Smoking Status: Former smoker Tobacco Type: Cigarettes Cigarettes Per Day: 1-2 PPD x 50 yrs;Quit 2010; Second Hand Exposure: No; Hx Alcohol Use: No Hx Substance Use: No Preferred Language: Lao Communication Ability: Effective Visual Impairment: No Limitations Hearing Ability: Hard of Hearing Production Department Supervisor Required: No Beliefs That Will Affect Care: None marital status: Current Living Situation: Spouse current occupational status: retired How many Children do You have: 1 Other Information That Helps Us Care for You: No Feels Safe at Home: Yes Safety Concerns: Feels Safe At This Time Diet Comment: Heart Healthy Diet caffeine: Yes (coffee, soda) during the past year weight has: remained stable Seatbelt Use: always Assistive Devices: Cane, Oxygen - at Night and Walker Review of Systems Review of Systems: All systems reviewed & are unremarkable except as noted in HPI & below Physical Exam Constitutional: well developed, well nourished and comfortable; no acute distress Eyes: Sclera anicteric, no conjunctival injection ENMT: moist mucous membranes, no pallor Neck: trachea midline supple Respiratory: normal respiratory effort, lungs clear to auscultation Cardiovascular: RRR Gastrointestinal (Abdomen): normal bowel sounds, soft, nontender, no hepatosplenomegaly Inspection/Auscultation: abdomen not distended Skin: no rashes, warm and dry Neurologic: alert and oriented x 3, no obvious focal neuro deficit Psychiatric: normal mood and affect Results & Data ([facility]) Vital Signs (Past 12 Hours) Vital Signs Temp Pulse Pulse Resp BP BP Pulse Ox 07/07/22 08:00 07/07/22 07:32 91 H 23 138/77 07/07/22 07:00 72 21 07/07/22 06:30 70 21 07/07/22 06:00 76 20 07/07/22 05:30 90 26 H 07/07/22 05:00 75 24 07/07/22 04:30 74 21 07/07/22 04:00 78 18 07/07/22 03:30 74 20 07/07/22 03:00 86 21 07/07/22 02:30 68 19 07/07/22 02:00 79 24 07/07/22 01:59 146/65 H 07/07/22 01:59 72 22 07/07/22 01:30 69 19 07/07/22 01:00 75 18 07/07/22 00:59 149/64 H 07/07/22 00:59 74 22 07/07/22 00:30 80 28 H 07/07/22 00:00 82 21 07/06/22 23:59 83 20 07/06/22 23:59 128/67 07/06/22 23:30 72 22 98 07/06/22 23:00 83 23 98 07/06/22 22:58 157/90 H 07/06/22 22:58 88 21 97 07/06/22 22:55 97 H 20 07/07/22 07:37 37 C 07/07/22 07:00 78 07/07/22 00:59 07/07/22 00:44 07/06/22 23:01 79 18 157/90 H 98 O2 Del Method O2 Flow Rate 07/07/22 08:00 Nasal Cannula 2 07/07/22 07:32 07/07/22 07:00 07/07/22 06:30 07/07/22 06:00 07/07/22 05:30 07/07/22 05:00 07/07/22 04:30 07/07/22 04:00 07/07/22 03:30 07/07/22 03:00 07/07/22 02:30 07/07/22 02:00 07/07/22 01:59 07/07/22 01:59 07/07/22 01:30 07/07/22 01:00 07/07/22 00:59 07/07/22 00:59 07/07/22 00:30 07/07/22 00:00 07/06/22 23:59 07/06/22 23:59 07/06/22 23:30 07/06/22 23:00 07/06/22 22:58 07/06/22 22:58 07/06/22 22:55 07/07/22 07:37 07/07/22 07:00 07/07/22 00:59 Nasal Cannula 2 07/07/22 00:44 Nasal Cannula 2 07/06/22 23:01 Nasal Cannula 1 Laboratory Results 07/07/22 07/07/22 07/07/22 Range/Units 05:51 05:39 05:39 WBC (4.8-10.8) K/ul RBC (4.70-6.10) M/uL Hgb (14.0-18.0) g/dl Hct (42.0-52.0) % MCV (80.0-100.0) fL MCH (25.0-34.0) pg MCHC (32.0-36.0) g/dL RDW Std Deviation (36.4-46.3) fL RDW Coeff of Nimesh (11.5-14.5) % Plt Count (130-400) K/uL MPV (9.4-12.4) fL Immature Gran % (Auto) % Neut % (Auto) % Lymph % (Auto) % [place] % (Auto) % Eos % (Auto) % Baso % (Auto) % Neut # (Auto) (1.40-6.50) K/uL Lymph # (Auto) (1.2-3.4) K/uL [place] # (Auto) (0.11-0.59) K/uL Eos # (Auto) (0-0.50) K/uL Baso # (Auto) (0-0.2) K/uL Immature Gran # (Auto) (0.01-0.20) K/uL PT (9.0-12.0) Seconds INR (0.9-1.1) Sodium 140 (136-145) mmol/L Potassium 3.8 (3.5-5.1) mmol/L Chloride 105 (98-107) mmol/L Carbon Dioxide 29 (21-32) mmol/L Anion Gap 6 (3-11) BUN 15 (6-23) mg/dl Creatinine 1.48 H (0.6-1.4) mg/dl Est Cr Clr Drug Dosing 54.3 ml/min Est GFR ( Amer) 54.0 ml/min Est GFR (Non-Af Amer) 46.6 ml/min BUN/Creatinine Ratio 10.1 (10-20) Glucose 82 (70-99(Fasting)) mg/dl Calcium 8.7 (8.5-10.1) mg/dl Magnesium 1.7 (1.7-2.4) mg/dl Total Bilirubin 0.7 (0.2-1.0) mg/dl AST 131 H (13-39) U/L ALT 133 H (7-52) U/L Alkaline Phosphatase 292 H (34-104) U/L Troponin I High Sens 19.5 (0-20) pg/ml Total Protein 6.2 (6.0-8.3) gm/dl Albumin 3.4 (3.4-5.0) gm/dl Globulin 2.8 (2.5-4.0) gm/dl Albumin/Globulin Ratio 1.2 (0.9-2) Lipase (11-82) U/L Nasal Screen MRSA (PCR) Negative SARS-CoV-2 (PCR) (Negative) Influenza Type A (PCR) (Neg) Influenza Type B (PCR) (Neg) RSV (RT-PCR) (Neg) 07/07/22 07/07/22 07/07/22 Range/Units 05:39 05:39 00:31 WBC 3.38 L (4.8-10.8) K/ul RBC 3.12 L (4.70-6.10) M/uL Hgb 10.0 L (14.0-18.0) g/dl Hct 30.2 L (42.0-52.0) % MCV 96.8 (80.0-100.0) fL MCH 32.1 (25.0-34.0) pg MCHC 33.1 (32.0-36.0) g/dL RDW Std Deviation 46.5 H (36.4-46.3) fL RDW Coeff of Nimesh 13.0 (11.5-14.5) % Plt Count 77 L (130-400) K/uL MPV 9.9 (9.4-12.4) fL Immature Gran % (Auto) % Neut % (Auto) % Lymph % (Auto) % [place] % (Auto) % Eos % (Auto) % Baso % (Auto) % Neut # (Auto) (1.40-6.50) K/uL Lymph # (Auto) (1.2-3.4) K/uL [place] # (Auto) (0.11-0.59) K/uL Eos # (Auto) (0-0.50) K/uL Baso # (Auto) (0-0.2) K/uL Immature Gran # (Auto) (0.01-0.20) K/uL PT 24.0 H (9.0-12.0) Seconds INR 2.4 H (0.9-1.1) Sodium (136-145) mmol/L Potassium (3.5-5.1) mmol/L Chloride (98-107) mmol/L Carbon Dioxide (21-32) mmol/L Anion Gap (3-11) BUN (6-23) mg/dl Creatinine (0.6-1.4) mg/dl Est Cr Clr Drug Dosing ml/min Est GFR ( Amer) ml/min Est GFR (Non-Af Amer) ml/min BUN/Creatinine Ratio (10-20) Glucose (70-99(Fasting)) mg/dl Calcium (8.5-10.1) mg/dl Magnesium (1.7-2.4) mg/dl Total Bilirubin (0.2-1.0) mg/dl AST (13-39) U/L ALT (7-52) U/L Alkaline Phosphatase (34-104) U/L Troponin I High Sens 17.7 (0-20) pg/ml Total Protein (6.0-8.3) gm/dl Albumin (3.4-5.0) gm/dl Globulin (2.5-4.0) gm/dl Albumin/Globulin Ratio (0.9-2) Lipase (11-82) U/L Nasal Screen MRSA (PCR) SARS-CoV-2 (PCR) (Negative) Influenza Type A (PCR) (Neg) Influenza Type B (PCR) (Neg) RSV (RT-PCR) (Neg) 07/06/22 07/06/22 07/06/22 Range/Units 23:57 18:13 18:13 WBC (4.8-10.8) K/ul RBC (4.70-6.10) M/uL Hgb (14.0-18.0) g/dl Hct (42.0-52.0) % MCV (80.0-100.0) fL MCH (25.0-34.0) pg MCHC (32.0-36.0) g/dL RDW Std Deviation (36.4-46.3) fL RDW Coeff of Nimesh (11.5-14.5) % Plt Count (130-400) K/uL MPV (9.4-12.4) fL Immature Gran % (Auto) % Neut % (Auto) % Lymph % (Auto) % [place] % (Auto) % Eos % (Auto) % Baso % (Auto) % Neut # (Auto) (1.40-6.50) K/uL Lymph # (Auto) (1.2-3.4) K/uL [place] # (Auto) (0.11-0.59) K/uL Eos # (Auto) (0-0.50) K/uL Baso # (Auto) (0-0.2) K/uL Immature Gran # (Auto) (0.01-0.20) K/uL PT 26.9 H (9.0-12.0) Seconds INR 2.7 H (0.9-1.1) Sodium (136-145) mmol/L Potassium (3.5-5.1) mmol/L Chloride (98-107) mmol/L Carbon Dioxide (21-32) mmol/L Anion Gap (3-11) BUN (6-23) mg/dl Creatinine (0.6-1.4) mg/dl Est Cr Clr Drug Dosing ml/min Est GFR ( Amer) ml/min Est GFR (Non-Af Amer) ml/min BUN/Creatinine Ratio (10-20) Glucose (70-99(Fasting)) mg/dl Calcium (8.5-10.1) mg/dl Magnesium (1.7-2.4) mg/dl Total Bilirubin (0.2-1.0) mg/dl AST (13-39) U/L ALT (7-52) U/L Alkaline Phosphatase (34-104) U/L Troponin I High Sens 14.9 (0-20) pg/ml Total Protein (6.0-8.3) gm/dl Albumin (3.4-5.0) gm/dl Globulin (2.5-4.0) gm/dl Albumin/Globulin Ratio (0.9-2) Lipase (11-82) U/L Nasal Screen MRSA (PCR) Cancelled SARS-CoV-2 (PCR) (Negative) Influenza Type A (PCR) (Neg) Influenza Type B (PCR) (Neg) RSV (RT-PCR) (Neg) 07/06/22 07/06/22 07/06/22 Range/Units 15:05 15:00 15:00 WBC 4.51 L (4.8-10.8) K/ul RBC 3.23 L (4.70-6.10) M/uL Hgb 10.5 L (14.0-18.0) g/dl Hct 31.6 L (42.0-52.0) % MCV 97.8 (80.0-100.0) fL MCH 32.5 (25.0-34.0) pg MCHC 33.2 (32.0-36.0) g/dL RDW Std Deviation 47.0 H (36.4-46.3) fL RDW Coeff of Nimesh 13.2 (11.5-14.5) % Plt Count 85 L (130-400) K/uL MPV 9.6 (9.4-12.4) fL Immature Gran % (Auto) 0.7 % Neut % (Auto) 90.0 % Lymph % (Auto) 3.3 % [place] % (Auto) 5.3 % Eos % (Auto) 0.7 % Baso % (Auto) 0.0 % Neut # (Auto) 4.06 (1.40-6.50) K/uL Lymph # (Auto) 0.15 L (1.2-3.4) K/uL [place] # (Auto) 0.24 (0.11-0.59) K/uL Eos # (Auto) 0.03 (0-0.50) K/uL Baso # (Auto) 0.00 (0-0.2) K/uL Immature Gran # (Auto) 0.03 (0.01-0.20) K/uL PT (9.0-12.0) Seconds INR (0.9-1.1) Sodium 139 (136-145) mmol/L Potassium 3.9 (3.5-5.1) mmol/L Chloride 104 (98-107) mmol/L Carbon Dioxide 30 (21-32) mmol/L Anion Gap 5 (3-11) BUN 18 (6-23) mg/dl Creatinine 1.55 H (0.6-1.4) mg/dl Est Cr Clr Drug Dosing 51.9 ml/min Est GFR ( Amer) 51.1 ml/min Est GFR (Non-Af Amer) 44.1 ml/min BUN/Creatinine Ratio 11.6 (10-20) Glucose 118 H (70-99(Fasting)) mg/dl Calcium 8.8 (8.5-10.1) mg/dl Magnesium (1.7-2.4) mg/dl Total Bilirubin 0.9 (0.2-1.0) mg/dl AST 131 H (13-39) U/L ALT 71 H (7-52) U/L Alkaline Phosphatase 265 H (34-104) U/L Troponin I High Sens 14.0 (0-20) pg/ml Total Protein 6.6 (6.0-8.3) gm/dl Albumin 3.5 (3.4-5.0) gm/dl Globulin 3.1 (2.5-4.0) gm/dl Albumin/Globulin Ratio 1.1 (0.9-2) Lipase 16 (11-82) U/L Nasal Screen MRSA (PCR) SARS-CoV-2 (PCR) POSITIVE A* (Negative) Influenza Type A (PCR) Negative (Neg) Influenza Type B (PCR) Negative (Neg) RSV (RT-PCR) Negative (Neg) Diagnostic Findings GB US: Liver: The liver is normal in size and heterogeneous in echotexture. There is no intrahepatic biliary ductal dilatation. The main portal vein is patent. Gallbladder: The gallbladder is filled with shadowing gallstones. The gallbladde r wall is difficult to visualize but appears mildly thickened. No pericholecystic fluid is seen. A sonographic Garsia's sign is equivocal. The common bile duct measures up to 0.7 cm in diameter. Pancreas: Not visualized due to overlying bowel gas. Right kidney: Survey images of the right kidney demonstrate cortical atrophy. Echotexture there is normal. There is no hydronephrosis. Ascites: None. IMPRESSION: 1. The gallbladder is filled with shadowing stones comment the gallbladder wall appears mildly thickened. A sonographic Garsia's sign was equivocal. Acute or chronic cholecystitis is not excluded. Clinical correlation will be required. If warranted a nuclear hepatobiliary scan could be considered for further assessment. 2. There is no intra or extrahepatic biliary ductal dilatation. 3. Nonvisualization of the pancreas. CXR: FINDINGS: Left subclavian pacer and prosthetic aortic valve are noted. Cardiomegaly is unchanged. There is no evidence for pulmonary edema. There is u nderlying emphysema. No pneumothorax or pleural effusion is present. The known right lower lobe mass has likely increased in size since prior chest CT although suboptimally assessed by radiography. This measures approximately 3.8 cm. IMPRESSION: 1. Suspected increase in size of the suspicious right lower lobe mass. 2. No acute findings. 3. Emphysema.
[2022-07-07] MEDS ORDERED: SINCALIDE 2.1 MCG in 0.9 % SODIUM CHLORIDE 100 ML IV ONE (12:15)
[2022-07-07] MEDS: ALBUT/IPRATROP 3MG/0.5MG NEB 3 ML VIAL INH PRN (13:38)
[2022-07-07] MEDS: PIPERACILLIN/TAZOBACTAM 3.375 GM in DEXTROSE 5% 100 ML IV SCH ×2 (14:00→22:33)
--- NOTE | 2022-07-07 14:43 | Surgery Consultation ---
Date of Consultation July 07, 2022 Assessment & Plan (1) Abnormal gallbladder ultrasound: This is a 72yM with a PMH of COPD, aflutter on coumadin, CKD, heart failure, h/o TAVR, pacemaker placement, who presents to the [facility] ED on 07/06/22 with complaints of chest pain located in the lower/mid chest that started yesterday morning after eating a sticky bun and coffee for breakfast. He came into the ER for further evaluation and he was noted to have elevated LFTs of AST: 131, ALT: 71, AlkP: 265. A RUQ US was obtained that revealed cholelithiasis with a mildly thickened gallbladder wall, cannot rule out chronic or acute cholecystitis. There is no intra or extrahepatic biliary ductal dilatation. Today patient noted to have thrombocytopenia-Plt 77, LFTs showed-AST 131, ALT 133, AlkP 292, Tb 0.7, along with a Wbc 3.3, and INR of 2.4. On exam patient's abdomen is soft, non distended, and non tender. He was found to be Covid + on admission and currently on 2L supplemental O2. Given his multiple co-morbidities he is high risk for surgical intervention. Also patient and family are anxious to start treatments of his lung cancer which are scheduled for next week. Currently a HIDA scan has been ordered and we will follow up on the results. We have consulted GI for their assistance who may be willing to perform an Axios stent for drainage of his gallbladder as an outpatient given his multiple medical issues and upcoming cancer treatments. (2) Elevated LFTs: Supervising Physician Co-Signing Physician Notes Dr. Darlingpatient seen in his ICU bed. He does not seem to be having any abdominal pain at the present time but states that he gets it after he eats. His abdomen is soft and minimally tender. His ultrasound does show thickened gallbladder with stones similar to the ultrasound in February and I suspect he has chronic cholecystitis and possibly now acute on top of that. With his comorbidity of thrombocytopenia, right lung cancer, history of DVT PE on Coumadin, COVID positive He is definitely at risk for surgical intervention and this will also delay his radiation treatment for his lung cancer-he has not started any treatment yet. I do not think he has necrotizing cholecystitis We will give him clear liquids and IV antibiotics Asked GI to see the patient for their thoughts History of Present Illness Attending Physician: Linda Barnes MD History of Present Illness This is a 72yM with a PMH of COPD, aflutter on coumadin, CKD, heart failure, h/o TAVR, pacemaker placement, who presents to the [facility] ED on 07/06/22 with complaints of chest pain located in the lower/mid chest. He states this started around 11:30am yesterday after eating a sticky bun for breakfast. He rated the pain a 10/10 and came into the ER for further evaluation. A RUQ US was obtained that revealed cholelithiasis with a mildly thickened gallbladder wall, cannot rule out chronic or acute cholecystitis. There is no intra or extrahepatic biliary ductal dilatation. He also had elevation of AST/ALT. Patient states the pain has improved since admission. He has a history of flare ups like this ~4x, and he w as told he had gallstones in the past. Of significance the patient has recently been diagnosed with lung cancer and is scheduled for radiation treatment next week which he is anxious about. He currently denies any abdominal pain, nausea/vomiting, change in bowel habits. He is feeling much better than yesterday. Allergies Allergy/AdvReac Type Severity Reaction Status Date / Time grass pollen Allergy Mild Unknown Verified 06/26/22 11:07 Sulfa (Sulfonamide AdvReac Unknown Unknown Verified 06/26/22 11:07 Antibiotics) digoxin AdvReac Weakness Verified 06/26/22 11:07 Home Medications Medication Instructions Recorded Confirmed Type budesonide-formoterol HFA 160 2 puff inhalation BID 06/24/18 07/06/22 History mcg-4.5 mcg/actuation aerosol inhaler (Symbicort) loratadine 10 mg tablet (Claritin) 10 mg PO QAM 06/24/18 07/06/22 History tiotropium bromide 18 mcg capsule 1 cap inhalation HS 06/24/18 07/06/22 History with inhalation device (Spiriva with HandiHaler) lactobacillus combination no.4 3 3,000 mmu cells PO QAM 04/21/21 07/06/22 History billion cell capsule (Probiotic) terazosin 5 mg capsule 10 mg PO HS 06/17/21 07/06/22 History sacubitril 24 mg-valsartan 26 mg 1 tab PO BID 07/15/21 07/06/22 History tablet (Entresto) levalbuterol HCl 0.63 mg/3 mL 0.63 mg NEB Q6R PRN shortness of 07/21/21 07/06/22 History solution for nebulization (Xopenex) breath or wheezing finasteride 5 mg tablet 5 mg PO QAM #30 tabs 08/04/21 07/06/22 Rx albuterol sulfate 90 mcg/actuation 1 inh inhalation QID PRN Shortness 08/05/21 07/06/22 History aerosol inhaler Of Breath amiodarone 200 mg tablet 200 mg PO QAM 08/05/21 07/06/22 History folic acid 1 mg tablet 1 mg PO QAM 08/05/21 07/06/22 History ipratropium 0.5 mg-albuterol 3 mg 3 ml inhalation UD PRN Shortness 08/05/21 07/06/22 History (2.5 mg base)/3 mL nebulization Of Breath soln sennosides 8.6 mg-docusate sodium See Rx Instructions PO DAILY PRN 08/19/21 07/06/22 Rx 50 mg tablet (Senokot-S) constipation #30 tabs gxwhzyrzdisy-rma-zmisn acid-vit 1 tab PO DAILY 08/22/21 07/06/22 History K-lycop 400 mcg-20 mcg-370 mcg tablet (One-A-Day Men's 50 Plus) roflumilast 500 mcg tablet 500 mcg PO DAILY 11/07/21 07/06/22 History (Daliresp) cyanocobalamin (vitamin B-12) 1,000 mcg PO QAM 01/01/22 07/06/22 History 1,000 mcg tablet meclizine 25 mg tablet 25 mg PO BID PRN dizziness #20 tabs 02/05/22 07/06/22 Rx bumetanide 1 mg tablet 0.5 mg PO 3XWK 02/12/22 07/06/22 History cyclobenzaprine 10 mg tablet 10 mg PO DAILY PRN muscle spasm 02/12/22 07/06/22 History azithromycin 500 mg tablet 500 mg PO 3XWK 03/19/22 07/06/22 History ondansetron 4 mg disintegrating 4 mg PO Q6 PRN Nausea 03/19/22 07/06/22 History tablet famotidine 20 mg tablet (Pepcid) 20 mg PO BID PRN heartburn 10/25/22 02/06/23 Hi story omeprazole 40 mg capsule,delayed 40 mg PO BID #180 caps 04/10/22 07/06/22 Rx release warfarin 2 mg tablet See Rx Instructions PO UD 05/25/22 07/06/22 History prednisone 2.5 mg tablet 2.5 mg PO .MWF #30 tabs 06/11/22 07/06/22 Rx hydrocodone 5 mg-acetaminophen 325 1 tab PO Q6H PRN pain #30 tabs 06/26/22 07/06/22 Rx mg tablet Patient History Medical History Acute pulmonary embolism Atrial flutter Benign prostatic hyperplasia with urinary obstruction and other lower urinary tract symptoms Central venous catheter in place Chronic heart failure with preserved ejection fraction Chronic obstructive pulmonary disease SEVERE per pulm 08/09. Uses inhalers daily and prn Chronic systolic heart failure CKD (chronic kidney disease) stage 2, GFR 60-89 ml/min Colon polyp COPD (chronic obstructive pulmonary disease) Diastolic dysfunction History of colon polyps History of elevated glucose History of smoking at least 1 pack per day for at least 30 years Quit ~2013 Lung nodule Obesity (BMI 30-39.9) Osteoarthritis Polymyalgia rheumatica 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 Renal disease Severe aortic valve stenosis Surgical History H/O rectal polypectomy History of bilateral cataract extraction History of colonoscopy History of cystoscopy History of elbow surgery left ulnar nerve History of hernia repair Laparoscopic History of wisdom tooth extraction Family History Brother Diabetes Pulmonary embolism Mother , 95yo Colorectal cancer Natural with unknown cause Stroke Father , 73yo Stroke Brother Prostate cancer Heart disease CABG H/O heart bypass surgery Brother No problems noted. Son No problems noted. Other No family history of adverse response to anesthesia Denies family history of Ovarian cancer Breast cancer Lung cancer Social History Smoking Status: Former smoker Tobacco Type: Cigarettes Cigarettes Per Day: 1-2 PPD x 50 yrs;Quit 2010; Second Hand Exposure: No; Hx Alcohol Use: No Hx Substance Use: No Preferred Language: Swedish Communication Ability: Effective Visual Impairment: No Limitations Hearing Ability: Hard of Hearing [employer] Required: No Beliefs That Will Affect Care: None marital status: Current Living Situation: Spouse current occupational status: retired How many Children do You have: 1 Other Information That Helps Us Care for You: No Feels Safe at Home: Yes Safety Concerns: Feels Safe At This Time Diet Comment: Heart Healthy Diet caffeine: Yes (coffee, soda) during the past year weight has: remained stable Seatbelt Use: always Assistive Devices: Cane and Walker Review of Systems Constitutional: no fever and no chills Respiratory: + dyspnea Cardiovascular: + chest pain Gastrointestinal: + abdominal pain (upper/epigastric region); no nausea, no vomiting and no change in bowel habits Physical Exam Physical Exam: awake/alert, sitting up at the side of the bed Respiratory: on supplemental O2 Gastrointestinal (Abdomen): Inspection/Auscultation: abdomen not distended Percussion/Palpation: abdomen soft; abdomen nontender Results & Data ([facility]) Vital Signs (Past 12 Hours) Vital Signs Temp Pulse Pulse Resp BP Pulse Ox O2 Del Method 07/07/22 13:47 74 20 97 Nasal Cannula 07/07/22 13:00 72 18 07/07/22 12:00 69 20 07/07/22 11:00 72 18 07/07/22 10:00 71 22 07/07/22 09:00 83 21 07/07/22 08:00 72 24 07/07/22 08:00 Nasal Cannula 07/07/22 07:32 91 H 23 138/77 07/07/22 07:00 72 21 07/07/22 06:30 70 21 07/07/22 06:00 76 20 07/07/22 05:30 90 26 H 07/07/22 05:00 75 24 07/07/22 04:30 74 21 07/07/22 04:00 78 18 07/07/22 03:30 74 20 07/07/22 03:00 86 21 07/07/22 07:37 37 C 07/07/22 07:00 78 O2 Flow Rate 07/07/22 13:47 2 07/07/22 13:00 07/07/22 12:00 07/07/22 11:00 07/07/22 10:00 07/07/22 09:00 07/07/22 08:00 07/07/22 08:00 2 07/07/22 07:32 07/07/22 07:00 07/07/22 06:30 07/07/22 06:00 07/07/22 05:30 07/07/22 05:00 07/07/22 04:30 07/07/22 04:00 07/07/22 03:30 07/07/22 03:00 07/07/22 07:37 07/07/22 07:00 Diagnostic Findings ULTRASOUND RIGHT UPPER QUADRANT ABDOMEN CLINICAL HISTORY: Elevated hepatic transaminases. Atypical chest pain. COMPARISON STUDY: Abdominal CT and abdominal ultrasound dated 03/10/2022 TECHNIQUE: Real-time, grayscale, and color flow sonography of the right upper quadrant of the abdomen was performed. Images are reviewed in the transverse and longitudinal planes. FINDINGS: Liver: The liver is normal in size and heterogeneous in echotexture. There is no intrahepatic biliary ductal dilatation. The main portal vein is patent. Gallbladder: The gallbladder is filled with shadowing gallstones. The gallbladder wall is difficult to visualize but appears mildly thickened. No pericholecystic fluid is seen. A sonographic Garsia's sign is equivocal. The common bile duct measures up to 0.7 cm in diameter. Pancreas: Not visualized due to overlying bowel gas. Right kidney: Survey images of the right kidney demonstrate cortical atrophy. Echotexture there is normal. There is no hydronephrosis. Ascites: None. IMPRESSION: 1. The gallbladder is filled with shadowing stones comment the gallbladder wall appears mildly thickened. A sonographic Garsia's sign was equivocal. Acute or chronic cholecystitis is not excluded. Clinical correlation will be required. If warranted a nuclear hepatobiliary scan could be considered for further assessmen t. 2. There is no intra or extrahepatic biliary ductal dilatation. 3. Nonvisualization of the pancreas. ACT 112: Negative or not required by law. Electronically signed by: Rey Cancino M.D. 07/06/2022 5:17 PM PG Care Time/CCT Total # of Minutes Spent Total Time Spent with Patient: Total time spent is greater than 50% in coordination of care (as documented) at patient's floor/unit and/or counseling patient: Coding Level of Care Code 05045 INT INP/OBS CARE 1/40MIN Diagnoses Abnormal gallbladder ultrasound R93.2 Elevated LFTs R79.89
[2022-07-07] MEDS ORDERED: WARFARIN SOD 2 MG TAB PO SCH (16:00)
--- NOTE | 2022-07-07 18:44 | Hospitalist Progress Note ---
Date of Service July 07, 2022 Assessment & Plan (1) Acute cholecystitis: Plan: Presented with biliary colic, elevated LFTs Incidental COVID+ Pain now resolved. LFTs continue trending upward which is likely residual from previous colic Start Zosyn and convert to po abx for acute jessi on discharge Consult Surgery appreciated-high risk for surgery given COPD on O2, COVID-19, h/o TAVR, dCHF, thrombocytopenia, etc. Consult GI appreciated-plan for possible outpt Axios stent for GB drainage adv diet to clears (2) Retrosternal chest pain: Plan: 2/2 biliary colic troponin neg x 4, no ischemic changes on ECG -Chest xray shows progression of his known RLL mass, he is scheduled for his first radiation treatment next week -Low suspicion for PE at this time as he is stable on RA, without pleuritic chest pain, and is on Warfarin (3) Thrombocytopenia: Plan: chronic but worse today than baseline at 77, could be secondary to GB infection, COVID follow CBC (4) COVID-19: Plan: had mild cold symptoms at home 5 days prior to admission normally on 2LNC O2 qhs, on daytime O2 here but likely does not need it -Symptomatic treatment for now with incentive spirometry, flutter therapy, home breathing treatments -If he would become hypoxic would need to start Dex -no remdesevir due to elevated LFTs (5) COPD (chronic obstructive pulmonary disease): Plan: with sone wheezing add on Duonebs -Continue home breathing treatments -Continue HS 2L NC -Incentive spirometry and flutter therapy -Continue chronic azithromycin therapy MWF (6) Elevated LFTs: Plan: as above, 2/2 biliary colic, acute jessi, and possibly from COVID unable to complete HIDA due to chronic back pain and inability to lie flat follow LFTs check BNP as suggested by GI although doubt he has hepatic congestion from HFpEF as he is not volume overloaded (7) 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: Plan: -Recently diagnosed -Following with Heme/onc and rad/onc through [facility]-Dr. Aguirre at [place] for Rad Onc -Scheduled for his first round of radiation on 07/15 (8) Anemia: Plan: chronic, with pancytopenia follows with Heme/Onc follow CBC check B12, folate, Fe studies, TSH (9) Chronic heart failure with preserved ejection fraction: Plan: -Patient examines euvolemic at this time -Continue Entresto and Bumetanide (10) Polymyalgia rheumatica: Plan: -Continue 2.5 mg PO prednisone on MWF (11) GERD with esophagitis: Plan: -Continue omeprazole (12) Essential hypertension: Plan: -Stable -Continue Entresto (13) Atrial flutter: Plan: -Stable -Continue amiodarone and Warfarin -follow INR, holding coumadin in case of procedure (14) S/P TAVR (transcatheter aortic valve replacement): Plan: noted Plan DIspo-continued stay Discussed care with General Surgery on 2 ccasions and with GI Called pt's and updated her on 07/07 Admission and Anticipated Discharge Date Admission Date: July 06, 2022 Subjective Pt seen later in the say and feeling fine. Denies and abd pain, no nausea, no diarrhea, no heartburn. Denies any cough or SOB over his usual COPD symptoms. No CP. Review of Systems Review of Systems: All systems reviewed & are unremarkable except as noted in HPI & below Physical Exam Constitutional: WD/WN, vitals as above Respiratory: normal respiratory effort, lungs clear to auscultation (except a few scant wheezes bilat) Cardiovascular: Rate/Rhythm: regular rate and regular rhythm Extremities: + edema (trace edema legs R>L) Gastrointestinal (Abdomen): normal bowel sounds, soft, nontender, no hepatosplenomegaly Results & Data Results & Data ([facility]) Vital Signs (Past 12 Hours) Vital Signs Temp Pulse Pulse Resp BP BP Pulse Ox 07/07/22 17:58 07/07/22 17:49 36.8 C 85 20 146/71 H 96 07/07/22 13:47 74 20 97 07/07/22 13:00 72 18 07/07/22 12:00 69 20 07/07/22 11:00 72 18 07/07/22 10:00 71 22 07/07/22 09:00 83 21 07/07/22 08:00 72 24 07/07/22 08:00 07/07/22 07:32 91 H 23 138/77 07/07/22 07:00 72 21 07/07/22 07:37 37 C 07/07/22 07:00 78 O2 Del Method O2 Flow Rate 07/07/22 17:58 Nasal Cannula 2 07/07/22 17:49 Nasal Cannula 2 07/07/22 13:47 Nasal Cannula 2 07/07/22 13:00 07/07/22 12:00 07/07/22 11:00 07/07/22 10:00 07/07/22 09:00 07/07/22 08:00 07/07/22 08:00 Nasal Cannula 2 07/07/22 07:32 07/07/22 07:00 07/07/22 07:37 07/07/22 07:00 Laboratory Results CBC, CMP reviewed PG Care Time/CCT Total # of Minutes Spent Total Time Spent with Patient: Total time spent is greater than 50% in coordination of care (as documented) at patient's floor/unit and/or counseling patient: Coding Level of Care Code 73273 SUB INP/OBS CARE 3/50MIN Diagnoses Acute cholecystitis K81.0 Retrosternal chest pain R07.2 Thrombocytopenia D69.6 COVID-19 U07.1 COPD (chronic obstructive pulmonary disease) J44.1 COPD type: COPD with acute exacerbation Elevated LFTs R79.89 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 (1) COPD (chronic obstructive pulmonary disease) COPD type: COPD with acute exacerbation Qualified Code(s): J44.1 - Chronic obstructive pulmonary disease with (acute) exacerbation
[2022-07-07] MEDS: UMECLIDINIUM BROMIDE 62.5MCG/BLISTER 7 PUFFS/INHALER INH SCH (19:59)
[2022-07-07] MEDS: TERAZOSIN HCL 5 MG CAP PO SCH (20:01)
[2022-07-08] MEDS: PIPERACILLIN/TAZOBACTAM 3.375 GM in DEXTROSE 5% 100 ML IV SCH ×2 (07:15→13:34)
--- NOTE | 2022-07-08 07:47 | Surgery Progress Note ---
Date of Service July 08, 2022 Assessment & Plan (1) Chronic cholecystitis: Plan: History of biliary colic We will advance diet to low-fat regular Patient is to start his radiation therapy next Wednesday I believe the GI team is considering Axios procedure possibly in [place] A[facility]. laboratories including platelet count and INR are pending History of right lung cancer, thrombocytopenia, anticoagulation for DVT PE, pacemaker, positive COVID isolation Trying to avoid surgical intervention Admission and Anticipated Discharge Date Admission Date: July 06, 2022 Subjective Patient awake and alert and wants to go home No abdominal pain-wants more food Review of Systems Review of Systems: All systems reviewed & are unremarkable except as noted in HPI & below Physical Exam Physical Exam: Patient awake and alert in no distress, normal affect His abdomen is very soft and nontender Constitutional: no acute distress Eyes: + anicteric sclerae Respiratory: normal respiratory effort; no respiratory distress Cardiovascular: Rate/Rhythm: regular rate Gastrointestinal (Abdomen): Inspection/Auscultation: abdomen not distended Percussion/Palpation: abdomen soft Skin: no rashes, warm and dry Neurologic: awake Psychiatric: Orientation: alert Results & Data ([facility]) Vital Signs (Past 12 Hours) Vital Signs Temp Pulse Pulse Pulse Resp BP Pulse Ox 07/08/22 07:18 63 07/08/22 03:45 37.4 C 68 18 118/63 96 07/07/22 23:53 71 07/07/22 23:48 07/07/22 22:45 37.1 C 81 22 124/63 96 O2 Del Method O2 Flow Rate 07/08/22 07:18 07/08/22 03:45 Nasal Cannula 2 07/07/22 23:53 07/07/22 23:48 Nasal Cannula 2 07/07/22 22:45 Nasal Cannula 2 PG Care Time/CCT Total # of Minutes Spent Total Time Spent with Patient: Total time spent is greater than 50% in coordination of care (as documented) at patient's floor/unit and/or counseling patient: Coding Level of Care Code 95179 SUB INP/OBS CARE 25MIN Diagnoses Chronic cholecystitis K81.1
[2022-07-08] MEDS: AMIODARONE 200 MG TAB PO SCH (08:36)
[2022-07-08] MEDS: predniSONE 2.5 MG TAB PO SCH (08:36)
[2022-07-08] MEDS: PANTOprazole 40 MG TAB PO SCH (08:36)
[2022-07-08] MEDS: ROFLUMILAST 500 MCG TAB PO SCH (08:36)
[2022-07-08] MEDS: AZITHROMYCIN 250 MG TAB PO SCH (08:36)
[2022-07-08] MEDS: FOLIC ACID 1 MG TAB PO SCH (08:36)
[2022-07-08] MEDS: FLUTICASONE/VILANTEROL 100/25MCG 14 PUFFS/INHALER INH SCH (08:37)
[2022-07-08] MEDS: VALSARTAN/SACUBITRIL 26/24MG TAB PO SCH (08:37)
[2022-07-08] MEDS ORDERED: BUMETANIDE 1 MG TAB PO SCH (09:00)
[2022-07-08] MEDS ORDERED: FINASTERIDE 5 MG TAB PO SCH (09:00)
[2022-07-08 09:07] LABS: INR 2.4 (0.9-1.1); Prothrombin Time 24.4 Seconds (9.0-12.0)
[2022-07-08 09:47] LABS: Alanine Aminotransferase 80 U/L (7-52); Albumin Globulin Ratio 1.1 (0.9-2); Albumin Level 3.1 gm/dl (3.4-5.0); Alkaline Phosphatase 205 U/L (34-104); Anion Gap 9 (3-11); Bilirubin,Total 0.6 mg/dl (0.2-1.0); Blood Urea Nitrogen 16 mg/dl (6-23); Calcium 8.2 mg/dl (8.5-10.1); Carbon Dioxide 23 mmol/L (21-32); Chloride 104 mmol/L (98-107); Creatinine Clr Calc Pharmacy 55.5 ml/min; Est GFR (African American) 55.4 ml/min; Est GFR (Non-African American) 47.8 ml/min; Globulin 2.8 gm/dl (2.5-4.0); Glucose 56 mg/dl (70-99(Fasting)); Magnesium 1.7 mg/dl (1.7-2.4); Sodium 136 mmol/L (136-145); Total Protein 5.9 gm/dl (6.0-8.3)
[2022-07-08 09:59] LABS: Basophils # (auto) 0.01 K/uL (0-0.2); Basophils % (auto) 0.3 %; Eosinophils # (auto) 0.02 K/uL (0-0.50); Eosinophils % (auto) 0.6 %; Immature Granulocytes # (auto) 0.02 K/uL (0.01-0.20); Immature Granulocytes % (auto) 0.6 %; Lymphocytes # (auto) 0.46 K/uL (1.2-3.4); Lymphocytes % (auto) 14.1 %; Mean Corpuscular Hemoglobin 32.6 pg (25.0-34.0); Mean Corpuscular Hgb Conc 33.3 g/dL (32.0-36.0); Mean Corpuscular Volume 97.7 fL (80.0-100.0); Mean Platelet Volume 9.5 fL (9.4-12.4); Monocytes # (auto) 0.16 K/uL (0.11-0.59); Monocytes % (auto) 4.9 %; Neutrophils % (auto) 79.5 %; Platelet Count 72 K/uL (130-400); RDW Coefficient of Variation 13.1 % (11.5-14.5); Red Blood Count 3.07 M/uL (4.70-6.10); White Blood Count 3.27 K/ul (4.8-10.8)
[2022-07-08 10:12] LABS: Albumin Globulin Ratio 1.1 (0.9-2); Albumin Level 3.1 gm/dl (3.4-5.0); Bilirubin,Total 0.7 mg/dl (0.2-1.0); Calcium 8.2 mg/dl (8.5-10.1); Creatinine Clr Calc Pharmacy 51.9 ml/min; Est GFR (African American) 51.1 ml/min; Est GFR (Non-African American) 44.1 ml/min; Globulin 2.8 gm/dl (2.5-4.0); Potassium 3.6 mmol/L (3.5-5.1); Total Protein 5.9 gm/dl (6.0-8.3)
[2022-07-08 10:28] LABS: Vitamin B12 > 1500 pg/ml (180-914)
--- NOTE | 2022-07-08 11:46 | Gastroenterology Progress Note ---
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 US ABD suggests stones filling the gallbladder with mild gallbladder thickening; CBD appears to be 7 mm. HIDA was attempted but pt was unable to lay flat to due to respiratory issues. MRI can't be done due t pacemaker. LFTs today have trended down. Pt currently having no GI complaints; no abd pain; resting comfortably in bed, abd nontender, soft. He's had several recurrent episodes of similar chest pain over the last year that have resolved; question whether these are related to underlying stone dz; also has known lung CA. We are asked to evaluate his LFTs; these could be elevated in the setting of COVID (viral illness); as he has normal bili and nondilated CBD on imaging does not appear to have acute biliary obstruction. - Would continue broad spectrum ABX as per primary care - As per surgery he would be high risk for cholecystectomy, and we are attempting to arrange OP EUS for Axios stent placement to facility drainage of the GB. We will arrange for the pt and call him to set this up. Pt states he wants this to be done after he starts radiation (due to be started next week) and perhaps would also be a good idea for his acute illness (COVID) to resolve before doing this as well. - Would avoid hepatotoxins, ETOH in the meantime - No GI contraindications to discharge Thank you for allowing us to participate in the care of this patient. Please call with any acute changes, questions or concerns. Please see addendum below with additional recommendation from my supervising physician. Admission and Anticipated Discharge Date Admission Date: July 06, 2022 Supervising Physician Co-Signing Physician Notes I saw and evaluated the patient today. He notes that he is feeling much improved and is tolerating a regular diet. Patient is desiring to go home to start his treatment for his lung cancer with radiation therapy. The patient was deemed to not be a surgical candidate by Dr. Darling due to his significant comorbidities and recent history of cardiac problems. As result we have been asked to perform outpatient treatment for cholelithiasis with a axios stent to the gallbladder. The patient and I had a long discussion about endoscopic ultrasound and possible ERCP to be arranged in [facility] over the next 6 weeks. The patient would like to wait approximately 6 weeks before undergoing the procedure as he is to have radiation therapy for his lung cancer starting early next week. Suggested the patient be on a low-fat diet and contact my office for any acute changes. Subjective Patient seen and examined, chart reviewed. Pt moved to the regular floor; he is having no complaints other than some dyspnea and says he needs a nebulizer which he usually does at home. Tolerated his breakfast. No abd pain, nausea, vomiting, jaundice, fever, chills, CP. Review of Systems Review of Systems: All systems reviewed & are unremarkable except as noted in HPI & below Physical Exam Constitutional: WD/WN, vitals as above ENMT: external ear and nose normal, oropharynx normal Respiratory: No resp distress Gastrointestinal (Abdomen): normal bowel sounds, soft, nontender, no hepatosplenomegaly Skin: no rashes, warm and dry Psychiatric: A+Ox3, euthymic affect Results & Data ([facility]) Vital Signs (Past 12 Hours) Vital Signs Temp Pulse Pulse Resp BP Pulse Ox O2 Del Method 07/08/22 07:25 37.4 C 72 20 109/62 96 Nasal Cannula 07/08/22 07:18 63 07/08/22 03:45 37.4 C 68 18 118/63 96 Nasal Cannula 07/07/22 23:53 71 07/07/22 23:48 Nasal Cannula O2 Flow Rate 07/08/22 07:25 2 07/08/22 07:18 07/08/22 03:45 2 07/07/22 23:53 07/07/22 23:48 2 Laboratory Results 07/08/22 07/08/22 07/08/22 Range/Units 09:32 09:32 09:32 WBC 3.27 L RBC 3.07 L Hgb 10.0 L Hct 30.0 L MCV 97.7 MCH 32.6 MCHC 33.3 RDW Std Deviation 47.0 H RDW Coeff of Nimesh 13.1 Plt Count 72 L MPV 9.5 Immature Gran % (Auto) 0.6 % Neut % (Auto) 79.5 % Lymph % (Auto) 14.1 % [place] % (Auto) 4.9 % Eos % (Auto) 0.6 % Baso % (Auto) 0.3 % Neut # (Auto) 2.60 (1.40-6.50) K/uL Lymph # (Auto) 0.46 L (1.2-3.4) K/uL [place] # (Auto) 0.16 (0.11-0.59) K/uL Eos # (Auto) 0.02 (0-0.50) K/uL Baso # (Auto) 0.01 (0-0.2) K/uL Immature Gran # (Auto) 0.02 (0.01-0.20) K/uL Absolute Nucleated RBC Nucleated RBC % (auto) Platelet Estimate PT (9.0-12.0) Seconds INR (0.9-1.1) Sodium 137 (136-145) mmol/L Potassium 3.6 Chloride 102 (98-107) mmol/L Carbon Dioxide 28 (21-32) mmol/L Anion Gap 7 (3-11) BUN 17 (6-23) mg/dl Creatinine 1.55 H (0.6-1.4) mg/dl Est Cr Clr Drug Dosing 51.9 ml/min Est GFR ( Amer) 51.1 ml/min Est GFR (Non-Af Amer) 44.1 ml/min BUN/Creatinine Ratio 11.0 (10-20) Glucose 107 H (70-99(Fasting)) mg/dl Calcium 8.2 L (8.5-10.1) mg/dl Magnesium (1.7-2.4) mg/dl Total Bilirubin 0.7 (0.2-1.0) mg/dl AST 55 H ALT 79 H (7-52) U/L Alkaline Phosphatase 205 H (34-104) U/L B-Natriuretic Peptide 103 H (0-100) pg/ml Total Protein 5.9 L (6.0-8.3) gm/dl Albumin 3.1 L (3.4-5.0) gm/dl Globulin 2.8 (2.5-4.0) gm/dl Albumin/Globulin Ratio 1.1 (0.9-2) Vitamin B12 (180-914) pg/ml Folate (>5.38) ng/ml 07/08/22 07/08/22 07/08/22 Range/Units 07:31 07:31 07:31 WBC RBC Hgb Hct MCV MCH MCHC RDW Std Deviation RDW Coeff of Nimesh Plt Count MPV Immature Gran % (Auto) % Neut % (Auto) % Lymph % (Auto) % [place] % (Auto) % Eos % (Auto) % Baso % (Auto) % Neut # (Auto) (1.40-6.50) K/uL Lymph # (Auto) (1.2-3.4) K/uL [place] # (Auto) (0.11-0.59) K/uL Eos # (Auto) (0-0.50) K/uL Baso # (Auto) (0-0.2) K/uL Immature Gran # (Auto) (0.01-0.20) K/uL Absolute Nucleated RBC Nucleated RBC % (auto) Platelet Estimate PT (9.0-12.0) Seconds INR (0.9-1.1) Sodium 136 (136-145) mmol/L Potassium TNP Chloride 104 (98-107) mmol/L Carbon Dioxide 23 (21-32) mmol/L Anion Gap 9 (3-11) BUN 16 (6-23) mg/dl Creatinine 1.45 H (0.6-1.4) mg/dl Est Cr Clr Drug Dosing 55.5 ml/min Est GFR ( Amer) 55.4 ml/min Est GFR (Non-Af Amer) 47.8 ml/min BUN/Creatinine Ratio 11.0 (10-20) Glucose 56 L (70-99(Fasting)) mg/dl Calcium 8.2 L (8.5-10.1) mg/dl Magnesium 1.7 (1.7-2.4) mg/dl Total Bilirubin 0.6 (0.2-1.0) mg/dl AST TNP ALT 80 H (7-52) U/L Alkaline Phosphatase 205 H (34-104) U/L B-Natriuretic Peptide Cancelled (0-100) pg/ml Total Protein 5.9 L (6.0-8.3) gm/dl Albumin 3.1 L (3.4-5.0) gm/dl Globulin 2.8 (2.5-4.0) gm/dl Albumin/Globulin Ratio 1.1 (0.9-2) Vitamin B12 > 1500 H (180-914) pg/ml Folate > 22.30 (>5.38) ng/ml 07/08/22 07/08/22 07/07/22 Range/Units 07:31 07:31 15:31 WBC Cancelled RBC Cancelled Hgb Cancelled Hct Cancelled MCV Cancelled MCH Cancelled MCHC Cancelled RDW Std Deviation Cancelled RDW Coeff of Nimesh Cancelled Plt Count Cancelled MPV Cancelled Immature Gran % (Auto) % Neut % (Auto) % Lymph % (Auto) % [place] % (Auto) % Eos % (Auto) % Baso % (Auto) % Neut # (Auto) (1.40-6.50) K/uL Lymph # (Auto) (1.2-3.4) K/uL [place] # (Auto) (0.11-0.59) K/uL Eos # (Auto) (0-0.50) K/uL Baso # (Auto) (0-0.2) K/uL Immature Gran # (Auto) (0.01-0.20) K/uL Absolute Nucleated RBC Cancelled Nucleated RBC % (auto) Cancelled Platelet Estimate Cancelled PT 24.4 H (9.0-12.0) Seconds INR 2.4 H (0.9-1.1) Sodium (136-145) mmol/L Potassium Chloride (98-107) mmol/L Carbon Dioxide (21-32) mmol/L Anion Gap (3-11) BUN (6-23) mg/dl Creatinine (0.6-1.4) mg/dl Est Cr Clr Drug Dosing ml/min Est GFR ( Amer) ml/min Est GFR (Non-Af Amer) ml/min BUN/Creatinine Ratio (10-20) Glucose (70-99(Fasting)) mg/dl Calcium (8.5-10.1) mg/dl Magnesium (1.7-2.4) mg/dl Total Bilirubin (0.2-1.0) mg/dl AST ALT (7-52) U/L Alkaline Phosphatase (34-104) U/L B-Natriuretic Peptide 122 H (0-100) pg/ml Total Protein (6.0-8.3) gm/dl Albumin (3.4-5.0) gm/dl Globulin (2.5-4.0) gm/dl Albumin/Globulin Ratio (0.9-2) Vitamin B12 (180-914) pg/ml Folate (>5.38) ng/ml
[2022-07-08] MEDS: ALBUT/IPRATROP 3MG/0.5MG NEB 3 ML VIAL INH PRN (12:41)
--- NOTE | 2022-07-08 15:07 | Discharge Summary ---
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 In the ED the patient was found to be afebrile, hemodynamically stable, and stable on 4L NC. Labs were remarkable for a WBC of 4.51, stable Hgb and platelet count, stable cr at 1.55, stable electrolytes, lipase of 16, initial high sensitivity trop of 14, but elevated AST of 131, ALT of 71, and alk phos of 265, total bili was stable at 0.9, and covid 19 positive. Chest xray today was read as "1. Suspected increase in size of the suspicious right lower lobe mass. 2. No acute findings. 3. Emphysema.". Gall Bladder US was read as "1. The gallbladder is filled with shadowing stones comment the gallbladder wall appears mildly thickened. A sonographic Garsia's sign was equivocal. Acute or chronic cholecystitis is not excluded. Clinical correlation will be required. If warranted a nuclear hepatobiliary scan could be considered for further assessment. 2. There is no intra or extrahepatic biliary ductal dilatation. 3. Nonvisualization of the pancreas." Per chart review, the patient was recently seen by heme/onc and radiation/onc last month, he is scheduled to start radiation therapy on 07/15/22. He was seen in the [facility] ED on 03/19/22 for similar symptoms today and underwent a gallbladder US which was read as "1. Cholelithiasis with gallbladder wall thickening. The pericholecystic stranding seen on CT is not identified by ultrasound. Findings could be correlated with nuclear medicine hepatobiliary scan to exclude acute cholecystitis. 2. Mild dilation of the common bile duct, 8 mm." His LFT's were stable at that time and his symptoms resolved at receiving antacids and morphine. He was educated on proper diet and discharged home at that time. At the time of the exam the patient was resting comfortably in bed in no acute distress with his Daughters sitting bedside. He states that he developed sudden, sharp, lower substernal chest pain at approximately 11:30 this morning. Prior to this he was in his normal state of health and had a sticky bun and cup of coffee for breakfast. When the chest pain started he was resting in a chair, he denies the pain radiating and it did not change with movement or position. He did not take any medications prior to coming in but did put his oxygen on at 4L/min, this did improve his symptoms. By the time he arrived to the ED he was chest pain free and is still pain free during my exam. When asked, he did dev elop URI symptoms approximately 4 days ago but has not required increased O2 and has not had an increased in his chronic cough or sputum production. When asked, he states that he only uses 2L NC at night, not during the day or with exertion. He denies recent fevers, chills, SOB, abdominal pain, nausea, vomiting, diarrhea, dysuria, hematuria, and recent falls. Please refer to Dr. Richardson's attestation for any changes to the treatment plan Principal Diagnosis Acute cholecystitis, CoVid-19 Discharge Exam Constitutional WD/WN, vitals as above Respiratory normal respiratory effort, lungs clear to auscultation (except a few scant wheezes bilat) Cardiovascular Rate/Rhythm: regular rate and regular rhythm Extremities: + edema (trace edema legs R>L) Gastrointestinal (Abdomen) normal bowel sounds, soft, nontender, no hepatosplenomegaly Discharge Data Allergies Allergy/AdvReac Type Severity Reaction Status Date / Time grass pollen Allergy Mild Unknown Verified 07/09/22 13:05 Sulfa (Sulfonamide AdvReac Unknown Unknown Verified 07/09/22 13:05 Antibiotics) digoxin AdvReac Weakness Verified 07/09/22 13:05 Consultations 07/06/22 16:46 ED Decision to Admit Stat 07/07/22 07:49 Consult General Surgery Routine 07/07/22 08:53 Consult Gastroenterology Routine Ordered Studies 07/06/22 15:54 gallbladder Stat Hospital Course (1) Acute cholecystitis: Presented with biliary colic, elevated LFTs Incidental COVID+ Pain now resolved. LFTs now trending downward Was placed on with Cipro and Flagyl Zosyn and convert to po abx to finish out a 10-day course for acute jessi on discharge Consult Surgery appreciated-high risk for surgery given COPD on O2, COVID-19, h/o TAVR, dCHF, thrombocytopenia, etc. Consult GI appreciated-plan for possible outpt Axios stent for GB drainage to avoid surgical management Tolerating low-fat diet on the day of discharge without difficulty and no abdominal pain (2) Retrosternal chest pain: 2/2 biliary colic troponin neg x 4, no ischemic changes on ECG -Chest xray shows progression of his known RLL mass, he is scheduled for his first radiation treatment next week -Low suspicion for PE at this time as he is stable on RA, without pleuritic chest pain, and is on Warfarin (3) Thrombocytopenia: chronic but worse today than baseline at 72 but fairly stable from yesterday, could be secondary to GB infection, COVID follow CBC as an outpatient (4) COVID-19: had mild cold symptoms at home 5 days prior to admission normally on 2LNC O2 qhs, weaned to room air at rest and with exertion on the day of discharge -Symptomatic treatment for now with incentive spirometry, flutter therapy, home breathing treatments -Did not require dexamethasone as he was not hypoxic -no remdesevir due to elevated LFTs (5) COPD (chronic obstructive pulmonary disease): with some wheezing improvement with Duonebs -Continue home breathing treatments -Continue HS 2L NC -Incentive spirometry and flutter therapy -Continue chronic azithromycin therapy MWF (6) Elevated LFTs: as above, 2/2 biliary colic, acute jessi, and possibly from COVID unable to complete HIDA due to chronic back pain and inability to lie flat follow LFTs as an outpatient although continue to trend downward (7) 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 Aguirre at [facility] -Scheduled for his first round of radiation on 07/15 (8) Anemia: chronic, with pancytopenia, borderline macrocytic follows with Heme/Onc follow CBC as outpt checked B12, folate-normal COuld be from anemia of chronic kidney disease (9) Chronic heart failure with preserved ejection fraction: -Patient examines euvolemic at this time -Continue Entresto and Bumetanide (10) Polymyalgia rheumatica: -Continue 2.5 mg PO prednisone on MWF (11) GERD with esophagitis: -Continue omeprazole (12) Essential hypertension: -Stable -Continue Entresto (13) Atrial flutter: -Stable -Continue amiodarone and Warfarin -follow INR, holding coumadin in case of procedure but now restarted check INR on Wednesday after discharge given he is on antibiotics (14) S/P TAVR (transcatheter aortic valve replacement): noted Plan DIspo-dc to home Total Time Total Time Spent Total Time Spent (In Minutes): 35 min Discharge Plan Discharge Items Patient Disposition: Home - Self-Care Reason For Visit: CHEST PAIN Discharge Diagnosis: Acute cholecystitis,biliary colic COVID-19 Condition on Discharge: Fair Activity: Resume your previous activity Non-emergency contact: Primary Care Provider, Technology Specialist and Oncologist Call non-emergency contact if: you have any medication questions and your symptoms worsen Follow-up/Referrals: Tracy Gomez MD [Primary Care Provider] - 07/17/22 11:30 am Nahomi Lloyd, [Physician] - (Dr. Lloyd's office should be contacting you regarding arranging the date and time of the gallbladder stent procedure. ) Diet: Low Fat Addtl Attending Provider Instructions: Please finish out 5 more days of the antibiotics for your gallbladder infection. The GI doctor will be arranging for you to have a gallbladder stent placed. You can keep your appointment with Dr. Aguirre to begin your radiation therapy next week as planned. Please have your PT/INR checked on Wednesday as sometimes antibiotics can affect your INR. Please follow up with your PCP as scheduled for you. Pending Studies at Discharge: No Stand-Alone Forms: [facility], Smoking Cessation Medications and DC Order Prescriptions: New ciprofloxacin HCl [Cipro] 500 mg tablet 500 mg PO BID Qty: 10 0RF metronidazole 500 mg tablet 500 mg PO TID Qty: 15 0RF Continued One-A-Day Men's 50 Plus 400-20-370 mcg tablet 1 tab PO DAILY Daliresp 500 mcg tablet 500 mcg PO DAILY bumetanide 1 mg tablet 0.5 mg PO [id number] Rx Instructions: take on mondays, wednesdays and fridays cyclobenzaprine 10 mg tablet 10 mg PO DAILY PRN (Reason: muscle spasm) warfarin 2 mg tablet See Rx Instructions PO UD Rx Instructions: 4mg q Mo, 2mg x 6 days per [facility] orally use as directed; cyanocobalamin (vitamin B-12) 1,000 mcg tablet 1,000 mcg PO QAM finasteride 5 mg tablet 5 mg PO QAM Qty: 30 11RF omeprazole 40 mg capsule,delayed release(DR/EC) 40 mg PO BID Qty: 180 1RF prednisone 2.5 mg tablet 2.5 mg PO .MWF Qty: 30 5RF Entresto 24-26 mg tablet 1 tab PO BID sennosides-docusate sodium [Senokot-S] 8.6-50 mg tablet See Rx Instructions PO DAILY PRN (Reason: constipation) Qty: 30 0RF Rx Instructions: 1-3 tabs PO daily PRN; terazosin 5 mg capsule 10 mg PO HS Rx Instructions: Takes at 7pm with Symbicort hydrocodone-acetaminophen 5-325 mg tablet 1 tab PO Q6H PRN (Reason: pain) Qty: 30 0RF meclizine 25 mg tablet 25 mg PO BID PRN (Reason: dizziness) Qty: 20 0RF loratadine [Claritin] 10 mg Tablet 10 mg PO QAM Spiriva with HandiHaler 18 mcg Capsule, W/Inhalation Device 1 cap INHALATION HS ipratropium-albuterol 0.5 mg-3 mg(2.5 mg base)/3 mL solution for nebulization 3 ml INHALATION UD PRN (Reason: Shortness Of Breath) albuterol sulfate 90 mcg/actuation Hfa Aerosol Inhaler 1 inh INHALATION QID PRN (Reason: Shortness Of Breath) amiodarone 200 mg tablet 200 mg PO QAM folic acid 1 mg tablet 1 mg PO QAM Probiotic 3 billion cell Capsule 3,000 mmu cells PO QAM ondansetron 4 mg tablet,disintegrating 4 mg PO Q6 PRN (Reason: Nausea) azithromycin 500 mg tablet 500 mg PO [id number] Rx Instructions: wednesday,wednesday,wednesday daily No Action fluticasone propion-salmeterol [Wixela Inhub] 500-50 mcg/dose blister with device 1 inh inhalation BID Qty: 60 2RF Discharge Orders: Discharge Order (Routine); Ordered 07/08/22 Ordered By: Linda Barnes Admission Data Admit Date/Time: 07/06/22 17:42 Attending Provider: Linda Barnes Admit Provider: Enrique Richardson Primary Care Provider: Tracy Gomez Other Providers: Nahomi Lloyd ; Santo Darling ; [facility] Other Interventions: Discharge Summary Assessment (RN) Last Done: 07/08/22 16:15 Coding Level of Care Code HOSP INP/OBS DISCH >30 MIN Diagnoses Acute cholecystitis K81.0 Retrosternal chest pain R07.2 Thrombocytopenia D69.6 COVID-19 U07.1 COPD (chronic obstructive pulmonary disease) J44.1 COPD type: COPD with acute exacerbation Elevated LFTs R79.89 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
== END 2022-07-08 16:49 | disposition home or self-care (01) ==
LOC: ED 14:00 → EDINP 17:42 → SUATTDRO 17:42 → INTOOBSV 17:42 → 1E 23:22 → 2N 07-07 17:28